=== PATIENT | male | born 1940 | race Caucasian/White ===

== ENCOUNTER → 2018-03-12 11:05 | Outpatient (CLI) | payer MEDICARE, MEDICAID, SELFPAY ==
[2018-03-12 11:08] LABS: Adenovirus F 40/41, stool Not Detected (NotDetected); Astrovirus Not Detected (NotDetected); Campylobacter Not Detected (NotDetected); Clostridium Difficile A/B, PCR Not Detected (NotDetected); Cryptosporidium Not Detected (NotDetected); Cyclospora Cayetanesis Not Detected (NotDetected); Entamoeba histolytica Not Detected (NotDetected); Enteroaggregative E coli Not Detected (NotDetected); Enteropathogenic E coli Not Detected (NotDetected); Enterotoxigenic E coli Not Detected (NotDetected); Giardia lamblia Not Detected (NotDetected); Norovirus Not Detected (NotDetected); Plesimonas Shigalloides, PCR Not Detected (NotDetected); Rotavirus A Not Detected (NotDetected); Salmonella, PCR Not Detected (NotDetected); Sapovirus Not Detected (NotDetected); Shiga-like toxin E coli Not Detected (NotDetected); Shigella Enterovasive E coli Not Detected (NotDetected); Vibrio Cholerae Not Detected (NotDetected); Vibrio, PCR Not Detected (NotDetected); Yersinia Entercolitica, PCR Not Detected (NotDetected)
== END ==
PROVIDERS: Visit Provider Emergency Medicine
DX: K62.5 Hemorrhage of anus and rectum (principal)
CPT/HCPCS: 87507

== ENCOUNTER 2019-01-22 08:18 | Inpatient (IN) ==
--- NOTE | 2019-01-22 08:39 | Emergency Department Note ---
ED Disposition Clinical Impression: SBO (small bowel obstruction), Ileus Disposition: Admitted as Observation Condition on Discharge: Good Instructions: DI for Acute Abdomen Referrals: Provider,Referral, MD [Primary Care Provider] - Time of Disposition: 13:24 - Critical Care Critical Care Time: No Attestation: On , the high probability of a clinically significant, sudden or life threatening deterioration of the following system(s) required my full and direct attention, intervention and personal management. The time I documented below is in addition to time spent performing reported procedures but includes the following listed in this critical care notation. Medical Decision Making - Medical Records Medical records reviewed: Yes: I reviewed the patient's medical records. - Haim Inquiry Pt receiving controlled substance: No Haim was queried for this patient: No Vital Signs: 01/22/19 08:31 01/22/19 08:50 01/22/19 10:50 Temperature 98.2 F Temperature Source Oral Pulse Rate [Left Radial] 77 70 75 Respiratory Rate 20 17 20 Blood Pressure [Right Arm] 121/82 136/74 123/72 Blood Pressure Mean [Right Arm] 95 94 89 Blood Pressure Source [Right Arm] Automatic Cuff Automatic Cuff Automatic Cuff Blood Pressure Position [Right Arm] Sitting Sitting Sitting 02 Sat by Pulse Oximetry 94 L 97 97 Oxygen Delivery Method Room Air Room Air Room Air 01/22/19 11:00 01/22/19 12:00 Temperature Temperature Source Pulse Rate [Left Radial] 78 73 Respiratory Rate 20 17 Blood Pressure [Right Arm] 127/79 120/53 L Blood Pressure Mean [Right Arm] 95 75 Blood Pressure Source [Right Arm] Automatic Cuff Automatic Cuff Blood Pressure Position [Right Arm] Sitting Sitting 02 Sat by Pulse Oximetry 95 96 Oxygen Delivery Method Room Air Room Air - Lab Data Lab results reviewed: Yes: I reviewed the patient's lab results. Lab Results 01/22/19 08:40: Urine Color Yellow, Urine Appearance Clear, Urine pH 6.0, Ur Specific [place] >= 1.030, Urine Protein 1+, Urine Glucose (UA) Negative, Urine Ketones Trace, Urine Blood Negative, Urine Nitrate Negative, Urine Bilirubin 2+ A, Urine Urobilinogen 1.0, Ur Leukocyte Esterase Trace, Urine RBC Occasional, U rine WBC 10-20, Ur Squamous Epith Cells 3-5, Urine Bacteria 1+, Urine Mucus 1+ 01/22/19 09:00: WBC 14.3 H, RBC 5.30, Hgb 15.9, Hct 49.5, MCV 93.5, MCH 29.9, MCHC 32.0, RDW 14.1, Plt Count 267, MPV 8.1, Neut % (Auto) 87.2 H, Lymph % (Auto ) 6.7 L, [place] % (Auto) 5.6, Eos % (Auto) 0.4, Baso % (Auto) 0.1, Neut # (Auto) 12.4 H, Lymph # (Auto) 1.0, [place] # (Auto) 0.8, Eos # (Auto) 0.1, Baso # (Auto) 0.0, Total Counted 100, Neutrophils % (Manual) 85 H, Band Neutrophils % 2.0, Lymphocytes % (Manual) 8 L, Monocytes % (Manual) 3, Eosinophils % (Manual) 2, Platelet Estimate Normal, RBC Morphology Normal 01/22/19 09:00: Sodium 136, Potassium 4.1, Chloride 97 L, Carbon Dioxide 31, Anion Gap 12.1, BUN 36 H, Creatinine 1.45 H, Estimated Creat Clear 36, Estimated GFR 47 L, Est GFR ( Amer) 57 L, Glucose 141 H, Calcium 8.9, Total Bilirubin 0.7, AST 21, ALT 21, Alkaline Phosphatase 75, Total Protein 7.1, Albumin 3.4, Globulin 3.7 H, Albumin/Globulin Ratio 0.9 L, Amylase 142 H, Lipase 92 01/22/19 09:00: PT 11.4, INR 1.10, APTT 27.8 01/22/19 11:37: Lactate 1.7 Result diagrams: 01/22/19 09:00 01/22/19 09:00 Orders (Tests/Meds): ED MEDICATIONS Generic Name Dose Route Start Last Admin Trade Name Freq PRN Reason Stop Dose Admin Hydromorphone HCl 1 mg 01/22/19 11:35 Dilaudid 2mg/Ml Syringe IV 02/21/19 11:34 Q4HP PRN Moderate to Severe Pain Ceftriaxone Sodium 2 gm/ 50 mls @ 100 mls/hr 01/22/19 10:15 01/22/19 12:16 Sodium Chloride IV 02/05/19 10:14 100 mls/hr Q24H MARTINEZ Administration Protocol Discontinued Medications Generic Name Dose Route Start Last Admin Trade Name Freq PRN Reason Stop Dose Admin Sodium Chloride 1,000 mls @ 999 mls/hr 01/22/19 08:45 01/22/19 09:01 Sod Chlor 0.9% 1000ml Bag IV 01/22/19 09:45 999 mls/hr .Q1H1M MARTINEZ Administration Ioversol 75 ml 01/22/19 10:46 01/22/19 10:46 Rad-Optiray 350 100ml Vial IV 01/22/19 10:47 75 ml ONCE ONE Administration Protocol Ketorolac Tromethamine 30 mg 01/22/19 08:40 01/22/19 09:00 Toradol 30mg/Ml Vial IV 01/22/19 08:41 30 mg ONCE ONE Administration Ondansetron HCl 4 mg 01/22/19 08:40 01/22/19 09:01 Zofran 4mg/2ml Vial IV 01/22/19 08:41 4 mg ONCE ONE Administration Sodium Chloride 10 ml 01/22/19 10:46 01/22/19 10:46 Rad-Saline Flush 10ml Syringe IV 01/22/19 10:47 10 ml ONCE ONE Administration ORDERS Category Date Time Status Blood Culture Stat Micro 01/22/19 11:30 Received Urine Culture Stat Micro 01/22/19 08:40 Received General Adult HPI - General Chief complaint: Abdominal Pain Stated complaint: Stomach pain and vomiting Time Seen by Provider: 01/22/19 08:35 Source of Information: Patient Limitations: No Limitations - History of Present Illness HPI narrative: abdominal cramping, vomiting without fever. - Related Data Home Medications Medication Instructions Recorded Confirmed Levothyroxine Sodium 75 mcg PO DAILY 04/29/18 01/22/19 [Levothyroxine 75mcg (0.075mg) Tab] Tamsulosin HCl [Flomax 0.4mg 0.4 mg PO HS 04/29/18 01/22/19 capsule] Nitrofurantoin Monohyd/M-Cryst 100 mg PO BID 01/22/19 01/22/19 [Macrobid 100 mg Capsule] Allergies Allergy/AdvReac Type Severity Reaction Status Date / Time No Known Allergies Allergy Verified 04/23/18 14:54 [facility] History - Hepatitis A Screen Attestation statement:: This patient has been screened for Hepatitis A risk factors. I have reviewed the patient's past medical history: Yes Medical History: Denies:: Diabetes Mellitus Type 1, Diabetes Mellitus Type 2, Internal Pacemaker, Lung Disease, Seizures Other Surgeries: No: Pacemaker - Social History Alcohol Intake: never ROS Obtained: Yes All systems reviewed & no additional complaints - Constitutional Constitutional: Reports chills - Cardiovascular Cardiovascular: Denies chest pain, Denies chest pain at rest, Denies dyspnea, Denies rapid heart rate - Respiratory Respiratory: Yes system reviewed and no additional complaints, except as docu, No chest congestion, No cough, No dyspnea on exertion - Gastrointestinal Gastrointestingal: Reports: abdominal pain, belching, bloating, constipation, cramping, feeling full early, nausea, vomiting, other (npo x 2 days). Denies: excessive passing of gas, incontinent of stools, vomiting blood, bright red blood in stools - Genitourinary Male Genitourinary: Reports flank pain, Reports hematuria - Musculoskeletal Musculoskeletal: Denies joint stiffness, Denies joint swelling - Integumentary/Breasts Skin/Breast: Denies rash, Denies skin pain, Denies sores, Reports wounds - Neurologic Neurologic: Denies headache(s), Denies weakness - Hematologic/Lymphatic Henatologic/Lymphatic: Denies easy bleeding Physical Exam - General General appearance: alert, in no apparent distress - Head Head exam: atraumatic, normocephalic, normal inspection - Eye Eye exam: Present: normal appearance, PERRL, EOMI - ENT ENT exam: Present: normal exam, normal oropharynx, mucous membranes moist, TM's normal bilaterally, normal external ear exam - Neck Neck exam: Present: normal inspection, full ROM, trachea midline. Absent: meningismus, lymphadenopathy - Respiratory Respiratory exam: Present: normal lung sounds bilaterally. Absent: respiratory distress - Cardiovascular Cardiovascular exam: Present: regular rate, normal rhythm. Absent: JVD - Abdominal Exam Abdominal exam: Present: distention, tenderness, rebound, tenderness at [place]'s Point. Absent: guarding, mass, hernia - Extremities Exam Extremities exam: Present: normal inspection, full ROM, normal capillary refill. Absent: calf tenderness - Back Exam Back exam: Present: normal inspection. Absent: tenderness - Neurological Exam Neurological exam: Present: alert - Psychiatric Psychiatric exam: Present: normal affect, normal mood - Skin Skin exam: Present: warm, dry, intact, normal color - Lymphatic Lymphatic Findings: no adenopathy
[2019-01-22 08:49] LABS: Appearance,Urine CLEAR (Clear); Blood, Urine Negative (Negative); Color,Urine YELLOW (Yellow); Glucose,Urine (UA) Negative (Negative); Ketones,Urine TRACE (Negative); Leukocyte Esterase,Urine TRACE (Negative); Protein,Urine 1+ (Negative); Specific Gravity, Urine >= 1.030 (1.005-1.030)
[2019-01-22 08:50] LABS: Microscopic, Urine URINE MICROSCOPIC (MICROSCOPIC)
[2019-01-22 08:57] LABS: Bilirubin,Urine 2+ (Negative)
[2019-01-22 09:11] LABS: Bacteria,Urine 1+ /lpf; Mucus,Urine 1+ /lpf; RBC,Urine Occasional #/hpf (0-3)
[2019-01-22 09:12] LABS: Basophils % 0.1 % (0.1-2.0); Eosinophils # 0.1 K/mm3 (0.0-0.4); Eosinophils % 0.4 % (0.1-12.0); Hematocrit 49.5 % (42.0-52.0); Hemoglobin 15.9 g/dL (14.1-18.0); Lymphocytes % 6.7 % (10-50); Mean Corpuscular Volume 93.5 fl (80-94); Mean Platelet Volume 8.1 fl (7.4-10.4); Monocytes # 0.8 K/mm3 (0.1-1.0); Monocytes % 5.6 % (1.7-9.3); Neutrophils # 12.4 K/mm3 (1.8-7.8); Neutrophils % 87.2 % (37.0-80.0); Platelet Count 267 K/mm3 (142-424); Red Cell Distribution Width 14.1 % (11.5-17.5); White Blood Count 14.3 K/mm3 (4.8-10.8)
[2019-01-22 09:25] LABS: Albumin Level 3.4 gm/dL (3.4-5.0); Albumin/Globulin Ratio 0.9 (1.1-1.8); Anion Gap 12.1 mEq/L (5-15); Bilirubin,Total 0.7 mg/dL (0.2-1.0); Calcium 8.9 mg/dL (8.5-10.1); Globulin 3.7 gm/dl (1.3-3.2); Total Protein,Serum 7.1 gm/dL (6.4-8.2)
[2019-01-22 10:02] LABS: Eosinophils % 2 % (0-3); Lymphocytes % 8 % (10-50); Monocytes % 3 % (2-9); Neutrophils % 85 % (42-76); Total Cells Counted 100
[2019-01-22 10:08] LABS: RBC Morphology Normal
[2019-01-22 11:49] LABS: Activated Partial Thrombo Time 27.8 seconds (23.6-34.0); INR 1.1 (0.9-1.1); Prothrombin Time 11.4 seconds (9.4-11.8)
--- NOTE | 2019-01-22 15:20 | History & Physical Report ---
HPI HPI: This is a 78-year-old gentleman with no significant past medical/surgical history who presents the emergency department with a 2-3-day history of nausea with intermittent emesis. He also describes vague/crampy abdominal pain. No fevers. He states that his last bowel movement was on Sunday (2 days ago) and was fairly normal. No diarrhea. He has continued to pass some flatus but is uncertain as to his most recent episode. Evaluation in emergency department included a CT scan that showed changes consistent with possible partial small bowel obstruction with patchy areas of dilatation/decompression, but no definitive transition point. [facility] History Medical History: Denies:: Diabetes Mellitus Type 1, Diabetes Mellitus Type 2, Internal Pacemaker, Lung Disease, Seizures *Have you ever received a pneumonia vaccine?: No *Have you received a flu vaccine this season?: Yes Other Surgeries: No: Pacemaker - *Social History Educational Level: Attended Grade School Smoking Status: Former smoker Alcohol Intake: never *Occupational Status:: retired *Travel in the last 8 weeks: None - Psychiatric History Expresses thoughts of harming self/others: None Suicide Plan Description: No Plan Family Hx:: Cancer Review of Systems - Constitutional Denies body ache(s) - Eyes Denies change in vision - ENT Denies difficulty swallowing - *Cardiovascular Denies chest pain - *Respiratory Denies cough - *Gastrointestinal Reports abdominal pain, Reports nausea, Reports vomiting - *Genitourinary Denies painful urination - *Musculoskeletal Denies deformity - Integumentary/Breasts Denies changing lesions - *Neurologic Denies headache(s), Denies weakness - Psychiatric Denies anxiety - Endocrine Denies cold intolerance - Hematologic/Lymphatic Denies easy bleeding - Allergic/Immunologic Denies throat swelling Meds Home Medications Medication Instructions Recorded Confirmed Type Levothyroxine Sodium 75 mcg PO DAILY 04/29/18 01/22/19 History [Levothyroxine 75mcg (0.075mg) Tab] Tamsulosin HCl [Flomax 0.4mg 0.4 mg PO HS 04/29/18 01/22/19 History capsule] Nitrofurantoin Monohyd/M-Cryst 100 mg PO BID 01/22/19 01/22/19 History [Macrobid 100 mg Capsule] Allergies Allergy/AdvReac Type Severity Reaction Status Date / Time No Known Allergies Allergy Verified 04/23/18 14:54 Exam Vital signs and Labs for Last 24 Hours: Temp Pulse Resp BP Pulse Ox 98.2 F 77 18 111/67 95 01/22/19 14:18 01/22/19 14:18 01/22/19 14:18 01/22/19 14:18 01/22/19 14:18 Laboratory Results - last 24 hr 01/22/19 08:40: Urine Color Yellow, Urine Appearance Clear, Urine pH 6.0, Ur Specific [place] >= 1.030, Urine Protein 1+, Urine Glucose (UA) Negative, Urine Ketones Trace, Urine Blood Negative, Urine Nitrate Negative, Urine Bilirubin 2+ A, Urine Urobilinogen 1.0, Ur Leukocyte Esterase Trace, Urine RBC Occasional, Urine WBC 10-20, Ur Squamous Epith Cells 3-5, Urine Bacteria 1+, Urine Mucus 1+ 01/22/19 09:00: WBC 14.3 H, RBC 5.30, Hgb 15.9, Hct 49.5, MCV 93.5, MCH 29.9, MCHC 32.0, RDW 14.1, Plt Count 267, MPV 8.1, Neut % (Auto) 87.2 H, Lymph % (Auto) 6.7 L, [place] % (Auto) 5.6, Eos % (Auto) 0.4, Baso % (Auto) 0.1, Neut # (Auto) 12.4 H, Lymph # (Auto) 1.0, [place] # (Auto) 0.8, Eos # (Auto) 0.1, Baso # (Auto) 0.0, Total Counted 100, Neutrophils % (Manual) 85 H, Band Neutrophils % 2.0, Lymphocytes % (Manual) 8 L, Monocytes % (Manual) 3, Eosinophils % (Manual) 2, Platelet Estimate Normal, RBC Morphology Normal 01/22/19 09:00: Sodium 136, Potassium 4.1, Chloride 97 L, Carbon Dioxide 31, Anion Gap 12.1, BUN 36 H, Creatinine 1.45 H, Estimated Creat Clear 36, Estimated GFR 47 L, Est GFR ( Amer) 57 L, Glucose 141 H, Calcium 8.9, Total Bilirubin 0.7, AST 21, ALT 21, Alkaline Phosphatase 75, Total Protein 7.1, Albumin 3.4, Globulin 3.7 H, Albumin/Globulin Ratio 0.9 L, Amylase 142 H, Lipase 92 01/22/19 09:00: PT 11.4, INR 1.10, APTT 27.8 01/22/19 11:37: Lactate 1.7 I & O for Last 24 hours: Intake & Output 01/20/19 01/21/19 01/22/19 01/23/19 11:59 11:59 11:59 11:59 Intake Total 1100 / 1100 Balance 1100 / 1100 Weight 130 lb 128 lb 8 oz - Constitutional no acute distress - *Routine HEENT Exam Head: Present: normocephalic, atraumatic Eye: Present: EOMI - *Routine Neck Exam Present: full ROM - Routine Chest/Breast/Axilla Exam Chest wall: Absent: tenderness - *Routine Respiratory Exam Absent: respiratory distress - *Routine Abdominal Exam Present: tenderness. Absent: rebound, guarding, rigid Comments: Mildly distended and mild to moderate tenderness in mid and lower abdomen - *Routine Extremities Exam Present: full ROM. Absent: cyanosis, clubbing, edema - Routine Back/Spine/Pelvis Exam Back/Spine: Present: full ROM - *Routine Skin Exam Present: intact - *Routine Neurological Exam Present: alert - Routine Psychiatric Exam Present: normal affect Results - Results Lab Results Last 24 Hours:: Laboratory Results - last 24 hr 01/22/19 08:40: Urine Color Yellow, Urine Appearance Clear, Urine pH 6.0, Ur Specific [place] >= 1.030, Urine Protein 1+, Urine Glucose (UA) Negative, Urine Ketones Trace, Urine Blood Negative, Urine Nitrate Negative, Urine Bilirubin 2+ A, Urine Urobilinogen 1.0, Ur Leukocyte Esterase Trace, Urine RBC Occasional, Urine WBC 10-20, Ur Squamous Epith Cells 3-5, Urine Bacteria 1+, Urine Mucus 1+ 01/22/19 09:00: WBC 14.3 H, RBC 5.30, Hgb 15.9, Hct 49.5, MCV 93.5, MCH 29.9, MCHC 32.0, RDW 14.1, Plt Count 267, MPV 8.1, Neut % (Auto) 87.2 H, Lymph % (Auto) 6.7 L, [place] % (Auto) 5.6, Eos % (Auto) 0.4, Baso % (Auto) 0.1, Neut # (Auto) 12.4 H, Lymph # (Auto) 1.0, [place] # (Auto) 0.8, Eos # (Auto) 0.1, Baso # (Auto) 0.0, Total Counted 100, Neutrophils % (Manual) 85 H, Band Neutrophils % 2.0, Lymphocytes % (Manual) 8 L, Monocytes % (Manual) 3, Eosinophils % (Manual) 2, Platelet Estimate Normal, RBC Morphology Normal 01/22/19 09:00: Sodium 136, Potassium 4.1, Chloride 97 L, Carbon Dioxide 31, Anion Gap 12.1, BUN 36 H, Creatinine 1.45 H, Estimated Creat Clear 36, Estimated GFR 47 L, Est GFR ( Amer) 57 L, Glucose 141 H, Calcium 8.9, Total Bilirubin 0.7, AST 21, ALT 21, Alkaline Phosphatase 75, Total Protein 7.1, Albumin 3.4, Globulin 3.7 H, Albumin/Globulin Ratio 0.9 L, Amylase 142 H, Lipase 92 01/22/19 09:00: PT 11.4, INR 1.10, APTT 27.8 01/22/19 11:37: Lactate 1.7 CT scan - abdomen: report reviewed, image reviewed CT scan - pelvis: report reviewed, image reviewed Assessment and Plan (1) SBO (small bowel obstruction) Current visit: Yes Status: Acute Category: Medical Code(s): K56.609 - Unspecified intestinal obstruction, unspecified as to partial versus complete obstruction The patient seemingly has a partial small bowel obstruction of undetermined etiology. He does have some "tightness" and around the terminal ileum with no history consistent with inflammatory bowel disease and no other radiographic evidence consistent with inflammatory bowel disease. In addition, the patient has some areas of the jejunum that are not dilated with some other patchy non- congruent areas of dilatation to include the stomach. He does not have peritonitis or other evidence to suggest need for immediate surgical intervention. Serial abdominal exams Continue nasogastric decompression Repeat labs in a.m. Small bowel series NPO/IV fluids (2) ANABELLA (acute kidney injury) Current visit: Yes Status: Acute Category: Medical Code(s): N17.9 - Acute kidney failure, unspecified Most likely secondary to emesis associated dehydration. LR bolus IVFs at 150
--- NOTE | 2019-01-23 06:50 | Progress Note ---
Subjective Patient reports: pain is less, no flatus Exam Vital signs and Labs for Last 24 Hours: Temp Pulse Resp BP Pulse Ox 98.5 F 74 16 114/56 L 96 01/23/19 04:00 01/23/19 04:00 01/23/19 04:00 01/23/19 04:00 01/23/19 04:00 Laboratory Results - last 24 hr 01/22/19 08:40: Urine Color Yellow, Urine Appearance Clear, Urine pH 6.0, Ur Specific [place] >= 1.030, Urine Protein 1+, Urine Glucose (UA) Negative, Urine Ketones Trace, Urine Blood Negative, Urine Nitrate Negative, Urine Bilirubin 2+ A, Urine Urobilinogen 1.0, Ur Leukocyte Esterase Trace, Urine RBC Occasional, Urine WBC 10-20, Ur Squamous Epith Cells 3-5, Urine Bacteria 1+, Urine Mucus 1+ 01/22/19 09:00: WBC 14.3 H, RBC 5.30, Hgb 15.9, Hct 49.5, MCV 93.5, MCH 29.9, MCHC 32.0, RDW 14.1, Plt Count 267, MPV 8.1, Neut % (Auto) 87.2 H, Lymph % (Auto) 6.7 L, [place] % (Auto) 5.6, Eos % (Auto) 0.4, Baso % (Auto) 0.1, Neut # (Auto) 12.4 H, Lymph # (Auto) 1.0, [place] # (Auto) 0.8, Eos # (Auto) 0.1, Baso # (Auto) 0.0, Total Counted 100, Neutrophils % (Manual) 85 H, Band Neutrophils % 2.0, Lymphocytes % (Manual) 8 L, Monocytes % (Manual) 3, Eosinophils % (Manual) 2, Platelet Estimate Normal, RBC Morphology Normal 01/22/19 09:00: Sodium 136, Potassium 4.1, Chloride 97 L, Carbon Dioxide 31, Anion Gap 12.1, BUN 36 H, Creatinine 1.45 H, Estimated Creat Clear 36, Estimated GFR 47 L, Est GFR ( Amer) 57 L, Glucose 141 H, Calcium 8.9, Total Bilirubin 0.7, AST 21, ALT 21, Alkaline Phosphatase 75, Total Protein 7.1, Albumin 3.4, Globulin 3.7 H, Albumin/Globulin Ratio 0.9 L, Amylase 142 H, Lipase 92 01/22/19 09:00: PT 11.4, INR 1.10, APTT 27.8 01/22/19 11:37: Lactate 1.7 I & O for Last 24 hours: Intake & Output 01/20/19 01/21/19 01/22/19 01/23/19 11:59 11:59 11:59 11:59 Intake Total 3781 / 3781 Output Total 1050 / 1050 Balance 2731 / 2731 Weight 130 lb 126 lb 9 oz - Constitutional no acute distress - *Routine Respiratory Exam Absent: respiratory distress - *Routine Cardiovascular Exam Present: RRR - *Routine Abdominal Exam Present: soft, tenderness, distended Comments: less TTP Progress Note: A&P (1) SBO (small bowel obstruction) Status: Acute Assessment and plan: SBFT today Current Visit: Yes (2) ANABELLA (acute kidney injury) Status: Acute Current Visit: Yes
[2019-01-23 06:59] LABS: Anion Gap 9.1 mEq/L (5-15)
[2019-01-23 07:00] LABS: Eosinophils % 0.2 % (0.1-12.0); Monocytes # 0.7 K/mm3 (0.1-1.0)
--- NOTE | 2019-01-23 07:29 | Pharmacy Consult Notes ---
[facility] Pharmacy VTE Monitoring - Patient Demographics Admission date: 01/23/19 Report Date: 01/23/19 Time: 07:29 Allergies/Adverse Reactions: Patient Allergies No Known Allergies Allergy (Verified 04/23/18 14:54) Height: 1.7 m Weight: 57.408 kg Patient Problems: Current Active Problems (Updated 01/22/19 @ 15:31 by Noah Diaz MD) SBO (small bowel obstruction) (Acute) Ileus (Acute) ANABELLA (acute kidney injury) (Acute) - VTE Risk Labs: VTE Related Lab Results Hgb 15.9 g/dL (14.1-18.0) 01/22/19 09:00 Hct 49.5 % (42.0-52.0) 01/22/19 09:00 Plt Count 267 K/mm3 (142-424) 01/22/19 09:00 PT 11.4 seconds (9.4-11.8) 01/22/19 09:00 INR 1.10 (0.9-1.1) 01/22/19 09:00 APTT 27.8 seconds (23.6-34.0) 01/22/19 09:00 BUN 31 mg/dL (7-18) H 01/23/19 06:17 Creatinine 1.10 mg/dL (0.70-1.30) D 01/23/19 06:17 Estimated Creat Clear 46 mL/min (50-200) 01/23/19 06:17 Was VTE Risk Assessment Performed: Yes VTE Score: 1 VTE Risk Level: Low Risk Clinical Trial Participant: No - Prophylaxis VTE Prophylaxis Ordered?: Yes Types of VTE Prophylaxis: TEDS Knee High
[2019-01-23 07:50] LABS: Basophils % 0.1 % (0.1-2.0); Hematocrit 41.8 % (42.0-52.0); Mean Corpuscular HGB Conc 31.5 g/dL (31.8-35.4); Mean Corpuscular Volume 92.6 fl (80-94); Mean Platelet Volume 8.2 fl (7.4-10.4); Monocytes % 6.7 % (1.7-9.3); Neutrophils # 9.3 K/mm3 (1.8-7.8); Neutrophils % 84.1 % (37.0-80.0); Platelet Count 214 K/mm3 (142-424); Red Blood Count 4.52 M/mm3 (4.60-6.20); White Blood Count 11.1 K/mm3 (4.8-10.8)
[2019-01-23 08:03] LABS: Hemoglobin 13.2 g/dL (14.1-18.0)
--- NOTE | 2019-01-24 06:31 | Progress Note ---
Subjective Patient reports: no new complaints (He states that he passed a small amount of flatus a few hours ago.) Exam Vital signs and Labs for Last 24 Hours: Temp Pulse Resp BP Pulse Ox 99.8 F H 70 18 118/62 93 L 01/24/19 03:57 01/24/19 03:57 01/24/19 03:57 01/24/19 03:57 01/24/19 03:57 Laboratory Results - last 24 hr 01/23/19 06:17: WBC 11.1 H, RBC 4.52 L, Hgb 13.2 L D, Hct 41.8 L, MCV 92.6, MCH 29.2, MCHC 31.5 L, RDW 14.0, Plt Count 214, MPV 8.2, Neut % (Auto) 84.1 H, Lymph % (Auto) 9.0 L, [place] % (Auto) 6.7, Eos % (Auto) 0.2, Baso % (Auto) 0.1, Neut # (Auto) 9.3 H, Lymph # (Auto) 1.0, [place] # (Auto) 0.7, Eos # (Auto) 0.0, Baso # (Auto) 0.0 01/23/19 06:17: Sodium 136, Potassium 4.1, Chloride 100, Carbon Dioxide 31, Anion Gap 9.1, BUN 31 H, Creatinine 1.10 D, Estimated Creat Clear 46, Estimated GFR 65, Est GFR ( Amer) 79 D, Glucose 95 D, Calcium 8.0 L D I & O for Last 24 hours: Intake & Output 01/21/19 01/22/19 01/23/19 01/24/19 11:59 11:59 11:59 11:59 Intake Total 3781 / 3781 2203 / 2203 Output Total 1050 / 1050 2250 / 2250 Balance 2731 / 2731 -47 / -47 Weight 130 lb 126 lb 9 oz 129 lb Microbiology Reports for the Last 24 Hours: Microbiology 01/22/19 08:40 Urine,Random Urine Culture - Final Multiple organisms, suggests contamination. - Constitutional no acute distress - *Routine Respiratory Exam Absent: respiratory distress - *Routine Cardiovascular Exam Present: RRR - *Routine Abdominal Exam Comments: Unchanged Progress Note: A&P (1) SBO (small bowel obstruction) Status: Acute Assessment and plan: Follow-up morning films and labs Current Visit: Yes (2) ANABELLA (acute kidney injury) Status: Acute Current Visit: Yes
[2019-01-24 07:13] LABS: Anion Gap 11.7 mEq/L (5-15); Calcium 8.3 mg/dL (8.5-10.1)
[2019-01-24 07:22] LABS: Basophils % 0.2 % (0.1-2.0); Eosinophils % 0.3 % (0.1-12.0); Hematocrit 41.6 % (42.0-52.0); Hemoglobin 13.4 g/dL (14.1-18.0); Lymphocytes # 1.2 K/mm3 (0.7-4.5); Lymphocytes % 12.5 % (10-50); Mean Corpuscular HGB Conc 32.2 g/dL (31.8-35.4); Mean Corpuscular Volume 91.1 fl (80-94); Mean Platelet Volume 8.9 fl (7.4-10.4); Monocytes # 0.7 K/mm3 (0.1-1.0); Monocytes % 7.4 % (1.7-9.3); Neutrophils # 7.9 K/mm3 (1.8-7.8); Neutrophils % 79.5 % (37.0-80.0); Platelet Count 224 K/mm3 (142-424); Red Blood Count 4.56 M/mm3 (4.60-6.20); Red Cell Distribution Width 13.9 % (11.5-17.5); White Blood Count 9.9 K/mm3 (4.8-10.8)
--- NOTE | 2019-01-24 17:19 | Progress Note ---
[facility] Anesthesia Checklist - Structural Data Admitted From: Inpatient Planned Operative Procedure/s: exp lap Consent for Planned Operative Procedure(s) Verified: Yes - Airway Assessment C-Spine Mobility Assessed: Yes TMJ Mobility Assessed: Yes Dentition: Poor Dentition - Neurological Assessment Level of Consciousness: Awake, Alert, Appropriate - Anesthesia Plan Anesthesia Risk discussed: Yes Anesthesia Plan: Verified ASA Class: II Anesthesia Type: General [facility] History I have reviewed the patient's past medical history: Yes Medical History: Denies:: Diabetes Mellitus Type 1, Diabetes Mellitus Type 2, Internal Pacemaker, Lung Disease, Seizures *Have you ever received a pneumonia vaccine?: No *Have you received a flu vaccine this season?: Yes Other Surgeries: No: Pacemaker - *Social History Educational Level: Attended Grade School Smoking Status: Former smoker Alcohol Intake: never Substance Use Type: denies use *Occupational Status:: retired *Travel in the last 8 weeks: None - Psychiatric History Expresses thoughts of harming self/others: None Suicide Plan Description: No Plan Family Hx:: Cancer
--- NOTE | 2019-01-24 17:20 | Progress Note ---
[facility] Anesthesia Record Part II Discharge Time: 17:45 Destination: floor PACU nurse assessment reviewed?: Yes Patient Condition:: Good Anesthesia Complications:: None Swallowing reflex intact?: Yes Cyanosis?: No
--- NOTE | 2019-01-24 17:20 | Operative Note ---
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 General anesthesia was induced and his abdomen was prepped and draped in a sterile fashion. A midline laparotomy incision was made just above and below the umbilicus. The abdomen was carefully entered and transudate of fluid was immediately encountered. The fluid was evacuated. The small bowel was somewhat distended. The proximal small bowel appeared healthy and fairly normal with the exception of slight distention. The distal small bowel was carefully elevated as small areas of "bruising" were noted focally (proximal ileum). Distally an area of "torque" around the mesentery was obvious and careful elevation revealed a distal ileal diverticulum as a lead point. The diverticulum appeared necrotic but no sign of obvious perforation was noted. The distal ileum was carefully elevated and a site proximally and distally to the areas of necrosis to include the diverticulum was transected with a CHUY stapler. The intervening mesentery was taken down with Enseal. A stapled anastomosis was then accomplished utilizing the CHUY staplers and a TX 60 to close the common defect. Imbrication with 3-0 Nurolon with particular attention to securing the "crotch" was then completed. The small bowel was returned to the abdominal cavity after closure of the mesenteric defect with running 2-0 Vicryl. The abdominal cavity was thoroughly irrigated. Fascia was reapproximated with #2 Novafil and skin was then closed with interrupted 4-0 nylon with gaps for packing. Dressings were applied and the patient was transferred to recovery in stable condition after extubation. Condition: stable Disposition: PACU Specimens:: Distal small bowel Complications:: No immediate
--- NOTE | 2019-01-24 17:20 | Progress Note ---
[facility] Anesthesia Record Part I Intake, IV Amount: 1,900 Estimated blood loss (mL): 250 Urine output (mL): 350 Blood Pressure: 149/71 SaO2: 99 Pulse Rate: 78 Respiratory Rate: 12 Temperature: 97.7 F Patient is:: Awake, Stable Stable to PACU at:: 17:15
[2019-01-25 07:17] LABS: Basophils % 0.1 % (0.1-2.0); Eosinophils % 0.3 % (0.1-12.0); Hemoglobin 12.5 g/dL (14.1-18.0); Lymphocytes # 0.5 K/mm3 (0.7-4.5); Lymphocytes % 4.6 % (10-50); Mean Corpuscular HGB Conc 31.9 g/dL (31.8-35.4); Mean Platelet Volume 7.7 fl (7.4-10.4); Monocytes # 0.4 K/mm3 (0.1-1.0); Monocytes % 4.4 % (1.7-9.3); Neutrophils # 8.9 K/mm3 (1.8-7.8); Neutrophils % 90.6 % (37.0-80.0); Platelet Count 180 K/mm3 (142-424); Red Cell Distribution Width 13.7 % (11.5-17.5); White Blood Count 9.9 K/mm3 (4.8-10.8)
[2019-01-25 07:25] LABS: Anion Gap 9.9 mEq/L (5-15)
[2019-01-25 07:34] LABS: Calcium 7.2 mg/dL (8.5-10.1)
[2019-01-25 07:58] LABS: Lymphocytes % 5 % (10-50); Monocytes % 2 % (2-9); Neutrophils % 81 % (42-76); RBC Morphology Normal; Total Cells Counted 100
--- NOTE | 2019-01-25 10:28 | Progress Note ---
Subjective Patient reports: no new complaints, no flatus Exam Vital signs and Labs for Last 24 Hours: Temp Pulse Resp BP Pulse Ox 99.2 F 64 18 113/59 L 89 L 01/25/19 08:00 01/25/19 08:00 01/25/19 08:00 01/25/19 08:00 01/25/19 08:00 Laboratory Results - last 24 hr 01/24/19 14:30: Urine Color Yellow, Urine Appearance Clear, Urine pH 8.0, Ur Specific [place] 1.010, Urine Protein Trace, Urine Glucose (UA) Negative, Urine Ketones 3+, Urine Blood Negative, Urine Nitrate Negative, Urine Bilirubin 1+ A, Urine Urobilinogen 0.2, Ur Leukocyte Esterase Negative 01/25/19 07:06: WBC 9.9, RBC 4.20 L, Hgb 12.5 L, Hct 39.0 L, MCV 93.0, MCH 29.7, MCHC 31.9, RDW 13.7, Plt Count 180, MPV 7.7, Neut % (Auto) 90.6 H, Lymph % (Auto) 4.6 L, [place] % (Auto) 4.4, Eos % (Auto) 0.3, Baso % (Auto) 0.1, Neut # (Auto) 8.9 H, Lymph # (Auto) 0.5 L, [place] # (Auto) 0.4, Eos # (Auto) 0.0, Baso # (Auto) 0.0, Total Counted 100, Neutrophils % (Manual) 81 H, Band Neutrophils % 11.0 H, Lymphocytes % (Manual) 5 L, Atypical Lymphs % 1.0, Monocytes % (Manual) 2, Platelet Estimate Normal, RBC Morphology Normal 01/25/19 07:06: Sodium 138, Potassium 3.9, Chloride 102, Carbon Dioxide 30, Anion Gap 9.9, BUN 22 H, Creatinine 0.91, Estimated Creat Clear 54, Estimated GFR 81, Est GFR ( Amer) 98, Glucose 127 H, Calcium 7.2 L D I & O for Last 24 hours: Intake & Output 01/22/19 01/23/19 01/24/19 01/25/19 11:59 11:59 11:59 11:59 Intake Total 3781 / 3781 2203 / 2203 4043 / 4043 Output Total 1050 / 1050 2375 / 2375 1640 / 1640 Balance 2731 / 2731 -172 / -172 2403 / 2403 Weight 130 lb 126 lb 9 oz 129 lb 135 lb Microbiology Reports for the Last 24 Hours: Microbiology 01/22/19 11:37 Blood Blood Culture - Preliminary NO GROWTH AFTER 48 HOURS 01/22/19 11:30 Blood Blood Culture - Preliminary NO GROWTH AFTER 48 HOURS - Constitutional no acute distress - *Routine Respiratory Exam Absent: respiratory distress - *Routine Cardiovascular Exam Present: RRR - *Routine Abdominal Exam Comments: dressing intact. no erythema. Progress Note: A&P (1) SBO (small bowel obstruction) Status: Acute Assessment and plan: Overall, doing fairly well postoperative day 1 status post exploratory laparotomy with partial small bowel resection. Remove Luna catheter Increase ambulation Continue nasogastric decompression for now Current Visit: Yes (2) ANABELLA (acute kidney injury) Status: Acute Current Visit: Yes
[2019-01-26 07:09] LABS: Basophils % 0.1 % (0.1-2.0); Eosinophils % 0.2 % (0.1-12.0); Hematocrit 36.9 % (42.0-52.0); Hemoglobin 11.8 g/dL (14.1-18.0); Lymphocytes # 0.9 K/mm3 (0.7-4.5); Lymphocytes % 8.4 % (10-50); Mean Corpuscular HGB Conc 31.9 g/dL (31.8-35.4); Mean Platelet Volume 7.9 fl (7.4-10.4); Monocytes # 0.7 K/mm3 (0.1-1.0); Neutrophils # 9.5 K/mm3 (1.8-7.8); Neutrophils % 85.4 % (37.0-80.0); Platelet Count 182 K/mm3 (142-424); Red Blood Count 4.01 M/mm3 (4.60-6.20); Red Cell Distribution Width 13.6 % (11.5-17.5); White Blood Count 11.2 K/mm3 (4.8-10.8)
[2019-01-26 07:26] LABS: Anion Gap 11.8 mEq/L (5-15); Calcium 7.5 mg/dL (8.5-10.1)
[2019-01-26 07:48] LABS: Lymphocytes % 9 % (10-50); Monocytes % 4 % (2-9); Neutrophils % 86 % (42-76); Total Cells Counted 100
[2019-01-26 07:49] LABS: RBC Morphology Normal
--- NOTE | 2019-01-26 11:32 | Progress Note ---
Subjective Patient reports: no new complaints (? flatus earlier today) Exam Vital signs and Labs for Last 24 Hours: Temp Pulse Resp BP Pulse Ox 98.2 F 56 L 18 122/62 91 L 01/26/19 08:00 01/26/19 08:00 01/26/19 08:00 01/26/19 08:00 01/26/19 08:26 Laboratory Results - last 24 hr 01/26/19 06:20: WBC 11.2 H, RBC 4.01 L, Hgb 11.8 L, Hct 36.9 L, MCV 92.0, MCH 29.4, MCHC 31.9, RDW 13.6, Plt Count 182, MPV 7.9, Neut % (Auto) 85.4 H, Lymph % (Auto) 8.4 L, [place] % (Auto) 6.0, Eos % (Auto) 0.2, Baso % (Auto) 0.1, Neut # (Au to) 9.5 H, Lymph # (Auto) 0.9, [place] # (Auto) 0.7, Eos # (Auto) 0.0, Baso # (Auto) 0.0, Total Counted 100, Neutrophils % (Manual) 86 H, Lymphocytes % ( Manual) 9 L, Atypical Lymphs % 1.0, Monocytes % (Manual) 4, Platelet Estimate Normal, RBC Morphology Normal 01/26/19 06:20: Sodium 141, Potassium 3.8, Chloride 104, Carbon Dioxide 29, Anion Gap 11.8, BUN 24 H, Creatinine 0.89, Estimated Creat Clear 55, Estimated GFR 83, Est GFR ( Amer) 101, Glucose 90 D, Calcium 7.5 L I & O for Last 24 hours: Intake & Output 01/23/19 01/24/19 01/25/19 01/26/19 11:59 11:59 11:59 11:59 Intake Total 3781 / 3781 2203 / 2203 4043 / 4043 3036 / 3036 Output Total 1050 / 1050 2375 / 2375 1640 / 1640 1025 / 1025 Balance 2731 / 2731 -172 / -172 2403 / 2403 2010 Weight 126 lb 9 oz 129 lb 135 lb 137 lb 8 oz - Constitutional no acute distress - *Routine Respiratory Exam Absent: respiratory distress - *Routine Cardiovascular Exam Present: RRR - *Routine Abdominal Exam Present: soft Comments: dressings intact. no cellulitis. Progress Note: A&P (1) SBO (small bowel obstruction) Status: Acute Assessment and plan: stable s/p ex-lap with SB resection await return of bowel function increase ambulation Current Visit: Yes (2) ANABELLA (acute kidney injury) Status: Acute Current Visit: Yes
[2019-01-27 06:31] LABS: Basophils % 0.1 % (0.1-2.0); Eosinophils # 0.1 K/mm3 (0.0-0.4); Eosinophils % 1.2 % (0.1-12.0); Hematocrit 37.4 % (42.0-52.0); Hemoglobin 11.9 g/dL (14.1-18.0); Lymphocytes # 0.9 K/mm3 (0.7-4.5); Mean Corpuscular HGB Conc 31.9 g/dL (31.8-35.4); Mean Platelet Volume 8.2 fl (7.4-10.4); Monocytes # 0.5 K/mm3 (0.1-1.0); Neutrophils # 6.9 K/mm3 (1.8-7.8); Neutrophils % 81.6 % (37.0-80.0); Platelet Count 207 K/mm3 (142-424); Red Blood Count 4.02 M/mm3 (4.60-6.20); Red Cell Distribution Width 13.7 % (11.5-17.5); White Blood Count 8.4 K/mm3 (4.8-10.8)
[2019-01-27 06:47] LABS: Anion Gap 7.6 mEq/L (5-15); Calcium 7.1 mg/dL (8.5-10.1)
--- NOTE | 2019-01-27 08:25 | Progress Note ---
Subjective Patient reports: no new complaints, flatus (The patient states that he had a "tiny amount of gas this morning") Exam Vital signs and Labs for Last 24 Hours: Temp Pulse Resp BP Pulse Ox 97.9 F 52 L 18 121/69 90 L 01/27/19 07:54 01/27/19 07:54 01/27/19 07:54 01/27/19 07:54 01/27/19 07:54 Laboratory Results - last 24 hr 01/27/19 06:08: WBC 8.4, RBC 4.02 L, Hgb 11.9 L, Hct 37.4 L, MCV 93.0, MCH 29.6, MCHC 31.9, RDW 13.7, Plt Count 207, MPV 8.2, Neut % (Auto) 81.6 H, Lymph % (Auto) 11.0, [place] % (Auto) 6.0, Eos % (Auto) 1.2, Baso % (Auto) 0.1, Neut # (Auto) 6.9, Lymph # (Auto) 0.9, [place] # (Auto) 0.5, Eos # (Auto) 0.1, Baso # (Auto) 0.0 01/27/19 06:08: Sodium 137, Potassium 3.6, Chloride 102, Carbon Dioxide 31, Anion Gap 7.6, BUN 16 D, Creatinine 0.94, Estimated Creat Clear 56, Estimated GFR 78, Est GFR ( Amer) 94, Glucose 128 H D, Calcium 7.1 L I & O for Last 24 hours: Intake & Output 01/24/19 01/25/19 01/26/19 01/27/19 11:59 11:59 11:59 11:59 Intake Total 2203 / 2203 4043 / 4043 3036 / 3036 4540 / 4540 Output Total 2375 / 2375 1640 / 1640 1275 / 1275 1575 / 1575 Balance -172 / -172 2403 / 2403 1761 / 1761 2965 / 2965 Weight 129 lb 135 lb 137 lb 8 oz 139 lb 2 oz - Constitutional no acute distress - *Routine Respiratory Exam Absent: respiratory distress - *Routine Abdominal Exam Present: soft Comments: Dressing in place. No cellulitis. Mild distention. Progress Note: A&P (1) SBO (small bowel obstruction) Status: Acute Assessment and plan: Overall, doing well status post exploratory laparotomy with partial small bowel resection. Nasogastric tube to straight drain with every 4 hours residual Continue n.p.o. status for now Sugarless gum Increase ambulation Current Visit: Yes (2) ANABELLA (acute kidney injury) Status: Acute Current Visit: Yes
[2019-01-28 06:41] LABS: Basophils % 0.2 % (0.1-2.0); Eosinophils # 0.2 K/mm3 (0.0-0.4); Eosinophils % 2.3 % (0.1-12.0); Hematocrit 42.2 % (42.0-52.0); Hemoglobin 13.4 g/dL (14.1-18.0); Lymphocytes # 0.9 K/mm3 (0.7-4.5); Lymphocytes % 10.5 % (10-50); Mean Corpuscular HGB Conc 31.9 g/dL (31.8-35.4); Mean Corpuscular Volume 92.7 fl (80-94); Mean Platelet Volume 7.6 fl (7.4-10.4); Monocytes # 0.5 K/mm3 (0.1-1.0); Monocytes % 5.8 % (1.7-9.3); Neutrophils # 7.2 K/mm3 (1.8-7.8); Neutrophils % 81.2 % (37.0-80.0); Platelet Count 236 K/mm3 (142-424); Red Blood Count 4.55 M/mm3 (4.60-6.20); Red Cell Distribution Width 13.6 % (11.5-17.5); White Blood Count 8.8 K/mm3 (4.8-10.8)
[2019-01-28 06:53] LABS: Anion Gap 8.1 mEq/L (5-15); Calcium 7.5 mg/dL (8.5-10.1)
--- NOTE | 2019-01-28 07:06 | Progress Note ---
Subjective Patient reports: no new complaints Narrative: Patient has had some issues with NG tube remaining "adherent" to nose. Has been to drain overnight. Only scant residuals. Had some flatus according to the patient. No nausea. Exam Vital signs and Labs for Last 24 Hours: Temp Pulse Resp BP Pulse Ox 98.0 F 52 L 18 125/69 95 01/28/19 06:00 01/28/19 06:00 01/28/19 06:00 01/28/19 06:00 01/28/19 06:00 Laboratory Results - last 24 hr 01/28/19 06:14: WBC 8.8, RBC 4.55 L, Hgb 13.4 L, Hct 42.2, MCV 92.7, MCH 29.5, MCHC 31.9, RDW 13.6, Plt Count 236, MPV 7.6, Neut % (Auto) 81.2 H, Lymph % (Auto) 10.5, [place] % (Auto) 5.8, Eos % (Auto) 2.3, Baso % (Auto) 0.2, Neut # (Auto) 7.2, Lymph # (Auto) 0.9, [place] # (Auto) 0.5, Eos # (Auto) 0.2, Baso # (Auto) 0.0 I & O for Last 24 hours: Intake & Output 01/25/19 01/26/19 01/27/19 01/28/19 11:59 11:59 11:59 11:59 Intake Total 4043 / 4043 3036 / 3036 4540 / 4540 1159 / 1159 Output Total 1640 / 1640 1275 / 1275 1575 / 1575 2130 / 2130 Balance 2403 / 2403 1761 / 1761 2965 / 2965 -971 / -971 Weight 135 lb 137 lb 8 oz 139 lb 2 oz 140 lb 4 oz Microbiology Reports for the Last 24 Hours: Microbiology 01/22/19 11:30 Blood Blood Culture - Final NO GROWTH AFTER 5 DAYS 01/22/19 11:37 Blood Blood Culture - Final NO GROWTH AFTER 5 DAYS - *Routine Abdominal Exam Present: soft Comments: Hypoactive bowel sounds. Slightly distended. Wound clean. Progress Note: A&P (1) SBO (small bowel obstruction) Status: Acute Current Visit: Yes (2) ANABELLA (acute kidney injury) Status: Acute Current Visit: Yes Assessment and Plan for All Diagnoses:: DC NG tube.
--- NOTE | 2019-01-28 13:37 | Progress Note ---
Internal Medicine - PN: Subj *Date: 01/28/19 *Time: 13:36 Exam Vital signs and Labs for Last 24 Hours: Temp Pulse Resp BP Pulse Ox 98.2 F 71 18 141/89 H 97 01/28/19 11:46 01/28/19 11:46 01/28/19 11:46 01/28/19 11:46 01/28/19 11:46 Laboratory Results - last 24 hr 01/28/19 06:14: WBC 8.8, RBC 4.55 L, Hgb 13.4 L, Hct 42.2, MCV 92.7, MCH 29.5, MCHC 31.9, RDW 13.6, Plt Count 236, MPV 7.6, Neut % (Auto) 81.2 H, Lymph % (Auto) 10.5, [place] % (Auto) 5.8, Eos % (Auto) 2.3, Baso % (Auto) 0.2, Neut # (Auto) 7.2, Lymph # (Auto) 0.9, [place] # (Auto) 0.5, Eos # (Auto) 0.2, Baso # (Auto) 0.0 01/28/19 06:14: Sodium 135 L, Potassium 4.1, Chloride 101, Carbon Dioxide 30, Anion Gap 8.1, BUN 9 D, Creatinine 1.01, Estimated Creat Clear 56, Estimated GFR 72, Est GFR ( Amer) 87, Glucose 116 H, Calcium 7.5 L I & O for Last 24 hours: Intake & Output 01/25/19 01/26/19 01/27/19 01/28/19 23:59 23:59 23:59 23:59 Intake Total 2143 / 2143 4631 / 4631 4104 / 4104 120 / 120 Output Total 1625 / 1625 1125 / 1125 2252 / 2255 1628 / 1628 Balance 518 / 518 3506 / 3506 1852 / 1849 -1508 / -1508 Weight 61.235 kg 62.369 kg 63.106 kg 63.616 kg Microbiology Reports for the Last 24 Hours: Microbiology 01/22/19 11:30 Blood Blood Culture - Final NO GROWTH AFTER 5 DAYS 01/22/19 11:37 Blood Blood Culture - Final NO GROWTH AFTER 5 DAYS Assessment and Plan (1) SBO (small bowel obstruction) Current visit: Yes Status: Acute Category: Medical Code(s): K56.609 - Unspecified intestinal obstruction, unspecified as to partial versus complete obstruction (2) ANABELLA (acute kidney injury) Current visit: Yes Status: Acute Category: Medical Code(s): N17.9 - Acute kidney failure, unspecified The patient's infection will respond to the chosen ABx?: Yes Is the patient receiving the right drug, dose, and route?: Yes Could a more targeted ABx be ordered?: No
--- NOTE | 2019-01-29 07:50 | Progress Note ---
Subjective Patient reports: flatus ("small amount" of flatus early this AM), no bowel movement Exam Vital signs and Labs for Last 24 Hours: Temp Pulse Resp BP Pulse Ox 98.3 F 63 20 127/71 95 01/29/19 06:00 01/29/19 06:00 01/29/19 06:00 01/29/19 06:00 01/29/19 06:00 I & O for Last 24 hours: Intake & Output 01/26/19 01/27/19 01/28/19 01/29/19 11:59 11:59 11:59 11:59 Intake Total 3036 / 3036 4540 / 4540 1159 / 1159 1748 / 1748 Output Total 1275 / 1275 1575 / 1575 2630 / 2630 1600 / 1600 Balance 1761 / 1761 2965 / 2965 -1471 / -1471 148 / 148 Weight 137 lb 8 oz 139 lb 2 oz 140 lb 4 oz 148 lb - Constitutional no acute distress - *Routine Respiratory Exam Absent: respiratory distress - *Routine Cardiovascular Exam Present: RRR - *Routine Abdominal Exam Present: soft Comments: less distended Progress Note: A&P (1) SBO (small bowel obstruction) Status: Acute Assessment and plan: Overall, doing fairly well status post exploration with partial small bowel resection. Current Visit: Yes (2) ANABELLA (acute kidney injury) Status: Acute Current Visit: Yes (3) Postoperative ileus Status: Acute Assessment and plan: Small amount of flatus over the past few days with slight decrease in distention this morning. He has tolerated removal of his nasogastric tube yesterday. Cautiously advance to clear liquids Current Visit: Yes
--- NOTE | 2019-01-30 08:41 | Progress Note ---
Subjective Patient reports: no new complaints, flatus, bowel movement Narrative: He states that he "feels okay now". He prefers clear liquids and believes the full liquid diet "might be a little too much right now". Exam Vital signs and Labs for Last 24 Hours: Temp Pulse Resp BP Pulse Ox 97.7 F 65 20 114/68 95 01/30/19 07:43 01/30/19 07:43 01/30/19 07:43 01/30/19 07:43 01/30/19 07:43 I & O for Last 24 hours: Intake & Output 01/27/19 01/28/19 01/29/19 01/30/19 11:59 11:59 11:59 11:59 Intake Total 4540 / 4540 1159 / 1159 1748 / 2468 2955 / 2955 Output Total 1575 / 1575 2630 / 2630 2400 / 2400 1825 / 1825 Balance 2965 / 2965 -1471 / -1471 -652 / 68 1130 / 1130 Weight 139 lb 2 oz 140 lb 4 oz 148 lb 135 lb 9 oz - Constitutional no acute distress - *Routine Respiratory Exam Absent: respiratory distress - *Routine Cardiovascular Exam Present: RRR - *Routine Abdominal Exam Present: soft Comments: Incision clean with no sign of erythema. Tiny areas left open for packing are granulating nicely. Progress Note: A&P (1) SBO (small bowel obstruction) Status: Acute Current Visit: Yes (2) ANABELLA (acute kidney injury) Status: Acute Current Visit: Yes (3) Postoperative ileus Status: Acute Assessment and plan: Essentially resolved as he is having bowel function. However, he does state that "the full liquid diet may be too much right now". Will not advance beyond full liquids for now. The patient understands that he can request clear liquids. Ongoing encouragement for slowly advancement of diet. Current Visit: Yes
[2019-01-31 06:56] LABS: Basophils % 0.2 % (0.1-2.0); Eosinophils # 0.3 K/mm3 (0.0-0.4); Hematocrit 36.6 % (42.0-52.0); Hemoglobin 11.7 g/dL (14.1-18.0); Lymphocytes # 1.2 K/mm3 (0.7-4.5); Lymphocytes % 9.1 % (10-50); Mean Corpuscular Volume 92.1 fl (80-94); Mean Platelet Volume 7.8 fl (7.4-10.4); Monocytes # 0.7 K/mm3 (0.1-1.0); Neutrophils # 11.1 K/mm3 (1.8-7.8); Neutrophils % 83.6 % (37.0-80.0); Platelet Count 331 K/mm3 (142-424); Red Blood Count 3.97 M/mm3 (4.60-6.20); Red Cell Distribution Width 13.9 % (11.5-17.5); White Blood Count 13.3 K/mm3 (4.8-10.8)
[2019-01-31 07:06] LABS: Anion Gap 9.9 mEq/L (5-15); Calcium 7.6 mg/dL (8.5-10.1)
--- NOTE | 2019-01-31 07:08 | Progress Note ---
Subjective Narrative: Some nausea last night. No emesis. His appetite remains fairly poor. He continues to have bowel movements and pass flatus. Exam Vital signs and Labs for Last 24 Hours: Temp Pulse Resp BP Pulse Ox 98.7 F 63 16 114/63 95 01/31/19 04:00 01/31/19 04:00 01/31/19 04:00 01/31/19 04:00 01/31/19 04:00 I & O for Last 24 hours: Intake & Output 01/28/19 01/29/19 01/30/19 01/31/19 11:59 11:59 11:59 11:59 Intake Total 1159 / 1159 1748 / 2468 2955 / 2955 2405 / 2405 Output Total 2630 / 2630 2400 / 2400 1825 / 1825 275 / 275 Balance -1471 / -1471 -652 / 68 1130 / 1130 2130 / 2130 Weight 140 lb 4 oz 148 lb 135 lb 9 oz 134 lb 4 oz - Constitutional no acute distress - *Routine Respiratory Exam Absent: respiratory distress - *Routine Cardiovascular Exam Present: RRR - *Routine Abdominal Exam Present: soft. Absent: distended Progress Note: A&P (1) SBO (small bowel obstruction) Status: Acute Current Visit: Yes (2) ANABELLA (acute kidney injury) Status: Acute Current Visit: Yes (3) Postoperative ileus Status: Acute Assessment and plan: The patient's postoperative ileus has essentially resolved. He continues to have bowel function and his abdomen is very soft with no signs of distention. He does have some intermittent nausea. His appetite is somewhat poor. Continue to encourage p.o. intake Advance diet as tolerated Current Visit: Yes
[2019-01-31 07:43] VITALS: BP 123/65
--- NOTE | 2019-01-31 13:18 | Discharge Summary ---
General - General Admission date:: 01/22/19 Discharge date: 01/31/19 HPI HPI: This is a 78-year-old gentleman with no significant past medical/surgical history who presents the emergency department with a 2-3-day history of nausea with intermittent emesis. He also describes vague/crampy abdominal pain. No fevers. He states that his last bowel movement was on Sunday (2 days ago) and was fairly normal. No diarrhea. He has continued to pass some flatus but is uncertain as to his most recent episode. Evaluation in emergency department included a CT scan that showed changes consistent with possible partial small bowel obstruction with patchy areas of dilatation/decompression, but no definitive transition point. Hospital Course Hospital Course: He seemed to initially progressed fairly well with nasogastric decompression; however, he showed no signs of true resolution. Small bowel series revealed changes consistent with complete obstruction. The patient was taken to the operating room where exploratory laparotomy and partial small bowel resection was completed. Please see operative note for detail. 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 Postoperatively he progressed fairly well. He did have a fairly significant postoperative ileus as was expected. He did begin to show signs of improvement (flatus and lessening nasogastric output) and his nasogastric tube was removed. His diet was slowly advanced and he was deemed appropriate for discharge on the afternoon of January 31, 2019. Condition at discharge: At discharge the patient was afebrile with stable and normal vital signs. He was ambulating without difficulty and tolerating full liquids. He did have some intermittent nausea with no episodes of emesis during the last few days of his hospitalization. His abdomen remains soft and he was nontender. He had no abdominal distention at the time of discharge. Objective Vital signs: Temp Pulse Resp BP Pulse Ox 97.8 F 59 L 15 123/65 96 01/31/19 07:42 01/31/19 08:00 01/31/19 07:42 01/31/19 07:42 01/31/19 08:00 no acute distress - *Routine HEENT Exam Head: Present: normocephalic, atraumatic - *Routine Neck Exam Present: full ROM - Routine Chest/Breast/Axilla Exam Chest wall: Absent: tenderness - *Routine Respiratory Exam Absent: respiratory distress - *Routine Cardiovascular Exam Present: RRR - *Routine Abdominal Exam Present: soft. Absent: tenderness, distended - *Routine Extremities Exam Present: full ROM. Absent: cyanosis, clubbing, edema - Routine Back/Spine/Pelvis Exam Back/Spine: Present: full ROM - *Routine Skin Exam Present: intact - *Routine Neurological Exam Present: alert. Absent: sensory deficit, motor deficit - Routine Psychiatric Exam Present: cooperative. Absent: homicidal ideation, auditory hallucinations, visual hallucinations Results Labs on day of discharge: Labs from last 24 hours 01/31/19 01/31/19 06:37 06:37 WBC 13.3 H RBC 3.97 L Hgb 11.7 L Hct 36.6 L MCV 92.1 MCH 29.5 MCHC 32.0 RDW 13.9 Plt Count 331 D MPV 7.8 Neut % (Auto) 83.6 H Lymph % (Auto) 9.1 L [place] % (Auto) 5.0 Eos % (Auto) 2.0 Baso % (Auto) 0.2 Neut # (Auto) 11.1 H Lymph # (Auto) 1.2 [place] # (Auto) 0.7 Eos # (Auto) 0.3 Baso # (Auto) 0.0 Sodium 135 L Potassium 3.9 Chloride 103 Carbon Dioxide 26 Anion Gap 9.9 BUN 5 L Creatinine 0.98 Estimated Creat Clear 54 Estimated GFR 74 Est GFR ( Amer) 90 Glucose 108 H Calcium 7.6 L DS: Diagnosis - Discharge Diagnosis (1) SBO (small bowel obstruction) Status: Acute (2) ANABELLA (acute kidney injury) Status: Acute (3) Postoperative ileus Status: Acute Discharge Plan - Patient Discharge Instructions ACTIVITY: No heavy lifting DIET: advance to your usual diet Patient Instructions: DI for Ileus, DI for Small Bowel Obstruction, DI for Small Bowel Resection, DI for Surgical Site Infection - Follow up Plan Follow up with: Noah Diaz MD [Staff Physician] - 1 week ((next Sunday or Sunday)) Disposition: Home, Self-[facility] Medications: Home Medications Medication Instructions Recorded Confirmed Type Levothyroxine Sodium 75 mcg PO DAILY 04/29/18 01/22/19 History [Levothyroxine 75mcg (0.075mg) Tab] Tamsulosin HCl [Flomax 0.4mg 0.4 mg PO HS 04/29/18 01/22/19 History capsule] Nitrofurantoin Monohyd/M-Cryst 100 mg PO BID 01/22/19 01/22/19 History [Macrobid 100 mg Capsule] Ondansetron HCl [Zofran 4mg Tab] 4 mg PO Q6HP PRN #14 tab 01/31/19 Rx Promethazine HCl [Phenergan 12.5mg 12.5 mg PO Q6H PRN #14 tab 01/31/19 Rx tablet] Prescriptions/Medication Reconciliation: New Ondansetron HCl [Zofran 4mg Tab] 4 mg PO Q6HP PRN #14 tab PRN Reason: Nausea Promethazine HCl [Phenergan 12.5mg tablet] 12.5 mg PO Q6H PRN #14 tab PRN Reason: Nausea Continued Tamsulosin HCl [Flomax 0.4mg capsule] 0.4 mg PO HS Levothyroxine Sodium [Levothyroxine 75mcg (0.075mg) Tab] 75 mcg PO DAILY Nitrofurantoin Monohyd/M-Cryst [Macrobid 100 mg Capsule] 100 mg PO BID
== END 2019-01-31 15:15 | disposition home or self-care (01) | DRG 330 ==
LOC: ER 08:18 → 2ND 13:25
PROVIDERS: ADMIT Surgery; ATTEND Surgery
CPT/HCPCS: 36415; 71010; 71045; 74177; 74250; 80048; 80053; 81001; 82150; 83605; 83690; 85007; 85025; 85610; 85730; 87040; 87086; 88307; 94761; 96365; 96375; 99285; J0131; J2405; J2543; Q9967

== ENCOUNTER → 2019-02-12 09:39 | Outpatient (CLI) | payer MEDICARE, MEDICAID, SELFPAY ==
--- NOTE | 2019-02-12 10:01 | XR_ITS ---
XR abdomen min 2V HISTORY: ITS.REASON: abdominal pain, nausea and vomiting, diarrhea ORDERING PHYSICIAN: Noah Diaz MD PATIENT AGE: 78 years COMPARISON: None FINDINGS: There is a nonspecific nonobstructive bowel gas pattern. Suture line is noted in the right lower quadrant. Faint densities are present in the pelvic region and may be due to contrast within diverticula. IMPRESSION: No acute finding
[2019-02-12 10:05] LABS: Basophils % 0.3 % (0.1-2.0); Eosinophils # 0.2 K/mm3 (0.0-0.4); Eosinophils % 2.3 % (0.1-12.0); Hematocrit 37.1 % (42.0-52.0); Hemoglobin 11.7 g/dL (14.1-18.0); Lymphocytes # 1.2 K/mm3 (0.7-4.5); Lymphocytes % 14.2 % (10-50); Mean Corpuscular HGB Conc 31.5 g/dL (31.8-35.4); Mean Corpuscular Hemoglobin 27.8 pg (27.0-31.2); Mean Corpuscular Volume 88.3 fl (80-94); Mean Platelet Volume 6.6 fl (7.4-10.4); Monocytes # 0.6 K/mm3 (0.1-1.0); Monocytes % 6.9 % (1.7-9.3); Neutrophils # 6.2 K/mm3 (1.8-7.8); Neutrophils % 76.3 % (37.0-80.0); Platelet Count 364 K/mm3 (142-424); Red Blood Count 4.21 M/mm3 (4.60-6.20); Red Cell Distribution Width 13.7 % (11.5-17.5); White Blood Count 8.2 K/mm3 (4.8-10.8)
[2019-02-12 10:23] LABS: Alanine Aminotransferase 25 U/L (12-78); Albumin Level 2.8 gm/dL (3.4-5.0); Albumin/Globulin Ratio 0.7 (1.1-1.8); Alkaline Phosphatase 77 U/L (46-116); Anion Gap 12.8 mEq/L (5-15); Aspartate Amino Transferase 23 U/L (15-37); Bilirubin,Total 0.4 mg/dL (0.2-1.0); Blood Urea Nitrogen 12 mg/dL (7-18); Calcium 9.1 mg/dL (8.5-10.1); Carbon Dioxide 29 mmol/L (21.0-32.0); Chloride 99 mmol/L (98-107); Creatinine,Serum 1.04 mg/dL (0.70-1.30); Estimated Glomerular Filt Rate 69 ml/min (>60); GFR (African American) 84 ML/MIN (>60); Globulin 4.2 gm/dl (1.3-3.2); Glucose 97 mg/dL (74-106); Potassium 3.8 mmoL/L (3.5-5.1); Sodium 137 mmol/L (136-145)
== END ==
PROVIDERS: Visit Provider Surgery
DX: K56.609 Unspecified intestinal obstruction, unspecified as to partial versus complete obstruction (principal); R10.9 Unspecified abdominal pain; R11.2 Nausea with vomiting, unspecified; R19.7 Diarrhea, unspecified
CPT/HCPCS: 36415; 74019; 80053; 85025

== ENCOUNTER → 2019-02-13 15:04 | Outpatient (CLI) | payer MEDICARE, MEDICAID, SELFPAY ==
[2019-02-13 15:07] LABS: Adenovirus F 40/41, stool Not Detected (NotDetected); Astrovirus Not Detected (NotDetected); Campylobacter Not Detected (NotDetected); Clostridium Difficile A/B, PCR Not Detected (NotDetected); Cryptosporidium Not Detected (NotDetected); Cyclospora Cayetanesis Not Detected (NotDetected); Entamoeba histolytica Not Detected (NotDetected); Enteroaggregative E coli Not Detected (NotDetected); Enteropathogenic E coli Not Detected (NotDetected); Enterotoxigenic E coli Not Detected (NotDetected); Giardia lamblia Not Detected (NotDetected); Norovirus Not Detected (NotDetected); Plesimonas Shigalloides, PCR Not Detected (NotDetected); Rotavirus A Not Detected (NotDetected); Salmonella, PCR Not Detected (NotDetected); Sapovirus Not Detected (NotDetected); Shiga-like toxin E coli Not Detected (NotDetected); Shigella Enterovasive E coli Not Detected (NotDetected); Vibrio Cholerae Not Detected (NotDetected); Vibrio, PCR Not Detected (NotDetected); Yersinia Entercolitica, PCR Not Detected (NotDetected)
== END ==
PROVIDERS: Visit Provider Surgery
DX: R10.9 Unspecified abdominal pain; R11.2 Nausea with vomiting, unspecified; R19.7 Diarrhea, unspecified
CPT/HCPCS: 87506

== ENCOUNTER → 2019-02-25 09:08 | Outpatient (CLI) | payer MEDICARE, MEDICAID, SELFPAY ==
--- NOTE | 2019-02-25 09:14 | US_ITS ---
US gallbladder HISTORY: ITS.REASON: nausea, vomitting and diarrhea ORDERING PHYSICIAN: Noah Diaz MD PATIENT AGE: 78 years Comparison: None FINDINGS: PANCREAS: Unremarkable. No obvious mass or abnormal fluid collection. No ductal dilatation LIVER: No focal liver lesions demonstrated. Homogeneous echogenicity. No intrahepatic biliary ductal dilatation evident RIGHT KIDNEY: Unremarkable. Normal size and echogenicity. No hydronephrosis GALLBLADDER: No gallstones, gallbladder wall thickening, pericholecystic fluid, or biliary dilatation. There are small polyps present in the gallbladder. The common Bile duct is 4 mm IMPRESSION: Small gallbladder polyps, no shadowing stones or other significant anomalies
== END ==
PROVIDERS: PCP Nurse Practitioner Family; Visit Provider Surgery
DX: K82.9 Disease of gallbladder, unspecified (principal); R11.2 Nausea with vomiting, unspecified; R19.7 Diarrhea, unspecified
CPT/HCPCS: 76705

== ENCOUNTER → 2019-02-28 10:17 | Outpatient (CLI) | payer MEDICARE, MEDICAID, SELFPAY ==
--- NOTE | 2019-02-28 10:19 | NM_ITS ---
NM hepatobiliary w pharm HISTORY: ITS.REASON: nausea, vomiting and diarrhea, gallbladder polyps ORDERING PHYSICIAN: Noah Diaz MD PATIENT AGE: 78 years COMPARISON: 02/25/2019 DOSE: 7.7 mCi technetium Choletec 1.1 mcg CCK. No pain reported with CCK infusion FINDINGS: Homogeneous activity is present within the hepatic parenchyma. Activity is present in the gallbladder by 15 minutes. Activity is present in the small bowel by 30 minutes. The gallbladder ejection fraction is calculated to be 75% The patient did not report pain or other symptoms during CCK infusion. IMPRESSION: Unremarkable hepatobiliary scan and gallbladder ejection fraction. No evidence of common or cystic duct obstruction with normal gallbladder ejection fraction
--- NOTE | 2019-02-28 11:31 | HMH.ITSHM ---
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 []FLOMAX ZOFRAN PHENERGEN LEVOTHYROXINE
== END ==
PROVIDERS: PCP Nurse Practitioner Family; Visit Provider Surgery
DX: R11.2 Nausea with vomiting, unspecified (principal); R19.7 Diarrhea, unspecified
CPT/HCPCS: 78227; A9537; J2805

== ENCOUNTER → 2020-05-18 12:48 | Outpatient (POV) | payer MEDICARE, MEDICAID, SELFPAY | PROVIDERS: Visit Provider Dermatology | DX: Z00.00 Encounter for general adult medical examination without abnormal findings (principal) ==

== ENCOUNTER → 2020-06-01 09:23 | Outpatient (POV) | payer MEDICARE, MEDICAID, SELFPAY | PROVIDERS: Visit Provider Dermatology | DX: Z00.00 Encounter for general adult medical examination without abnormal findings (principal) ==

== ENCOUNTER → 2020-11-09 10:17 | Outpatient (CLI) | payer MEDICARE, MEDICAID, SELFPAY | PROVIDERS: PCP Nurse Practitioner Family; Visit Provider Surgery | DX: Z01.812 Encounter for preprocedural laboratory examination (principal); Z11.52 Encounter for screening for COVID-19; Z12.11 Encounter for screening for malignant neoplasm of colon; Z86.010 Personal history of colon polyps | CPT/HCPCS: U0003 ==

== ENCOUNTER 2020-11-11 06:20 | Day surgery (SDC) | payer MEDICARE, MEDICAID, SELFPAY ==
[2020-11-10 10:41] VITALS: BMI 20.9
[2020-11-11] VITALS (8 sets, daily range): BP systolic 71–133; BP diastolic 39–73; PULSE 57–74; RESP 16–20; TEMP 36.2–36.6; O2SAT 93–98
--- NOTE | 2020-11-11 07:33 | HMH.ANESCL ---
[facility] Anesthesia Checklist - Patient Identification Patient Identification: Arm Band - Structural Data Admitted From: Home Planned Operative Procedure/s: colonoscopy Consent for Planned Operative Procedure(s) Verified: Yes Verified Documents: Surgical Consent, History and Physical - NPO Status Verified Time NPO: 00:00 - Additional verifications Anesthesia Reactions: No - Airway Assessment C-Spine Mobility Assessed: Yes (mp2) TMJ Mobility Assessed: Yes Dentition: Poor Dentition - Neurological Assessment Level of Consciousness: Awake, Alert - Anesthesia Plan Anesthesia Risk discussed: Yes Anesthesia Plan: Verified ASA Class: II Anesthesia Type: [facility] History I have reviewed the patient's past medical history: Yes Medical History: Denies:: Cancer, Diabetes Mellitus Type 1, Diabetes Mellitus Type 2, Internal Pacemaker, Lung Disease, MRSA, Seizures *Have you ever received a pneumonia vaccine?: Yes *Have you received a flu vaccine this season?: Yes Other Medical History: Reports: Hypothyroidism Anesthesia experience/problems:: nac Other Surgeries: Yes: Colonoscopy, Colon Resection, EGD, Hernia Repair, Other. No: Pacemaker Amputation: No - *Social History Last grade of school completed: 4th or less Smoking Status: Never smoker Alcohol Intake: never Substance Use Type: denies use *Occupational Status:: retired Housing: house Household Members: none *Travel in the last 8 weeks: None Family Hx:: Cancer
--- NOTE | 2020-11-11 08:21 | HMH.SCOPE ---
- Procedure: Date: 11/11/20 Patient Date of :: 1940 Procedure Performed:: Colonoscopy with polypectomy Indications:: History of polyps Diverticulosis Performing Provider:: Noah Diaz MD Referring Provider:: . Sedation:: Monitored anesthesia care Procedure:: After informed consent was obtained the patient was taken to the endoscopy suite. Sedation ensued after the patient was transferred to the left lateral decubitus position. Pulse, blood pressure, and oxygen saturation were monitored throughout the procedure. Digital rectal exam revealed no significant abnormality. The colonoscope was placed in position. The entire colon was evaluated. The colonoscope was carefully removed and the patient was transferred to recovery in stable condition. Please see findings and specimens below for detail. Findings:: Bowel preparation moderate Moderate spasticity Sigmoid diverticulosis Polyps (see specimens) Specimens:: Biopsy of periappendiceal inflammatory change Sessile periappendiceal polyp (snare) Adjacent polyps at 10 cm (snare) Recommendations:: Timing of repeat colonoscopy is pending pathology but will likely be around 3 years secondary to history of polyps, moderate bowel preparation, and spasticity. Complications:: No immediate Estimated blood obtained (mL): 1
== END 2020-11-11 09:15 | disposition home or self-care (01) ==
LOC: OUTP 06:21
PROVIDERS: PCP Nurse Practitioner Family; Visit Provider Surgery
PROC: 0DJD8ZZ Inspection of Lower Intestinal Tract, Via Natural or Artificial Opening Endoscopic (ICD-10-PCS; CPT 45385; principal; 2020-11-11 07:30)
DX: Z12.11 Encounter for screening for malignant neoplasm of colon (principal); K63.89 Other specified diseases of intestine; K62.1 Rectal polyp; K63.5 Polyp of colon; K57.30 Diverticulosis of large intestine without perforation or abscess without bleeding; Z86.010 Personal history of colon polyps; Z90.49 Acquired absence of other specified parts of digestive tract; E03.9 Hypothyroidism, unspecified; Z80.9 Family history of malignant neoplasm, unspecified; Z79.899 Other long term (current) drug therapy
CPT/HCPCS: 45385; 88305

== ENCOUNTER 2021-05-06 09:08 | Emergency (ER) | payer MEDICARE, MEDICAID, SELFPAY ==
[2021-05-06 09:22] VITALS: BP 129/40; PULSE 75; RESP 18; TEMP 36.7; O2SAT 95; BMI 20.9
--- NOTE | 2021-05-06 09:27 | CT_ITS ---
PROCEDURE: CT ABDOMEN PELVIS WO CON CLINICAL INDICATION: left flank pain COMPARISON: CT ABDPELW CT abdomen pelvis w con from 01/22/2019 TECHNIQUE: Axial images obtained with sagittal and coronal reformats. All CT scans at the facility use one or more dose reduction, viz: automated exposure control, ma/kV adjustment per patient size (including targeted exams where dose is matched to indication, i.e. head), or iterative reconstruction technique. FINDINGS: Lower thorax: No acute finding ABDOMEN: Liver: No masses or biliary dilatation. Gallbladder: Nondistended. No radio opaque stones. There is subtle opacity dependent portion the gallbladder suggesting possibly a small amount of biliary sludge. Pancreas: . unremarkable Spleen: unremarkable Adrenals: unremarkable Kidneys/ureters: The left kidney is somewhat swollen compared to the right with some stranding of Gerotas fascia as well. There are tiny non obstructing calculi in both kidneys. However there is mild hydronephrotic change left kidney with hydroureter down to the UV junction where there is a 3-4 mm calculus sitting just at or above the UV junction. In addition there are couple of bladder calculi. ABDOMEN & PELVIS: Stomach bowel: Nondistended. No obvious mass or thickening. The small bowel appears normal except for a focally dilated loop of mid to distal small bowel right-sided the abdomen where there are surgical clips and this likely is the site of the previous bowel obstruction with surgical intervention. There is moderate scattered stool and gas seen throughout the colon. There is prominent diffuse diverticulosis of the lower descending and sigmoid colon without definite evidence of diverticulitis. Peritoneum: Unremarkable. Lymph nodes: No enlarged lymph nodes apparent. Vasculature: No evidence of abdominal aortic aneurysm. No retroperitoneal hemorrhage evident. Bones: There prominent degenerate changes lower thoracic spine. PELVIS: Reproductive: unremarkable the prostate is normal in size and contains a couple of calcifications. Bladder: Nondistended. There are 3-4 bladder calculi evident. Appendix: Not definitely visualized but there are no pericecal inflammatory changes. IMPRESSION: Findings of moderate obstructive uropathy left kidney secondary to distal ureteral calculi sitting near or at the UV junction in addition to 3-4 bladder calculi as well. Dictated by: Dr. Gary Abdul MD 05/06/2021 10:12 Dr. Gary Abdul MD in [place] 05/06/2021 10:12
[2021-05-06 09:29] LABS: Microscopic, Urine URINE MICROSCOPIC (MICROSCOPIC)
--- NOTE | 2021-05-06 09:31 | HMH.EDGENADL ---
ED Disposition Clinical Impression: Kidney stone on left side Disposition: Home, Self-Care Condition on Discharge: Good Instructions: DI for Kidney Stones Prescriptions: Hydrocod/Acet 5/325 mg [[place] 5/325mg tablet] 1 tab PO Q6HP PRN #7 tab PRN Reason: Moderate Pain Transmission Status: Sent to [facility] cephALEXin [Cephalexin 500mg Tab] 500 mg PO BID #14 tab Transmission Status: Pending to [facility] Ondansetron [Zofran 4mg ODT] 4 mg PO BIDP PRN #10 tab PRN Reason: Nausea Transmission Status: Pending to [facility] Referrals: Jae Barajas APRN [Primary Care Provider] - Marques Mejias MD [Staff Physician] - - Critical Care Critical Care Time: No Attestation: On , the high probability of a clinically significant, sudden or life threatening deterioration of the following system(s) required my full and direct attention, intervention and personal management. The time I documented below is in addition to time spent performing reported procedures but includes the following listed in this critical care notation. Medical Decision Making - Medical Records Medical records reviewed: Yes: I reviewed the patient's medical records. - Haim Inquiry Pt receiving controlled substance: No Vital Signs: 05/06/21 09:22 05/06/21 09:42 05/06/21 10:01 Temperature 98.0 F Temperature Source Oral Pulse Rate 64 66 Pulse Rate [Left Radial] 75 Respiratory Rate 18 Blood Pressure 137/73 139/72 Blood Pressure [Right Arm] 129/40 L Blood Pressure Mean 93 101 Blood Pressure Mean [Right Arm] 69 Blood Pressure Source [Right Arm] Automatic Cuff Blood Pressure Position [Right Arm] Sitting 02 Sat by Pulse Oximetry 95 98 99 Oxygen Delivery Method Room Air Room Air Room Air 05/06/21 10:30 Temperature Temperature Source Pulse Rate 64 Pulse Rate [Left Radial] Respiratory Rate 16 Blood Pressure 120/68 Blood Pressure [Right Arm] Blood Pressure Mean 85 Blood Pressure Mean [Right Arm] Blood Pressure Source [Right Arm] Blood Pressure Position [Right Arm] 02 Sat by Pulse Oximetry 98 Oxygen Delivery Method - Lab Data Lab Results 05/06/21 09:20: Urine Color Dk yellow, Urine Appearance Sl cloudy, Urine pH 6.0, Ur Specific [place] >= 1.030, Urine Protein Trace, Urine Glucose (UA) Negative, Urine Ketones Negative, Urine Blood 3+, Urine Nitrate Negative, Urine Bilirubin Negative, Urine Urobilinogen 0.2, Ur Leukocyte Esterase 2+ A, Urine RBC 10-20, Urine WBC 20-50, Ur Squamous Epith Cells None, Urine Bacteria Trace 05/06/21 09:43: WBC 7.3, RBC 4.52 L, Hgb 13.9 L, Hct 44.0, MCV 97.3 H, MCH 30.8, MCHC 31.7 L, RDW 14.9, Plt Count 199, MPV 9.0, Neut % (Auto) 79.4, Lymph % (Auto) 10.9, [place] % (Auto) 6.8, Eos % (Auto) 2.3, Baso % (Auto) 0.6, Neut # (Auto) 5.8, Lymph # (Auto) 0.8, [place] # (Auto) 0.5, Eos # (Auto) 0.2, Baso # (Auto) 0.0 05/06/21 09:43: Sodium 141, Potassium 4.2, Chloride 106, Carbon Dioxide 30, Anion Gap 9.2, BUN 12, Creatinine 0.90, Estimated Creat Clear 51, Estimated GFR 82, Est GFR ( Amer) 99, Glucose 105 H, Calcium 9.0, Total Bilirubin 0.2, AST 30, ALT 15, Alkaline Phosphatase 78, Total Protein 6.7, Albumin 3.8, Globulin 2.9, Albumin/Globulin Ratio 1.3, Lipase 117 Result diagrams: 05/06/21 09:43 05/06/21 09:43 Orders (Tests/Meds): ED MEDICATIONS Generic Name Dose Route Start Last Admin Trade Name Freq PRN Reason Stop Dose Admin Sodium Chloride 1,000 mls @ 999 mls/hr 05/06/21 11:00 Sod Chlor 0.9% 1000ml Bag IV 05/06/21 12:00 .Q1H1M MARTINEZ Discontinued Medications Generic Name Dose Route Start Last Admin Trade Name Freq PRN Reason Stop Dose Admin Hydrocodone Bitart/Acetaminophen 1 tab 05/06/21 09:30 05/06/21 09:47 Hydrocodone/Apap 5/325 Mg Tablet PO 05/06/21 09:31 Not Given ONCE ONE ORDERS Category Date Time Status Urine Culture Stat Micro 05/06/21 09:20 Received - CT Data CT Scan: Abdomen, Pelvis
[2021-05-06 09:41] LABS: Appearance,Urine SL CLOUDY (Clear); Bilirubin,Urine Negative (Negative); Blood, Urine 3+ (Negative); Color,Urine DK YELLOW (Yellow); Glucose,Urine (UA) Negative (Negative); Ketones,Urine Negative (Negative); Leukocyte Esterase,Urine 2+ (Negative); Nitrate,Urine Negative (Negative); Protein,Urine TRACE (Negative); Specific Gravity, Urine >= 1.030 (1.005-1.030); Urobilinogen,Urine 0.2 EU/dl (0.2)
[2021-05-06 09:42] VITALS: BP 137/73; PULSE 64; O2SAT 98
--- NOTE | 2021-05-06 09:47 | PC.NURSE ---
pt refused prescribed hydrocodone
[2021-05-06 09:49] LABS: Basophils % 0.6 % (0.1-2.0); Eosinophils # 0.2 K/mm3 (0.0-0.4); Eosinophils % 2.3 % (0.1-12.0); Hemoglobin 13.9 g/dL (14.1-18.0); Lymphocytes # 0.8 K/mm3 (0.7-4.5); Lymphocytes % 10.9 % (10-50); Mean Corpuscular HGB Conc 31.7 g/dL (31.8-35.4); Mean Corpuscular Hemoglobin 30.8 pg (27.0-31.2); Mean Corpuscular Volume 97.3 fl (80-94); Monocytes # 0.5 K/mm3 (0.1-1.0); Monocytes % 6.8 % (1.7-9.3); Neutrophils # 5.8 K/mm3 (1.8-7.8); Neutrophils % 79.4 % (37.0-80.0); Platelet Count 199 K/mm3 (142-424); Red Blood Count 4.52 M/mm3 (4.60-6.20); Red Cell Distribution Width 14.9 % (11.5-17.5); White Blood Count 7.3 K/mm3 (4.8-10.8)
[2021-05-06 09:59] LABS: Bacteria,Urine Trace /lpf; WBC,Urine 20-50 #/hpf (0-3)
[2021-05-06 10:01] VITALS: BP 139/72; PULSE 66; O2SAT 99
[2021-05-06 10:03] LABS: Chloride 106 mmol/L (98-107)
[2021-05-06 10:04] LABS: Potassium 4.2 mmoL/L (3.5-5.1); Sodium 141 mmol/L (136-145)
[2021-05-06 10:06] LABS: Alanine Aminotransferase 15 U/L (12-78); Alkaline Phosphatase 78 U/L (38-126); Aspartate Amino Transferase 30 U/L (17-59); Bilirubin,Total 0.2 mg/dl (0.2-1.3); Blood Urea Nitrogen 12 mg/dl (9-20); Creatinine Clearance Estimated 51 mL/min (50-200); Estimated Glomerular Filt Rate 82 ml/min (>60); GFR (African American) 99 ML/MIN (>60); Lipase 117 U/L (23-300)
[2021-05-06 10:07] LABS: Albumin Level 3.8 g/dl (3.5-5.0); Albumin/Globulin Ratio 1.3 (1.1-1.8); Anion Gap 9.2 mEq/L (5-15); Carbon Dioxide 30 mmol/L (22.0-30.0); Globulin 2.9 g/dL (1.3-3.2); Glucose 105 mg/dl (74-100); Total Protein,Serum 6.7 g/dl (6.3-8.2)
[2021-05-06 10:30] VITALS: BP 120/68; PULSE 64; RESP 16; O2SAT 98
[2021-05-06 11:00] VITALS: BP 122/66; PULSE 63; RESP 16; O2SAT 98
[2021-05-06 11:55] VITALS: BP 122/66; PULSE 96; RESP 18; TEMP 36.8; O2SAT 98
== END 2021-05-06 11:55 | disposition home or self-care (01) ==
PROVIDERS: Emergency Provider Emergency Medicine; PCP Nurse Practitioner Family
DX: N20.0 Calculus of kidney (principal)
CPT/HCPCS: 74176; 80053; 81001; 83690; 85025; 87086; 96365; 99283

== ENCOUNTER 2022-01-12 09:15 | Emergency (ER) | payer MEDICARE, MEDICAID, SELFPAY ==
[2022-01-12 09:17] VITALS: BP 115/53; PULSE 78; RESP 16; TEMP 36.6; O2SAT 98; BMI 20.9
--- NOTE | 2022-01-12 09:19 | HMH.EDGENADL ---
ED Disposition Clinical Impression: Urinary tract infection Qualifiers: Urinary tract infection type: acute cystitis Hematuria presence: without hematuria Qualified Code(s): N30.00 - Acute cystitis without hematuria Disposition: Home, Self-Care Condition on Discharge: Good Instructions: Urinary Tract Infection Additional Instructions: Follow up with your urologist in [place] as scheduled. If you develop significant pain, fevers, nausea, vomiting or other concerning symptoms, return to the ED for further evaluation. Prescriptions: cephALEXin [Cephalexin 500mg Tab] 500 mg PO Q6H 7 Days #28 tab Transmission Status: Received by [facility] Referrals: Provider,Referral, [Primary Care Provider] - Time of Disposition: 11:20 - Critical Care Critical Care Time: No Attestation: On , the high probability of a clinically significant, sudden or life threatening deterioration of the following system(s) required my full and direct attention, intervention and personal management. The time I documented below is in addition to time spent performing reported procedures but includes the following listed in this critical care notation. Medical Decision Making - Medical Records Medical records reviewed: Yes: I reviewed the patient's medical records. - Haim Inquiry Pt receiving controlled substance: No Vital Signs: 01/12/22 09:17 01/12/22 09:31 01/12/22 10:00 Temperature 98 F Temperature Source Oral Pulse Rate 73 71 Pulse Rate [Radial] 78 Respiratory Rate 16 17 Blood Pressure 133/84 115/73 Blood Pressure [Right Arm] 115/53 L Blood Pressure Mean 90 87 Blood Pressure Mean [Right Arm] 73 Blood Pressure Position [Right Arm] Sitting 02 Sat by Pulse Oximetry 98 99 97 Oxygen Delivery Method Room Air Room Air 01/12/22 10:30 Temperature Temperature Source Pulse Rate 60 Pulse Rate [Radial] Respiratory Rate Blood Pressure 115/64 Blood Pressure [Right Arm] Blood Pressure Mean 86 Blood Pressure Mean [Right Arm] Blood Pressure Position [Right Arm] 02 Sat by Pulse Oximetry 97 Oxygen Delivery Method - Lab Data Lab results reviewed: Yes: I reviewed the patient's lab results. Lab Results 01/12/22 09:23: Urine Color Yellow, Urine Appearance Cloudy, Urine pH 6.0, Ur Specific [place] 1.025, Urine Protein Trace, Urine Glucose (UA) Negative, Urine Ketones Negative, Urine Blood 2+, Urine Nitrate Negative, Urine Bilirubin Negative, Urine Urobilinogen 0.2, Ur Leukocyte Esterase 3+ A, Urine RBC 10-20, Urine WBC Tntc, Ur Squamous Epith Cells Occasional, Urine Bacteria 1+ 01/12/22 09:25: WBC 5.7, RBC 4.92, Hgb 15.1, Hct 45.2, MCV 92.0, MCH 30.7, MCHC 33.3, RDW 14.0, Plt Count 196, MPV 8.5, Neut % (Auto) 59.7, Lymph % (Auto) 24.4, [place] % (Auto) 7.0, Eos % (Auto) 6.6, Baso % (Auto) 2.2 H, Neut # (Auto) 3.4, Lymph # (Auto) 1.4, [place] # (Auto) 0.4, Eos # (Auto) 0.4, Baso # (Auto) 0.1 01/12/22 09:25: Sodium 139, Potassium 4.1, Chloride 102, Carbon Dioxide 32 H, Anion Gap 9.1, BUN 15, Creatinine 0.90, Estimated Creat Clear 48, Estimated GFR 81, Est GFR ( Amer) 98, Glucose 99, Calcium 9.4, Total Bilirubin 0.5, AST 32, ALT 17, Alkaline Phosphatase 78, Total Protein 7.5, Albumin 4.4, Globulin 3.1, Albumin/Globulin Ratio 1.4 Result diagrams: 01/12/22 09:25 01/12/22 09:25 Orders (Tests/Meds): ED MEDICATIONS Discontinued Medications Generic Name Dose Route Start Last Admin Trade Name Freq PRN Reason Stop Dose Admin Cephalexin HCl 500 mg 01/12/22 10:09 01/12/22 10:14 Cephalexin 500mg Capsule PO 01/12/22 10:10 500 mg ONCE ONE Administration ORDERS Category Date Time Status Urine Culture Stat Micro 01/12/22 09:23 Received Medical Decision Narrative: bedside US to eval post void residual, minimal urine noted in bladder immediately after voiding, suggesting adequate emptying intrarenal stones noted as well as bladder stones, no ureteral obstruction, no hydronephrosis. Renal
--- NOTE | 2022-01-12 09:24 | PC.NURSE ---
pt ambulatory to restroom without complications to provide UA
--- NOTE | 2022-01-12 09:26 | PC.NURSE ---
UA sent to lab
[2022-01-12 09:28] LABS: Microscopic, Urine URINE MICROSCOPIC (MICROSCOPIC)
[2022-01-12 09:31] VITALS: BP 133/84; PULSE 73; O2SAT 99
[2022-01-12 09:31] LABS: Appearance,Urine CLOUDY (Clear); Bilirubin,Urine Negative (Negative); Blood, Urine 2+ (Negative); Color,Urine YELLOW (Yellow); Glucose,Urine (UA) Negative (Negative); Ketones,Urine Negative (Negative); Leukocyte Esterase,Urine 3+ (Negative); Nitrate,Urine Negative (Negative); Protein,Urine TRACE (Negative); Specific Gravity, Urine 1.025 (1.005-1.030); Urobilinogen,Urine 0.2 EU/dl (0.2)
--- NOTE | 2022-01-12 09:36 | PC.NURSE ---
ER at speaking with patient; family at BS
--- NOTE | 2022-01-12 09:40 | CT_ITS ---
FINAL REPORT TECHNIQUE: Axial images through the abdomen and pelvis were performed without contrast. This study was performed with techniques to keep radiation doses as low as reasonably achievable, (ALARA). Individualized dose reduction techniques using automated exposure control or adjustment of mA and/or kV according to the patient's size were employed. CLINICAL HISTORY: flank pain, dysuria COMPARISON: 05/06/2021 FINDINGS: ABDOMEN: There is mild scarring in the lung bases. The heart size is normal. Limited images of the liver are unremarkable. The gallbladder is present. The spleen is normal. No adrenal mass is identified. The aorta is normal in caliber. There is no significant free fluid or adenopathy. There are several less than 3 mm or less bilateral renal stones. No ureteral stones are identified. There is no hydronephrosis. PELVIS: The appendix is unremarkable. There is widespread diverticulosis without evidence of diverticulitis. There is diffuse bladder wall thickening, likely inflammatory. Numerous bladder stones are seen measuring up to 7 mm, somewhat more numerous than previous. There is no significant free fluid or adenopathy. IMPRESSION: Bilateral nephrolithiasis. Diffuse bladder wall thickening with numerous stones. Reviewed, Interpreted and Dictated by Justin Torres III, MD Transcribed by Joan Patterson Authenticated and [facility]
--- NOTE | 2022-01-12 09:46 | PC.NURSE ---
patient to CT with precision optics technician by wheelchair
[2022-01-12 09:47] LABS: Basophils # 0.1 K/mm3 (0-0.2); Basophils % 2.2 % (0.1-2.0); Eosinophils # 0.4 K/mm3 (0.0-0.4); Eosinophils % 6.6 % (0.1-12.0); Hematocrit 45.2 % (42.0-52.0); Hemoglobin 15.1 g/dL (14.1-18.0); Lymphocytes # 1.4 K/mm3 (0.7-4.5); Lymphocytes % 24.4 % (10-50); Mean Corpuscular HGB Conc 33.3 g/dL (31.8-35.4); Mean Corpuscular Hemoglobin 30.7 pg (27.0-31.2); Mean Platelet Volume 8.5 fl (7.4-10.4); Monocytes # 0.4 K/mm3 (0.1-1.0); Neutrophils # 3.4 K/mm3 (1.8-7.8); Neutrophils % 59.7 % (37.0-80.0); Platelet Count 196 K/mm3 (142-424); Red Blood Count 4.92 M/mm3 (4.60-6.20); White Blood Count 5.7 K/mm3 (4.8-10.8)
[2022-01-12 09:55] LABS: Chloride 102 mmol/L (98-107)
[2022-01-12 09:55] LABS: Bacteria,Urine 1+ /lpf; Squamous Epithelial Cell,Urine Occasional #/hpf (0-5); WBC,Urine TNTC #/hpf (0-3)
--- NOTE | 2022-01-12 09:55 | PC.NURSE ---
pt returned from CT with office automation technician by wheelchair; no complications
[2022-01-12 09:56] LABS: Potassium 4.1 mmoL/L (3.5-5.1); Sodium 139 mmol/L (136-145)
[2022-01-12 09:58] LABS: Alanine Aminotransferase 17 U/L (12-78); Alkaline Phosphatase 78 U/L (38-126); Aspartate Amino Transferase 32 U/L (17-59); Bilirubin,Total 0.5 mg/dl (0.2-1.3); Blood Urea Nitrogen 15 mg/dl (9-20); Creatinine Clearance Estimated 48 mL/min (50-200); Estimated Glomerular Filt Rate 81 ml/min (>60); GFR (African American) 98 ML/MIN (>60)
[2022-01-12 09:59] LABS: Albumin Level 4.4 g/dl (3.5-5.0); Albumin/Globulin Ratio 1.4 (1.1-1.8); Anion Gap 9.1 mEq/L (5-15); Calcium 9.4 mg/dl (8.4-10.2); Carbon Dioxide 32 mmol/L (22.0-30.0); Globulin 3.1 g/dL (1.3-3.2); Glucose 99 mg/dl (74-100); Total Protein,Serum 7.5 g/dl (6.3-8.2)
[2022-01-12 10:00] VITALS: BP 115/73; PULSE 71; RESP 17; O2SAT 97
[2022-01-12 10:30] VITALS: BP 115/64; PULSE 60; O2SAT 97
--- NOTE | 2022-01-12 10:36 | PC.NURSE ---
ER at speaking with patient and family
[2022-01-12 11:00] VITALS: BP 120/69; PULSE 61; O2SAT 97
[2022-01-12 11:24] VITALS: BP 120/69; PULSE 63; RESP 16; TEMP 37.1; O2SAT 96
--- NOTE | 2022-01-12 11:24 | PC.NURSE ---
ER MD at speaking with patient regarding POC
== END 2022-01-12 11:28 | disposition home or self-care (01) ==
PROVIDERS: Emergency Provider Emergency Medicine
DX: N30.00 Acute cystitis without hematuria (principal); B96.89 Other specified bacterial agents as the cause of diseases classified elsewhere; K56.609 Unspecified intestinal obstruction, unspecified as to partial versus complete obstruction; E03.9 Hypothyroidism, unspecified; Z79.899 Other long term (current) drug therapy; Z80.9 Family history of malignant neoplasm, unspecified
CPT/HCPCS: 74176; 80053; 81001; 85025; 87086; 87088; 87186

== ENCOUNTER 2022-06-10 17:03 | Emergency (ER) | payer MEDICARE, MEDICAID, SELFPAY ==
[2022-06-10 17:34] VITALS: BP 135/78; PULSE 78; RESP 16; O2SAT 97
[2022-06-10 17:45] VITALS: BP 135/78; PULSE 84; RESP 17; TEMP 36.7; O2SAT 97; BMI 19.5
--- NOTE | 2022-06-10 17:56 | CT_ITS ---
PROCEDURE INFORMATION: Exam: CT Abdomen And Pelvis Without Contrast Exam date and time: 06/10/2022 6:58 PM Age: 81 years old Clinical indication: Abdominal pain; Additional info: Abd pain, UTI TECHNIQUE: Imaging protocol: Computed tomography of the abdomen and pelvis without contrast. Radiation optimization: All CT scans at this facility use at least one of these dose optimization techniques: automated exposure control; mA and/or kV adjustment per patient size (includes targeted exams where dose is matched to clinical indication); or iterative reconstruction. COMPARISON: CT ABDOMEN PELVIS WO CON 01/12/2022 9:46 AM FINDINGS: Lungs: Nonspecific minor bibasilar streaky opacities suggest atelectasis or parenchymal scarring. Pleural spaces: There are no pleural effusions. Heart: The visualized portions of the heart are unremarkable. There is no evidence of pericardial fluid collections. Liver: Evaluation of the liver is limited without contrast but the liver is within normal limits for this noncontrast study. Gallbladder and bile ducts: The gallbladder is incompletely distended. Pancreas: Noncontrast images of the pancreas are limited. There is apparent approximately 14 mm hypodensity in the mid pancreas, not optimally characterized. Spleen: The spleen is normal. Adrenal glands: The adrenal glands are normal. Kidneys and ureters: There are scattered nonobstructing bilateral renal collecting system calcifications, greater on the right. No hydronephrosis. Stomach and bowel: There is a 2.6 cm benign duodenal diverticulum. Lack of gastrointestinal contrast limits evaluation of bowel. Moderate diverticulosis is present in the distal colon. There is no evidence of colitis/diverticulitis. Postsurgical anastomotic change involves a loop of small bowel in the right upper quadrant with mild small bowel dilatation measuring approximately 4 cm, as before. While findings may reflect expected postoperative change, cannot exclude anastomotic stricture. Correlate clinically. Remaining unopacified loops of small bowel are within range of normal. Appendix: No evidence of appendicitis. Intraperitoneal space: No free air. There is no evidence of free intraperitoneal or pelvic fluid. Vasculature: The aorta and iliac arteries demonstrate mild atherosclerotic calcification. Lymph nodes: Unremarkable. No enlarged lymph nodes. Urinary bladder: Several layering bladder calcifications are present, as before. The bladder is decompressed. Mild nonspecific bladder wall thickening suggesting incomplete distention, chronic outflow obstruction or cystitis with mild perivesicular hazy fat stranding which may reflect edema/inflammation/cystitis. Cannot exclude neoplasm in the appropriate clinical setting. Reproductive: The prostate demonstrates mild nonspecific enlargement measuring 3.8 x 5.3 cm. The seminal vesicles are normal. The prostate demonstrates nonspecific parenchymal calcifications. Bones/joints: There are mild degenerative changes of the hip joints. There are mild degenerative changes of the symphyseal pubic joint. The thoracolumbar spine demonstrates mild degenerative changes at multiple levels. There is no evidence of acute fracture. Soft tissues: No significant soft tissue edema. Other findings: Evaluation is limited by the lack of intravenous and gastrointestinal contrast. IMPRESSION: 1. Multiple bladder calculi, as before. 2. Moderate to severe diverticulosis without evidence of diverticulitis. 3. Nonspecific prostatic enlargement. 4. Rounded hypodensity in the mid pancreas, not optimally characterized without intravenous contrast. This
[2022-06-10 18:00] VITALS: BP 111/66; PULSE 76; RESP 16; O2SAT 96
[2022-06-10 18:03] LABS: Appearance,Urine CLOUDY (Clear); Bilirubin,Urine Negative (Negative); Blood, Urine 3+ (Negative); Color,Urine YELLOW (Yellow); Glucose,Urine (UA) Negative (Negative); Ketones,Urine Negative (Negative); Leukocyte Esterase,Urine 2+ (Negative); Microscopic, Urine URINE MICROSCOPIC (MICROSCOPIC); Nitrate,Urine Negative (Negative); Protein,Urine 1+ (Negative); Specific Gravity, Urine >= 1.030 (1.005-1.030); Urobilinogen,Urine 0.2 EU/dl (0.2)
--- NOTE | 2022-06-10 18:04 | PC.NURSE ---
PT TO CT AT THIS TIME
[2022-06-10 18:07] LABS: RBC,Urine 20-50 #/hpf (0-3); WBC,Urine 50-100 #/hpf (0-3)
[2022-06-10 18:08] LABS: Basophils % 0.6 % (0.1-2.0); Chloride 102 mmol/L (98-107); Eosinophils # 0.3 K/mm3 (0.0-0.4); Eosinophils % 4.8 % (0.1-12.0); Hematocrit 43.4 % (42.0-52.0); Hemoglobin 13.7 g/dL (14.1-18.0); Lymphocytes # 1.3 K/mm3 (0.7-4.5); Mean Corpuscular HGB Conc 31.6 g/dL (31.8-35.4); Mean Corpuscular Hemoglobin 29.5 pg (27.0-31.2); Mean Corpuscular Volume 93.3 fl (80-94); Mean Platelet Volume 8.5 fl (7.4-10.4); Monocytes # 0.5 K/mm3 (0.1-1.0); Monocytes % 8.9 % (1.7-9.3); Neutrophils # 3.4 K/mm3 (1.8-7.8); Neutrophils % 61.6 % (37.0-80.0); Platelet Count 240 K/mm3 (142-424); Red Blood Count 4.66 M/mm3 (4.60-6.20); Red Cell Distribution Width 14.1 % (11.5-17.5); Sodium 142 mmol/L (136-145); White Blood Count 5.5 K/mm3 (4.8-10.8)
[2022-06-10 18:09] LABS: Potassium 3.8 mmoL/L (3.5-5.1)
[2022-06-10 18:11] LABS: Alanine Aminotransferase 18 U/L (12-78); Alkaline Phosphatase 79 U/L (38-126); Anion Gap 12.8 mEq/L (5-15); Aspartate Amino Transferase 29 U/L (17-59); Bilirubin,Total 0.2 mg/dl (0.2-1.3); Blood Urea Nitrogen 20 mg/dl (9-20); Carbon Dioxide 31 mmol/L (22.0-30.0); Creatinine Clearance Estimated 48 mL/min (50-200); Estimated Glomerular Filt Rate 72 ml/min (>60); GFR (African American) 87 ML/MIN (>60)
[2022-06-10 18:12] LABS: Albumin Level 4.1 g/dl (3.5-5.0); Albumin/Globulin Ratio 1.4 (1.1-1.8); Calcium 9.4 mg/dl (8.4-10.2); Globulin 2.9 g/dL (1.3-3.2); Glucose 114 mg/dl (74-100)
[2022-06-10 20:36] VITALS: BP 112/74; PULSE 76; RESP 18; TEMP 36.7; O2SAT 97
--- NOTE | 2022-06-10 21:33 | HMH.EDGENADL ---
Discharge Plan Disposition Patient Disposition: Home, Self-Care Condition: Good Prescriptions Prescriptions: New levofloxacin 750 mg tablet 750 mg PO DAILY 28 Days Qty: 28 0RF No Action tamsulosin [Flomax] 0.4 mg capsule 0.4 mg PO DAILY levothyroxine 75 MCG tablet 75 mcg PO DAILY hydrocodone-acetaminophen 1 TAB tablet 1 tab PO Q6HP PRN (Reason: Moderate Pain) Qty: 7 0RF cephalexin 500 MG tablet 500 mg PO BID Qty: 14 0RF ondansetron 4 MG tablet,disintegrating 4 mg PO BIDP PRN (Reason: Nausea) Qty: 10 0RF cephalexin 500 MG tablet 500 mg PO Q6H 7 Days Qty: 28 0RF Referrals Follow up/Referrals: Charisse Guillory APRN [Primary Care Provider] - See instructions Clinical Impressions Clinical Impression: Acute prostatitis Instructions Patient Instructions: Prostatitis Discharge ED Provider: Joseph Little General Adult HPI General Chief complaint: Urogenital-Male Stated complaint: back pain, difficult to urinate Time Seen by Provider: 06/10/22 17:15 Mode of Arrival: Ambulatory Limitations: No Limitations Description of Symptoms (Recalled from ER Triage Doc. by RN): PT REPORTS BURNING WITH URINATION AND PRESSURE History of Present Illness HPI narrative: Patient is a 81-year-old male who presents with concern for burning with urination pressure. He states that the symptoms have been going on for months. He says it is gotten substantially worse though. He says that the painful urination has gotten substantially worse. He also complains of pain that goes into his right groin. He does take Flomax daily. He says he has a history of having multiple kidney stones. He denies any back pain. Denies any fever or chills. Denies any abdominal pain. Related Data Home Medications Medication Instructions Recorded Confirmed levothyroxine 75 mcg tablet 75 mcg PO DAILY THYROID 04/29/18 11/17/20 tamsulosin 0.4 mg capsule (Flomax) 0.4 mg PO DAILY BPH 10/20/20 11/17/20 Previous Rx's Medication Instructions Recorded cephalexin 500 mg tablet 500 mg PO BID #14 tabs 05/06/21 hydrocodone 5 mg-acetaminophen 325 1 tab PO Q6HP PRN Moderate Pain #7 05/06/21 mg tablet tabs ondansetron 4 mg disintegrating 4 mg PO BIDP PRN Nausea #10 tabs 05/06/21 tablet cephalexin 500 mg tablet 500 mg PO Q6H URIN 7 days #28 tabs 01/12/22 levofloxacin 750 mg tablet 750 mg PO DAILY 28 days #28 tabs 06/10/22 Allergies Allergy/AdvReac Type Severity Reaction Status Date / Time No Known Allergies Allergy Verified 11/17/20 09:53 [facility] Medical History (Updated 06/10/22 @ 20:21 by Joseph Little MD) No significant past medical history Social History (Updated 06/10/22 @ 17:59 by Deepa Renteria RN) Smoking Status: Never smoker alcohol intake: never substance use type: denies use current occupational status: retired Travel in the last 8 weeks: None household members: none housing: house caffeine: Yes ROS Obtained: Yes All systems reviewed & no additional complaints except as documented A 14 point review of system was obtained and otherwise negative except per HPI Physical Exam General General appearance: alert and in no apparent distress Head Head exam: atraumatic, normocephalic and normal inspection Eye Eye exam: Present normal appearance, PERRL and EOMI ENT ENT exam: Present normal exam, normal oropharynx, mucous membranes moist, TM's normal bilaterally and normal external ear exam Neck Neck exam: Present normal inspection, full ROM and trachea midline; Absent meningismus or lymphadenopathy Chest Chest inspection: Present normal inspection and symmetric chest wall rise; Absent tenderness Respiratory Respiratory exam: Present normal lung sounds bilaterally; Absent respiratory distress Cardiovascular Cardiovascular exam: Present regular rate and normal rhythm; Absent JVD Abdominal Exam Abdominal exam: Present soft and normal bowel sounds; Absent distenti
== END 2022-06-10 20:38 | disposition home or self-care (01) ==
PROVIDERS: Emergency Provider Student in an Organized Health Care Education/Training Program; PCP Nurse Practitioner Family
DX: N41.0 Acute prostatitis (principal); Z87.442 Personal history of urinary calculi; Z79.899 Other long term (current) drug therapy; E07.9 Disorder of thyroid, unspecified
CPT/HCPCS: 74176; 80053; 81001; 85025; 87086; 99284

== ENCOUNTER 2024-04-25 11:03 | Outpatient (CLI) | payer MEDICARE, MEDICAID, SELFPAY ==
--- NOTE | 2024-04-25 11:08 | CT_ITS ---
FINAL REPORT TECHNIQUE: Axial imaging of the chest was obtained without contrast. Reformatted images were also obtained and reviewed.This study was performed with techniques to keep radiation doses as low as reasonably achievable, (ALARA). Individualized dose reduction technique using automated exposure control or adjustment of mA and/or kV according to the patient's size were employed. CLINICAL HISTORY: abnormal CXR FINDINGS: There is no axillary adenopathy. There is no hilar or mediastinal mass or adenopathy. Heart size is normal. There is no pericardial or pleural effusion. Limited images of the upper abdomen are unremarkable. There is mild atelectasis/scarring at the lung bases. Upper lobes are clear. There is mild aneurysmal dilatation of the thoracic aorta. Aortic sinus measures 41 mm. Mid ascending aorta measures 34 mm. IMPRESSION: Mildly aneurysmal aorta as above. Reviewed, Interpreted and Dictated by Lorna Pedraza MD Transcribed by Larissa Jimenez Authenticated and [facility]
== END 2024-04-25 23:59 | disposition home or self-care (01) ==
LOC: RAD 11:03
PROVIDERS: PCP Family Medicine; Visit Provider Family Medicine
DX: R93.89 Abnormal findings on diagnostic imaging of other specified body structures (principal); N05.9 Unspecified nephritic syndrome with unspecified morphologic changes; J18.9 Pneumonia, unspecified organism; I10 Essential (primary) hypertension; E03.9 Hypothyroidism, unspecified
CPT/HCPCS: 71250

== ENCOUNTER 2024-07-04 11:08 | Outpatient (CLI) | payer MEDICARE, MEDICAID, SELFPAY ==
[2024-07-04 11:26] LABS: Microscopic, Urine URINE MICROSCOPIC (MICROSCOPIC)
[2024-07-04 11:41] LABS: Appearance,Urine CLOUDY (Clear); Bilirubin,Urine Negative (Negative); Blood, Urine TRACE-I (Negative); Color,Urine YELLOW (Yellow); Glucose,Urine (UA) Negative (Negative); Ketones,Urine Negative (Negative); Leukocyte Esterase,Urine 2+ (Negative); Nitrate,Urine POSITIVE (Negative); PH,Urine 5.5 (5.0-8.5); Protein,Urine Negative (Negative); Specific Gravity, Urine 1.015 (1.005-1.030); Urobilinogen,Urine 0.2 EU/dl (0.2)
[2024-07-04 11:51] LABS: Bacteria,Urine 2+ /lpf; Squamous Epithelial Cell,Urine Occasional #/hpf (0-5); WBC,Urine 20-50 #/hpf (0-3)
== END 2024-07-04 23:59 | disposition home or self-care (01) ==
LOC: LAB 11:17
PROVIDERS: PCP Emergency Medicine; Visit Provider Student in an Organized Health Care Education/Training Program
DX: R30.0 Dysuria (principal)
CPT/HCPCS: 81001; 87086; 87088; 87186

== ENCOUNTER 2024-07-14 10:03 | Outpatient (CLI) | payer MEDICARE, MEDICAID, SELFPAY ==
--- NOTE | 2024-07-14 10:07 | US_ITS ---
FINAL REPORT TECHNIQUE: Ultrasound images of the kidneys and bladder were obtained. CLINICAL HISTORY: BPH W LOWER UTI SYMPTOMS COMPARISON: None FINDINGS: RENAL ULTRASOUND Ultrasound images of the kidneys were obtained. Limited images of the liver parenchyma demonstrate normal echogenicity. The right kidney measures 9.9 cm in length. It is normal echogenicity. There is no hydronephrosis. The left kidney measures 9.2 cm in length. It is normal echogenicity. There is no hydronephrosis. There is left renal calcification which could be parenchymal or within the calyx. Incidental finding is made of cholelithiasis. IMPRESSION: Left renal calcification, parenchymal or within the calyx. Incidental finding of cholelithiasis. Reviewed, Interpreted and Dictated by Lorna Pedraza MD Transcribed by Katelin White Authenticated and [facility][1]
== END 2024-07-14 23:59 | disposition home or self-care (01) ==
LOC: RAD 10:04
PROVIDERS: PCP Emergency Medicine; Visit Provider Student in an Organized Health Care Education/Training Program
DX: N40.1 Benign prostatic hyperplasia with lower urinary tract symptoms (principal)
CPT/HCPCS: 76770

== ENCOUNTER 2024-08-14 08:26 | Outpatient (CLI) | payer MEDICARE, MEDICAID, SELFPAY ==
[2024-08-14] VITALS (17 sets, daily range): BP systolic 109–137; BP diastolic 51–72; PULSE 58–68; RESP 18; TEMP 36.5; O2SAT 100; BMI 16.4
[2024-08-14 09:05] LABS: Basophils # 0.1 K/mm3 (0-0.2); Basophils % 0.8 % (0.1-2.0); Eosinophils # 0.3 K/mm3 (0.0-0.4); Eosinophils % 4.1 % (0.1-12.0); Hematocrit 34.2 % (42.0-52.0); Lymphocytes # 2.5 K/mm3 (0.7-4.5); Lymphocytes % 37.6 % (10-50); Mean Corpuscular HGB Conc 32.2 g/dL (31.8-35.4); Mean Corpuscular Hemoglobin 29.5 pg (27.0-31.2); Mean Corpuscular Volume 91.7 fl (80-94); Mean Platelet Volume 10.1 fl (7.4-10.4); Monocytes # 0.8 K/mm3 (0.1-1.0); Monocytes % 11.3 % (1.7-9.3); Neutrophils # 3.1 K/mm3 (1.8-7.8); Platelet Count 152 K/mm3 (142-424); Red Blood Count 3.73 M/mm3 (4.60-6.20); Red Cell Distribution Width 13.7 % (11.5-17.5); White Blood Count 6.7 K/mm3 (4.8-10.8)
[2024-08-14] MEDS: diphenhydrAMINE 50MG CAPSULE 50 MG PO (09:05)
[2024-08-14] MEDS: METHYLPREDNISOLONE SOD SUCC 125MG VIAL 125 MG IV (09:05)
[2024-08-14] MEDS: ACETAMINOPHEN 325MG TAB 650 MG PO (09:05)
[2024-08-14 09:21] LABS: Albumin Level 2.7 g/dl (3.5-5.0); Chloride 109 mmol/L (98-107); Sodium 137 mmol/L (136-145)
[2024-08-14 09:24] LABS: Blood Urea Nitrogen 29 mg/dl (9-20); Calcium 7.7 mg/dl (8.4-10.2); Carbon Dioxide 27 mmol/L (22.0-30.0); Creatinine Clearance Estimated 22 mL/min (50-200); Estimated Glomerular Filt Rate 36 ml/min (>60); GFR (African American) 44 ML/MIN (>60); Glucose 95 mg/dl (74-100); Phosphorous 3.6 mg/dl (2.5-4.5)
[2024-08-14] MEDS: SODIUM CHLORIDE 0.9% 50ML BAG 50 ML IV (09:36)
[2024-08-14] MEDS: RITUXIMAB 1,000 MG in 0.9 % SODIUM CHLORIDE 500 ML 50 MG IV (09:36)
== END 2024-08-14 14:25 | disposition home or self-care (01) ==
LOC: INF 08:33
PROVIDERS: PCP Emergency Medicine; Visit Provider Student in an Organized Health Care Education/Training Program
DX: N18.4 Chronic kidney disease, stage 4 (severe) (principal)
CPT/HCPCS: 80069; 85025; 96413; 96415; J2919; J9312

== ENCOUNTER 2025-01-02 10:57 | Outpatient (CLI) | payer MEDICARE, MEDICAID, SELFPAY ==
--- OUTSIDE RECORDS SUMMARY | 2025-01-02 10:20 | XMS_ITS | Encounter Summary ---
Author Organization Healthcare Address [address] [place] [address] Care Team Providers Care Associate Justice Name Role Phone Tushar Barba Primary Care Provider [phone] Reason for Visit * Reason Comments Follow-up PT is a 84 year old male that presents to the clinic on this date for a follow up. Pt denies complaints other than his stomach. 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 disease, or unspecified chronic kidney disease (Primary Dx); ANCA-associated vasculitis; Vitamin D deficiency; CKD (chronic kidney disease) stage 4, GFR 15-29 ml/min (CMS/[facility]); BPH with lower urinary tract symptoms without urinary obstruction; Long-term current use of rituximab; 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 No 12/21/2023 Within the last year, have y ou been humiliated or emotionally abused in other ways by your partner or ex-partner? No Within the last year, have y ou been kicked, hit, slapped, or otherwise physically hurt by your partner or ex-partner? No 12/21/2023 Within the last year, have y ou been raped or forced to have any kind of sexual activity by your partner or ex-partner? No 12/21/2023 AUDIT-C Answer Date Recorded Q1: How often do you have a drink containing alcohol? Monthly or less 12/28/2023 Q2: How many drinks containi ng alcohol do you have on a typical day when you are drinking? Patient does not drink Q3: How often do you have si x or more drinks on one occasion? Less than monthly 12/28/2023 PHQ-2 Answer Date Recorded Patient Health Questionnaire-2 Score 0 06/24/2024 Hunger Vital Sign Answer Date Recorded Within the past 12 months, y ou worried that your food would run out before you got the money to buy more. Never true 12/21/19 Within the past 12 months, t he food you bought just didn't last and you didn't have money to get more. Never true 12/21/2023 PRAPARE - Transportation Answer Date Re corded In the past 12 months, has l ack of transportation kept you from medical appointments or from getting medications? No 11/28 In the past 12 months, has l ack of transportation kept you from meetings, work, or from getting things needed for daily living? No 12/21/2023 Housing Stability Vital Sign Answer Ramirez e Recorded In the last 12 months, was t here a time when you were not able to pay the mortgage or rent on time? No 12/21/2023 Number of Places Lived in the Last Year Not on f ile 12/21/2023 In the last 12 months, was t here a time when you did not have a steady place to sleep or slept in a longterm (including now)? No 12/21/2023 PHQ-9 Answer Date Recorded Patient Health Questionnaire-9 Score 0 06/24/2024 Utilities Answer Date Recorded In the past 12 months has e electric, gas, oil, or water company threatened to shut off services in your home? No 12/21/2023 Sex and Gender Information Value Date Recorded Sex Assigned at Not on file Legal Sex Male 2:47 PM EDT Gender Identity Not on file Sexual Orientation Not on file documented as of this encounter Last Filed Vital Signs Vital Sign Reading Time Taken Comments Blood Pressure 121/61 01/02/2025 10:36 AM EDT Pulse 59 01/02/2025 10:36 AM EDT Temperature - - Respiratory Rate 16 01/02/2025 10:36 AM EDT Oxygen Saturation 98% 01/02/2025 10:36 AM EDT Inhaled Oxygen Concentration - - Weight 48.5 kg (107 lb) 01/02/2025 10:36 AM EDT Height 165.1 cm (5' 5 ) 01/02/2025 10:36 AM EDT Body Mass Index 17.81 01/02/2025 10:36 AM EDT documented in this encounter Miscellaneous Notes * Progress Notes - Brandon Lilly MD - 01/02/2025 10:20 AM EDT Nephrology Outpatient Clinic Progress Note Glomerulonephritis Clinic [facility] [place] Patient: Federico Hoyos Primary Care Provider: Tushar Barba Reason for visit: Follow up ANCA vasculitis (dx November 2023) HPI/Subjective Federico Hoyos is a 84 y.o. 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 Today's visit. Feels well. Weight stable. Off bactrim, no infections. Working more outside. 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 vasculitis with stroke (MPO 163, ANCA 1:160) ANABELLA-D on dialysis 12/21 - last HD on 01/1112/17/2023 Rituximab 1000mg 01/02/2024 Rituximab 1000mg Rituxivas prednisone taper protocol 06/2024 Prednisone stopped due to recurrent infections 08/2024 Rituximab 1000mg infusion 02/12/2025 Rituximab 500mg ROS Review of Systems History: Past Medical History: Diagnosis Date ANABELLA (acute kidney injury) (CMS/HCC) BPH (benign prostatic hyperplasia) Dysphagia GERD (gastroesophageal reflux disease) Glomerulonephritis Hypothyroidism Pancreatic mass SAH (subarachnoid hemorrhage) (CMS/HCC) Thrombocytopenia (CMS/HCC) Urinary retention Patient Active Problem List Diagnosis Subarachnoid hemorrhage (CMS/HCC) Acute kidney injury (ANABELLA) with acute tubular necrosis (ATN) ([facility]/HCC) Abnormal results of liver function studies Antineutrophilic cytoplasmic antibody (ANCA) vasculitis ([facility]/HCC) CKD (chronic kidney disease) stage 4, GFR 15-29 ml/min ([facility]/HCC) Liver disease Immunosuppression due to chronic steroid use (CMS/HCC) Pancreatic mass Long-term current use of rituximab Urinary tract infection with hematuria Hypokalemia Abnormal finding on liver function Vitamin D deficiency Hypertensive chronic kidney disease with stage 1 through stage 4 chronic kidney disease, or unspecified chronic kidney disease BPH with lower urinary tract symptoms without urinary obstruction 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 Social History Socioeconomic History Marital status: Spouse name: Not on file Number of children: Not on file Years of education: Not on file Highest education level: Not on file Occupational History Not on file Tobacco Use Smoking status: Former Current packs/day: 0.00 Average packs/day: 0.5 packs/day for 20.0 years (10.0 ttl pk-yrs) Types: Cigarettes Start date: 1973 Quit date: 1993 Years since quittin.4 Passive exposure: Never Smokeless tobacco: Never Tobacco comments: N/A Vaping Use Vaping status: Never Used Substance and Sexual Activity Alcohol use: Not Currently Comment: N/A Drug use: Never Sexual activity: Not Currently Other Topics Concern Occupational Exposure No Social History Narrative Not on file Social Drivers of Health Financial Resource Strain: Not on file Food Insecurity: No Food Insecurity (12/21/2023) Hunger Vital Sign Worried About Running Out of Food in the Last Year: Never true Ran Out of Food in the Last Year: Never true Transportation Needs: No Transportation Needs (12/21/2023) PRAPARE - Transportation Lack of Transportation (Medical): No Lack of Transportation (Non-Medical): No Physical Activity: Not on file Stress: Not on file Social Connections: Low Risk (08/10/2023) Received from [facility] Family and Community Support Help with Day to Day Activities: Not on file Feeling Lonely or Isolated: Not on file Intimate Partner Violence: Not At Risk (12/21/2023) Humiliation, Afraid, Rape, and Kick questionnaire Fear of Current or Ex-Partner: No Emotionally Abused: No Physically Abused: No Sexually Abused: No Housing Stability: Unknown (12/21/2023) Housing Stability Vital Sign Unable to Pay for Housing in the Last Year: No Number of Places Lived in the Last Year: Not on file Unstable Housing in the Last Year: No No Known Allergies Medications: Current Medications: Current Outpatient Medications Medication Instructions acetaminophen (TYLENOL) 1,000 mg, Every 6 hours PRN atorvastatin (LIPITOR) 40 mg, Nightly bumetanide (Bumex) 1 MG tablet 1 tablet, Daily ergocalciferol (VITAMIN D-2) 50,000 Units, Weekly ferrous sulfate (FEROSUL) 325 mg, Daily with breakfast finasteride (PROSCAR) 5 mg, Daily levothyroxine (SYNTHROID, LEVOXYL) 100 mcg, Daily metoprolol tartrate (LOPRESSOR) 12.5 mg, Nightly mirtazapine (REMERON) 7.5 mg, Oral, Nightly ondansetron (ZOFRAN) 4 mg, 2 times daily PRN pantoprazole (PROTONIX) 40 mg, Daily potassium chloride CR 10 MEQ PO ER tablet 10 mEq, Oral, Daily, Do not crush or chew. sulfamethoxazole-trimethoprim (Bactrim) 400-80 MG tablet 0.5 tablets, Oral, 3 times weekly, On Sunday, Sunday, and Sunday for prevention of UTIs. Start after finishing Cefdinir, stop potassium. tamsulosin (FLOMAX) 0.4 mg, Oral, Nightly Objective Visit Vitals BP 121/61 (BP Location: Left arm, Patient Position: Sitting, BP Cuff Size: Adult long) Pulse 59 Resp 16 Ht 1.651 m (5' 5 ) Wt 48.5 kg (107 lb) SpO2 98% BMI 17.81 kg/m?? Smoking Status Former BSA 1.49 m?? Heart Rate: [59] 59 Resp: [16] 16 BP: (121)/(61) 121/61 Physical Exam: Physical Exam Constitutional: General: He is not in acute distress. Appearance: Normal appearance. He is not ill-appearing. HENT: Head: Normocephalic and atraumatic. Right Ear: External ear normal. Left Ear: External ear normal. Nose: Nose normal. Mouth/Throat: Mouth: Mucous membranes are moist. Pharynx: Oropharynx is clear. Eyes: Conjunctiva/sclera: Conjunctivae normal. Pupils: Pupils are equal, round, and reactive to light. Cardiovascular: Rate and Rhythm: Normal rate. Pulses: Normal pulses. Pulmonary: Effort: Pulmonary effort is normal. Abdominal: General: Abdomen is flat. Bowel sounds are normal. Musculoskeletal: General: Normal range of motion. Cervical back: Normal range of motion. Right lower leg: No edema. Left lower leg: No edema. Skin: General: Skin is warm and dry. Capillary Refill: Capillary refill takes less than 2 seconds. Neurological: General: No focal deficit present. Mental Status: He is alert and oriented to person, place, and time. Mental status is at baseline. Psychiatric: Mood and Affect: Mood normal. Behavior: Behavior normal. Thought Content: Thought content normal. Judgment: Judgment normal. Laboratory: LAB RESULTS Renal Panel: Lab Results Component Value Date NA 142 06/24/2024 K 3.7 06/24/2024 CL 106 06/24/2024 CO2 26 06/24/2024 BUN 32 (H) 06/24/2024 CREATININE 2.08 (H) 06/24/2024 EGFR 31.4 06/24/2024 PHOS 3.4 06/24/2024 ALBUMIN 4.1 06/24/2024 CBC: Lab Results Component Value Date WBC 6.60 06/24/2024 RBC 4.04 (L) 06/24/2024 HGB 12.4 (L) 06/24/2024 HCT 38.5 (L) 06/24/2024 PLT 169 06/24/2024 MCV 95 06/24/2024 MCH 30.7 06/24/2024 MCHC 32.2 06/24/2024 RDW 13.8 06/24/2024 NRBC 0.0 06/24/2024 Iron studies: Lab Results Component Value Date FERRITIN 922 (H) 06/24/2024 IRON 53 06/24/2024 TIBC 211 (L) 06/24/2024 Urine studies: Lab Results Component Value Date CREATUR 49 01/14/2024 MBD: Lab Results Component Value Date PTH 193 (H) 01/12/2024 CALCIUM 9.3 06/24/2024 PHOS 3.4 06/24/2024 MG 2.0 01/25/2024 VITAMIN D 25 Lab Results Component Value Date VITD25 21.1 01/12/2024 VITAMIN D 1,25 No results found for: VITD32 Paraproteinemia Labs: No results found for: SPEP , KAPPALAMBDA Nutritional: Lab Results Component Value Date VITD25 21.1 01/12/2024 Endocrine profile: No results found for: TESTOSTERONE , TESTOST , FSH , LH , PROLACTIN , TSH , R4SKTRL , FREET4 , CORTISOL [facility] Lab CMP Cr 2.0, BUN 33 --> Repeat labs on 03/22 showed cr back to 1.6 potassium remains low at 3.2 LFTS: Allk phos 66, AST 19, ALT 11 -- normal Ca 7.5, Albumin 2,4, protein 4.6 CBC: WBC 9.4, Hgb 9.7, plt 188 Most recent RFP 142; 106; 3.7; 26; 32; 2.08; 9.3; 4.1 Labs: Sep 02, 2024 Na 142, K 3.6, Cl 107, CO@ 28, Glu 90, BUN 34, Cr 2.0, EGFR 33, Tprot 6.1, Alb 3.2, Ca 9.1, Tbili 0.4, AST 25, ALT 30, Alk phos 95 Imaging: Normal appearing kidneys on cT abdomen pelvis sin December 2023 Impression & Plan: Assessment/Plan: Mr. Hoyos is an 84 y.o. 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 Completed Rituxmab induction in December 2023 and is now in remission on rituximab maintenance therapy. 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 No crescent formation seen. Large artery was noted in the biopsy and noted to have fibrinoid necrosis in the dowd with necrotizing arteritis. IFTA 35 percent and some ATN. 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 - GI seeing outpatient planning for MRCP. 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 -started on Finasteride and tamsulosin Impression and PLAN for today: -Mr. Hoyos has stable kidney function with Creatinine at 2.0 eGFR 33. Albu 3.2 due to poor po intake, but otherwise doing okay. He completed rituximab infusion in July 2024 next dose due in January 2025. He is on Bactrim prophylaxis due to issues with recurrent infections. Status of disease MPO-ANCA: IN REMISSION and on MAINTENANCE therapy. -Induction November 2023 -Maintenance Rituximab started Aug 2024 -Next Dose due February 12, 2025 has been scheduled -OFF prednisone early Jun 2024 due to recurrent infections -OFF bactrim -BP controlled -Volume and electrolytes controlled Drug monitoring on rituximab: Close monitoring for infections while on rituximab. CBC ordered for every 3 months. No hypogammaglobulinemia. CD19 counts were suppressed at <1% RTC in 3 months with repeat labs: Anca profile, rfp, cbc, ua before visit Brandon Lilly MD Division of Nephrology [facility] ORDERS PLACED THIS ENCOUNTER No orders of the defined types were placed in this encounter. Problem List Items Addressed This Visit None documented in this encounter Plan of Treatment Not on file documented as of this encounter Visit Diagnoses Diagnosis Hypertensive chronic kidney disease with stage 1 through stage 4 chronic kidney disease, or unspecified chronic kidney disease- Primary ANCA-associated vasculitis Other specified disorders of arteries and arterioles Vitamin D deficiency CKD (chronic kidney disease) stage 4, GFR 15-29 ml/min ([facility]) Chronic kidney disease, Stage IV (severe) BPH with lower urinary tract symptoms without urinary obstruction Long-term current use of rituximab 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
--- OUTSIDE RECORDS SUMMARY | 2025-01-02 11:00 | XMS_ITS | Data Portability ---
Author Organization [facility] RAFI Moulton ESKDALE CLOSED Address [address] [place] [address] Care Team Providers Care [employer] Name Role Phone ROBELTAVARES SANTANA Primary Care Provider [phone] Assessment Encounter Date Assessment Date Assessment LastModified by Organization Details LastModified Time 09/05/2018 09/05/2018 Continue tamsulosin.An nual follow-up. [email or web address] Not available 09/15/2018 21:19:20 12/08/2021 12/08/2021 Urine for culture and sensitivity. Medication adjustment to include double dose tamsulosin. Follow-up to reassess voiding symptoms. [email or web address] Not available 12/09/2021 08:16:12 01/19/2022 01/19/2022 Medical management lower urinary symptoms with double dose tamsulosin. We discussed medication adjustment versus endoscopic treatment of BPH symptoms. He reports bladder stone which could be related to bladder outlet obstruction. He is not interested in surgical procedure at this time. Continue to monitor symptoms. Follow-up with [facility]. [email or web address] Not available 01/19/2022 14:34:19 Plan of Treatment Reminders Order Date Submit Date Provider Last Modified By Organization Details Last Modified Time Details Appointments None recorded. Lab urinalysis panel, auto 2021 022 [email or web address] 4 [facility], [address] [place] [address] Dr Zhang, [place], [address], 10:38:46 culture, urine 2021 022 4 [facility], [address] [place] [address], [address], 2 10:38:46 urinalysis panel, auto 2021 022 [email or web address] 4 [facility] Services With [address] Zhang, [place], [address], 2 16:37:57 culture, urine 2021 022 4 [facility], [address] [place] [address], [address], 2 16:37:57 urinalysis panel, auto 2020 021 [email or web address] 4 [facility], [address] [place] [address] Dr Zhang, [place], [address], 1 22:29:48 culture, urine 2020 021 [facility], [address] [place] [address], [address], 1 12:22:44 urinalysis , dipstick, auto 2019 020 [email or web address] 4 [facility], [address] [facility] [place] [facility], [place], [address], 0 12:18:05 culture + sensitivit y, urine 2019 020 [facility], [address] [place] [address], [address], 0 10:57:49 Referral None recorded. Procedures None recorded. Surgeries None recorded. Imaging None recorded. Medication Orders tamsulosin 0.4 mg capsule 2021 022 [email or web address] 4 [facility], [address] [place], [address], 2 08:15:08 tamsulosin 0.4 mg capsule 2020 021 [email or web address] 4 [facility], [address] [place] [address], [address], 1 08:48:15 tamsulosin 0.4 mg capsule 2019 020 INTERFACE [facility], [address] [place] [address], [address], 0 11:24:24 Flomax 0.4 mg capsule 2018 019 INTERFACE [facility], [address] [place] [address], [address], 9 13:41:37 Patient TargetsNo targets recorded. Patient Instructions Encounter Date Encounter Id Patient Instructions Last Modified By Organization Details Last Modified Time 09/05/2018 [id number] learning about high blood pressure [email or web address] Not available 09/05/2018 13:41:34 12/02/2019 [id number] Urinary Tract Infections (UTI) in Men: Care Instructions [email or web address] Not available 12/02/2019 12:18:05 01/19/2022 [id number] learning about healthy weight Not available 01/22/2022 14:34:54 Reason for Referral None Reported. Results Created Date Observation Date Name Description Value Unit Range Abnormal Flag Note LastModifiedBy Organization Detail LastModifiedTime 12/24/1912/23/2020 urina lysis panel , auto Unknown Analyte Clean Catch Not Available [facility] [address] Zhang, [place], [address], 12/23/2020 13:01:40 12/24/19 21 12/23/2020 urina lysis panel , auto Unknown Analyte Yellow Not Available [facility] With [address] Zhang, [place], [address], 12/23/2020 13:01:40 12/24/19 21 12/23/2020 urina lysis panel , auto Unknown Analyte Slight ly Hazy Not Available [facility] With [address] Zhang, [place], [address], 12/23/2020 13:01:40 12/24/19 21 12/23/2020 urina lysis panel , auto Unknown Analyte 1.025 Not Available [facility] Services With [address] [place], [address], 12/23/2020 13:01:40 12/24/19 21 12/23/2020 urina lysis panel , auto Unknown Analyte 1.003- 1.035 Not Available [facility] With [address] [place], [address], 12/23/2020 13:01:40 12/24/19 21 12/23/2020 urina lysis panel , auto Unknown Analyte 5.0 Not Available [facility] With [address] [place], [address], 12/23/2020 13:01:40 12/24/19 21 12/23/2020 urina lysis panel , auto Unknown Analyte 5.0-8. 0 Not Available [facility] With [address] [place], [address], 12/23/2020 13:01:40 12/24/19 21 12/23/2020 urina lysis panel , auto Unknown Analyte 500 Guerline/ul (++) Not Available [facility] With [address] [place], [address], 12/23/2020 13:01:40 12/24/19 21 12/23/2020 urina lysis panel , auto Unknown Analyte Negati ve Not Available [facility] With [address] [place], [address], 12/23/2020 13:01:40 12/24/19 21 12/23/2020 urina lysis panel , auto Unknown Analyte Negati ve Not Available [facility] With [address] [place], [address], 12/23/2020 13:01:40 12/24/19 21 12/23/2020 urina lysis panel , auto Unknown Analyte Negati ve Not Available [facility] With [address] [place], [address], 12/23/2020 13:01:40 12/24/19 21 12/23/2020 urina lysis panel , auto Unknown Analyte Negati ve Not Available [facility] With [address] [place], [address], 12/23/2020 13:01:40 12/24/19 21 12/23/2020 urina lysis panel , auto Unknown Analyte Negati ve Not Available [facility] With [address] [place], [address], 12/23/2020 13:01:40 12/24/19 21 12/23/2020 urina lysis panel , auto Unknown Analyte Normal Not Available [facility] Services With [address] [place], [address], 12/23/2020 13:01:40 12/24/19 21 12/23/2020 urina lysis panel , auto Unknown Analyte Normal Not Available [facility] Extended Services With [address] [place], [address], 12/23/2020 13:01:40 12/24/19 21 12/23/2020 urina lysis panel , auto Unknown Analyte Negati ve Not Available [facility] [address] Zhang, [place], [address], 12/23/2020 13:01:40 12/24/19 21 12/23/2020 urina lysis panel , auto Unknown Analyte Negati ve Not Available [facility] With [address] [place], [address], 12/23/2020 13:01:40 12/24/19 21 12/23/2020 urina lysis panel , auto Unknown Analyte 1 mg/dl Not Available [facility] With [address] [place], [address], 12/23/2020 13:01:40 12/24/19 21 12/23/2020 urina lysis panel , auto Unknown Analyte Normal 1 mg/dl Not Available [facility] With [address] [place], [address], 12/23/2020 13:01:40 12/24/19 21 12/23/2020 urina lysis panel , auto Unknown Analyte Negati ve Not Available [facility] With [address] [place], [address], 12/23/2020 13:01:40 12/24/19 21 12/23/2020 urina lysis panel , auto Unknown Analyte Negati ve Not Available [facility] [address] [place], [address], 12/23/2020 13:01:40 12/24/19 21 12/23/2020 urina lysis panel , auto Unknown Analyte Negati ve Not Available [facility] With [address] Zhang, [place], [address], 12/23/2020 13:01:40 12/24/19 21 12/23/2020 urina lysis panel , auto Unknown Analyte Negati ve Not Available [facility] With [address] Zhang, [place], [address], 12/23/2020 13:01:40 12/02/19 20 12/02/2019 urina lysis , dipst ick, auto Unknown Analyte Yellow Not Available [facility] [place] [address], [place], [address], 12/02/2019 11:13:52 12/02/19 20 12/02/2019 urina lysis , dipst ick, auto Unknown Analyte Clear Not Available [facility] [address], [place], [address], 12/02/2019 11:13:52 12/02/19 20 12/02/2019 urina lysis , dipst ick, auto Unknown Analyte 1.020 Not Available [facility] [address] [place] [address] [address], [place], [address], 12/02/2019 11:13:52 12/02/19 20 12/02/2019 urina lysis , dipst ick, auto Unknown Analyte 1.003 - 1.035 Not Available [facility] [address], [place], [address], 12/02/2019 11:13:52 12/02/19 20 12/02/2019 urina lysis , dipst ick, auto Unknown Analyte 5.0 Not Available [facility] [address] [facility] [place] [facility] [address], [place], [address], 12/02/2019 11:13:52 12/02/19 20 12/02/2019 urina lysis , dipst ick, auto Unknown Analyte 5.0 - 8.0 Not Available Replaced by [facility] [address] [facility] [place] [facility] [address], [place], [address], 12/02/2019 11:13:52 12/02/19 20 12/02/2019 urina lysis , dipst ick, auto Unknown Analyte 500 Guerline/ul (++) Not Available [facility] [address] [facility] [place] [facility] [address], [place], [address], 12/02/2019 11:13:52 12/02/19 20 12/02/2019 urina lysis , dipst ick, auto Unknown Analyte Negati ve Not Available [facility] [address] [place] [address] [address], [place], [address], 12/02/2019 11:13:52 12/02/19 20 12/02/2019 urina lysis , dipst ick, auto Unknown Analyte Negati ve Not Available [facility] [address] [facility] [place] [facility] [address], [place], [address], 12/02/2019 11:13:52 12/02/19 20 12/02/2019 urina lysis , dipst ick, auto Unknown Analyte Negati ve Not Available [facility] [address] [facility] [place] [facility] [address], [place], [address], 12/02/2019 11:13:52 12/02/19 20 12/02/2019 urina lysis , dipst ick, auto Unknown Analyte 30 mg/dl (+) Not Available [facility] [address], [place], [address], 12/02/2019 11:13:52 12/02/19 20 12/02/2019 urina lysis , dipst ick, auto Unknown Analyte Negati ve - Trace Not Available [facility] [address] [place] [address] [address], [place], [address], 12/02/2019 11:13:52 12/02/19 20 12/02/2019 urina lysis , dipst ick, auto Unknown Analyte Normal Not Available [facility] With [address], [place], [address], 12/02/2019 11:13:52 12/02/19 20 12/02/2019 urina lysis , dipst ick, auto Unknown Analyte Normal Not Available [facility] With [address], [place], [address], 12/02/2019 11:13:52 12/02/19 20 12/02/2019 urina lysis , dipst ick, auto Unknown Analyte 15 mg/dl (Sm) Not Available [facility] [address] [place] [address] [address], [place], [address], 12/02/2019 11:13:52 12/02/19 20 12/02/2019 urina lysis , dipst ick, auto Unknown Analyte Negati ve Not Available [facility] [address], [place], [address], 12/02/2019 11:13:52 12/02/19 20 12/02/2019 urina lysis , dipst ick, auto Unknown Analyte 1 mg/dl Not Available [facility] [address] [facility] [place] [facility] [address], [place], [address], 12/02/2019 11:13:52 12/02/19 20 12/02/2019 urina lysis , dipst ick, auto Unknown Analyte Normal - 1mg/dl Not Available [facility] [address] [facility] [place] [facility] [address], [place], [address], 12/02/2019 11:13:52 12/02/19 20 12/02/2019 urina lysis , dipst ick, auto Unknown Analyte 1 mg/dl (+) Not Available [facility] [address] [place] [address] [address], [place], [address], 12/02/2019 11:13:52 12/02/19 20 12/02/2019 urina lysis , dipst ick, auto Unknown Analyte Negati ve Not Available [facility] [address] [facility] [place] [facility] [address], [place], [address], 12/02/2019 11:13:52 12/02/19 20 12/02/2019 urina lysis , dipst ick, auto Unknown Analyte 50 Aníbal/ul Not Available [facility] [address] [place] [address] [address], [place], [address], 12/02/2019 11:13:52 12/02/19 20 12/02/2019 urina lysis , dipst ick, auto Unknown Analyte Negati ve Not Available [facility] [address] [place] [address] [address], [place], [address], 12/02/2019 11:13:52 12/02/19 20 12/02/2019 urina lysis , dipst ick, auto Unknown Analyte Clean Catch Not Available [facility] [address], [place], [address], 12/02/2019 11:13:52 12/02/19 20 12/02/2019 urina lysis , dipst ick, auto Unknown Analyte Automa mel Not Available [facility] [address], [place], [address], 12/02/2019 11:13:52 12/02/19 20 12/05/2019 cultu re + sensi tivit y, urine urine culture SEE BELOW abnormal CULTU RE, URINE , ROUTI NE Micro Numbe r: [id number] Test Statu s: Final Speci men Sourc e: CLEAN -CATC H Speci men Quali ty: Adequ ate Resul t: 10,00 0-50, 000 CFU/m L of Coagu lase negat bora staph yloco ccus, not S. sapro phyti cus 10,00 0-50, 000 CFU/m L of Yeast [place] mel. Pleas e conta ct the labor atory withi n 3 days if furth er ident ifica tion is chang ed. Coag. neg.s taph. ----- ----- ----- - INT SHAUNA CIPRO FLOXA CHRIS S <=0.5 GENTA MICIN S <=0.5 LEVOF LOXAC IN S 0.25 MOXIF LOXAC IN S <=0.2 5 NITRO FURAN TOIN S <=16 OXACI LLIN S <=0.2 5 1 TETRA CYCLI NE S <=1 TRIME THOPR IM/CHAVIS LFA S <=10 VANCO MYCIN S <=0.5 S=Abiola cepti ble I=Int ermed iate R=Res istan t * = Not Teste d NR = Not Repor mel NN = See Thera py Comme nts THERA PY COMME NTS Note 1: Oxaci llin- susce ptibl e staph yloco cci are susce ptibl e to other penic illin ase-s table penic illin s (e.g. Methi cilli n, Nafci llin) , beta- lacta m/bet a-lac branden e inhib itor combi natio ns, and cephe ms with staph yloco ccal indic ation s, inclu ding Cefaz елена. TEST PERFO RMED AT: [facility] [address] [place] [address] MONTEZ Gutierrez MD Not Available [facility] [address] [place] [address], [address], 12/05/2019 11:10:33 12/02/19 20 12/09/2019 funga l ident ifica tion, isola te result SEE BELOW normal FUNGA L ISOLA TE IDENT IFICA TION Micro Numbe r: [id number] Test Statu s: Final Speci men Sourc e: URINE Speci men Quali ty: Adequ ate Resul t: Growt h of Valarie da tropi calis TEST PERFO RMED AT: [facility] [address] [place] [address] MONTEZ Gutierrez MD Not Available [facility] [address] [place] [address], [address], 12/09/2019 12:34:57 12/24/19 21 12/23/2020 cultu re, urine results Sourc e: CCUR Colle cted: 12/23 13:03 Site: Recei bayron : 12/23 19:38 URINE CULTU RE FINAL 12/25 12:56 12/25 COLON Y COUNT : 10,00 0 - 100,0 00 CFU/M L Yeast . Not Available [facility] [address] [place] [address], [address], 12/25/2020 12:56:29 12/09/19 22 12/08/2021 URINE CULTU RE results Sour e: CCUR Colle cted: 12/08 16:02 Site: Sandra bayron : 12/08 19:58 URINE CULTU RE FINAL 12/12 10:43 12/12 COLON Y COUNT : < 10,00 0 CFU/M L Yeast . Not Available [facility] [address] [facility], [place], [address], 12/12/2021 10:43:14 12/09/19 22 12/08/2021 urina lysis panel , auto Unknown Analyte Clean Catch Not Available [facility] With [address] Zhang, [place], [address], 12/08/2021 15:55:52 12/09/19 22 12/08/2021 urina lysis panel , auto Unknown Analyte Yellow Not Available [facility] With [address] [place], [address], 12/08/2021 15:55:52 12/09/19 22 12/08/2021 urina lysis panel , auto Unknown Analyte Clear Not Available [facility] Services With [address] Zhang, [place], [address], 12/08/2021 15:55:52 12/09/19 22 12/08/2021 urina lysis panel , auto Unknown Analyte 1.015 Not Available [facility] With [address] Zhang, [place], [address], 12/08/2021 15:55:52 12/09/19 22 12/08/2021 urina lysis panel , auto Unknown Analyte 1.003- 1.035 Not Available [facility] With [address] [place], [address], 12/08/2021 15:55:52 12/09/19 22 12/08/2021 urina lysis panel , auto Unknown Analyte 5.0 Not Available [facility] Services With [address] Zhang, [place], [address], 12/08/2021 15:55:52 12/09/19 22 12/08/2021 urina lysis panel , auto Unknown Analyte 5.0-8. 0 Not Available [facility] With [address] Zhang, [place], [address], 12/08/2021 15:55:52 12/09/19 22 12/08/2021 urina lysis panel , auto Unknown Analyte 500 Guerline/ul (++) Not Available [facility] With [address] Zhang, [place], [address], 12/08/2021 15:55:52 12/09/19 22 12/08/2021 urina lysis panel , auto Unknown Analyte Negati ve Not Available [facility] With [address] Zhang, [place], [address], 12/08/2021 15:55:52 12/09/19 22 12/08/2021 urina lysis panel , auto Unknown Analyte Negati ve Not Available [facility] With [address] [place], [address], 12/08/2021 15:55:52 12/09/19 22 12/08/2021 urina lysis panel , auto Unknown Analyte Negati ve Not Available [facility] With [address] [place], [address], 12/08/2021 15:55:52 12/09/19 22 12/08/2021 urina lysis panel , auto Unknown Analyte Negati ve Not Available [facility] With [address] [place], [address], 12/08/2021 15:55:52 12/09/19 22 12/08/2021 urina lysis panel , auto Unknown Analyte Negati ve Not Available [facility] With [address] [place], [address], 12/08/2021 15:55:52 12/09/19 22 12/08/2021 urina lysis panel , auto Unknown Analyte Normal Not Available [facility] Services With [address] [place], [address], 12/08/2021 15:55:52 12/09/19 22 12/08/2021 urina lysis panel , auto Unknown Analyte Normal Not Available [facility] Services With [address] [place], [address], 12/08/2021 15:55:52 12/09/19 22 12/08/2021 urina lysis panel , auto Unknown Analyte Negati ve Not Available [facility] With [address] [place], [address], 12/08/2021 15:55:52 12/09/19 22 12/08/2021 urina lysis panel , auto Unknown Analyte Negati ve Not Available [facility] With [address] [place], [address], 12/08/2021 15:55:52 12/09/19 22 12/08/2021 urina lysis panel , auto Unknown Analyte Normal Not Available [facility] Services With [address] [place], [address], 12/08/2021 15:55:52 12/09/19 22 12/08/2021 urina lysis panel , auto Unknown Analyte Normal 1 mg/dl Not Available [facility] With [address] Zhang, [place], [address], 12/08/2021 15:55:52 12/09/19 22 12/08/2021 urina lysis panel , auto Unknown Analyte Negati ve Not Available [facility] With [address] [place], [address], 12/08/2021 15:55:52 12/09/19 22 12/08/2021 urina lysis panel , auto Unknown Analyte Negati ve Not Available [facility] With [address] Zhang, [place], [address], 12/08/2021 15:55:52 12/09/19 22 12/08/2021 urina lysis panel , auto Unknown Analyte 250 Aníbal/ul Not Available [facility] With [address] Zhang, [place], [address], 12/08/2021 15:55:52 12/09/19 22 12/08/2021 urina lysis panel , auto Unknown Analyte Negati ve Not Available [facility] With [address] [place], [address], 12/08/2021 15:55:52 01/20/20 22 01/19/2022 URINE CULTU RE results Sourc e: CCUR Colle cted: 01/19 15:24 Site: Recei bayron : 01/19 19:25 URINE CULTU RE FINAL 01/23 13:53 01/23 COLON Y COUNT : < 10,00 0 CFU/M L Two or more isola margaux; mixed skin beverley . 2,000 CFU/M L Gram Negat bora Bacil nighat. NO FURTH ER TRUNG P UNLES S REQUE STED Not Available [facility] [address] [facility], [place], [address], 01/23/2022 13:53:12 01/20/20 22 01/19/2022 urina lysis panel , auto Unknown Analyte Clean Catch Not Available [facility] With [address] Zhang, [place], [address], 01/19/2022 15:21:15 01/20/20 22 01/19/2022 urina lysis panel , auto Unknown Analyte Yellow Not Available [facility] With [address] Zhang, [place], [address], 01/19/2022 15:21:15 01/20/20 22 01/19/2022 urina lysis panel , auto Unknown Analyte Slight ly Hazy Not Available [facility] [address] [place], [address], 01/19/2022 15:21:15 01/20/20 22 01/19/2022 urina lysis panel , auto Unknown Analyte 1.025 Not Available [facility] With [address], [place], [address], 01/19/2022 15:21:15 01/20/20 22 01/19/2022 urina lysis panel , auto Unknown Analyte 1.003- 1.035 Not Available [facility] [address] [place], [address], 01/19/2022 15:21:15 01/20/20 22 01/19/2022 urina lysis panel , auto Unknown Analyte 5.0 Not Available [facility] With [address] [place], [address], 01/19/2022 15:21:15 01/20/20 22 01/19/2022 urina lysis panel , auto Unknown Analyte 5.0-8. 0 Not Available [facility] [address], [place], [address], 01/19/2022 15:21:15 01/20/20 22 01/19/2022 urina lysis panel , auto Unknown Analyte 500 Guerline/ul (++) Not Available [facility] [address] [place], [address], 01/19/2022 15:21:15 01/20/20 22 01/19/2022 urina lysis panel , auto Unknown Analyte Negati ve Not Available [facility] [address] [place], [address], 01/19/2022 15:21:15 01/20/20 22 01/19/2022 urina lysis panel , auto Unknown Analyte Negati ve Not Available [facility] [address] [place], [address], 01/19/2022 15:21:15 01/20/20 22 01/19/2022 urina lysis panel , auto Unknown Analyte Negati ve Not Available [facility] [address] [place], [address], 01/19/2022 15:21:15 01/20/20 22 01/19/2022 urina lysis panel , auto Unknown Analyte Trace Not Available [facility] [address] [place], [address], 01/19/2022 15:21:15 01/20/20 22 01/19/2022 urina lysis panel , auto Unknown Analyte Negati ve Not Available [facility] [address] [place], [address], 01/19/2022 15:21:15 01/20/20 22 01/19/2022 urina lysis panel , auto Unknown Analyte Normal Not Available [facility] With [address] [place], [address], 01/19/2022 15:21:15 01/20/20 22 01/19/2022 urina lysis panel , auto Unknown Analyte Normal Not Available [facility] [address] [place], [address], 01/19/2022 15:21:15 01/20/20 22 01/19/2022 urina lysis panel , auto Unknown Analyte 15 mg/dl (Sm) Not Available [facility] [address] [place], [address], 01/19/2022 15:21:15 01/20/20 22 01/19/2022 urina lysis panel , auto Unknown Analyte Negati ve Not Available [facility] [address] [place], [address], 01/19/2022 15:21:15 01/20/20 22 01/19/2022 urina lysis panel , auto Unknown Analyte 1 mg/dl Not Available [facility] [address] [place], [address], 01/19/2022 15:21:15 01/20/20 22 01/19/2022 urina lysis panel , auto Unknown Analyte Normal 1 mg/dl Not Available [facility] [address] [place], [address], 01/19/2022 15:21:15 01/20/20 22 01/19/2022 urina lysis panel , auto Unknown Analyte 1 mg/dl (+) Not Available [facility] [address] Zhang, [place], [address], 01/19/2022 15:21:15 01/20/20 22 01/19/2022 urina lysis panel , auto Unknown Analyte Negati ve Not Available [facility] [address] Zhang, [place], [address], 01/19/2022 15:21:15 01/20/20 22 01/19/2022 urina lysis panel , auto Unknown Analyte 50 Aníbal/ul Not Available [facility] [address], [place], [address], 01/19/2022 15:21:15 01/20/20 22 01/19/2022 urina lysis panel , auto Unknown Analyte Negati ve Not Available [facility] [address], [place], [address], 01/19/2022 15:21:15 Result Notes None recorded. Problems Name Problem SNOMED Code Status Onset Date Resolution Date Notes Provider Name and Address Organization Details Recorded Time Benign prostatic hyperplasia with outflow obstruction 223066655 Active 2016 Theodore welsh [facility] 7 14:16:12 Problem Notes None recorded. Procedures Surgical History Date Name Laterality Status Provider Name and Address Organization Details Recorded Time 9 endoscopic laser surgery on colon completed Theodore Gonzáles [facility] 12/02/2019 11:16:00 Imaging Results None recorded. Procedure Notes None recorded. Medical Equipment None Reported. Allergies No known drug allergies Medications Name Sig Start Date Stop Date Status Note LastModified by Organization Details LastModified Time Diflucan 150 mg tablet Take 1 tablet by oral route for 1 day. 01/19 completed Not Available Not Available Not Available tamsulosin 0.4 mg capsule Take 2 capsules by mouth once daily active Not Available Not Available No t Available levothyroxi ne 125 mcg tablet active Not Available Not Available Not Available clotrimazol e-betametha sone 1 %-0.05 % topical cream 12/01 completed Not Available Not Available Not Available Levaquin 500 mg tablet Take 1 tablet every 24 hours by oral route for 7 days. 01/19 completed Not Available Not Available Not Available Keflex active Not Available Not Availa ble Not Available Vitals Date Recorded Body height Body mass index (BMI) Body weight Systolic blood pressure Diastolic blood pressure Provider Name and Address Organization Details Last Updated DateTime 09/05/2018 167.64 cm 22.6 kg/m2 32568.93 g 110 mm[Hg] 58 mm[Hg] Theodore Gonzáles [facility] 9 13:21:19 Date Recorded Body height Body mass index (BMI) Body weight Provider Name and Address Organization Details Last Updated DateTime 12/02/2019 167.64 cm 6.5 kg/m2 01534.69 g Theodore Gonzáles [facility] 12/02/2019 11:13:20 Date Recorded Body height Body mass index (BMI) Body weight Provider Name and Address Organization Details Last Updated DateTime 12/08/2021 167.64 cm 22.6 kg/m2 24969.93 g Patricia Sosa [facility] 12/08/2021 15:02:40 Date Recorded Body height Body mass index (BMI) Body weight Provider Name and Address Organization Details Last Updated DateTime 12/23/2020 167.64 cm 22.6 kg/m2 29920.93 g Theodore Gonzáles [facility] 12/23/2020 13:00:42 Date Recorded Body height Body mass index (BMI) Body weight Provider Name and Address Organization Details Last Updated DateTime 01/19/2022 167.64 cm 22.6 kg/m2 63094.93 g Theodore Gonzáles [facility] 01/19/2022 15:05:35 Social History Question Answer Notes LastModified by Organizat ion Details LastModified Time Tobacco Smoking Status Never Smoker Theodore Gonzáles [facility] 10/12/2016 15:11:55 How Much Tobacco Do You Chew? None Information not available 09/05/2018 Marital Status [email or web address] Informatio n not available 10/12/2016 What Was The Date Of Your Most Recent Tobacco Screening? 01/19/2022 Information not available 01/19/2022 Sex: Unknown Functional Status Question Answer Note LastModified by Organization D etails LastModified Time What is your level of alcohol consumption? None Information not available 10/12/2016 Mental Status None recorded. Family History Relationship Description Onset Age of this Age Resolved Age Notes LastModified by Organization Details LastModified Time Unspecified Relation Kidney stone Not available 09/27 15:11:42 Medical History Condition Response Kidney Stones Y Thyroid Disorder Y Past Encounters Encounter ID Performer Location Encounter Start Date Encounter Closed Date Diagnosis/Indication Diagnosis SNOMED-CT Code Diagnosis ICD10 Code Diagnosis Note [id number] AUGUSTO MANZO MD [facility] [address],[place] [address] 8 10/12/2016 14:51:16 10/25/2016 10:14:37 Prostate specific antigen outside reference range 460760286 R97.20 N40.2 N40.3 [id number] AUGUSTO MANZO MD [facility] [place] [address] [address],[place] [address] 8 12/14/2016 14:21:05 12/19/2016 16:50:23 Benign prostatic hyperplasia with outflow obstruction 874384144 N40.1 [id number] AUGUSTO MANZO MD [facility] [place] [address] [address],[place] [address] 06/14/2017 13:31:05 06/15/2017 09:42:58 Benign prostatic hyperplasia with outflow obstruction 614850022 N40.1 Urinary tr act infectious disease 03357571 N39.0 [id number] AUGUSTO MANZO MD [facility] [address],[place] [address] 02/28/2018 14:45:33 03/11/2018 07:52:39 Balanitis 00578247 N48.1 Urinary tr act infectious disease 48272167 N39.0 Benign pro static hyperplasia with outflow obstruction 757653402 N40.1 [id number] AUGUSTO MANZO MD [facility] [address] [address] 09/05/2018 13:11:16 09/16/2018 10:31:18 Benign prostatic hyperplasia with outflow obstruction 898992777 N40.1 [id number] AUGUSTO MANZO MD [facility] [address] [place] [address] 12/02/2019 10:38:12 12/02/2019 11:24:46 Urinary tract infectious disease 56479908 N39.0 Benign pro static hyperplasia with outflow obstruction 770876987 N40.1 [id number] AUGUSTO MANZO MD [facility] [address] [place] [address] 8 12/23/2020 12:46:21 12/24/2020 15:42:03 Urinary tract infectious disease 93755498 N39.0 Benign pro static hyperplasia with outflow obstruction 026683800 N40.1 [id number] AUGUSTO MANZO MD [facility] [address] [place] [address] 8 12/08/2021 15:01:54 12/14/2021 06:46:47 Urinary tract infectious disease 55710134 N39.0 Benign pro static hyperplasia with outflow obstruction 919362099 N40.1 [id number] AUGUSTO MANZO MD [facility] [address] [place] [address] 8 01/19/2022 14:17:16 01/23/2022 08:10:02 Benign prostatic hyperplasia with outflow obstruction 160472286 N40.1 Urinary tr act infectious disease 60186511 N39.0 Urinary bladder stone 70 357948 N21.0 Health Concerns Section Related Observation LastModified by Organization Detai ls LastModified Time None Recorded Concern Status LastModified by Organization Details LastModified Time None Recorded Advance Directives Directive None Recorded Payers Insurance Date Sequence Insurance Name Policy Number Policy Meier Covered Member ID Meier Member ID Guarantor Name 01/16/2022 2 [facility]ID[facility] CHO[facility] - FFS/TRADITIO NAL Federico Hoyos [id number] Federico Hoyos 01/16/2022 1 [place] Federico Hoyos [id number] Federico Hoyos 07/14/2017 2 [place] [facility] [place] - [place]FS/TRADITIO NAL Federico Hoyos [id number] Federico Hoyos Notes Date Note Type Note Provider Name and Address Organization Details Recorded Time 09/05/2018 text/html 78-year-old male in the office for follow-up evaluation of benign prostatic hyperplasia with lower urinary tract symptoms. He has history of balanitis. He denies current symptoms of balanitis. He voids every 1-2 hours with nocturia once nightly. He denies hematuria or dysuria. He has occasional slow urinary stream. He continues on tamsulosin. AUGUSTO MANZO MD [address] [place] [address], [address], [facility] 09/15/2018 21:19:56 12/02/2019 text/html 79-year-old male in the office for follow-up evaluation of benign prostatic hyperplasia with lower urinary symptoms. He has history of balanitis also. He voids every 2 hours with nocturia 0 to once nightly. No hematuria or dysuria. He takes tamsulosin daily. AUGUSTO MANZO MD [address] [place] [address], [address], [facility] 12/02/2019 11:25:09 12/23/2020 text/html 80-year-old male in the office for annual follow-up evaluation of benign prostatic hyperplasia with lower urinary symptoms. He voids every 2 hours with nocturia once nightly. No gross hematuria or dysuria. He continues taking tamsulosin. AUGUSTO MANZO MD [address] [place] [address], [address], [facility] 12/28/2020 08:49:26 12/08/2021 text/html 81-year-old male in the office for follow-up evaluation of benign prostatic hyperplasia with lower urinary symptoms. He voids every 2 hours with nocturia once nightly. He reports decreased force of stream. No hematuria or dysuria. He takes tamsulosin but has not noted significant improvement with 0.4 mg dosing. AUGUSTO MANZO MD [address] [place] [address] [place], [address], [facility] 12/09/2021 08:16:26 01/19/2022 text/html 81-year-old male in the office for follow-up evaluation of benign prostatic hyperplasia with lower urinary symptoms. He takes double dose tamsulosin. He voids every 2 hours with nocturia 1 or 2 times nightly. Force of stream is variable. No hematuria or dysuria. He reports recent diagnosis of kidney and bladder stones. AUGUSTO MANZO MD [facility] [place], [address], [facility] 01/22/2022 14:35:22
--- OUTSIDE RECORDS SUMMARY | 2025-01-02 11:00 | XMS_ITS | Clinical Summary ---
Author Organization Healthcare Address [address] [place] [address] Care Team Providers Care Coke Wheeler Name Role Phone Tushar Barba Primary Care Provider [phone] Allergies No known active allergies Medications atorvastatin (Lipitor) 40 MG tablet Take 1 tablet (40 mg) by mouth nightly. Active ondansetron (Zofran) 4 MG tablet Take 1 tablet (4 mg) by mouth 2 (two) times a day if needed for nausea or vomiting. Active mirtazapine (Remeron) 7.5 MG tablet Take 1 tablet (7.5 mg) by mouth every night. 4 Active acetaminophen (Tylenol) 500 MG tablet Take 2 tablets (1,000 mg) by mouth every 6 hours as needed. Active finasteride (Proscar) 5 MG tablet Take 1 tablet (5 mg) by mouth daily. Do not crush, chew, or split. Active ergocalciferol (Vitamin D-2) 1.25 MG (12004 UT) capsule Take 1 capsule (50,000 Units) by mouth 1 (one) time per week. Active levothyroxine (Synthroid, Levoxyl) 100 MCG tablet Take 1 tablet (100 mcg) by mouth daily. 4 Active metoprolol tartrate (Lopressor) 25 MG tablet Take 0.5 tablets (12.5 mg) by mouth nightly. 4 Active tamsulosin (Flomax) 0.4 MG 24 hr capsuleIndicati ons:BPH with lower urinary tract symptoms without urinary obstruction Take 1 capsule (0.4 mg) by mouth every night. 90 capsule 3 4 Active potassium chloride CR 10 MEQ PO ER tabletIndicatio ns:Hypokalemia Take 1 tablet (10 mEq) by mouth 1 (one) time each day. Do not crush or chew. 60 tablet 3 5 Active bumetanide (Bumex) 1 MG tablet Take 1 tablet (1 mg) by mouth Daily. Active pantoprazole (Protonix) 40 MG EC tablet Take 1 tablet (40 mg) by mouth daily. Do not crush, chew, or split. 025 Discontinu ed(Per Patient Report) ferrous sulfate (FeroSul) 325 (65 Fe) MG tablet Take 1 tablet (325 mg) by mouth daily with breakfast. 025 Discontinu ed(Per Patient Report) sulfamethoxazol e-trimethoprim (Bactrim) 400-80 MG tabletIndicatio ns:Urinary tract infection with hematuria, site unspecified Take 0.5 tablets by mouth 3 (three) times a week. On Sunday, Sunday, and Sunday for prevention of UTIs. Start after finishing Cefdinir, stop potassium. 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 CKD (chronic kidney disease) stage 4, GFR 15-29 ml/min 02/27/2024 Liver disease 02/27/2024 Immunosuppression due to chronic steroid use Pancreatic mass 02/27/2024 Acute kidney injury (ANABELLA) with acute tubular nec rosis (ATN) 01/02/2024 Abnormal results of liver function studies 01/01 Subarachnoid hemorrhage 12/20/2023 Encounters Date Type Department Care Team Description 01/02/2025 10:20 AM EDT Office Visit [facility] [address] [address] Brnadon Lilly MD Hypertensive chronic kidney disease with stage 1 through stage 4 chronic kidney disease, or unspecified chronic kidney disease (Primary Dx); ANCA-associated vasculitis; Vitamin D deficiency; CKD (chronic kidney disease) stage 4, GFR 15-29 ml/min (CMS/HCC); BPH with lower urinary tract symptoms without urinary obstruction; Long-term current use of rituximab; 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); Long-term current use of rituximab; Antineutrophilic cytoplasmic antibody (ANCA) vasculitis (CMS/HCC); Vitamin D deficiency; CKD (chronic kidney disease) stage 4, GFR 15-29 ml/min (CMS/HCC); Urinary tract infection with hematuria, site unspecified 10/03/2024 Travel from Last 3 Months Immunizations Immunization Administration Dates Next Due Influenza, High-dose, Split Virus, Trivalent, Injectable, preservative free 04/17/2018 Influenza, high-dose, quadrivalent 04/17/2018 Social History Tobacco Use Types Packs/Day Years [...] place to sleep or slept in a snf (including now)? No 12/21/2023 PHQ-9 Answer Date Recorded Patient Health Questionnaire-9 Score 0 06/24/2024 Utilities Answer Date Recorded In the past 12 months has th e electric, gas, oil, or water company threatened to shut off services in your home? No 12/21/2023 Sex and Gender Information Value Date Recorded Sex Assigned at Not on file Legal Sex Male 2:47 PM EDT Gender Identity Not on file Sexual Orientation Not on file Last Filed Vital Signs Vital Sign Reading Time Taken Comments Blood Pressure 121/61 01/02/2025 10:36 AM EDT Pulse 59 01/02/2025 10:36 AM EDT Temperature 36.3 C (97.3 F) 10/03/2024 9:57 AM EST Respiratory Rate 16 01/02/2025 10:36 AM EDT Oxygen Saturation 98% 01/02/2025 10:36 AM EDT Inhaled Oxygen Concentration - - Weight 48.5 kg (107 lb) 01/02/2025 10:36 AM EDT Height 165.1 cm (5' 5 ) 01/02/2025 10:36 AM EDT Body Mass Index 17.81 01/02/2025 10:36 AM EDT Plan of Treatment Health Maintenance Due Date Last Done Comments [facility]icare Annual Wellness (AWV) 1940 [facility]-Infant/Child/Adol SDOH Screenings 1940 [id number] Vaccine (#1) 1947 [facility]- SDOH Screenings 1960 [facility]-Adult SDOH Screenings 1960 [facility]-DTaP,Tdap,and Td Vaccines (1 - Tdap) 1961 [facility]-Hepatitis A Vaccines (1 of 2 - Risk 2-dose series) 1961 [facility]-Pneumococcal Vaccine: 50+ Years (1 of 2 - PCV) 1961 [facility]-Zoster Vaccines (1 of 2) 1961 [facility]-RSV Vaccine: 60+ Years or (1 - 1-dose 75+ series) 2017 [facility]-Influenza Vaccine (Season Ended) 2025 04/17/2018, 04/17/2018 [facility]-Depression Screening 06/24/2025 024, 06/24/2024 HPV Vaccines Aged Out No longer eligi ble based on patient's age to complete this topic [facility]-HIB Vaccines Aged Out No longer e ligible based on patient's age to complete this topic [facility]-IPV Vaccines Aged Out No longer e ligible based on patient's age to complete this topic [facility]-Rotavirus Vaccines Aged Out No lo nger eligible based on patient's age to complete this topic Insurance MEDICARE [place] Advance Directives Documents on File Type Date Recorded Patient Log Turner Expl anation Advance Directives and Livin g Will 01/03/2024 8:17 AM Advance Directives and Livin g Will 01/02/2024 9:38 AM * DNR/DNI (Latest Code Status on File) Date Activated Date Inactivated Comments 12/22/2023 11:15 AM 01/28/2024 4:18 PM Question Answer Comments DNR determined on/before admission date? No Patient has decision-making capacity? Yes * Full Code Date Activated Date Inactivated Comments 12/20/2023 8:55 PM 12/22/2023 11:15 AM Question Answer Comments Patient has decision-making capacity? Yes Healthcare Agents on File Name Relationship Healthcare Agent [facility] Communication Phil Hoyos Power of [employer] Mechan[employer] Health Care Agent Rosario Sellers Daughter Next of Kin Care Teams Coke Wheeler Relationship Specialty Start Date End Date Tushar Barba [address] [place] [address] PCP - General Family Medicine 11/21/23
--- OUTSIDE RECORDS SUMMARY | 2025-01-02 11:00 | XMS_ITS | Continuity of Care Document ---
Author Organization [facility] Address [address] [place] [address] Care Team Providers Care [employer] Mechanical Name Role Phone ZEUS HARO Primary Care Provider Assessment No assessment recorded. Plan of Treatment Reminders Order Date Submit Date Provider Last Modified By Organization Details Last Modified Time Details Appointments OV EST 15 2024 08:45A M Zeus Haro MD Not available Not available Not available Lab None recorded . Referral ophthalm ologist referral 2024 025 [facility] Nawaf Lynch OD, [address], [place], [address], 12/09/2024 16:32:45 Procedures None recorded . Surgeries None recorded . Imaging None recorded . Medication Orders gentamic in 0.3 % eye drops 2024 025 [facility], [address] [facility], [place], [address], 12/09/2024 16:08:31 Patient TargetsNo targets recorded. Patient InstructionsNo instructions recorded. 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 Acute conjunctivitis of right eye Referring Physician: Zeus Haro, [facility] Medicine, Encounter Date: 12/09/2024 Problems Name Problem SNOMED Code Status Onset Date Resolution Date Notes Provider Name and Address Organization Details Recorded Time Urinary bladder stone 90442105 Active 2021 [facility] Sommer [facility] & [place] 08:35:42 Urinary tract infectious disease 45060705 Active 2021 Dane Wetzel null, [place] - [facility] - [place] & [place] 4 08:35:51 Kidney stone 53672575 Active 2021 Dane Wet[place], [place] [facility] [place] & [place] 4 08:35:14 Large prostate 761848830 Active 2021 Dane Wet[place] [facility] [place] & [place] 4 08:35:26 Lesion of urinary bladder 726254379 Active 2021 Dane Wet[place] [facility] [place] & [place] 4 08:35:32 Cardiac finding 588426025 Active 2022 Dane Wetzel [place] [facility] [place] & [place] 4 08:36:01 Cystitis 94769817 Active Dane Wetzel [place] [facility] [place] & [place] 4 08:35:11 Atrial fibrillatio n 76726176 Active Dane Wet[place] [facility] [place] & [place] 4 08:34:57 Anemia 578792544 Active 2022 Dane Wet[place] [facility] [place] & [place] 4 08:34:50 Blood in urine 00939606 Active 2022 Dane Wetzel [place] [facility] [place] & [place] 4 08:35:04 Tobacco dependence caused by cigarettes 3511973885433 9107 Active 2022 Dane Wetzel null, [place] [facility] [place] & [place] 4 08:35:37 Iron deficiency anemia 85148656 Active 2023 Tushar Barba MD [address] [place] [address], [address], [place] [facility] [place] & [place] 4 08:47:12 Hypothyroid ism 28653299 Active 2023 Tushar aBrba MD [address] [place] [address], [address], [place] [facility] [place] & [place] 4 08:47:26 Mass of pancreas 348272034 Active 2023 Tushar Barba MD [address] [place], [address], [place] [facility] - [facility] & [place] 4 08:47:44 CT of abdomen abnormal 5616415222584 9107 Active 2023 Nereida Cowart NP [address], [address], [place], [address], [place] [facility] [place] & [place] 4 14:02:56 Constipatio n 58076316 Active 2023 Nereida Cowart NP [address], [address], [place], [address], [place] [facility] - [facility] & [place] 4 14:06:01 Decrease in appetite 75199599 Active 2023 Nereida Cowart NP [address], [address], [place], [address], [place] [facility] [place] & [place] 4 09:47:59 Diverticulo sis of colon 707372315 Active 2023 Nereida Cowart NP [address], [address], [place], [address], [place] [facility] [place] & [place] 4 09:51:55 Nausea 409547204 Active 2023 Nereida Cowart NP [address], [address], [place], [address], [place] [facility] [place] & [place] 4 09:24:18 Problem Notes None recorded. Procedures Surgical History Date Name Laterality Status Provider Name and Address Organization Details Recorded Time 06/05/20 24 Cerumen Removal completed Zeus Haro MD [address] [place], [address], [place] [facility] - [facility] & [place] 06/05/2024 11:28:12 02/23/20 23 Cerumen Removal completed Charisse Guillory APRN [address] [place], [address], [place] - [facility] - [facility] & [place] 02/22/2023 12:16:50 06/28/20 22 Cystoscopy-Male completed Radha JEFFERS [facility] & [place] 06/28/2022 15:55:44 11/12/19 21 colonoscopy completed Deepa JEFFERS [facility] & [place] 07/11/2023 11:34:42 09/28/19 19 extracorporeal shockwave lithotripsy of calculus of kidney completed Radha JEFFERS - [facility] & [place] 05/15/2024 10:24:53 07/30/19 15 Colonoscopy completed Radha JEFFERS - [facility] & [place] 05/15/2024 10:24:38 Imaging Results None recorded. Procedure Notes None recorded. Medical Equipment None Reported. Allergies Allergen ID Allergen Name Allergen Category Reaction Reaction Severity Criticality Documentation Date Start Date Code Code System Note Provider Name and Address Organization Details Recorded Time 037178 tamsulosi n medicatio n Not available Not available Not available 05/15/2024 03251 RxNorm Radha Lubin [facility], [facility] - [facility] & [place] 10:23:50 Medications Name Sig Start Date Stop Date Status Note LastModified by Organization Details LastModified Time Prescript ion - Renewal active Not Available Not Available Not Available compound drug 06/05 completed Not Available Not Available Not Available fluconazo le 100 mg tablet Take 1 tablet every day by oral route for 7 days. 10/04 completed Not Available Not Available Not Available atorvasta tin 40 mg tablet TAKE 1 TABLET BY MOUTH AT BEDTIME NIGHTLY active Not Available Not Available No t Available megestrol 400 mg/10 mL (40 mg/mL) oral suspensio n 09/02 completed Not Available Not Available Not Available diltiazem 5 mg/mL intraveno us solution 5 mg by intraven . route. 09/25 completed Not Available Not Available Not Available nystatin 100,000 unit/mL oral suspensio n TAKE 5 ML BY MOUTH FOUR TIMES A DAY 12/09 completed Not Available Not Available Not Available prednison e 10 mg tablet 06/05 completed Not Available Not Available Not Available doxycycli ne hyclate 100 mg capsule TAKE 1 CAPSULE BY MOUTH TWICE DAILY 06/05 completed Not Available Not Available Not Available glycopyrr olate 0.2 mg/mL injection solution 1 mg by injectio n route. 09/25 completed Not Available Not Available Not Available cetirizin e 10 mg tablet TAKE 1 TABLET BY MOUTH ONCE DAILY 10/10 completed Not Available Not Available Not Available azithromy acacia 250 mg tablet 06/05 completed Not Available Not Available Not Available sulfameth oxazole 400 mg-trimet hoprim 80 mg tablet TAKE 0.5 TABLETS BY MOUTH 3 TIMES A WEEK ON SUNDAY , , AND SUNDAY FOR PREVENTI ON OF UTIS. START AFTER FINISHIN G CEFDINIR , STOP POTASSIU M. 12/09 completed Not Available Not Available Not Available hydrocodo ne 5 mg-acetam inophen 325 mg tablet TAKE 1 TABLET BY MOUTH EVERY 6 HOURS NEEDED FOR MODERATE PAIN 06/27 completed Not Available Not Available Not Available fluconazo le 200 mg tablet TAKE 1 TABLET BY MOUTH ONCE DAILY FOR 3 DAYS 05/18 completed Not Available Not Available Not Available Diprivan 10 mg/mL intraveno us emulsion 200 mg by intraven . route. 09/25 completed Not Available Not Available Not Available ondansetr on HCl 4 mg tablet Take 1 tablet twice a day by oral route for 30 days. 09/02 completed Not Available Not Available Not Available prednison e 20 mg tablet 06/05 completed Not Available Not Available Not Available prednison e 5 mg tablet TAKE 1 TABLET BY MOUTH ONCE DAILY 06/05 completed Not Available Not Available Not Available Pyridium 100 mg tablet Take 1 tablet 3 times a day by oral route for 30 days. 10/04 completed Not Available Not Available Not Available lactated Ringers intraveno us solution 1000 mL by intraven . route. 09/25 completed Not Available Not Available Not Available cyanocoba yamile (vit B-12) 1,000 mcg tablet TAKE 1 TABLET BY MOUTH ONCE DAILY 06/05 completed Not Available Not Available Not Available potassium chloride ER 10 mEq tablet,ex tended release 06/05 completed Not Available Not Available Not Available amlodipin e 5 mg tablet 06/05 completed Not Available Not Available Not Available ciproflox acin 500 mg tablet TAKE 1 TABLET BY MOUTH EVERY 12 HOURS FOR 10 DAYS 05/18 completed Not Available Not Available Not Available sulfameth oxazole 800 mg-trimet hoprim 160 mg tablet TAKE 1 TABLET BY MOUTH EVERY 12 HOURS FOR 10 DAYS 09/26 completed Not Available Not Available Not Available aspirin 81 mg tablet,de layed release Take 81 mg by oral route. 09/02 completed Not Available Not Available Not Available levothyro xine 75 mcg tablet Take 1 tablet every day by oral route before meals for 90 days. 06/05 completed Not Available Not Available Not Available FiberCon 625 mg tablet Take 1 tablet every day by oral route for 30 days. 09/02 completed Not Available Not Available Not Available levothyro xine 100 mcg tablet TAKE 1 TABLET BY MOUTH ONCE DAILY active Not Available Not Available No t Available droperido l 2.5 mg/mL injection solution 1.25 mg by injectio n route. 09/25 completed Not Available Not Available Not Available levothyro xine 88 mcg tablet 06/05 completed Not Available Not Available Not Available ceftriaxo ne 1 gram solution for injection 06/05 completed Not Available Not Available Not Available potassium chloride ER 20 mEq tablet,ex tended release(p art/cryst ) Take 1 tablet every day by oral route as directed . 09/02 completed Not Available Not Available Not Available famotidin e 20 mg tablet TAKE 1 TABLET BY MOUTH ONCE DAILY AT BEDTIME NEEDED 10/25 completed Not Available Not Available Not Available gentamici n 0.3 % eye drops INSTILL 1 DROP INTO AFFECTED EYE(S) BY OPHTHALM IC ROUTE EVERY 4 HOURS active Not Available Not Available No t Available oxycodone -acetamin ophen 10 mg-325 mg tablet TAKE 1/2 (ONE-OFELIA F) TABLET BY MOUTH EVERY 6 HOURS NEEDED 12/20 completed stopped after passing kidney stones last week. Not Available Not Available Not Available tamsulosi n 0.4 mg capsule TAKE 1 CAPSULE BY MOUTH ONCE DAILY active Not Available Not Available No t Available linezolid 600 mg tablet 09/02 completed Not Available Not Available Not Available prednison e 2.5 mg tablet 06/05 completed Not Available Not Available Not Available cephalexi n 500 mg capsule TAKE 1 CAPSULE BY MOUTH EVERY 6 HOURS FOR 7 DAYS 05/18 completed Not Available Not Available Not Available pantopraz ole 40 mg tablet,de layed release TAKE 1 TABLET BY MOUTH ONCE DAILY 09/02 completed Not Available Not Available Not Available nystatin 100,000 unit/gram topical cream APPLY CREAM TOPICALL Y TO AFFECTED AREA TWICE DAILY FOR 10 DAYS 10/10 completed Not Available Not Available Not Available promethaz ine 25 mg/mL injection solution 12.5 mg by injectio n route. 09/25 completed Not Available Not Available Not Available fentanyl (PF) 50 mcg/mL injection solution 25 microgra ms by injectio n route. 09/25 completed Not Available Not Available Not Available bumetanid e 1 mg tablet TAKE 1 TABLET BY MOUTH ONCE DAILY DIRECTED active Not Available Not Available No t Available lidocaine HCl 20 mg/mL (2 %) injection solution 4 mL by injectio n route. 09/25 completed Not Available Not Available Not Available ergocalci ferol (vitamin D2) 1,250 mcg (50,000 unit) capsule TAKE 1 CAPSULE BY MOUTH ONCE A WEEK active Not Available Not Available No t Available levofloxa acacia 500 mg tablet TAKE 1/2 (ONE-OFELIA F) TABLET BY MOUTH ONCE DAILY FOR 7 DAYS 05/18 completed Not Available Not Available Not Available levofloxa acacia 750 mg tablet TAKE 1 TABLET BY MOUTH ONCE DAILY 06/27 completed Not Available Not Available Not Available SSD 1 % topical cream 06/05 completed Not Available Not Available Not Available ondansetr on 4 mg disintegr ating tablet DISSOLVE 1 TABLET IN MOUTH TWICE DAILY TWICE DAILY FOR NAUSEA 05/18 completed Not Available Not Available Not Available cefdinir 300 mg capsule TAKE 1 CAPSULE BY MOUTH EVERY 12 HOURS FOR 7 DAYS 09/02 completed Not Available Not Available Not Available clotrimaz ole 1 % topical cream APPLY CREAM TOPICALL Y TWICE DAILY FOR 14 DAYS 05/18 completed Not Available Not Available Not Available finasteri de 5 mg tablet TAKE 1 TABLET BY MOUTH ONCE DAILY active Not Available Not Available No t Available naproxen 500 mg tablet TAKE 1 TABLET BY MOUTH EVERY 12 HOURS NEEDED 12/20 completed stopped after passing kidney stones last week. Not Available Not Available Not Available amoxicill in 875 mg-potass ium clavulana te 125 mg tablet TAKE 1 TABLET BY MOUTH EVERY 12 HOURS FOR 10 DAYS 07/06 completed Not Available Not Available Not Available amoxicill in 500 mg-potass ium clavulana te 125 mg tablet 06/05 completed Not Available Not Available Not Available midazolam 1 mg/mL injection solution 2 mg by injectio n route. 09/25 completed Not Available Not Available Not Available hydromorp maris 2 mg/mL injection syringe 0.5 mg by injectio n route. 09/25 completed Not Available Not Available Not Available sodium chloride 0.9 % (flush) injection syringe 10 mL by injectio n route. 09/25 completed Not Available Not Available Not Available azithromy acacia 500 mg tablet 06/05 completed Not Available Not Available Not Available levofloxa acacia 500 mg/100 mL in 5 % dextrose intraveno us piggyback 500 mg by intraven . route. 09/25 completed Not Available Not Available Not Available Ciprodex 0.3 %-0.1 % ear drops,son pension INSTILL 4 DROPS INTO AFFECTED EAR(S) TWICE DAILY FOR 7 DAYS 03/08 completed Not Available Not Available Not Available potassium chloride ER 10 mEq tablet,ex tended release(p art/cryst ) TAKE 1 TABLET BY MOUTH ONCE DAILY DO NOT CRUSH OR CHEW active Not Available Not Available No t Available metoprolo l tartrate 25 mg tablet TAKE 1/2 (ONE-OFELIA F) TABLET BY MOUTH AT BEDTIME active Not Available Not Available No t Available senna 8.6 mg capsule Take 1 capsule every day by oral route for 30 days. 09/02 completed Not Available Not Available Not Available mirtazapi ne 7.5 mg tablet TAKE 1 TABLET BY MOUTH AT BEDTIME NIGHTLY active Not Available Not Available No t Available nitrofura ntoin monohydra te/macroc rystals 100 mg capsule TAKE 1 CAPSULE BY MOUTH TWICE DAILY FOR 7 DAYS 06/05 completed Not Available Not Available Not Available Demerol (PF) 25 mg/mL injection syringe 12.5 mg by injectio n route. 09/25 completed Not Available Not Available Not Available lidocaine (PF) 10 mg/mL (1 %) injection solution 06/05 completed Not Available Not Available Not Available ondansetr on HCl (PF) 4 mg/2 mL injection solution 4 mg by injectio n route. 09/25 completed Not Available Not Available Not Available FeroSul 325 mg (65 mg iron) tablet TAKE 1 TABLET BY MOUTH ONCE DAILY 09/02 completed Not Available Not Available Not Available lidocaine 2 % mucosal jelly in applicato r 10 mL by mucous mem route. 09/25 completed Not Available Not Available Not Available potassium chloride ER 20 mEq tablet,ex tended release TAKE 1 TABLET BY MOUTH ONCE DAILY 12/09 completed Not Available Not Available Not Available morphine 4 mg/mL intraveno us syringe 4 mg by intraven . route. 09/25 completed Not Available Not Available Not Available Procto-Me d HC 2.5 % topical cream perineal applicato r APPLY A THIN LAYER OF CREAM RECTALLY TO AFFECTED AREA TWICE DAILY TO 4 TIMES DAILY 06/05 completed Not Available Not Available Not Available ephedrine sulfate 50 mg/mL intraveno us solution 50 mg by intraven . route. 09/25 completed Not Available Not Available Not Available Cnekt 3 billion cell capsule Take 1 capsule every day by oral route for 30 days. 09/02 completed Not Available Not Available Not Available Vitals Date Recorded Body height Body mass index (BMI) Body weight Body temperature Oxygen saturation Oxygen saturation in Arterial blood by Pulse oximetry Heart rate Respiratory rate Systolic blood pressure Diastolic blood pressure Provider Name and Address Organization Details Last Updated DateTime 167.64 cm 17.9 kg/m2 09227.4 7 g 98.4 [degF] 97 % 97 % 67 /min 16 /min 126 mm[Hg] 66 mm[Hg] [facility] [place] 15:34:47 Social History Question Answer Notes LastModified by Organizat ion Details LastModified Time Tobacco Smoking Status Former Smoker patient reports smoked long time ago and has quit long time ago. Sheila George anitha, [facility] & [place] 10/25/2022 14:17:01 What Is Your Level Of Caffeine Consumption? Moderate [email or web address] Information not available 10/25/2022 Have There Been Any Changes To Your Family Or Social Situation? No [email or web address] Information not available 10/11/2023 What Is The Fluoride Status Of Your Home? Unknown [email or web address] Information not available 10/11/2023 When Did You Quit Smoking? 16+yearssinc elastcigaret te [email or web address] Information not available 10/25/2022 Are There Any Guns Present In Your Home? No [email or web address] Information not available 10/11/2023 Do You Use Insect Repellent Routinely? Yes [email or web address] Information not available 10/11/2023 Do You Feel Safe At Home? Yes [email or web address] Information not available 10/11/2023 Do You Have Any Pets? No [email or web address] Information not available 10/11/2023 Do You Have Smoke And Carbon Monoxide Detectors In Your Home? Yes [email or web address] Information not available 10/11/2023 Are You Passively Exposed To Smoke? No [email or web address] Information not available 10/11/2023 Do You Use Sunscreen Routinely? Yes [email or web address] Information not available 10/11/2023 Sex: Unknown Functional Status Question Answer Note LastModified by Organization D etails LastModified Time Do you or have you ever used any other forms of tobacco or nicotine? No [email or web address] Information not available 10/25/2022 What is your level of alcohol consumption? None [email or web address] Information not available 05/22/2022 Are you able to care for yourself? Yes [email or web address] Information n ot available 10/11/2023 Mental Status None recorded. Family History Relationship Description Onset Age of this Age Resolved Age Notes LastModified by Organization Details LastModified Time Mother Malignant neoplasm of lung deceas ed Not available 05/18/2022 14:58:05 Father Aneurysm deceas ed Not available 05/18/2022 14:58:19 Brother Malignant neoplasm of bone deceas ed Not available 05/18/2022 14:58:37 Medical History Condition Response Kidney Stones Y Hyperthyroidism Y Immunizations Vaccine Type Date Status Note Provider Nam e and Address Organization Details Recorded Time Influenza, high-dose, trivalent, PF 04/17/2018 completed Not Available [employer] 2022 15:32:12 Past Encounters Encounter ID Performer Location Encounter Start Date Encounter Closed Date Diagnosis/Indication Diagnosis SNOMED-CT Code Diagnosis ICD10 Code Diagnosis Note [id number] Zeus Haro MD [facility] [address] [facility] [place] [address] 12/09/2024 15:20:59 12/09/2024 16:04:17 Acute conjunctivitis of right eye 7717799686 H10.31 Health Concerns Section Related Observation LastModified by Organization Detai ls LastModified Time None Recorded Concern Status LastModified by Organization Details LastModified Time None Recorded Payers Encounter Date Sequence Insurance Name Policy Number Policy Meier Covered Member ID Meier Member ID Guarantor Name 12/09/2024 1 [place] Federico Hoyos [id number] 12/09/2024 2 MEDICAID-[facility] CHOICES - FFS/TRADITIO NAL Federico Hoyos [id number] Notes Date Note Type Note Provider Name and Address Organization Details Recorded Time 12/09/2024 text/html patient presents today complaining of watery crusty right eye. He states that his eye itches and is somewhat painful. He has yellowish discharge that is worse 1st thing in the morning. He is also concerned about a lack of appetite. Has lost 5 lb since his last visit. Zeus Haro MD [address] [facility], [place], [address], [facility] - [facility] - [place] & [place] 12/09/2024 16:08:50
--- OUTSIDE RECORDS SUMMARY | 2025-01-02 11:00 | XMS_ITS | Encounter Summary ---
Author Organization Healthcare Address [address] [place] [address] Care Team Providers Care Chair Car Driver Name Role Phone Tushar Barba Primary Care Provider [phone] Encounter Details Date Type Department Care Team (Latest Contact Info) Description 01/02/2025 Travel Social History Tobacco Use Types Packs/Day Years Used Date Smoking Tobacco: Former Cigarettes 0.5 20 1 974 - 1994 Passive Smoke Exposure: Never Smokeless Tobacco: Never Comments:N/A Alcohol Use Standard Drinks/Week Comments Not [...] place to sleep or slept in a senior living (including now)? No 12/21/2023 PHQ-9 Answer Date Recorded Patient Health Questionnaire-9 Score 0 06/24/2024 Utilities Answer Date Recorded In the past 12 months has th e [employer], gas, oil, or water [employer] threatened to shut off services in your home? No 12/21/2023 Sex and Gender Information Value Date Recorded Sex Assigned at Not on file Legal Sex Male 2:47 PM EDT Gender Identity Not on file Sexual Orientation Not on file documented as of this encounter Plan of Treatment Not on file documented as of this encounter Visit Diagnoses Not on filedocumented in this encounter Additional Health Concerns Assessment Noted Time PHQ-9 Depression Total Score: 0 06/24/20 4:20 PM EST A fall risk assessment has been complete d for the patient 06/24/2024 4:20 PM EST A Body Mass Index follow-up plan has been documented for the patient 01/02/2025 10:58 AM EDT documented as of this encounter Care Teams Chair Car Driver Relationship Specialty Start Date End Date Tushar Barba [address] [place], [place] [id number] PCP - General Family Medicine 11/21/23 documented as of this encounter
--- OUTSIDE RECORDS SUMMARY | 2025-01-02 11:00 | XMS_ITS | Data Portability ---
Author Organization [place] - [facility] - [facility] ADMIN Address [address] [place] [id number] Care Team Providers Care Public Address System Installer Name Role Phone VERN HARO Primary Care Provider [phone] Assessment Encounter Date Assessment Date Assessment LastModified by Organization Details LastModified Time 10/30/2023 10/30/2023 I have personally reviewed the past medical, family, and social histories and ROS, along with all orders in today's record and have noted any changes. A [id number] t electronic culinary assistant program has been utilized for much of this encounter note. Electronic culinary assistant of spoken language can sometimes lead to errors, and at times, nonsensical words or phrases may be inadvertently transcribed. Every effort has been taken to review and correct these, but some may still exist. If there are any questions regarding this note please contact my office at [phone]. Thank you [email or web address] Not available 10/29/2023 11:25:43 11/29/2023 11/29/2023 Parts of this document were prepared using voice recognition software and may contain unrecognized dictation errors and word substitutions commonly found with electronic culinary assistant. Attempts have been made to correct errors during dictation, but some errors may remain [email or web address] Not available 11/29/2023 11:32:20 09/02/2024 09/02/2024 PATIENT TO CONTINUE WITH CURRENT MANAGEMENT. WE HAVE HAD EXTENSIVE DISCUSSIONS REGARDING CHRONIC ISSUES. WILL CALL PATIENT TO DISCUSS RESULTS OF LAB WORK AND MAKE PLANS BASED ON FINDINGS. [email or web address] Not available 09/02/2024 09:30:48 Plan of Treatment Reminders Order Date Submit Date Provider Last Modified By Organization Details Last Modified Time Details Appointments OV EST 15 2024 08:45Yang Haro MD Not available Not available Not available Lab vitamin D, 25-hydro xy, total, serum 2024 [facility] (Laboratory), [address] [place], [address], 09/02/2024 09:41:53 hemoglob in A1c + average glucose, QN, blood 2024 025 [facility] (Laboratory), [address] [place], [address], 09/09/2024 07:27:43 lipid panel, serum 2024 025 [facility] (Laboratory), [address] [place], [address], 09/02/2024 13:44:34 TSH, serum or plasma 2024 025 [facility] (Laboratory), [address] [place], [address], 09/02/2024 13:44:31 T4, free, serum 2024 025 [facility] (Laboratory), [address] [place], [address], 09/02/2024 13:44:36 CMP, serum or plasma 2024 025 [facility] (Laboratory), [address] [place], [address], 09/02/2024 13:44:27 CBC w/ auto diff 2024 025 [facility] (Laboratory), [address] [place], [address], 09/02/2024 13:17:07 iron + TIBC + ferritin , serum 2024 025 [facility] (Laboratory), [address] [place], [address], 09/09/2024 07:27:44 vitamin B12 + folate, serum or blood 2024 025 [facility] (Laboratory), [address] [place] [address] [place], [address], 09/09/2024 07:27:44 carcinoe mbryonic Ag, quant, serum or plasma 2023 024 [facility] (Lab Registration) , [address] [place] [address] [place], [address], 11/30/2023 11:17:53 cancer Ag 19-9, serum or plasma 2023 024 [facility] (Lab Registration) , [address] [place] [address] [place], [address], 11/30/2023 11:17:55 iron + TIBC + ferritin , serum [address] (Lab Registration) , [address] [place] [address] [place], [address], 12/06/2023 08:21:35 hemoglob in, gastroin testinal , stool [address] (Lab Registration) , [address] [place] [address] [place], [address], 12/06/2023 08:21:35 protein electrop horesis panel, serum or plasma [address] (Lab Registration) , [address] [place] [address] [place], [address], 12/06/2023 08:21:36 amylase + lipase, serum [address] (Lab Registration) , [address] [place] [address] [place], [address], 12/06/2023 08:21:36 cancer Ag 19-9, serum or plasma 2023 024 [facility] (Lab Registration) , [address] [facility] [place], [address], 11/06/2023 07:54:52 carcinoe mbryonic Ag, quant, serum or plasma 2023 024 [facility] (Lab Registration) , [address] [facility] [place], [address], 11/06/2023 07:54:52 CMP, serum or plasma 2023 024 [facility] (Lab Registration) , [address] [facility] [place], [address], 11/06/2023 07:54:52 H pylori urea breath test, co2 infrared 2023 024 [facility] (Lab Registration) , [address] [facility] [place], [address], 11/06/2023 07:54:52 CBC w/ auto diff 2023 024 [facility] (Lab Registration) , [address] [facility] [place], [address], 10/30/2023 09:27:47 vitamin B12 + folate, serum or blood 2023 024 [facility] (Lab Registration) , [address] [facility] [place], [address], 10/30/2023 09:27:47 iron + TIBC + ferritin , serum 2023 024 [facility] (Lab Registration) , [address] [facility] [place], [address], 10/30/2023 09:27:47 vitamin D, 25-hydro xy, total, serum 2023 024 [facility] (Lab Registration) , [address] [facility] [place], [address], 10/30/2023 09:27:47 tissue transglu taminase iga Ab, serum 2023 024 [facility] (Lab Registration) , [address] [place] [address] [place], [address], 10/30/2023 09:27:47 iga, quantita tive, serum 2023 024 [facility] (Lab Registration) , [address] [place] [address] [place], [address], 10/30/2023 09:27:47 ldh, serum or plasma 2023 024 [facility] (Lab Registration) , [address] [place] [address] [place], [address], 10/30/2023 09:27:48 retic count, blood 2023 024 [facility] (Lab Registration) , [address] [place] [address] [place], [address], 10/30/2023 09:27:47 protein electrop horesis panel, serum or plasma 2023 024 [facility] (Lab Registration) , [address] [place] [address] [place], [address], 10/30/2023 09:27:47 hemoglob in, gastroin testinal , stool 2023 024 [facility] (Lab Registration) , [address] [place] [address] [place], [address], 11/06/2023 07:54:52 Referral ophthalm ologist referral 2024 025 [facility] Nawaf Lynch OD, [address], [place], [address], 12/09/2024 16:32:45 home health referral - please evaluate for PT and OT. 2023 024 carlos [facility], [address], [address], [place], [address], 07/04/2024 07:54:[address] referral - Pancreat ic clinic for evaluati on of mass x2 favoring cysts. 2023 024 [facility], [address], [address], [place], [address], 11/27/2023 11:24:21 Procedures None recorded . Surgeries None recorded . Imaging None recorded . Medication Orders gentamic in 0.3 % eye drops 2024 025 [facility], [address] [place] [address], [address], 12/09/2024 16:08:31 nystatin 100,000 unit/mL oral suspensi on 2024 025 [facility], [address] [place] [address], [address], 12/09/2024 15:35:13 levothyr oxine 100 mcg tablet 2024 025 [facility] [address], [address] [place] [address], [address], 09/02/2024 09:37:30 senna 8.6 mg capsule 2023 025 [facility], [address] [place], [address], 09/02/2024 09:32:35 FiberCon 625 mg tablet 2023 025 [facility], [address] [place], [address], 09/02/2024 09:31:54 hydrocor tisone 2.5 % topical cream with perineal applicat or 2023 024 [facility], [address] [place] [address], [address], 06/05/2024 11:02:39 pantopra zole 40 mg tablet,d elayed release 2023 025 [facility], [facility] [place], [address], 09/02/2024 09:32:06 [facility] [employer] 3 billion cell capsule 2023 025 [facility], [address] [place], [address], 09/02/2024 09:33:37 ondanset vega HCl 4 mg tablet 2023 025 [facility] [address], [address] [place] [address], [address], 09/02/2024 09:33:25 Patient TargetsNo targets recorded. 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 Referring Physician: Jose Luis [facility]art, Gastroenterology, Encounter Date: 10/30/2023 Home Health Referral for Phy sical deconditioning please evaluate for PT and OT. Referring Physician: [facility], Encounter Date: 06/05/2024 Ball Warper Tender Referral for Acute conjunctivitis of right eye Referring Physician: [facility], Encounter Date: 12/09/2024 Results Created Date Observation Date Name Description Value Unit Range Abnormal Flag Note LastModifiedBy Organization Detail LastModifiedTime 10/11/19 24 10/11/2023 THYRO ID STIMU LATIN G HORMO NE thyroid stimulating hormone 3.55 mIU/m L 0.34-4 .80 Not Available [facility] (Lab Registration) [address] [place], [address], 10/11/2023 11:55:26 10/11/19 24 10/11/2023 THYRO ID STIMU LATIN G HORMO NE note Unles s other clemons noted testi ng perfo rmed at: [facility] [address] [place] [address] [phone] Elton barbosa MD CLIA: [id number] Not Available [facility] (Lab Registration) [address] [place], [address], 10/11/2023 11:55:26 10/11/19 24 10/11/2023 VITAM IN B12 vitamin B12 869 pg/mL 193-98 6 Not Available [facility] (Lab Registration) [address] [place], [address], 10/11/2023 11:55:28 10/11/19 24 10/11/2023 VITAM IN B12 folate (folic acid), serum 10.9 NG/mL 8.6-58 .9 Not Available [facility] (Lab Registration) [address] [place], [address], 10/11/2023 11:55:28 10/11/19 24 10/11/2023 VITAM IN B12 note Unles s other clemons noted testi ng perfo rmed at: [facility] [address] [place] [address] [phone] Elton barbosa MD CLIA: [id number] Not Available [facility] (Lab Registration) [address] [place], [address], 10/11/2023 11:55:28 11/29/19 24 11/29/2023 IRON STUDY W FE/TI BC/UI BC/%S AT iron 35 ug/dL 49-181 low Not Available [facility] (Pre-Op Clinic) [address] [place] [address] [place], [address], 11/29/2023 16:01:58 11/29/19 24 11/29/2023 IRON STUDY W FE/TI BC/UI BC/%S AT total iron bind cap. 179 ug/dL 261-46 2 low Not Available [facility] (Pre-Op Clinic) [address] [facility] [place], [address], 11/29/2023 16:01:58 11/29/19 24 11/29/2023 IRON STUDY W FE/TI BC/UI BC/%S AT unsaturated iron binding cap 144 ug/dL 150-37 5 low Not Available [facility] (Pre-Op Clinic) [address] [place] [address] [place], [address], 11/29/2023 16:01:58 11/29/19 24 11/29/2023 IRON STUDY W FE/TI BC/UI BC/%S AT % saturation 20 % 15-55 Not Available [facility] (Pre-Op Clinic) [address] [place] [address] [place], [address], 11/29/2023 16:01:58 11/29/19 24 11/29/2023 IRON STUDY W FE/TI BC/UI BC/%S AT note Unles s other clemons noted testi ng perfo [facility]med at: [facility] [address] [place] [address] Elton barbosa MD Not Available [facility] (Pre-Op Clinic) [address] [place] [address] [place], [address], 11/29/2023 16:01:58 11/29/19 24 11/29/2023 AMYLA SE amylase 107 IU/L 30-110 Not Available [facility] (Pre-Op Clinic) [address] [place] [address] [place], [address], 11/29/2023 16:17:53 11/29/19 24 11/29/2023 AMYLA SE note Unles s other clemons noted testi ng perfo rmed at: [facility] [address] [facility] [place] [address] Elton barbosa MD Not Available [facility] (Pre-Op Clinic) [address] [facility] [place], [address], 11/29/2023 16:17:53 11/29/19 24 11/29/2023 LIPAS E lipase 198 U/L 23-300 Not Available [facility] (Pre-Op Clinic) [address] [facility] [place], [address], 11/29/2023 16:17:54 11/29/19 24 11/29/2023 LIPAS E note Unles s other clemons noted testi ng perfo rmed at: [facility] [address] [place] [address] Elton barbosa MD Not Available [facility] (Pre-Op Clinic) [address] [facility] [place], [address], 11/29/2023 16:17:54 11/29/19 24 11/29/2023 BRADLY TIN ferritin 626 NG/mL 5-244 high Not Available [facility] (Pre-Op Clinic) [address] [facility] [place], [address], 11/29/2023 16:55:06 11/29/19 24 11/29/2023 BRADLY TIN note Unles s other clemons noted testi ng perfo rmed at: [facility] [address] [place] [address] Elton barbosa MD Not Available [facility] (Pre-Op Clinic) [address] [facility] [place], [address], 11/29/2023 16:55:06 11/29/19 24 11/29/2023 CEA note Unles s other clemons noted testi ng perfo rmed at: [facility] [address] [place] [address] Elton barbosa MD Not Available [facility] (Pre-Op Clinic) [address] [facility] [place], [address], 11/30/2023 11:17:53 11/29/19 24 11/30/2023 CEA cea 1.4 NG/mL 0.0-4. 7 Nonsm okers <3.9 Smoke rs <5.6 . Fidel Diagn ostic s Elect fidel milum inesc ence Immun oassa y (ECLI A) . Value s obtai lambert with diffe rent assay metho ds or kits canno t be used inter mi eably . Resul ts canno t be inter prete d as absol barbara evide nce of the prese nce or absen ce of [facility] se. Perfo rmed at: [place] [address] Lab Direc tor: Wade mchugh PhD, Phone : [phone] Not Available [facility] (Pre-Op Clinic) [address] [place] [address] [place], [address], 11/30/2023 11:17:53 11/29/19 24 11/29/2023 CA 19-9 note Unles s other clemons noted testi ng perfo rmed at: [facility] [address] [place] [address] Elton barbosa MD Not Available [facility] (Pre-Op Clinic) [address] [place] [address] [place], [address], 11/30/2023 11:17:55 11/29/19 24 11/30/2023 CA 19-9 carbohydrate antigen 19-9 16 U/mL 0-35 Fidel Diagn ostic s Elect fidel milum inesc ence Immun oassa y (ECLI A) . Value s obtai lambert with diffe rent assay metho ds or kits canno t be used inter mi eably . Resul ts canno t be inter prete d as absol barbara evide nce of the prese nce or [facility]en [facility] se. Perfo rmed at: [facility] [address] [place] [address] Lab Direc tor: Wade mchugh PhD, Phone : [phone] Not Available [facility] (Pre-Op Clinic) [address] [facility] [place], [address], 11/30/2023 11:17:55 11/29/19 24 11/29/2023 PROTE IN ELECT RO SERUM note Unles s other clemons noted testi ng [facility] [address] [place] [address] Elton barbosa MD Not Available [facility] (Pre-Op Clinic) [address] [place] [address] [place], [address], 12/03/2023 13:10:26 11/29/19 24 12/03/2023 PROTE IN ELECT RO SERUM protein, total, serum 6.4 g/dL 6.0-8. 5 Not Available [facility] (Pre-Op Clinic) [address] [place] [address] [place], [address], 12/03/2023 13:10:26 11/29/19 24 12/03/2023 PROTE IN ELECT RO SERUM albumin 2.1 g/dL 2.9-4. 4 low Not Available [facility] (Pre-Op Clinic) [address] [place] [address] [place], [address], 12/03/2023 13:10:26 11/29/19 24 12/03/2023 PROTE IN ELECT RO SERUM pyeoa-3-oejw ulin 0.5 g/dL 0.0-0. 4 high Not Available [facility] (Pre-Op Clinic) [address] [place] [address] [place], [address], 12/03/2023 13:10:26 11/29/19 24 12/03/2023 PROTE IN ELECT RO SERUM mtvbn-4-vcmf ulin 1.1 g/dL 0.4-1. 0 high Not Available [facility] (Pre-Op Clinic) [address] [place] [address] [place], [address], 12/03/2023 13:10:26 11/29/19 24 12/03/2023 PROTE IN ELECT RO SERUM beta globulin 0.7 g/dL 0.7-1. 3 Not Available [facility] (Pre-Op Clinic) [address] [place] [address] [place], [address], 12/03/2023 13:10:26 11/29/19 24 12/03/2023 PROTE IN ELECT RO SERUM gamma globulin 2.0 g/dL 0.4-1. 8 high Not Available [facility] (Pre-Op Clinic) [address] [place] [address] [place], [address], 12/03/2023 13:10:26 11/29/19 24 12/03/2023 PROTE IN ELECT RO SERUM M-spike Not Observ ed g/dL not observ ed Not Available [facility] (Pre-Op Clinic) [address] [place] [address] [place], [address], 12/03/2023 13:10:26 11/29/19 24 12/03/2023 PROTE IN ELECT RO SERUM globulin, total 4.3 g/dL 2.2-3. 9 high Not Available [facility] (Pre-Op Clinic) [address] [place] [address] [place], [address], 12/03/2023 13:10:26 11/29/19 24 12/03/2023 PROTE IN ELECT RO SERUM A/G ratio 0.5 0.7-1. 7 low Not Available [facility] (Pre-Op Clinic) [address] [place] [address] [place], [address], 12/03/2023 13:10:26 11/29/19 24 12/03/2023 PROTE IN ELECT RO SERUM please note: Serge bowie . Prote in elect ropho resis scan will follo w via compu ter, mail, or couri capri montoya. Not Available [facility] (Pre-Op Clinic) [address] [place] [address] [place], [address], 12/03/2023 13:10:26 11/29/19 24 12/03/2023 PROTE IN ELECT RO SERUM pdf . Perfo rmed at: [facility] [place] [address] [facility], [place] [address] Lab Direc tor: Wade mchugh PhD, Phone : [phone] Not Available [facility] (Pre-Op Clinic) [address] [place] [address] [place], [address], 12/03/2023 13:10:26 09/02/19 25 09/02/2024 HEMOG LOBIN A1C glycosylated hemoglobin A1C 5.4 % 4.5-6. 2 Not Available [facility] (Lab Registration) [address] [place], [address], 09/02/2024 13:03:48 09/02/19 25 09/02/2024 HEMOG LOBIN A1C estimated average glucose 108 mg/dL 82-131 Not Available [facility] (Lab Registration) [address] [place], [address], 09/02/2024 13:03:48 09/02/19 25 09/02/2024 HEMOG LOBIN A1C note Unles s other clemons noted testi ng perfo rmed at: [facility] [address] [place] [address] [phone] Elton barbosa MD CLIA: [id number] Not Available [facility] (Lab Registration) [address] [place], [address], 09/02/2024 13:03:48 09/02/19 25 09/02/2024 IRON/ TIBC/ %SAT (IRON STUDI ES) iron 69 ug/dL 35-150 Not Available [facility] (Lab Registration) [address] [place], [address], 09/02/2024 13:06:57 09/02/19 25 09/02/2024 IRON/ TIBC/ %SAT (IRON STUDI ES) total iron bind cap (TIBC) 237 ug/dL 250-45 0 low Not Available [facility] (Lab Registration) [address] [place], [address], 09/02/2024 13:06:57 09/02/19 25 09/02/2024 IRON/ TIBC/ %SAT (IRON STUDI ES) % saturation 29 % 15-55 Not Available [facility] (Lab Registration) [address] [place], [address], 09/02/2024 13:06:57 09/02/19 25 09/02/2024 IRON/ TIBC/ %SAT (IRON STUDI ES) note Unles s other clemons noted testi ng perfo rmed at: [facility] [address] [place] [address] [phone] Elton barbosa MD CLIA: [id number] Not Available [facility] (Lab Registration) [address] [place], [address], 09/02/2024 13:06:57 09/02/19 25 09/02/2024 CBC AUTO W DIFF WBC 6.4 10 4.5-11 .5 Not Available [facility] (Lab Registration) [address] [place], [address], 09/02/2024 13:17:07 09/02/19 25 09/02/2024 CBC AUTO W DIFF RBC 3.77 10 4.25-5 .57 low Not Available [facility] (Lab Registration) [address] [place], [address], 09/02/2024 13:17:07 09/02/19 25 09/02/2024 CBC AUTO W DIFF HGB 11.2 g/dL 13.5-1 7.2 low Not Available [facility] (Lab Registration) [address] [place], [address], 09/02/2024 13:17:07 09/02/19 25 09/02/2024 CBC AUTO W DIFF HCT 34.6 % 42.0-5 2.0 low Not Available [facility] (Lab Registration) [address] [place], [address], 09/02/2024 13:17:07 09/02/19 25 09/02/2024 CBC AUTO W DIFF MCV 91.8 fL 80-95 Not Available [facility] (Lab Registration) [address] [place], [address], 09/02/2024 13:17:07 09/02/19 25 09/02/2024 CBC AUTO W DIFF MCH 29.7 pg 27.0-3 4.0 Not Available [facility] (Lab Registration) [address] [place], [address], 09/02/2024 13:17:07 09/02/19 25 09/02/2024 CBC AUTO W DIFF MCHC 32.4 g/dL 32.0-3 6.0 Not Available [facility] (Lab Registration) [address] [place], [address], 09/02/2024 13:17:07 09/02/19 25 09/02/2024 CBC AUTO W DIFF platelet count 176 10 150-45 0 Not Available [facility] (Lab Registration) [address] [place], [address], 09/02/2024 13:17:07 09/02/19 25 09/02/2024 CBC AUTO W DIFF RDW 15.0 % 12.3-1 5.1 Not Available [facility] (Lab Registration) [address] [place], [address], 09/02/2024 13:17:07 09/02/19 25 09/02/2024 CBC AUTO W DIFF MPV 11.0 fL 7.4-10 .4 high Not Available [facility] (Lab Registration) [address] [place], [address], 09/02/2024 13:17:07 09/02/19 25 09/02/2024 CBC AUTO W DIFF granulocyte% 44.6 % 40-75 Not Available [facility] (Lab Registration) [address] [place], [address], 09/02/2024 13:17:07 09/02/19 25 09/02/2024 CBC AUTO W DIFF lymphocyte% 39.8 % 15-57 Not Available [facility] (Lab Registration) [address] [place], [address], 09/02/2024 13:17:07 09/02/19 25 09/02/2024 CBC AUTO W DIFF monocyte% 11.7 % 4.0-12 .0 Not Available [facility] (Lab Registration) [address] [place], [address], 09/02/2024 13:17:07 09/02/19 25 09/02/2024 CBC AUTO W DIFF eosinophil% 3.4 % 0.0-4. 0 Not Available [facility] (Lab Registration) [address] [place], [address], 09/02/2024 13:17:07 09/02/19 25 09/02/2024 CBC AUTO W DIFF basophil% 0.2 % 0.0-1. 0 Not Available [facility] (Lab Registration) [address] [place], [address], 09/02/2024 13:17:07 09/02/19 25 09/02/2024 CBC AUTO W DIFF immature granulocytes % 0.3 % 0.0-0. 8 Not Available [facility] (Lab Registration) [address] [place], [address], 09/02/2024 13:17:07 09/02/19 25 09/02/2024 CBC AUTO W DIFF granulocyte# 2.85 10 Not Available [facility] (Lab Registration) [address] [place], [address], 09/02/2024 13:17:07 09/02/19 25 09/02/2024 CBC AUTO W DIFF lymphocyte# 2.55 10 Not Available [facility] (Lab Registration) [address] [place], [address], 09/02/2024 13:17:07 09/02/19 25 09/02/2024 CBC AUTO W DIFF monocyte# 0.75 10 Not Available [facility] (Lab Registration) [address] [place], [address], 09/02/2024 13:17:07 09/02/19 25 09/02/2024 CBC AUTO W DIFF eosinophil# 0.22 10 Not Available [facility] (Lab Registration) [address] [place], [address], 09/02/2024 13:17:07 09/02/19 25 09/02/2024 CBC AUTO W DIFF basophil# 0.01 10 Not Available [facility] (Lab Registration) [address] [place], [address], 09/02/2024 13:17:07 09/02/19 25 09/02/2024 CBC AUTO W DIFF immature granulocytes # 0.02 10 Not Available [facility] (Lab Registration) [address] [place], [address], 09/02/2024 13:17:07 09/02/19 25 09/02/2024 CBC AUTO W DIFF manual differential YES Not Available [facility] (Lab Registration) [address] [place], [address], 09/02/2024 13:17:07 09/02/19 25 09/02/2024 CBC AUTO W DIFF segmented neutrophil 50 % 36-66 Not Available [facility] (Lab Registration) [address] [place], [address], 09/02/2024 13:17:07 09/02/19 25 09/02/2024 CBC AUTO W DIFF lymphocyte 35 % 15-41 Not Available [facility] (Lab Registration) [address] [place], [address], 09/02/2024 13:17:07 09/02/19 25 09/02/2024 CBC AUTO W DIFF monocyte 13 % 2-9 high Not Available [facility] (Lab Registration) [address] [place], [address], 09/02/2024 13:17:07 09/02/19 25 09/02/2024 CBC AUTO W DIFF eosinophil 2 % 0-3 Not Available [facility] (Lab Registration) [address] [place], [address], 09/02/2024 13:17:07 09/02/19 25 09/02/2024 CBC AUTO W DIFF nucleated RBC's 0 /100_ WBCs Not Available [facility] (Lab Registration) [address] [place], [address], 09/02/2024 13:17:07 09/02/19 25 09/02/2024 CBC AUTO W DIFF acanthocytes FEW none seen Not Available [facility] (Lab Registration) [address] [place], [address], 09/02/2024 13:17:07 09/02/19 25 09/02/2024 CBC AUTO W DIFF toshia cells FEW none seen Not Available [facility] (Lab Registration) [address] [place], [address], 09/02/2024 13:17:07 09/02/19 25 09/02/2024 CBC AUTO W DIFF elliptocytes FEW none seen Not Available [facility] (Lab Registration) [address] [place], [address], 09/02/2024 13:17:07 09/02/19 25 09/02/2024 CBC AUTO W DIFF note Unles s other clemons noted testi ng perfo rmed at: [facility] [address] [place] [address] [phone] Elton barbosa MD CLIA: [id number] Not Available [facility] (Lab Registration) [address] [place], [address], 09/02/2024 13:17:07 09/02/19 25 09/02/2024 COMP METAB OLIC PANEL sodium 142 mmol/ L 136-14 5 Not Available [facility] (Lab Registration) [address] [place], [address], 09/02/2024 13:44:27 09/02/19 25 09/02/2024 COMP METAB OLIC PANEL potassium 3.6 mmol/ L 3.5-5. 1 Not Available [facility] (Lab Registration) [address] [place], [address], 09/02/2024 13:44:27 09/02/19 25 09/02/2024 COMP METAB OLIC PANEL chloride 107 mmol/ L 98-107 Not Available [facility] (Lab Registration) [address] [place], [address], 09/02/2024 13:44:27 09/02/19 25 09/02/2024 COMP METAB OLIC PANEL carbon dioxide 28 mmol/ L 21-32 Not Available [facility] (Lab Registration) [address] [place], [address], 09/02/2024 13:44:27 09/02/19 25 09/02/2024 COMP METAB OLIC PANEL anion gap 7.0 Not Available [facility] (Lab Registration) [address] [place], [address], 09/02/2024 13:44:27 09/02/19 25 09/02/2024 COMP METAB OLIC PANEL glucose 90 mg/dL 70-110 Not Available [facility] (Lab Registration) [address] [place], [address], 09/02/2024 13:44:27 09/02/19 25 09/02/2024 COMP METAB OLIC PANEL blood urea nitrogen 34 mg/dL 7-18 high Not Available [facility] (Lab Registration) [address] [place], [address], 09/02/2024 13:44:27 09/02/19 25 09/02/2024 COMP METAB OLIC PANEL creatinine 2.0 mg/dL 0.8-1. 3 high Not Available [facility] (Lab Registration) [address], [place], [address], 09/02/2024 13:44:27 09/02/19 25 09/02/2024 COMP METAB OLIC PANEL BUN/creatini ne ratio 17.0 9-21 Not Available [facility] (Lab Registration) [address], [place], [address], 09/02/2024 13:44:27 09/02/19 25 09/02/2024 COMP METAB OLIC PANEL estimated glom filtration rate 33 mL/mi n >60- low GFR LIMIT ATION : The eGFR equat ion CKD-E PI 2020 is not appli cable for pedia tric patie nts or great er than 90 years of age. The follo wing condi tions may alter the GFR resul t: extre mes in body size, malnu triti on or obesi ty, skele kelly muscl e disea se, parap legia or quadr ipleg ia, veget duarte diet or rapid ly mi ing kiney funct ion. Not Available [facility] (Lab Registration) [address], [place], [address], 09/02/2024 13:44:27 09/02/19 25 09/02/2024 COMP METAB OLIC PANEL total protein 6.1 g/dL 6.4-8. 2 low Not Available [facility] (Lab Registration) [address], [place], [address], 09/02/2024 13:44:27 09/02/19 25 09/02/2024 COMP METAB OLIC PANEL albumin 3.2 g/dL 3.4-5. 0 low Not Available [facility] (Lab Registration) [address], [place], [address], 09/02/2024 13:44:27 09/02/19 25 09/02/2024 COMP METAB OLIC PANEL calcium 9.1 mg/dL 8.5-10 .1 Not Available [facility] (Lab Registration) [address], [place], [address], 09/02/2024 13:44:27 09/02/19 25 09/02/2024 COMP METAB OLIC PANEL corrected calcium 9.7 mg/dL 8.5-10 .1 Not Available [facility] (Lab Registration) [address] [place], [address], 09/02/2024 13:44:27 09/02/19 25 09/02/2024 COMP METAB OLIC PANEL bilirubin total 0.4 mg/dL 0.4-1. 5 Not Available [facility] (Lab Registration) [address] [place], [address], 09/02/2024 13:44:27 09/02/19 25 09/02/2024 COMP METAB OLIC PANEL AST (SGOT) 25 U/L 15-37 Not Available [facility] (Lab Registration) [address] [place], [address], 09/02/2024 13:44:27 09/02/19 25 09/02/2024 COMP METAB OLIC PANEL ALT (SGPT) 30 U/L 12-78 Not Available [facility] (Lab Registration) [address] [place], [address], 09/02/2024 13:44:27 09/02/19 25 09/02/2024 COMP METAB OLIC PANEL alk phosphatase 95 U/L Not Available [facility] (Lab Registration) [address] [place], [address], 09/02/2024 13:44:27 09/02/19 25 09/02/2024 COMP METAB OLIC PANEL note Unles s other clemons noted testi ng perfo rmed at: [facility] [address] [place] [address] [phone] Elton barbosa MD CLIA: [id number] Not Available [facility] (Lab Registration) [address] [place], [address], 09/02/2024 13:44:27 09/02/19 25 09/02/2024 BRADLY TIN ferritin 772 NG/mL 8-388 high Not Available [facility] (Lab Registration) [address] [place], [address], 09/02/2024 13:44:29 09/02/19 25 09/02/2024 BRADLY TIN note Unles s other clemons noted testi ng perfo rmed at: [facility] [address] [place] [address] [phone] Elton barbosa MD CLIA: [id number] Not Available [facility] (Lab Registration) [address] [place], [address], 09/02/2024 13:44:29 09/02/19 25 09/02/2024 VITAM IN B12 vitamin B12 489 pg/mL 193-98 6 Not Available [facility] (Lab Registration) [address] [place], [address], 09/02/2024 13:44:30 09/02/19 25 09/02/2024 VITAM IN B12 folate (folic acid), serum 14.2 NG/mL 8.6-58 .9 Not Available [facility] (Lab Registration) [address] [place], [address], 09/02/2024 13:44:30 09/02/19 25 09/02/2024 VITAM IN B12 note Unles s other clemons noted testi ng perfo rmed at: [facility] [address] [place] [address] [phone] Elton barbosa MD CLIA: [id number] Not Available [facility] (Lab Registration) [address], [place], [address], 09/02/2024 13:44:30 09/02/19 25 09/02/2024 THYRO ID STIMU LATIN G HORMO NE thyroid stimulating hormone 4.45 mIU/m L 0.34-4 .80 Not Available [facility] (Lab Registration) [address], [place], [address], 09/02/2024 13:44:31 09/02/19 25 09/02/2024 THYRO ID STIMU LATIN G HORMO NE note Unles s other clemons noted testi ng perfo rmed at: [facility] [address] [place] [address] [phone] Elton barbosa MD CLIA: [id number] Not Available [facility] (Lab Registration) [address] [place], [address], 09/02/2024 13:44:31 09/02/19 25 09/02/2024 VITAM IN D TOTAL (D2+D 3) vitamin D25 (D2+D3) 118.6 NG/mL 30-100 high Not Available [facility] (Lab Registration) [address], [place], [address], 09/02/2024 13:44:33 09/02/19 25 09/02/2024 VITAM IN D TOTAL (D2+D 3) note Unles s other clemons noted testi ng perfo rmed at: [facility] [address] [place] [address] [phone] Elton barbosa MD CLIA: [id number] Not Available [facility] (Lab Registration) [address] [place], [address], 09/02/2024 13:44:33 09/02/19 25 09/02/2024 LIPID PANEL triglyceride 33 mg/dL 20-200 The Natio nal [employer] t[employer]gr am (NCEP ) has set the follo wing guide lines for Fasti ng Trigl yceri otm: VICKY L: <150 mg/dL BORDE RLINE HIGH: 150 - 199 mg/dL HIGH: 200 - 499 mg/dL VERY HIGH: > or =500 mg/dL Not Available [facility] (Lab Registration) [address] [place], [address], 09/02/2024 13:44:34 09/02/19 25 09/02/2024 LIPID PANEL cholesterol 136 mg/dL 0-200 The Natio nal [employer]ca t[employer] Progr am (NCEP ) has set the follo wing guide lines for Fasti ng Lolis stero l: ANGIE ABLE: <200 mg/dL BORDE RLINE HIGH: 200 - 239 mg/dL HIGH: > or =240 mg/dL Not Available [facility] (Lab Registration) [address] [place], [address], 09/02/2024 13:44:34 09/02/19 25 09/02/2024 LIPID PANEL HDL cholesterol 83 mg/dL 60- The Natio nal [place]ca tion Progr am (NCEP ) has set the follo wing guide lines for Fasti ng HDL [place]olis stero l: LOW HDL: <40 mg/dL VICKY L: 40 - 60 mg/dL ANGIE ABLE: >60 mg/dL Not Available [facility] (Lab Registration) [address] [place], [address], 09/02/2024 13:44:34 09/02/19 25 09/02/2024 LIPID PANEL LDL calculated 46 mg/dL 100- low The Natio nal [employer]ca t[employer] Progr am (NCEP ) has set the follo wing guide lines for Fasti ng LDL [place]olis stero l: OPTIM AL: < 100 mg/dL LOW RISK: 100 - 129 mg/dL BORDE RLINE HIGH: 130 - 159 mg/dL HIGH: 160 - 189 mg/dL VERY HIGH: > or = 190 mg/dL Not Available [facility] (Lab Registration) [address] [place], [address], 09/02/2024 13:44:34 09/02/19 25 09/02/2024 LIPID PANEL chol/HDL ratio 2 -5 Not Available [facility] (Lab Registration) [address] [place], [address], 09/02/2024 13:44:34 09/02/19 25 09/02/2024 LIPID PANEL note Unles s other clemons noted testi ng perfo rmed at: [facility] [address] [place] [address] [phone] Elton barbosa MD CLIA: [id number] Not Available [facility] (Lab Registration) [address] [place], [address], 09/02/2024 13:44:34 09/02/19 25 09/02/2024 T4 FREE T4,free 0.81 NG/dL 0.76-1 .46 Effec tive today 013 new Refer ence Range . Not Available [facility] (Lab Registration) [address] [place], [address], 09/02/2024 13:44:36 09/02/19 25 09/02/2024 T4 FREE note Unles s other clemons noted testi ng perfo rmed at: [facility] [address] [place] [address] [phone] Elton barbosa MD CLIA: [id number] Not Available [facility] (Lab Registration) [address] [place], [address], 09/02/2024 13:44:36 10/01/19 24 10/01/2023 CT, abdom en + pelvi s, w/o contr ast [facility] [address] [facility] [place] [address] Phone: Fax: Name: ROMAINFDEERICO MARTE Date: 10/01/19 : 943 Age 83 years Gender : M Access ion: [id number] Physic newton: LOREN HARO NDE Facili [place]: [facility] HSV: Outpat ient Exam: CT ABD/PE L NO ORAL OR IV CONTR CT SCAN OF ABDOME N AND PELVIS WITHOU T CONTRA ST HISTOR Y: Painle ss hematu shoshana PROCED URE: Axial images were obtain ed from the lung bases to the pubic symphy sis by comput ed tomogr aphy.T his study was perfor med with techni ques to keep radiat ion doses as low as reason ably achiev able, (MELANY ). FINDIN GS: ABDOME N: Heart size is mildly enlarg ed. There is depend ent atelec tasis within the lung bases. No focal pneumo faustina is identi fied in the lung bases. The limite d noncon trast images of the liver are normal . Gallbl adder is decomp ressed . There is a questi onable 1.5 cm pancre atic body hypode nsity, well seen on image 19 of series 2. The main pancre atic duct is not dilate d. There is no eviden ce of acute pancre atitis . The spleen is normal . No adrena l masses are seen. The aorta is normal in calibe r. There is no signif icant free fluid or adenop athy. There are small nonobs tructi ng bilate ral renal calcul i. There is no hydron ephros is or ureter al stone identi fied. There is extens bora coloni c divert iculos is withou t eviden ce of divert iculit is. Modera te stool is identi fied in the colon. There are unobst ructed small bowel loops. PELVIS : The append ix is not identi fied. The urinar y bladde r is unrema rkable . There is no signif icant fluid or adenop athy. IMPRES SUMIT: Nonobs tructi ng nephro lithia sis. Questi onable 1.5 cm hypode nse lesion in the pancre atic body. Recomm end correl ation with MRCP withou t and with contra st. Films review ed , interp reted and dictat ed by Dr. Basia Larry . Transc ribed by Shawn Sow PA-C. Dictat ed By: BASIA LARRY Transc ribed By: BASIA LARRY Transc ribed On: 10/01/19 4:20 PM Electr onical ly signed by: BASIA LARRY 10/01/19 [facility] Legall y authen ticate d by KENDY Hernandez MD 09-30 16:20: 01 CC'ed Logic: Orderi ng Provid er: SOARELI PIMENTEL NDE CC Provid er: MARA Montano ing Provid er: SOKAN YVONNEATU NDE Referr ing Provid er: SOKAN BABATU NDE Admitt ing Provid er: SOKARodrigue RUSSELLATU [facility] [address] [place] [address] , [place], [address], 10/02/2023 18:55:43 10/25/19 24 10/25/2023 [facility] [address] [place] [address] (Phone ) DIAGNO STIC RAJATIN G REPORT ------ ------ ------ ------ ------ ------ ------ ------ ----- Antolin bowie Name: FEDERICO HOYOS Laly Vierakai azeb No: [id number] Medica l Record No: [id number] Date of : 1940 Access ion No: [id number] Date of Exam: 2023 Antolin bowie Type: Outpat ient Ordercarine ng Physic newton: JOSE LUIS SANDY ------ ------ ------ ------ ------ ------ ------ ------ ----- FINAL REPORT PROCED URE: MRI MRCP WITH AND WITHOU T CLINIC AL HISTOR Y: ct of aabdom en abnorm al FINDIN GS: Multip lanar MR imagin g of the abdome n was perfor med withou t and with contra st. Images of the liver reveal no eviden ce of mass. There is no eviden ce of biliar y ductal dilata tion. The gallbl adder has an unrema rkable appear ance. There is a cystic mass of the distal pancre atic body measur ing 14 x 11 mm. There is no abnorm al enhanc ement. Cystic mass is also seen within or adjace nt to the uncina te proces s withou t associ ated abnorm al enhanc ement. This mass measur es 26 x 10 mm. This could be of pancre atic origin as well as a duoden al divert iculum . Pancre atic duct is normal . There is no eviden ce of choled ocholi thiasi s. No abnorm al fluid collec tion is seen. No abnorm al contra st enhanc ement is seen on the postco ntrast images . IMPRES SUMIT: Cystic mass within the distal pancre atic body. Cystic lesion within or adjace nt to the uncina te proces s. No solid enhanc ing masses , favor benign . 12-sun follow -up MRI recomm ended with contra st. Review ed, Interp reted and Dictat ed by Lorna Pedraza MD Transc ribed by Larissa Youngblood ticate d and Electr onical ly Signed by Lorna Pedraza MD on 2023 11:16: 30 AM BRITTON Husain CC'ed Logic: Orderi ng Provid er: [facility] ON JOSE LUIS CC Provid er: MARA SHER Attend ing Provid er: [facility] ON JOSE LUIS Referr ing Provid er: [facility] ON JOSE LUIS Admitt ing Provid er: [facility] JOSE LUIS [address] (Central Scheduling) [address] [place] [address] [place], [address], 10/30/2023 11:33:33 10/25/19 24 10/25/2023 imagi ng inter preta tion No observ ation record ed. [address] Registration [address] [place], [address], 10/30/2023 11:33:33 11/05/19 24 11/05/2023 imagi ng inter preta tion No observ ation record ed. [email or web address] [facility] Registration [address] [place], [address], 11/05/2023 12:21:49 11/07/19 24 11/06/2023 imagi ng inter preta tion No observ ation record ed. [email or web address] [facility] Registration [address] [facility] [place], [address], 11/08/2023 15:11:24 12/03/19 24 12/02/2023 imagi ng inter preta tion No observ ation record ed. [email or web address] [facility] Registration [address] [facility] [place], [address], 12/03/2023 08:22:20 12/03/19 24 12/03/2023 imagi ng inter preta tion No observ ation record ed. [email or web address] [facility] Registration [address] [facility] [place], [address], 12/04/2023 08:19:12 12/04/19 24 12/03/2023 imagi ng inter preta tion No observ ation record ed. [email or web address] [facility] Registration [address] [facility] [place], [address], 12/04/2023 12:20:27 12/11/19 24 12/09/2023 imagi ng inter preta tion No observ ation record ed. [email or web address] [facility] Registration [address] [facility] [place], [address], 12/13/2023 08:26:09 12/14/19 24 12/14/2023 imagi ng inter preta tion No observ ation record ed. [email or web address] [facility] Registration [address] [facility] [place], [address], 12/17/2023 14:37:16 12/18/19 24 12/17/2023 imagi ng inter preta tion No observ ation record ed. [email or web address] [facility] Registration [address] [facility] [place], [address], 12/18/2023 08:36:05 12/18/19 24 12/18/2023 imagi ng inter preta tion No observ ation record ed. [email or web address] [facility] Registration [address] [facility] [place], [address], 12/18/2023 12:35:29 12/18/19 24 12/18/2023 imagi ng inter preta tion No observ ation record ed. [email or web address] [facility] [place], [address], 12/20/2023 09:00:09 12/19/19 24 12/18/2023 imagi ng inter preta tion No observ ation record ed. [email or web address] [facility] Registration [address] [facility] [place], [address], 12/20/2023 08:59:42 12/20/19 24 12/20/2023 imagi ng inter preta tion No observ ation record ed. [email or web address] [facility] Registration [address] [facility] [place], [address], 12/20/2023 14:56:11 12/20/19 24 12/20/2023 imagi ng inter preta tion No observ ation record ed. [facility] Registration [address] [facility] [place], [address], 12/21/2023 09:07:16 12/20/19 24 12/20/2023 imagi ng inter preta tion No observ ation record ed. [email or web address] [facility] Registration [address] [facility] [place], [address], 12/21/2023 09:07:12 12/21/19 24 12/21/2023 imagi ng inter preta tion No observ ation record ed. [email or web address] [facility] Registration [address] [place] [address] [place], [address], 12/21/2023 15:41:14 07/14/20 24 07/14/2024 imagi ng inter preta tion No observ ation record ed. [email or web address] [facility] [address], [place], [address], 07/15/2024 09:11:55 Result Notes None recorded. 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 Active 2021 Dane [place] [facility] [place] [facility] [place] 4 08:35:26 Lesion of urinary bladder 533449817 Active 2021 Dane [place] [facility] [place] [facility] [place] 4 08:35:32 Cardiac finding 373433605 Active 2022 Dane [place] [facility] [place] [facility] [place] 4 08:36:01 Cystitis 69088291 Active Dane [place] [facility] [place] [facility] [place] 4 08:35:11 Atrial fibrillatio n 33320354 Active Dane [place] [facility] [place] [facility] [place] 4 08:34:57 Anemia 965182943 Active 2022 Dane [place] [facility] [place] 4 08:34:50 Blood in urine 09492385 Active 2022 Dane [place] [facility] [place] 4 08:35:04 Tobacco dependence caused by cigarettes 5124678081550 9107 Active 2022 Dane [place] [facility] [place] 4 08:35:37 Iron deficiency anemia 86151424 Active 2023 Tushar Barba MD [address] [place] [address], [address], [place] [facility] [place] [facility] [place] 4 08:47:12 Hypothyroid ism 19316117 Active 2023 Tushar Barba MD [address] [place] [address], [address], [place] [facility] [place] & [place] 4 08:47:26 Mass of pancreas 979736644 Active 2023 Tushar Barba MD [address] [place] [address], [phone], [place] [facility] [place] & [place] 4 08:47:44 CT of abdomen abnormal 3329496357542 9107 Active 2023 Jose Luis Cowart NP [address], [address], [place], [address], [place] [facility] [place] & [place] 4 14:02:56 Constipatio n 91886850 Active 2023 Jose Luis Cowart NP [address], [address], [place], [address], [place] [facility] [place] & [place] 4 14:06:01 Decrease in appetite 82574134 Active 2023 Jose Luis Cowart NP [address], [address], [place], [address], [place] [facility] [place] [facility] [place] 4 09:47:59 Diverticulo sis of colon 448954958 Active 2023 Jose Luis Cowart NP [address], [address], [place], [address], [place] - [facility] - [place] & [place] 4 09:51:55 Nausea 932855500 Active 2023 Jose Luis Cowart NP [address], [address], [place], [address], [place] - [facility] & [place] 09:24:18 Problem Notes Documentation Provider Name and Address Organization Details Recorded Time Clinic Note : [address] [place] [address]TENWIS, Tony D (id #[id number], : 1940) [address] [place] [address] Encounter Summary - Progress Note Date Printed: 11/29/2023 Documents sent via fax will include the followingmessage: This fax may contain sensitive and confidential personal health information that is being sent for the sole use of the intended recipient. Unintended recipients are directed to securely destroy any materials received. You are hereby notified that the unauthorized disclosure or other unlawful use of this fax or any personal health information is prohibited. To the extent patient information contained in this fax is subject to 42 CFR Part 2, this regulation prohibits unauthorized disclosure of these records. If you received this fax in error, please visit [email or web address] to notify the sender and confirm that the information will be destroyed. If you do not have internet access, please call to notify the sender and confirm that the information will be destroyed. Thank you for your attention and cooperation. [ID:[id number]] Patient Federico Hoyos (83yo, M) #[id number] 1940 Patient Demographics: Address [address] [place] [address] Work Phone Encounter Notes: Encounter Reason/Date Follow Up 11/29/2023 - 11:30[facility] History of Present Illnesshe is here for follow-up for abnormal CT and MRCP which showed a cystic mass without any solid mass in the pancreas no pancreatic ductal dilatation no fluid collection mostly in the distally supposed to have a tumor markers done and refer to pancreatic Clinic his hemoglobin is 12 B12 folate normal CMP normal had a lipid panel normal MCV 89 hemoglobin 12.1 platelets normal white count 6000 PT normal thyroid normal. On 11/04 his hemoglobin 10.8 MCV 86 white count 11 platelets normal troponin I was 0.6 pro BNP was 2004 and 7 his lipid panel was normal T4 normal TSH pending T3 was 53 little high free thyroid index was normal at 4 9 hemoglobin 10.9 BMP normal colonoscopy in 21 showed diverticulosis in the sigmoid polyp CT report noted MRI MRCP report noted has history of hypothyroidism iron deficiency anemia atrial fibrillation constipation large prostate nausea and poor appetite in the past took tobacco dependency diverticula Review of SystemsROS as noted in the HPI [id number] 11:50 Ht: 5 ft 6 in Wt: 131.6 lbs BMI: 21.2 T: 97.9 F O2Sat: 99% Pulse: 72 bpm Results/InterpretationsNone recorded Physical ExamGeneral::General: well-developed, well-nourished, and NAD. Skin::Skin: warm, dry, good turgor, baseline color, and no rashes/lesions. Head::Head: symmetry and normal shape. Neck::Neck: no mass, adenopathy, or thyromegaly and supple. Eyes::Eyes: normal conjunctiva, sclera, and lids and anicteric and PERRLA. Mouth, Throat::Mouth, Throat: moist mucosa, uvula midline, and no erythema or exudates. Chest::Chest: symmetry, normal respirations, and no retractions. Cardiovascular System:Heart: regular rate and rhythm. Abdomen::Abdomen: no masses or hepatosplenomegaly and nontender, nondistended, and positive bowel sounds in all four quadrants. Extremities::Extremities: good muscle mass, tone, and strength and full range of motion. Neuromuscular::Neuromuscular : alert and normal coordination. Assessment and PlanParts of this document were prepared using voice recognition software and may contain unrecognized dictation errors and word substitutions commonly found with electronic culinary assistant. Attempts have been made to correct errors during dictation, but some errors may remain 1. Cyst of pancreas-need tumor markers like CEA and CA 19-9 not done will refer to for endoscopic ultrasound the pancreas the further management because of age consider management if there is no red flag signs and endoscopic ultrasound then periodic monitoring with MRI should be eokqacmodrE18.2: Cyst of pancreas CARCINOEMBRYONIC AG, QUANT, SERUM OR PLASMA CANCER AG 19-9, SERUM OR PLASMA 2. Iron deficiency anemia-will check stool Hemoccult SPEP iron saturation may need iron replacement review previous endoscopy workup and further management depending on the findings because of his age is taking iron pills and B12 pills endoscopy further manage follow-up in 3 months after pancreatic Clinic lrjsnaP45.9: Iron deficiency anemia, unspecified IRON + TIBC + FERRITIN, SERUM HEMOGLOBIN, GASTROINTESTINAL, STOOL PROTEIN ELECTROPHORESIS PANEL, SERUM OR PLASMA AMYLASE + LIPASE, SERUM 3. Diverticular disease of colon-probiotic fiber surgery will also help constipation with XtvzqKknJ91.30: Diverticulosis of large intestine without perforation or abscess without bleeding 4. History of polyp of colon-review pathology from [facility] he is does not want to go through colonoscopy at this age has lot of hemorrhoidal zfflvyffE72.010: Personal history of colonic polyps 5. Hypothyroidism-continue management therapy with PCPE03.9: Hypothyroidism, unspecified 6. Loss of appetite-since has poor appetite not responding to Megace advise oneida supplements oneida tea to stimulate the stomach until we do EGD continue PPI small meal diet easily digestible foods nyprzwbfyD70.0: Anorexia 7. Acid reflux-low acid diet anti-reflux measure continue Protonix will do upper endoscopy once cleared by Cardiology for elevated troponin he may have a type 2 PR or other possibility once cardiac cleared will do EGDK21.9: Gastro-esophageal reflux disease without esophagitis pantoprazole 40 mg tablet,delayed release - Take 1 tablet(s) every day by oral route for 30 days. Qty: (30) tablet Refills: 0 Pharmacy: [facility] 493 8. Internal hemorrhoids-will start on hemorrhoid cream FiberCon Sitz baths vcfslvkfcW45.8: Other hemorrhoids hydrocortisone 2.5 % topical cream with perineal applicator - APPLY A THIN LAYER TO THE AFFECTED AREA(S) BY TOPICAL ROUTE 2-4 TIMESDAILY Qty: (1) 30 gram tube Refills: 2 Pharmacy: [facility] 493 9. Constipation-multifactorial mild hypothyroidism advise FiberCon Senokot p.r.n. Dulcolax suppositories if he needs itK59.00: Constipation, unspecified senna 8.6 mg capsule - Take 1 capsule(s) every day by oral route for 30 days. Qty: (30) capsule Refills: 0 Pharmacy: [facility] [id number] FiberCon 625 mg tablet - Take 1 tablet(s) every day by oral route for 30 days. Qty: (30) tablet Refills: 2 Pharmacy: [facility] 493 Return to Office Patient will return to the office as needed Patient Medical History: Allergies List Allergies not reviewed (last reviewed 10/30/2023) NKDA Medications Medications not reviewed (last reviewed 10/30/2023) NameDate Source aspirin 81 mg tablet,delayed ahvnafm87 MG., start started Carolyne Rosa atorvastatin 40 mg ivtpyh81/09/24 filled surescripts cyanocobalamin (vit B-12) 1,000 mcg tabletTAKE 1 TABLET BY MOUTH ONCE DAILY11/16/21 filled surescripts doxycycline hyclate 100 mg capsuleTAKE 1 CAPSULE BY MOUTH TWICE DAILY09/26/23 filled surescripts FeroSuL 325 mg (65 mg iron) tabletTAKE 1 TABLET BY MOUTH ONCE DAILY10/09/23 filled surescripts FiberCon 625 mg tabletTake 1 tablet(s) every day by oral route for 30 days.11/29/23 prescribed Gama Murillo MD hydrocortisone 2.5 % topical cream with perineal applicatorAPPLY A THIN LAYER TO THE AFFECTED AREA(S) BY TOPICAL ROUTE 2-4 GMWQCJZLWG17/02/24 prescribed Gama Murillo MD levothyroxine 75 mcg tabletTake 1 tablet(s) every day by oral route before meals for 90 days.10/11/23 filled surescripts megestroL 400 mg/10 mL (40 mg/mL) oral ixlqjckqdt93/09/24 filled surescripts metoprolol tartrate 25 mg tabletTAKE 1/2 (ONE-HALF) TABLET BY MOUTH AT JGEJXUW43/02/24 filled surescripts nitrofurantoin monohydrate/macrocrystals 100 mg capsuleTAKE 1 CAPSULE BY MOUTH TWICE DAILY FOR 7 DAYS11/07/23 filled surescripts ondansetron HCL 4 mg tabletTAKE 1 TABLET BY MOUTH TWICE DAILY10/31/23 filled surescripts pantoprazole 40 mg tablet,delayed releaseTake 1 tablet(s) every day by oral route for 30 days.11/29/23 prescribed Gama Murillo MD [facility] 3 billion cell capsuleTake 1 capsule(s) every day by oral route for 30 days.10/30/23 prescribed Jose Luis Cowart NP senna 8.6 mg capsuleTake 1 capsule(s) every day by oral route for 30 days.11/29/23 prescribed Gama Murillo MD tamsulosin 0.4 mg capsuleTAKE 1 CAPSULE BY MOUTH ONCE DAILY FOR 90 DAYS09/02/23 filled surescripts Family HistoryFamily History not reviewed (last reviewed 10/30/2023) Mother - Malignant tumor of lung - Father - Aneurysm - Brother - Malignant neoplasm of bone - Past Medical HistoryPast Medical History not reviewed (last reviewed 10/30/2023) Hyperthyroidism:Y Kidney Stones:Y Notes: urinary bladder stone, lesion on bladder, uti, large prostate, uti Vaccine HistoryVaccines not reviewed (last reviewed 10/30/2023) Vaccine Type Date Amt. Route Site [facility] Lot # Mfr. Exp. Date VIS VIS Given [employer] Influenza influenza, high dose seasonal 04/17/18 0.5 mL Intramuscular [id number] [employer] Electronically Signed by: GAMA MURILLO MD Tushar Barba MD [address] [place] [address], [phone], [facility] - [facility]NT [facility] & [place] 12/03/2023 09:34:09 Procedures Surgical History Date Name Laterality Status Provider Name and Address Organization Details Recorded Time 06/05/20 24 Cerumen Removal completed Vern Haro MD [address] [place] [address], [phone], [facility] - [facility]NT [facility] & [place] 06/05/2024 11:28:12 02/23/20 23 Cerumen Removal completed Charisse Guillory APRN [address] [place] [address], [phone], [place] - LPNT [facility] & [place] 02/22/2023 12:16:50 06/28/20 22 Cystoscopy-Male completed Radha Healy [facility] & [place] 06/28/2022 15:55:44 11/12/19 21 colonoscopy completed Deepa Stern [place] Niraj [facility] & [place] 07/11/2023 11:34:42 09/28/19 19 extracorporeal shockwave lithotripsy of calculus of kidney completed Radha JEFFERS - LPNT [facility] & [place] 05/15/2024 10:24:53 07/30/19 15 Colonoscopy completed Radha JEFFERS - LPNT [facility] & [place] 05/15/2024 10:24:38 Imaging Results None recorded. Procedure Notes None recorded. Medical Equipment None Reported. Allergies Allergen ID Allergen Name Allergen Category Reaction Reaction Severity Criticality Documentation Date Start Date Code Code System Note Provider Name and Address Organization Details Recorded Time 161691 tamsulosi n medicatio n Not available Not available Not available 05/15/2024 89829 RxNorm Radha Lubin [facility], [place] [facility] [place] 10:23:50 Medications Name Sig Start Date Stop [...] completed Not Available Not Available Not Available [employer] 3 billion cell capsule Take 1 capsule [...] Organization Details Last Updated DateTime 167.64 cm 18.8 kg/m2 79261.1 5 g 97 [degF] 99 % 99 % 60 /min 16 /min 117 mm[Hg] 66 mm[Hg] Tesha Pardini [place] - LPNT [facility] & [place] 5 09:31:05 Date Recorded Body height Body mass index (BMI) Body weight Body temperature Oxygen saturation Oxygen saturation in Arterial blood by Pulse oximetry Heart rate Systolic blood pressure Diastolic blood pressure Provider Name and Address Organization Details Last Updated DateTime 4 167.64 cm 20.2 kg/m2 24698.4 8 g 97.2 [degF] 99 % 99 % 94 /min 104 mm[Hg] 68 mm[Hg] Jeanie JEFFERS - LPNT [facility] & [place] 4 09:10:57 Date Recorded Body height Body mass index (BMI) Body weight Body temperature Oxygen saturation Oxygen saturation in Arterial blood by Pulse oximetry Heart rate Provider Name and Address Organization Details Last Updated DateTime 4 167.64 cm 21.2 kg/m2 10178.7 6 g 97.9 [degF] 99 % 99 % 72 /min Aretha Suarez [place] - DESMONDNT [facility] & [place] 4 11:50:24 Date Recorded Body height Body mass index (BMI) Body weight Body temperature Oxygen saturation Oxygen saturation in Arterial blood by Pulse oximetry Heart rate Respiratory rate Systolic blood pressure Diastolic blood pressure Provider Name and Address Organization Details Last Updated DateTime 5 167.64 cm 17.9 kg/m2 65254.4 7 g 98.4 [degF] 97 % 97 % 67 /min 16 /min 126 mm[Hg] 66 mm[Hg] Tesha JEFFERS - LPNT [facility] & [place] 5 15:34:47 Date Recorded Body height Body mass index (BMI) Body weight Body temperature Oxygen saturation Oxygen saturation in Arterial blood by Pulse oximetry Heart rate Respiratory rate Systolic blood pressure Diastolic blood pressure Provider Name and Address Organization Details Last Updated DateTime 4 167.64 cm 18.1 kg/m2 43025.7 8 g 97.2 [degF] 99 % 99 % 59 /min 16 /min 111 mm[Hg] 72 mm[Hg] Tesha JEFFERS - LPNT [facility] & [place] 4 10:59:45 Social History Question Answer Notes LastModified by Organizat ion Details LastModified Time Tobacco Smoking Status Former Smoker patient reports smoked long time ago and has quit long time ago. Sheila George [facility], [place] - [facility] - [place] & [place] 10/25/2022 14:17:01 What Is Your Level Of Caffeine Consumption? Moderate [email or web address] Information not available 10/25/2022 Have There Been Any Changes To Your Family Or Social Situation? No [email or web address] Information not available 10/11/2023 What Is The Fluoride Status Of Your Home? Unknown [email or web address] Information not available 10/11/2023 When Did You Quit Smoking? 16+yearssinc elastcigaret te [email or web address] Information not available 10/25/2022 Are There Any Guns Present In Your Home? No [email or web address] Information not available 10/11/2023 Do You Use Insect Repellent Routinely? Yes [email or web address] Information not available 10/11/2023 Do You Feel Safe At Home? Yes [email or web address] Information not available 10/11/2023 Do You Have Any Pets? No [email or web address] Information not available 10/11/2023 Do You Have Smoke And Carbon Monoxide Detectors In Your Home? Yes [email or web address] Information not available 10/11/2023 Are You Passively Exposed To Smoke? No [email or web address] Information not available 10/11/2023 Do You Use Sunscreen Routinely? Yes [email or web address] Information not available 10/11/2023 Sex: Unknown Functional Status Question Answer Note LastModified by Organization D etails LastModified Time Do you or have you ever used any other forms of tobacco or nicotine? No [email or web address] Information not available 10/25/2022 What is your level of alcohol consumption? None [email or web address] Information not available 05/22/2022 Are you able to care for yourself? Yes [email or web address] Information n ot available 10/11/2023 Mental Status None recorded. Family History Relationship Description Onset Age of this Age Resolved Age Notes LastModified by Organization Details LastModified Time Mother Malignant neoplasm of lung deceas ed Not available 05/18/2022 14:58:05 Father Aneurysm deceas ed Not available 05/18/2022 14:58:19 Brother Malignant neoplasm of bone dece ed Not available 05/18/2022 14:58:37 Medical History Condition Response Kidney Stones Y Hyperthyroidism Y Immunizations Vaccine Type Date Status Note Provider Nam e and Address Organization Details Recorded Time Influenza, high-dose, trivalent, PF 04/17/2018 completed Not Available [facility] 2022 15:32:12 Past Encounters Encounter ID Performer Location Encounter Start Date Encounter Closed Date Diagnosis/Indication Diagnosis SNOMED-CT Code Diagnosis ICD10 Code Diagnosis Note [id number] Charisse Guillory APRN [facility] [address] [address] 05/22/2022 13:53:30 05/22/2022 16:11:24 Acute cystitis 09604448 N30.01 take medication as prescribed increase water intakepati ent educated that he needs to follow up with urology about these frequent UTIsmonito r for worsening symptoms [id number] Prosper Macdonald MD [facility] [address],[place] [address] 06/27/2022 13:41:13 06/27/2022 15:17:21 Urinary bladder stone 67073506 N21.0 Urinary tr act infectious disease 10425133 N39.0 Kidney stone 50680186 N2 0.0 Large prostate 838071270 N40.0 [id number] Prosper Macdonald MD [facility] [address] [place] [address],[facility] [address] [place] [address] 06/28/2022 14:56:16 06/28/2022 16:19:44 Urinary bladder stone 97728086 N21.0 none seen today and presumed passed Urinary tr act infectious disease 21048861 N39.0 Kidney stone 66212161 N2 0.0 Large prostate 408979528 N40.0 predominan tly small focal median lobe tissue acting as a ball valve Lesion of urinary bladder 262553090 N32.9 erythemato us, focally ulcerated [id number] Prosper Macdonald MD [facility] [address] [place] [address],[facility] [address] [place] [address] 07/12/2022 17:02:54 07/12/2022 17:05:02 Urinary tract infectious disease 59431042 N39.0 Lesion of urinary bladder 585383072 N32.9 erythemato us, focally ulcerated Urinary bladder stone 70 339086 N21.0 presumed passed Kidney stone 80010792 N2 0.0 Large prostate 564808046 N40.0 predominan tly small focal median lobe tissue acting as a ball valve [id number] Charisse Guillory APRN [address] [address] 08/10/2022 11:30:59 08/10/2022 13:54:17 Large prostate 038858931 N40.0 take diflucan as prescribed increase water intakegood hyigenemon itor for worsening symptomsen couraged to follow up with Dr Macdonald Urinary tr act infectious disease 11398505 N39.0 [id number] Prosper Macdonald MD [facility] [address],[facility] [place] [address] 09/19/2022 15:20:29 09/19/2022 16:01:44 Recurrent urinary tract infection 085857085 N39.0 Lesion of urinary bladder 780173470 N32.9 erythemato us, focally ulcerated Urinary bladder stone 70 617025 N21.0 presumed passed Kidney stone 07529082 N2 0.0 Benign pro static hyperplasia 808504111 N40.0 [id number] Joanne Dorman NP, S [facility] [address],[facility] [place] [address] 09/28/2022 08:30:04 09/28/2022 08:44:17 Large prostate 014059589 N40.0 Water drained from malagon balloon. Malagon catheter was removed without difficulty . Pt tolerated well. Discussed with pt if they do not void by 3pm to call office back to have malagon cath to be replaced Urinary bladder stone 70 242594 N21.0 Urinary tr act infectious disease 97412409 N39.0 [id number] Charisse Guillory APRN [address] [address] 10/04/2022 14:42:12 10/04/2022 17:02:18 Increased frequency of urination 274374703 R35.0 N40.1 N20.0 keep appts with urologyinc rease water intakemoni tor for worsening symptoms [id number] Prosper Macdonald MD [facility] [address] [facility] [place] [address] 10/24/2022 09:57:40 10/24/2022 10:22:02 Large prostate 883209234 N40.0 Urinary bladder stone 70 470460 N21.0 presumed passed Urinary tr act infectious disease 20096551 N39.0 Retention of urine 63833 4002 R33.9 [id number] RADHA EDDY NP-C [facility] [address] [facility] [address] [place] [address] 10/25/2022 13:33:06 10/26/2022 12:13:14 Paroxysmal atrial fibrillation 672315208 I48.0 NSR on EKG Dyspnea on exertion 6084 5006 R06.09 former smoker [id number] RADHA EDDY NP-Katrin [facility] [address] [facility] [address] [address] [place] [address] 12/20/2022 09:34:35 12/20/2022 10:23:29 Paroxysmal atrial fibrillation 713390990 I48.0 NSR on EKGHolter nSR with PVCs no arrhythmia s noted. Dyspnea on exertion 6084 5006 R06.09 former smoker [id number] Charisse Guillory APRN [facility] [address] [place] [address] 02/22/2023 11:49:02 02/22/2023 12:11:58 Otitis externa of left ear 4108462986 768965 H60.92 pt tolerated cerumen removal welltake drops as prescribed increase water intakemoni tor for worsening symptoms. [id number] Charisse Guillory APRN [facility] [address] [place] [address] 03/08/2023 08:49:52 03/08/2023 09:14:38 Acute left otitis media 335269819 H66.92 J30.2 take antibiotic as prescribed increase water intakefoll ow up in 2 weeks if no improvemen t in symptoms. [id number] Prosper Macdonald MD [facility] [address] [facility],[address] [facility] [place] [address] 04/03/2023 10:08:05 04/03/2023 11:14:45 Large prostate 936201124 N40.0 surgically treated Urinary bladder stone 70 399843 N21.0 presumed passed Urinary tr act infectious disease 23473066 N39.0 resolved Retention of urine 95110 4002 R33.9 resolved Weight loss 11171808 R63 .4 Loss of appetite 4583158 6 R63.0 [id number] Tushar Barba MD [address] [place] [address] 07/06/2023 09:20:30 07/06/2023 10:08:58 Atrial fibrillation 26764675 I48.91 patient is having sensations of palpitatio ns. Patient does have significan t history for intermitte nt PAT. He is not on any rate-contr olling medication s. We will start small dose of beta-block er night. Hypothyroidism 87308374 E03.9 patient will return fasting for blood work including CMP CBC, B12, folate, lipid panel, hemoglobin A1c TSH. Return in 2-3 weeks. Large prostate 021397919 N40.0 Patient is seeing urology. Overactive urinary bladder 703260594 N32.81 [id number] Tushar Barba MD [address] [place] [address] 07/09/2023 07:59:35 07/09/2023 16:09:06 Atrial fibrillation 50699634 I48.91 patient is having sensations of palpitatio ns. Patient does have significan t history for intermitte nt PAT. He is not on any rate-contr olling medication s. We will start small dose of beta-block er night. [id number] Tushar Barba MD [address] [place] [address] 07/26/2023 08:36:40 07/26/2023 09:05:59 Tobacco dependence caused by cigarettes 5411143375 4088459 F17.210 Patient has a history of remote tobacco abuse. Recommend screening for lung cancer patient agreeable. Hypothyroidism 91613015 E03.9 TSH is in normal range. Other blood work shows mild anemia. Repeat blood work in 3 months. Blood in urine 35871122 R31.9 Dipstick shows large amount of blood in urine. Also urine is maximally concentrat ed. With patient's systems and history we will proceed with urine culture and antibiotic treatment. Recommend patient call Urology today for follow-up. Seek medical care if symptoms become severe. Large prostate 459320482 N40.0 Patient is seeing urology. [id number] Vern Haro MD [facility] [address] [place] [address] 09/26/2023 14:40:04 09/26/2023 15:19:58 Dysuria 35494852 R30.0 Painless hematuria 24432 8001 R31.9 we have discussed the differenti als of hematuria. Patient tells me he already has an appointmen t to see his urologist next month. It appears he has had some history of prostate problems as well as bladder issues. Will obtain lab work today. An order a CT scan of his abdomen and pelvis to rule out stones or other renal abnormalit ies. [id number] Tushar Barba MD [address] [place] [address] 10/11/2023 08:23:34 10/11/2023 09:18:25 Iron deficiency anemia 63397430 D50.9 hemoglobin is low 12.1. We will repeat ferritin B12 folate. Hypothyroidism 21980609 E03.9 Repeat TSH today. Mass of pancreas 2226854 00 K86.89 We will confirm referral that has been made to GI.Spoke to GI office. Appointmen t scheduled for October 17. Given informatio n to family member. [id number] Jose Luis Cowart NP [facility] [address] [place] [address] [address] [place] [address] 10/18/2023 13:25:12 10/18/2023 14:46:08 CT of abdomen abnormal [id number] 3911697 R93.5 Questionab le 1.5 cm hypodense lesion in the pancreatic body. Recommend correlatio n with MRCP without and with contrast. We will order MRCP. Constipation 76742932 K5 9.00 Likely multifacto rial in etiology. May consider checking thyroid function to rule out as potential contributi ng factor. Recommend adding fiber into the diet. Recommend stool softeners- can start Miralax followed by Dulcolax suppositor ies or OTC Senokot. Discussed incorporat ing high fiber foods, including fruits like kiwi. Recommend to engage in healthy activity like walking. Decrease in appetite 643 37464 R63.0 Encouraged to add nutrient rich meal replacemen t shakes and to keep a log of intake. Hypothyroidism 34474176 E03.9 Patient with current diagnosis of hypothyroi dism. Encourage follow up with PCP for disease management . Atrial fibrillation 4943 6004 I48.91 Recommend to continue follow up with PCP regarding this. Diverticul osis of colon 639429252 K57.30 Recommend taking a probiotic such as Jefe's Colon Health.Rec ommend adding fiber into the diet.Discu ssed incorporat ing high fiber foods, including fruits like kiwi.Recom mend stool softeners- can use Miralax or OTC Senokot.Re commend to engage in healthy activity like walking. [id number] Jose Luis Cowart NP [facility] [address] [place], [place] [address] 10/30/2023 09:05:00 10/30/2023 10:08:50 Constipation 58796489 K59.00 Doing better.Lik kody multifacto rial in etiology.M ay consider checking thyroid function to rule out as potential contributi ng factor.Rec ommend adding fiber into the diet.Recom mend stool softeners- can start Miralax followed by Dulcolax suppositor ies or OTC Senokot.Di scussed incorporat ing high fiber foods, including fruits like kiwi.Recom mend to engage in healthy activity like walking. Diverticul osis of colon 787075242 K57.30 Recommend taking a probiotic such as [employer]'s Colon Health.Rec ommend adding fiber into the diet.Discu ssed incorporat ing high fiber foods, including fruits like kiwi.Recom mend stool softeners- can use Miralax or OTC Senokot.Re commend to engage in healthy activity like walking. Decrease in appetite [id number] 61725 R63.0 Encouraged to add nutrient rich meal replacemen t shakes and to keep a log of intake. May need to consult with PCP regarding appetite stimulant. Hypothyroidism 78283249 E03.9 Patient with current diagnosis of hypothyroi dism. Encourage follow up with PCP for disease management . Atrial fibrillation 4941 6004 I48.91 Recommend to continue follow up with PCP regarding this. Anemia 096623468 D64.9 Concern for anemia. Will do further work up to rule out deficienci es. Will consider stool sample for occult blood. Labs ordered. If any deficienci es will need to address. Mass of pancreas [id number] [address] identified questionab le 1.5 cm hypodense lesion in the pancreatic body. MRI MRCP identified a cystic mass within the distal pancreatic body and a cystic lesion within or adjacent to the uncinate process. No solid enhancing masses, favor benign. 12-month follow-up MRI recommende d with contrast. Will refer to Pancreatic Clinic for further workup. Will order CEA and Cancer Ag 19-9. Nausea [id number] R11.0 Can use zofran when nausea/vom iting is severe.Adv ise to take medication s with meals unless they must be taken on an empty stomach.Ad vise to increase fluid intake. If vomiting is frequent may benefit from oral replacemen t fluids, sports drinks, and broth.Slow ly reintroduc e soft foods, such as soup, Jell-O, and ice pops. If tolerated advance to soft, bland foods. Oneida may help with nausea.Pardeep mckeon rule out H Pylori via breath test. 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 K86.2 need tumor markers like CEA and CA 19-9 not done will refer to for endoscopic ultrasound the pancreas the further management because of age consider management if there is no red flag signs and endoscopic ultrasound then periodic monitoring with MRI should be sufficient Iron defic iency anemia 79825927 D50.9 will check stool Hemoccult SPEP iron saturation may need iron replacemen t review previous endoscopy workup and further management depending on the findings because of his age is taking iron pills and B12 pills endoscopy further manage follow-up in 3 months after pancreatic Clinic evalua Diverticul ar disease of colon 658516786 K57.30 probiotic fiber surgery will also help constipati on with FiberCon History of polyp of colon 861768429 Z86.010 review pathology from [facility] he is does not want to go through colonoscop y at this age has lot of hemorrhoid al symptoms Hypothyroidism 86955964 E03.9 continue management therapy with PCP Loss of appetite 9243129 6 R63.0 since has poor appetite not responding to Megace advise oneida supplement s oneida tea to stimulate the stomach until we do EGD continue PPI small meal diet easily digestible foods suggested Acid reflux 926511925 K2 1.9 low acid diet anti-reflu x measure continue Protonix will do upper endoscopy once cleared by Cardiology for elevated troponin he may have a type 2 PR or other possibilit y once cardiac cleared will do EGD Internal hemorrhoids 904 41684 K64.8 will start on hemorrhoid cream FiberCon Sitz baths suggested Constipation 14860772 K5 9.00 multifacto rial mild hypothyroi dism advise FiberCon Senokot p.r.n. Dulcolax suppositor ies if he needs it [id number] Vern Haro MD [facility] [address] [id number] 1 06/05/2024 10:45:28 06/05/2024 11:32:23 Physical deconditioning [id number] 9102 R68.89 Will refer patient to home health. He would benefit from physical and occupation al therapy Impacted cerumen 3739628 6 H61.21 cerumen successful ly removed. Anemia 168312901 D64.9 Will check his lab work at his next visit. [id number] Vern Haro MD [facility] [address] [id number] 09/02/2024 09:13:43 09/02/2024 09:34:28 Large prostate 872915835 N40.0 Patient takes tamsulosin . Atrial fibrillation 4943 6004 I48.91 Patient is stable with current medication regimen Anemia 567675515 D64.9 Will check his lab work at his next visit. Hypothyroidism 90103357 E03.9 he is currently on 100 mcg of levothyrox ine. Will check his TSH and T4 levels today. Vitamin D deficiency 347 22364 E55.9 Check for vitamin-D levels today. Diabetes m ellitus screening 592179723 Z13.1 Will obtain an A1c today. Hyperlipidemia 20119361 E78.5 will check patient's lipid profile today. Candidiasis of mouth 797 13540 B37.0 Patient reports a history of oral thrush. Will send in a prescripti on for some nystatin to use as needed. He is currently asymptomat ic. [id number] Vern Haro MD [facility] [address] [id number] 12/09/2024 15:20:59 12/09/2024 16:04:17 Acute conjunctivitis of right eye [id number] H10.31 Health Concerns Section Related Observation LastModified by Organization Detai ls LastModified Time None Recorded Concern Status LastModified by Organization Details LastModified Time None Recorded Advance Directives Directive None Recorded Payers Insurance Date Sequence Insurance Name Policy Number Policy Meier Covered Member ID Meier Member ID Guarantor Name 12/09/2024 1 [place]ARE[place]ARE[place] Federico Hoyos [id number] 12/09/2024 2 MEDICAID-[facility] CHOICES - FFS/[facility] Federico Hoyos [id number] 12/09/2024 MEDICARE A-[place]: [employer] - [facility] Federico Laly Hoyos [id number] Notes Date Note Type Note Provider Name and Address Organization Details Recorded Time 4 text/html Pleasant 83 [address] patient of Dr. Tushar Barba PCP with PMH significant for A-Fib, iron deficiency anemia, hypothyroidism, who presents today for follow up. Had MRI MRCP-here for results. Having worsening of decreasing appetite and fatigue. Has not followed back up with his PCP yet. Has also been having some intermittent nausea> Just not feeling well in general. No other concerns or complaints at this time./ Denies difficulty chewing, dysphagia, choking, vomiting, hematemesis, heartburn, acid reflux, abdominal pain, constipation, diarrhea, melena, hematochezia. Mother had lung cancer. Brother had cancer mets of unknown origin. Sister with lung cancer. Denies known family history of colon cancer. Smokes. Denies alcohol, illicit drug use including marijuana. Denies use of anticoagulant, GLP-1 agonist. Is on an iron supplement. PREVIOUS INVESTIGATIONS REVIEWED:10/25/2023MRI MRCP: Cystic mass within the distal pancreatic body. Cystic lesion within or adjacent to the uncinate process. No solid enhancing masses, favor benign. 12-month follow-up MRI recommended with contrast. 4B12 869Folate 10.9TSH 3.55 4CT Abd/Pelvis withoutNonobstructing nephrolithiasis. Questionable 1.5 cm hypodense lesion in the pancreatic body. Recommend correlation with MRCP without and with contrast. 4BUN 15Creatinine 1.1Total bilirubin 0.2-LAST 13-LALT 12Alk phos 90PTT 29.1PT 10.4INR 0.95WBC 6.0Hemoglobin 12.1 LMCV 89.3Platelets 242 07/09/2023Hemoglobin A1c 5.5Cholesterol 151Triglycerides 52Vitamin-D 42.6 11/11/2020olonoscopyBowel prep moderate. Moderate spasticity. Sigmoid diverticulosis. Polyps removed. Recommended repeat in 3 years. Jose Luis Cowart NP [address], [address], [place], [address], [facility] & [place] 10/30/2023 11:37:04 4 text/html he is here for follow-up for abnormal CT and MRCP which showed a cystic mass without any solid mass in the pancreas no pancreatic ductal dilatation no fluid collection mostly in the distally supposed to have a tumor markers done and refer to pancreatic Clinic his hemoglobin is 12 B12 folate normal CMP normal had a lipid panel normal MCV 89 hemoglobin 12.1 platelets normal white count 6000 PT normal thyroid normal. On 11/04 his hemoglobin 10.8 MCV 86 white count 11 platelets normal troponin I was 0.6 pro BNP was 2004 and 7 his lipid panel was normal T4 normal TSH pending T3 was 53 little high free thyroid index was normal at 4 9 hemoglobin 10.9 BMP normal colonoscopy in 21 showed diverticulosis in the sigmoid polyp CT report noted MRI MRCP report noted has history of hypothyroidism iron deficiency anemia atrial fibrillation constipation large prostate nausea and poor appetite in the past took tobacco dependency diverticula Gama Murillo MD [address], [address], [place], [address], [facility] & [place] 11/29/2023 16:22:17 4 text/html patient presents today for routine follow-up. He was recently discharged from rehab. Patient has been admitted to the hospital and was treated for acute on chronic renal insufficiency. He was admitted to [facility]. At some point he has a PEG tube placed. He has since had his PEG tube removed. Patient is at home and is taking care of himself. He lives alone. He still continues to complain of weakness. He is also complaining of cerumen impaction in his right ear canal. Vern Haro MD [address] [place] [address], [phone], [place] - [facility] - [place] & [place] 06/05/2024 11:31:00 5 text/html PT PRESENTS FOR CHRONIC CARE MANAGEMENT, DENIES ANY NEW ISSUES. IS COMPLIANT WITH MEDICATIONS Vern Haro MD [address] [place] [address], [phone], [place] - [facility] [place] & [place] 09/02/2024 10:07:32 5 text/html patient presents today complaining of watery crusty right eye. He states that his eye itches and is somewhat painful. He has yellowish discharge that is worse 1st thing in the morning. He is also concerned about a lack of appetite. Has lost 5 lb since his last visit. Vern Haro MD [address] [place] [address], [phone], [place] - [facility] [place] & [place] 12/09/2024 16:08:50
--- OUTSIDE RECORDS SUMMARY | 2025-01-02 11:00 | XMS_ITS ---
Author Organization [facility] Paolo m[facility]ormack ([facility]) Address [address] [place] [address] Care Team Providers Care Wire Coiner Name Role Phone Unavailable Unavailable Unavailable Allergies, Adverse Reactions, Alerts Allergy Name Allergy Type Status Severity Reaction(s) Onset Date Inactive Date Treating Clinician Comments No Known Allergies Allergy Active 2023-11 14:15:3 3 Problems This patient has no known problems. Procedures Procedure Date / Time Performed Performing Clinician Tabatha ce Details Central Venous Catheter (CVC) 2023-12-10 04:00:00 Access Site Chest (Right) Access Use Start Date 2023-12-10 04:00:0 0
[2025-01-02 11:01] LABS: Microscopic, Urine URINE MICROSCOPIC (MICROSCOPIC)
--- OUTSIDE RECORDS SUMMARY | 2025-01-02 11:01 | XMS_ITS | Encounter Summary ---
Author Organization Healthcare Address [address] [place] [address] Care Team Providers Care Wagon Person Name Role Phone Tushar Barba Primary Care Provider [phone] Encounter Details Date Type Department Care Team (Late st Contact Info) Description 12/03/2023 Orders Only External Location [address] [place] [address] Mango Osorio DO [address] [place] [address] Social History Tobacco Use Types Packs/Day Years Used Date Smoking Tobacco: Never Assessed Sex and Gender Information Value Date Recorded Sex Assigned at Not on file Legal Sex Male 2:47 PM EDT Gender Identity Not on file Sexual Orientation Not on file documented as of this encounter Plan of Treatment Not on file documented as of this encounter Procedures Procedure Name Priority Date/Time Associated Diagnosis Comments US OUTSIDE IMAGES 12/03/2023 7:32 AM EDT documented in this encounter Results * US OUTSIDE IMAGES (12/03/2023 7:32 AM EDT) Anatomical Region Laterality Modality Ultrasound 12/03/2023 7:32 AM EDT us Mango Osorio DO IMG US PROCEDURES Final Resu lt documented in this encounter Visit Diagnoses Not on filedocumented in this encounter Additional Health Concerns Infection Onset Date Last Indicated Resolved Time C. difficile Rule-Out 12/23/2023 12/23/20232023 11:09 AM EDT Gastrointestinal Rule-Out 12/23/2023 12/23/2023 8:59 PM EDT documented as of this encounter Care Teams Wagon Person Relationship Specialty Start Date End Date Tushar Barba [address] [place] [address] PCP - General Family Medicine 11/21/23 documented as of this encounter
--- OUTSIDE RECORDS SUMMARY | 2025-01-02 11:01 | XMS_ITS | Encounter Summary ---
Author Organization Healthcare Address [address] [place] [address] Care Team Providers Care Milk Treater Name Role Phone JamesonTushar Primary Care Provider [phone] Encounter Details Date Type Department Care Team (Late st Contact Info) Description 12/03/2023 Orders Only External Location [address] [place] [id number] Kali Landry MD [address] [place] [address] Social History Tobacco Use Types Packs/Day Years [...] Associated Diagnosis Comments US OUTSIDE IMAGES 12/03/2023 9:22 AM EDT documented in this encounter Results * US OUTSIDE IMAGES (12/03/2023 9:22 AM EDT) Anatomical Region Laterality Modality Ultrasound 12/03/2023 9:22 AM EDT us Kali Landry MD IMG US PROCEDURES Final Res ult documented in this encounter Visit Diagnoses Not on filedocumented in this encounter Additional Health Concerns Infection Onset Date Last Indicated Resolved Time C. difficile Rule-Out 12/23/2023 12/23/20232023 11:09 AM EDT Gastrointestinal Rule-Out 12/23/2023 12/23/2023 8:59 PM EDT documented as of this encounter Care Teams Milk Treater Relationship Specialty Start Date End Date Tushar Barba [address] [place] [address] PCP - General Family Medicine 11/21/23 documented as of this encounter
--- OUTSIDE RECORDS SUMMARY | 2025-01-02 11:01 | XMS_ITS | Encounter Summary ---
Author Organization Healthcare Address [address] [place] [address] Care Team Providers Care Ase Certified Technician Name Role Phone JamesonTushar Primary Care Provider [phone] Encounter Details Date Type Department Care Team (Late st Contact Info) Description 11/05/2023 Orders Only External Location [address] [place] [id number] Steve Rubio DO [address] [place] [address] Social History Tobacco Use Types Packs/Day Years [...] Procedure Name Priority Date/Time Associated Diagnosis Comments CT THORACIC OUTSIDE IMAGES 11/05/2023 9:41 AM EDT documented in this encounter Results * CT THORACIC OUTSIDE IMAGES (11/05/2023 9:41 AM EDT) Anatomical Region Laterality Modality Computed Tomogra phy 11/05/2023 9:41 AM EDT us Steve Kostelnik DO IMG CT PROCEDURES Final Resul t documented in this encounter Visit Diagnoses Not on filedocumented in this encounter Additional Health Concerns Infection Onset Date Last Indicated Resolved Time C. difficile Rule-Out 12/23/2023 12/23/20232023 11:09 AM EDT Gastrointestinal Rule-Out 12/23/2023 12/23/2023 8:59 PM EDT documented as of this encounter Care Teams Ase Certified Technician Relationship Specialty Start Date End Date Tushar Barba [address] [place] [address] PCP - General Family Medicine 11/21/23 documented as of this encounter
--- OUTSIDE RECORDS SUMMARY | 2025-01-02 11:01 | XMS_ITS | Encounter Summary ---
Author Organization Healthcare Address [address] [place] [address] Care Team Providers Care Mercury Cell Cleaner Name Role Phone Tushar Barba Primary Care Provider [phone] Encounter Details Date Type Department Care Team (Late st Contact Info) Description 12/03/2023 Orders Only External Location [address] [place] [address] Rosa Maria Kemp PA [address] [place], [place] [id number] Social History Tobacco Use Types Packs/Day Years [...] Name Priority Date/Time Associated Diagnosis Comments CT MSK OUTSIDE IMAGES 12/03/2023 12:05 AM EDT documented in this encounter Results * CT MSK OUTSIDE IMAGES (12/03/2023 12:05 AM EDT) Anatomical Region Laterality Modality Computed Tomogra phy 12/03/2023 12:0 5 AM EDT Rosa Maria Breeding PA IMG CT PROCEDURES Final Resu lt documented in this encounter Visit Diagnoses Not on filedocumented in this encounter Additional Health Concerns Infection Onset Date Last Indicated Resolved Time C. difficile Rule-Out 12/23/2023 12/23/20232023 11:09 AM EDT Gastrointestinal Rule-Out 12/23/2023 12/23/2023 8:59 PM EDT documented as of this encounter Care Teams Mercury Cell Cleaner Relationship Specialty Start Date End Date Tushar Barba [address] [place] [address] PCP - General Family Medicine 11/21/23 documented as of this encounter
[2025-01-02 11:12] LABS: Basophils # 0.1 K/mm3 (0-0.2); Basophils % 0.7 % (0.1-2.0); Eosinophils # 0.2 Kmm3 (0.0-0.4); Eosinophils % 3.4 % (0.1-12.0); Hematocrit 39.4 % (42.0-52.0); Hemoglobin 12.4 g/dL (14.1-18.0); Immature Granulocytes # 0.01 10^3uL; Immature Granulocytes % 0.1 %; Lymphocytes % 45.2 % (10-50); Mean Corpuscular HGB Conc 31.5 g/dL (31.8-35.4); Mean Corpuscular Hemoglobin 28.8 pg (27.0-31.2); Mean Corpuscular Volume 91.6 fl (80-94); Mean Platelet Volume 10.4 fl (7.4-10.4); Monocytes # 0.6 K/mm3 (0.1-1.0); Monocytes % 9.4 % (1.7-9.3); Neutrophils # 2.8 K/mm3 (1.8-7.8); Neutrophils % 41.2 % (37.0-80.0); Nucleated Red Blood Cells # 0 10^3/uL; Nucleated Red Blood Cells % 0 %; Platelet Count 142 K/mm3 (142-424); Red Cell Distribution Width 14.9 % (11.5-17.5); Red Cell Distribution Width-SD 50.4 fL; White Blood Count 6.7 K/mm3 (4.8-10.8)
[2025-01-02 11:26] LABS: Appearance,Urine SL CLOUDY (Clear); Bilirubin,Urine Negative (Negative); Blood, Urine TRACE-I (Negative); Color,Urine YELLOW (Yellow); Glucose,Urine (UA) Negative (Negative); Ketones,Urine Negative (Negative); Leukocyte Esterase,Urine TRACE (Negative); Nitrate,Urine POSITIVE (Negative); Protein,Urine 1+ (Negative); Specific Gravity, Urine 1.025 (1.005-1.030); Urobilinogen,Urine 0.2 EU/dl (0.2)
[2025-01-02 11:37] LABS: RBC,Urine Occasional #/hpf (0-3); Squamous Epithelial Cell,Urine Occasional #/hpf (0-5)
[2025-01-02 11:38] LABS: Bacteria,Urine 1+ /lpf
[2025-01-02 11:43] LABS: Albumin Level 3.9 g/dl (3.5-5.0); Anion Gap 8.1 mEq/L (5-15); Blood Urea Nitrogen 32 mg/dl (9-20); Calcium 9.1 mg/dl (8.4-10.2); Carbon Dioxide 26 mmol/L (22.0-30.0); Chloride 110 mmol/L (98-107); Estimated Glomerular Filt Rate 34 ml/min (>60); GFR (African American) 41 ML/MIN (>60); Glucose 79 mg/dl (74-100); Phosphorous 3.2 mg/dl (2.5-4.5); Potassium 4.1 mmoL/L (3.5-5.1); Sodium 140 mmol/L (136-145)
== END 2025-01-02 23:59 | disposition home or self-care (01) ==
LOC: LAB 10:58
PROVIDERS: PCP Emergency Medicine; Visit Provider Student in an Organized Health Care Education/Training Program
DX: N05.9 Unspecified nephritic syndrome with unspecified morphologic changes (principal)
CPT/HCPCS: 36415; 80069; 81001; 85025; 87086; 87088; 87186

== ENCOUNTER 2025-02-12 08:49 | Outpatient (CLI) | payer MEDICARE, MEDICAID, SELFPAY ==
--- OUTSIDE RECORDS SUMMARY | 2025-01-02 10:20 | XMS_ITS | Encounter Summary ---
Author Organization Healthcare Address [address] [place] [address] Care Team Providers Care Health Safety Engineer Name Role Phone Tushar Barba Primary Care Provider [phone] Reason for Referral * Consultation (Routine) - Authorized Specialty Diagnoses / Procedures Referred By Contac t Referred To Contact Diagnoses Hypertensive chronic kidney disease with stage 1 through stage 4 chronic kidney disease, or unspecified chronic kidney disease ANCA-associated vasculitis Saqib Mtz MD [address] [place] [phone] Phone: tel: fax: Referral ID Status Reason Start Date Expiration Date V isits Requested Visits Authorized [id number] Authorized 01/02/2025 07/04/2026 1 1 Reason for Visit * Reason Comments Follow-up PT is a 84 year old male that presents to the clinic on this date for a follow up. Pt denies complaints other than his stomach. Encounter Details Date Type Department Care Team ([facility] Contact Info) Description 01/02/2025 10:20 AM EDT Office Visit [facility] [address] [place] [id number] Saqib Mtz MD [address] [place] [phone] Hypertensive chronic kidney disease with stage 1 through stage 4 chronic kidney disease, or unspecified chronic kidney disease (Primary Dx); ANCA-associated vasculitis; Vitamin D deficiency; CKD (chronic kidney disease) stage 4, GFR 15-29 ml/min ([facility]); BPH with lower urinary tract symptoms without urinary obstruction; Long-term current use of rituximab; 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 No 12/21/2023 PHQ-9 Answer Date Recorded Patient Health Questionnaire-9 Score 0 06/24/2024 Utilities Answer Date Recorded In the past 12 months has th e [employer], gas, oil, or water company threatened to [...] documented in this encounter Miscellaneous Notes * Addendum Note - Saqib Mtz MD - 01/02/2025 10:20 AM EDTAddended by: SAQIB MTZ on: 01/02/2025 02:18 PM Modules accepted: Orders * Progress Notes - Saqib Mtz MD - 01/02/2025 10:20 AM EDT Nephrology Outpatient Clinic Progress Note Glomerulonephritis Clinic [facility] [place] Patient: Federico Hoyos Primary Care Provider: Tushar [...] infections. Working more outside. 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) Pancreatic mass Long-term current use of rituximab Urinary tract infection with hematuria Hypokalemia Abnormal finding on liver function Vitamin D deficiency Hypertensive chronic kidney disease with stage 1 through stage 4 chronic kidney disease, or unspecified chronic kidney disease BPH with lower urinary tract symptoms without urinary obstruction 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7; 26; 32; 2.08; 9.3; 4.1 09/02/2024 Na 142, K 3.6, Cl 107, CO@ 28, Glu 90, BUN 34, Cr 2.0, EGFR 33, Tprot 6.1, Alb 3.2, Ca 9.1, Tbili 0.4, AST 25, ALT 30, Alk phos 95 01/02/25 CBC: WBC 6.7, HGB 12.4, PLT 142 RFP: Na 140, K 4.1, Cl 110, CO2 26, BUN 32, Cr 1.9, GFR 34, Glu 79, Ca 9.1, Phos 3.2 Alb 3.9, UA 1+ protein, trace blood <3 RBC Imaging: Normal appearing kidneys on cT abdomen pelvis sin December 2023 Impression & Plan: Assessment/Plan: Mr. Hoyos is an 84 y.o. 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 Completed Rituxmab induction in December 2023 and is now in remission on rituximab maintenance therapy. 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 - GI seeing outpatient planning for MRCP. 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 PLAN for today: -Induction November 2023 -Maintenance Rituximab started Aug 2024 -Next rituximab 500mg IV (Mainritsan trial) Dose due February 12, 2025 has been scheduled -Next dose will be due in ~Jul/Aug 2025 -OFF prednisone early Jun 2024 due to recurrent infections -OFF bactrim -BP controlled -Volume and electrolytes controlled Drug monitoring on rituximab: Close monitoring for infections while on rituximab. CBC ordered for every 3 months. No hypogammaglobulinemia. CD19 counts were suppressed at <1% RTC in 3 months with repeat labs: Anca profile, rfp, cbc, ua before visit Saqib Mtz MD Division of Nephrology [facility] ORDERS PLACED THIS ENCOUNTER Orders Placed This Encounter Procedures ANCA Vasculitis profile Standing Status: Future Expected Date: 04/02/2025 Expiration Date: 07/06/2026 Release to patient in [facility]: Immediate [1] Renal function panel Standing Status: Future Expected Date: 04/02/2025 Expiration Date: 07/06/2026 [facility] [1] CBC Standing Status: Future Expected Date: 04/02/2025 Expiration Date: 07/06/2026 [facility] [1] Urinalysis with reflex microscopic (Culture NOT Included) Standing Status: Future Expected Date: 04/02/2025 Expiration Date: 07/06/2026 Indicate type of workup:: Non-infectious Workup Release to patient in [facility]: Immediate [1] Protein, Random, Urine with Creatinine Standing Status: Future Expected Date: 04/02/2025 Expiration Date: 07/06/2026 Release to patient in MyChart: Immediate [1] Follow Up Nephrology [facility] Standing Status: Future Expected Date: 04/04/2025 Expiration Date: 02/01/2026 Referral Priority: Routine Referral Type: Consultation Number of Visits Requested: 1 Problem List Items Addressed This Visit CKD (chronic kidney disease) stage 4, GFR 15-29 ml/min ([facility]) Long-term current use of rituximab Vitamin D deficiency Hypertensive chronic kidney disease with stage 1 through stage 4 chronic kidney disease, or unspecified chronic kidney disease - Primary Relevant Orders ANCA Vasculitis profile Renal function panel CBC Urinalysis with reflex microscopic (Culture NOT Included) Protein, Random, Urine with Creatinine Follow Up Nephrology BPH with lower urinary tract symptoms without urinary obstruction 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) ([facility]) Other Visit Diagnoses ANCA-associated vasculitis Relevant Orders ANCA Vasculitis profile Renal function panel CBC Urinalysis with reflex microscopic (Culture NOT Included) Protein, Random, Urine with Creatinine Follow Up Nephrology documented in this encounter Plan of Treatment Scheduled Orders Name Type Priority Associated Diagnoses Orde r Schedule ANCA Vasculitis profile Lab Routine Hypertensive chronic kidney disease with stage 1 through stage 4 chronic kidney disease, or unspecified chronic kidney disease ANCA-associated vasculitis Expected: 04/02/2025 (Approximate), Expires: 07/06/2026 Renal function panel Lab Routine Hypertensive chronic kidney disease with stage 1 through stage 4 chronic kidney disease, or unspecified chronic kidney disease ANCA-associated vasculitis Expected: 04/02/2025 (Approximate), Expires: 07/06/2026 CBC Lab Routine Hypertensive chronic kidney disease with stage 1 through stage 4 chronic kidney disease, or unspecified chronic kidney disease ANCA-associated vasculitis Expected: 04/02/2025 (Approximate), Expires: 07/06/2026 Urinalysis with reflex microscopic (Culture NOT Included) Lab Routine Hypertensive chronic kidney disease with stage 1 through stage 4 chronic kidney disease, or unspecified chronic kidney disease ANCA-associated vasculitis Expected: 04/02/2025 (Approximate), Expires: 07/06/2026 Protein, Random, Urine with Creatinine Lab Routine Hypertensive chronic kidney disease with stage 1 through stage 4 chronic kidney disease, or unspecified chronic kidney disease ANCA-associated vasculitis Expected: 04/02/2025 (Approximate), Expires: 07/06/2026 Scheduled Referrals Name Type Priority Associated Diagnoses Orde r Schedule Follow Up Nephrology Outpatient Referral Routine Hypertensive chronic kidney disease with stage 1 through stage 4 chronic kidney disease, or unspecified chronic kidney disease ANCA-associated vasculitis Expected: 04/04/2025 (Approximate), Expires: 02/01/2026 documented as of this encounter Visit Diagnoses Diagnosis Hypertensive chronic kidney disease with stage 1 through stage 4 chronic kidney disease, or unspecified chronic kidney disease- Primary ANCA-associated vasculitis Other specified disorders of arteries and arterioles Vitamin D deficiency CKD (chronic kidney disease) stage 4, GFR 15-29 ml/min ([facility]) Chronic kidney disease, Stage IV (severe) BPH with lower urinary tract symptoms without urinary obstruction Long-term current use of rituximab 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) ([facility]) documented in this encounter Additional Health Concerns Assessment Noted Time PHQ-9 Depression Total Score: 0 06/24/20 4:20 PM EST A fall risk assessment has been complete d for the patient 06/24/2024 4:20 PM EST A Body Mass Index follow-up plan has been documented for the patient 01/02/2025 10:58 AM EDT documented as of this encounter Care Teams Health Safety Engineer Relationship Specialty Start Date End Date Tushar Barba [address] [place] [phone] PCP - General Family Medicine 11/21/23 documented as of this encounter
[2025-02-12] VITALS (7 sets, daily range): BP systolic 112–121; BP diastolic 55–64; PULSE 48–50; RESP 18; TEMP 36.7; O2SAT 99; BMI 17.4
--- OUTSIDE RECORDS SUMMARY | 2025-02-12 08:54 | XMS_ITS | Data Portability ---
Author Organization [place] - [facility] - [place] & [place] [facility] ADMIN Address [address] [place] [id number] Care Team Providers Care Geriatric Personal Care Aide Name Role Phone VERN HARO Primary Care Provider Assessment Encounter Date Assessment Date Assessment LastModified by Organization Details LastModified Time 10/30/2023 10/30/2023 I have personally reviewed the past medical, family, and social histories and ROS, along with all orders in today's record and have noted any changes. A [id number] t electronic oil spot washer program has been utilized for much of this encounter note. Electronic oil spot washer of spoken language can sometimes lead to errors, and at times, nonsensical words or phrases may be inadvertently transcribed. Every effort has been taken to review and correct these, but some may still exist. If there are any questions regarding this note please contact my office at [phone]. Thank you [email or web address] Not available 10/29/2023 11:25:43 11/29/2023 11/29/2023 Parts of this document were prepared using voice recognition software and may contain unrecognized dictation errors and word substitutions commonly found with electronic oil spot washer. Attempts have been made to correct errors [...] Details Appointments OV EST 15 2024 08:45A Blaise Haro MD Not available Not available Not available Lab vitamin D, 25-hydro xy, total, serum [address] (Laboratory), [address] [place], [address], 01/22/2025 14:08:21 hemoglob in A1c + average glucose, QN, blood 2024 025 [facility] (Laboratory), [address] [place], [address], 09/09/2024 07:27:43 lipid panel, serum 2024 025 [facility] (Laboratory), [address] [place], [address], 09/02/2024 13:44:34 TSH, serum or plasma [address] [place] [address] (Laboratory), [address] [place], [address], 09/02/2024 13:44:31 T4, free, serum [address] [place] [address] (Laboratory), [address] [place], [address], 09/02/2024 13:44:36 CMP, serum or plasma 2024 025 [facility] (Laboratory), [address] [place], [address], 09/02/2024 13:44:27 CBC w/ auto diff 2024 025 [facility] (Laboratory), [address] [place], [address], 09/02/2024 13:17:07 iron + TIBC + ferritin , serum 2024 025 [facility] (Laboratory), [address] [place], [address], 09/09/2024 07:27:44 vitamin B12 + folate, serum or blood 2024 025 [facility] (Laboratory), [address] [place] [address] [place], [address], 09/09/2024 07:27:44 carcinoe mbryonic Ag, quant, serum or plasma 2023 024 [facility] (Lab Registration) , [address] [place] [address] [place], [address], 11/30/2023 11:17:53 cancer Ag 19-9, serum or plasma 2023 024 [facility] (Lab Registration) , [address] [place] [address] [place], [address], 11/30/2023 11:17:55 iron + TIBC + ferritin , serum [address] [facility] (Lab Registration) , [address] [place] [address] [place], [address], 12/06/2023 08:21:35 hemoglob in, gastroin testinal , stool [address] [facility] (Lab Registration) , [address] [place] [address] [place], [address], 12/06/2023 08:21:35 protein electrop horesis panel, serum or plasma [address] [facility] (Lab Registration) , [address] [place] [address] [place], [address], 12/06/2023 08:21:36 amylase + lipase, serum [address] (Lab Registration) , [address] [place] [address] [place], [address], 12/06/2023 08:21:36 cancer Ag 19-9, serum or plasma 2023 024 [facility] (Lab Registration) , [address] [facility] [place], [address], 11/06/2023 07:54:52 carcinoe mbryonic Ag, quant, serum or plasma 2023 024 [facility] (Lab Registration) , [address] [facility] [place], [address], 11/06/2023 07:54:52 CMP, serum or plasma 2023 024 [facility] (Lab Registration) , [address] [facility] [place], [address], 11/06/2023 07:54:52 H pylori urea breath test, co2 infrared 2023 024 [facility] (Lab Registration) , [address] [facility] [place], [address], 11/06/2023 07:54:52 CBC w/ auto diff 2023 024 [facility] (Lab Registration) , [address] [facility] [place], [address], 10/30/2023 09:27:47 vitamin B12 + folate, serum or blood 2023 024 [facility] (Lab Registration) , [address] [facility] [place], [address], 10/30/2023 09:27:47 iron + TIBC + ferritin , serum 2023 024 [facility] (Lab Registration) , [address] [facility] [place], [address], 10/30/2023 09:27:47 vitamin D, 25-hydro xy, total, serum 2023 024 [facility] (Lab Registration) , [address] [facility] [place], [address], 10/30/2023 09:27:47 tissue transglu taminase iga Ab, serum 2023 024 [facility] (Lab Registration) , [address] [place] [address] [place], [address], 10/30/2023 09:27:47 iga, quantita tive, serum 2023 024 [facility] (Lab Registration) , [address] [place] [address] [place], [address], 10/30/2023 09:27:47 ldh, serum or plasma 2023 024 [facility] (Lab Registration) , [address] [place] [address] [place], [address], 10/30/2023 09:27:48 retic count, blood 2023 024 [facility] (Lab Registration) , [address] [place] [address] [place], [address], 10/30/2023 09:27:47 protein electrop horesis panel, serum or plasma 2023 024 [facility] (Lab Registration) , [address] [place] [address] [place], [address], 10/30/2023 09:27:47 hemoglob in, gastroin testinal , stool 2023 024 [facility] (Lab Registration) , [address] [place] [address] [place], [address], 11/06/2023 07:54:52 Referral ophthalm ologist referral 2024 025 carlos Lynch OD, [address], [place], [address], 01/06/2025 09:09:18 home health referral - please evaluate for PT and OT. 2023 024 carlos [facility], [address], [address], [place], [address], 07/04/2024 07:54:[address] referral - Pancreat ic clinic for evaluati on of mass x2 favoring cysts. [facility], [address], [address], [place], [address], 11/27/2023 11:24:21 Procedures None recorded . Surgeries None recorded . Imaging None recorded . Medication Orders gentamic in 0.3 % eye drops 2024 025 [facility], [address] [place] [address], [address], 12/09/2024 16:08:31 nystatin 100,000 unit/mL oral suspensi on 2024 025 [facility], [address] [place] [address], [address], 12/09/2024 15:35:13 levothyr oxine 100 mcg tablet 2024 025 [facility], [address] [place] [address], [address], 09/02/2024 09:37:30 senna 8.6 mg capsule 2023 025 [facility], [address] [place] [address], [address], 09/02/2024 09:32:35 FiberCon 625 mg tablet 2023 025 [facility], [address] [place] [address], [address], 09/02/2024 09:31:54 hydrocor tisone 2.5 % topical cream with perineal applicat or 2023 024 [facility], [address] [place] [address], [address], 06/05/2024 11:02:39 pantopra zole 40 mg tablet,d elayed release 2023 025 [facility], [address] [place] [address], [address], 09/02/2024 09:32:06 [facility] 3 billion cell capsule 2023 025 [facility], [address] [place] [address], [address], 09/02/2024 09:33:37 ondanset vega HCl 4 mg tablet 2023 025 [facility], [address] [place] [address], [address], 09/02/2024 09:33:25 Patient TargetsNo targets recorded. Patient Instructions Encounter Date Encounter Id Patient Instructions Last Modified By Organization Details Last Modified Time 10/30/2023 [id number] constipation: care instructions Not available 10/30/2023 09:26:01 anemia: care instructions [id number] Not available 10/30/2023 09:26:[address] Patrol Officer Referral for Mass of pancreas Pancreatic clinic for evaluation of mass x2 favoring cysts. Referring Physician: Jose Luis Cowart, Gastroenterology, Encounter Date: 10/30/2023 Home Health Referral for Phy sical deconditioning please evaluate for PT and OT. Referring Physician: [facility], Encounter Date: 06/05/2024 Cell Manager Referral for Acute conjunctivitis of right eye Referring Physician: [facility], Encounter Date: 12/09/2024 Results Created Date Observation Date Name Description Value Unit Range Abnormal Flag Note LastModifiedBy Organization Detail LastModifiedTime 10/11/19 24 10/11/2023 THYRO ID STIMU LATIN G HORMO NE thyroid stimulating hormone 3.55 mIU/m L 0.34-4 .80 Not Available [facility] (Lab Registration) [address] [place], [address], 10/11/2023 11:55:26 10/11/19 24 10/11/2023 THYRO ID STIMU LATIN G HORMO NE note Unles s other clemons noted testi ng perfo rmed at: [facility] [address] [place] [address] [phone] Elton barbosa MD CLIA: [id number] Not Available [facility] (Lab Registration) [address] [place], [address], 10/11/2023 11:55:26 10/11/19 24 10/11/2023 VITAM IN B12 vitamin B12 869 pg/mL 193-98 6 Not Available [facility] (Lab Registration) [address] [place], [address], 10/11/2023 11:55:28 10/11/19 24 10/11/2023 VITAM IN B12 folate (folic acid), serum 10.9 NG/mL 8.6-58 .9 Not Available [facility] (Lab Registration) [address] [place], [address], 10/11/2023 11:55:28 10/11/19 24 10/11/2023 VITAM IN B12 note Unles s other clemons noted testi ng perfo rmed at: [facility] [address] [place] [address] [phone] Elton barbosa MD CLIA: [id number] Not Available [facility] (Lab Registration) [address] [place], [address], 10/11/2023 11:55:28 11/29/19 24 11/29/2023 IRON STUDY W FE/TI BC/UI BC/%S AT iron 35 ug/dL 49-181 low Not Available [facility] (Pre-Op Clinic) [address] [place] [address] [place], [address], 11/29/2023 16:01:58 11/29/19 24 11/29/2023 IRON STUDY W FE/TI BC/UI BC/%S AT total iron bind cap. 179 ug/dL 261-46 2 low Not Available [facility] (Pre-Op Clinic) [address] [facility] [place], [address], 11/29/2023 16:01:58 11/29/19 24 11/29/2023 IRON STUDY W FE/TI BC/UI BC/%S AT unsaturated iron binding cap 144 ug/dL 150-37 5 low Not Available [facility] (Pre-Op Clinic) [address] [place] [address] [place], [address], 11/29/2023 16:01:58 11/29/19 24 11/29/2023 IRON STUDY W FE/TI BC/UI BC/%S AT % saturation 20 % 15-55 Not Available [facility] (Pre-Op Clinic) [address] [place] [address] [place], [address], 11/29/2023 16:01:58 11/29/19 24 11/29/2023 IRON STUDY W FE/TI BC/UI BC/%S AT note Unles s other clemons noted testi ng perfo [facility]med at: [facility] [address] [place] [address] Elton barbosa MD Not Available [facility] (Pre-Op Clinic) [address] [facility] [place], [address], 11/29/2023 16:01:58 11/29/19 24 11/29/2023 AMYLA SE amylase 107 IU/L 30-110 Not Available [facility] (Pre-Op Clinic) [address] [place] [address] [place], [address], 11/29/2023 16:17:53 11/29/19 24 11/29/2023 AMYLA SE note Unles s other clemons noted testi ng perfo rmed at: [facility] [address] [place] [address] Elton barbosa MD Not Available [facility] (Pre-Op Clinic) [address] [facility] [place], [address], 11/29/2023 16:17:53 11/29/19 24 11/29/2023 LIPAS E lipase 198 U/L 23-300 Not Available [facility] (Pre-Op Clinic) [address] [facility] [place], [address], 11/29/2023 16:17:54 11/29/19 24 11/29/2023 LIPAS E note Unles s other clemons noted testi ng perfo rmed at: [facility] [address] [place] [address] Elton barbosa MD Not Available [facility] (Pre-Op Clinic) [address] [facility] [place], [address], 11/29/2023 16:17:54 11/29/19 24 11/29/2023 BRADLY TIN ferritin 626 NG/mL 5-244 high Not Available [facility] (Pre-Op Clinic) [address] [facility] [place], [address], 11/29/2023 16:55:06 11/29/19 24 11/29/2023 BRADLY TIN note Unles s other clemons noted testi ng perfo rmed at: [facility] [address] [place] [address] Elton barbosa MD Not Available [facility] (Pre-Op Clinic) [address] [facility] [place], [address], 11/29/2023 16:55:06 11/29/19 24 11/29/2023 CEA note Unles s other clemons noted testi ng perfo rmed at: [facility] [address] [place] [address] Elton barbosa MD Not Available [facility] (Pre-Op Clinic) [address] [facility] [place], [address], 11/30/2023 11:17:53 11/29/19 24 11/30/2023 CEA cea 1.4 NG/mL 0.0-4. 7 Nonsm okers <3.9 Smoke rs <5.6 . Fidel Diagn ostic s Elect fidel milum inesc ence Immun oassa y (ECLI A) . Value s obtai lambert with diffe rent assay metho ds or kits canno t be used inter mi eably . Resul ts canno t be inter prete d as absol flandreau evide nce of the prese nce or absen ce of [facility] disea se. Perfo [place] at: [place] [address] Lab Direc tor: Wade mchugh PhD, Phone : [phone] Not Available [facility] (Pre-Op Clinic) [address] [place] [address] [place], [address], 11/30/2023 11:17:53 11/29/19 24 11/29/2023 CA 19-9 note Unles s other clemons noted testi ng perfo rmed at: [facility] [address] [place] [address] Elton barbosa MD Not Available [facility] (Pre-Op Clinic) [address] [place] [address] [place], [address], 11/30/2023 11:17:55 11/29/19 24 11/30/2023 CA 19-9 carbohydrate antigen 19-9 16 U/mL 0-35 Fidel Diagn ostic s Elect fidel milum inesc ence Immun oassa y (ECLI A) . Value s obtai lambert with diffe rent assay metho ds or kits canno t be used inter mi eably . Resul ts canno t be inter prete d as absol flandreau evide nce of the prese nce or absen ce of [facility] disea se. Perfo rmed at: [facility] [id number] [place] [address] Lab Direc tor: Wade mchugh PhD, Phone : [phone] Not Available [facility] (Pre-Op Clinic) [address] [place] [address] [place], [address], 11/30/2023 11:17:55 11/29/19 24 11/29/2023 PROTE IN ELECT RO SERUM note Unles s other clemons noted testi ng perfo [facility]med [facility] [address] [place] [address] Elton barbosa MD Not Available [facility] (Pre-Op Clinic) [address] [place] [address] [place], [address], 12/03/2023 13:10:26 11/29/19 24 12/03/2023 PROTE IN ELECT RO SERUM protein, total, serum 6.4 g/dL 6.0-8. 5 Not Available [facility] (Pre-Op Clinic) [address] [place] [address] [place], [address], 12/03/2023 13:10:26 11/29/19 24 12/03/2023 PROTE IN ELECT RO SERUM albumin 2.1 g/dL 2.9-4. 4 low Not Available [facility] (Pre-Op Clinic) [address] [place] [address] [place], [address], 12/03/2023 13:10:26 11/29/19 24 12/03/2023 PROTE IN ELECT RO SERUM mabxu-0-nwgv ulin 0.5 g/dL 0.0-0. 4 high Not Available [facility] (Pre-Op Clinic) [address] [place] [address] [place], [address], 12/03/2023 13:10:26 11/29/19 24 12/03/2023 PROTE IN ELECT RO SERUM sdkth-0-kejx ulin 1.1 g/dL 0.4-1. 0 high Not Available [facility] (Pre-Op Clinic) [address] [place] [address] [place], [address], 12/03/2023 13:10:26 11/29/19 24 12/03/2023 PROTE IN ELECT RO SERUM beta globulin 0.7 g/dL 0.7-1. 3 Not Available [facility] (Pre-Op Clinic) [address] [place] [address] [place], [address], 12/03/2023 13:10:26 11/29/19 24 12/03/2023 PROTE IN ELECT RO SERUM gamma globulin 2.0 g/dL 0.4-1. 8 high Not Available [facility] (Pre-Op Clinic) [address] [place] [address] [place], [address], 12/03/2023 13:10:26 11/29/19 24 12/03/2023 PROTE IN ELECT RO SERUM M-spike Not Observ ed g/dL not observ ed Not Available [facility] (Pre-Op Clinic) [address] [place] [address] [place], [address], 12/03/2023 13:10:26 11/29/19 24 12/03/2023 PROTE IN ELECT RO SERUM globulin, total 4.3 g/dL 2.2-3. 9 high Not Available [facility] (Pre-Op Clinic) [address] [place] [address] [place], [address], 12/03/2023 13:10:26 11/29/19 24 12/03/2023 PROTE IN ELECT RO SERUM A/G ratio 0.5 0.7-1. 7 low Not Available [facility] (Pre-Op Clinic) [address] [place] [address] [place], [address], 12/03/2023 13:10:26 11/29/19 24 12/03/2023 PROTE IN ELECT RO SERUM please note: Commen t . Prote in elect ropho resis scan will follo w via compu ter, mail, or couri capri montoya. Not Available [facility] (Pre-Op Clinic) [address] [place] [address] [place], [address], 12/03/2023 13:10:26 11/29/19 24 12/03/2023 PROTE IN ELECT RO SERUM pdf . Perfo rmed at: - [facility] [address] [facility], [place] [address] Lab Direc tor: Wade mchugh PhD, Phone : [phone] Not Available [facility] (Pre-Op Clinic) [address] [place] [address] [place], [address], 12/03/2023 13:10:26 09/02/19 25 09/02/2024 HEMOG LOBIN A1C glycosylated hemoglobin A1C 5.4 % 4.5-6. 2 Not Available [facility] (Lab Registration) [address] [place], [address], 09/02/2024 13:03:48 09/02/19 25 09/02/2024 HEMOG LOBIN A1C estimated average glucose 108 mg/dL 82-131 Not Available [facility] (Lab Registration) [address] [place], [address], 09/02/2024 13:03:48 09/02/19 25 09/02/2024 HEMOG LOBIN A1C note Unles s other clemons noted testi ng perfo rmed at: [facility] [address] [place] [address] [phone] Elton barbosa MD CLIA: [id number] Not Available [facility] (Lab Registration) [address] [place], [address], 09/02/2024 13:03:48 09/02/19 25 09/02/2024 IRON/ TIBC/ %SAT (IRON STUDI ES) iron 69 ug/dL 35-150 Not Available [facility] (Lab Registration) [address] [place], [address], 09/02/2024 13:06:57 09/02/19 25 09/02/2024 IRON/ TIBC/ %SAT (IRON STUDI ES) total iron bind cap (TIBC) 237 ug/dL 250-45 0 low Not Available [facility] (Lab Registration) [address] [place], [address], 09/02/2024 13:06:57 09/02/19 25 09/02/2024 IRON/ TIBC/ %SAT (IRON STUDI ES) % saturation 29 % 15-55 Not Available [facility] (Lab Registration) [address] [place], [address], 09/02/2024 13:06:57 09/02/19 25 09/02/2024 IRON/ TIBC/ %SAT (IRON STUDI ES) note Unles s other clemons noted testi ng perfo rmed at: [facility] [address] [employer] [place] [address] [phone] Elton barbosa MD CLIA: [id number] Not Available [facility] (Lab Registration) [address] [place], [address], 09/02/2024 13:06:57 09/02/19 25 09/02/2024 CBC AUTO W DIFF WBC 6.4 10 4.5-11 .5 Not Available [facility] (Lab Registration) [address] [place], [address], 09/02/2024 13:17:07 09/02/19 25 09/02/2024 CBC AUTO W DIFF RBC 3.77 10 4.25-5 .57 low Not Available [facility] (Lab Registration) [address] [place], [address], 09/02/2024 13:17:07 09/02/19 25 09/02/2024 CBC AUTO W DIFF HGB 11.2 g/dL 13.5-1 7.2 low Not Available [facility] (Lab Registration) [address] [place], [address], 09/02/2024 13:17:07 09/02/19 25 09/02/2024 CBC AUTO W DIFF HCT 34.6 % 42.0-5 2.0 low Not Available [facility] (Lab Registration) [address] [place], [address], 09/02/2024 13:17:07 09/02/19 25 09/02/2024 CBC AUTO W DIFF MCV 91.8 fL 80-95 Not Available [facility] (Lab Registration) [address] [place], [address], 09/02/2024 13:17:07 09/02/19 25 09/02/2024 CBC AUTO W DIFF MCH 29.7 pg 27.0-3 4.0 Not Available [facility] (Lab Registration) [address] [place], [address], 09/02/2024 13:17:07 09/02/19 25 09/02/2024 CBC AUTO W DIFF MCHC 32.4 g/dL 32.0-3 6.0 Not Available [facility] (Lab Registration) [address] [place], [address], 09/02/2024 13:17:07 09/02/19 25 09/02/2024 CBC AUTO W DIFF platelet count 176 10 150-45 0 Not Available [facility] (Lab Registration) [address] [place], [address], 09/02/2024 13:17:07 09/02/19 25 09/02/2024 CBC AUTO W DIFF RDW 15.0 % 12.3-1 5.1 Not Available [facility] (Lab Registration) [address] [place], [address], 09/02/2024 13:17:07 09/02/19 25 09/02/2024 CBC AUTO W DIFF MPV 11.0 fL 7.4-10 .4 high Not Available [facility] (Lab Registration) [address] [place], [address], 09/02/2024 13:17:07 09/02/19 25 09/02/2024 CBC AUTO W DIFF granulocyte% 44.6 % 40-75 Not Available [facility] (Lab Registration) [address] [place], [address], 09/02/2024 13:17:07 09/02/19 25 09/02/2024 CBC AUTO W DIFF lymphocyte% 39.8 % 15-57 Not Available [facility] (Lab Registration) [address] [place], [address], 09/02/2024 13:17:07 09/02/19 25 09/02/2024 CBC AUTO W DIFF monocyte% 11.7 % 4.0-12 .0 Not Available [facility] (Lab Registration) [address] [place], [address], 09/02/2024 13:17:07 09/02/19 25 09/02/2024 CBC AUTO W DIFF eosinophil% 3.4 % 0.0-4. 0 Not Available [facility] (Lab Registration) [address] [place], [address], 09/02/2024 13:17:07 09/02/19 25 09/02/2024 CBC AUTO W DIFF basophil% 0.2 % 0.0-1. 0 Not Available [facility] (Lab Registration) [address] [place], [address], 09/02/2024 13:17:07 09/02/19 25 09/02/2024 CBC AUTO W DIFF immature granulocytes % 0.3 % 0.0-0. 8 Not Available [facility] (Lab Registration) [address] [place], [address], 09/02/2024 13:17:07 09/02/19 25 09/02/2024 CBC AUTO W DIFF granulocyte# 2.85 10 Not Available [facility] (Lab Registration) [address] [place], [address], 09/02/2024 13:17:07 09/02/19 25 09/02/2024 CBC AUTO W DIFF lymphocyte# 2.55 10 Not Available [facility] (Lab Registration) [address] [place], [address], 09/02/2024 13:17:07 09/02/19 25 09/02/2024 CBC AUTO W DIFF monocyte# 0.75 10 Not Available [facility] (Lab Registration) [address] [place], [address], 09/02/2024 13:17:07 09/02/19 25 09/02/2024 CBC AUTO W DIFF eosinophil# 0.22 10 Not Available [facility] (Lab Registration) [address] [place], [address], 09/02/2024 13:17:07 09/02/19 25 09/02/2024 CBC AUTO W DIFF basophil# 0.01 10 Not Available [facility] (Lab Registration) [address] [place], [address], 09/02/2024 13:17:07 09/02/19 25 09/02/2024 CBC AUTO W DIFF immature granulocytes # 0.02 10 Not Available [facility] (Lab Registration) [address] [place], [address], 09/02/2024 13:17:07 09/02/19 25 09/02/2024 CBC AUTO W DIFF manual differential YES Not Available [facility] (Lab Registration) [address] [place], [address], 09/02/2024 13:17:07 09/02/19 25 09/02/2024 CBC AUTO W DIFF segmented neutrophil 50 % 36-66 Not Available [facility] (Lab Registration) [address] [place], [address], 09/02/2024 13:17:07 09/02/19 25 09/02/2024 CBC AUTO W DIFF lymphocyte 35 % 15-41 Not Available [facility] (Lab Registration) [address] [place], [address], 09/02/2024 13:17:07 09/02/19 25 09/02/2024 CBC AUTO W DIFF monocyte 13 % 2-9 high Not Available [facility] (Lab Registration) [address], [place], [address], 09/02/2024 13:17:07 09/02/19 25 09/02/2024 CBC AUTO W DIFF eosinophil 2 % 0-3 Not Available [facility] (Lab Registration) [address] [place], [address], 09/02/2024 13:17:07 09/02/19 25 09/02/2024 CBC AUTO W DIFF nucleated RBC's 0 /100_ WBCs Not Available [facility] (Lab Registration) [address] [place], [address], 09/02/2024 13:17:07 09/02/19 25 09/02/2024 CBC AUTO W DIFF acanthocytes FEW none seen Not Available [facility] (Lab Registration) [address] [place], [address], 09/02/2024 13:17:07 09/02/19 25 09/02/2024 CBC AUTO W DIFF toshia cells FEW none seen Not Available [facility] (Lab Registration) [address] [place], [address], 09/02/2024 13:17:07 09/02/19 25 09/02/2024 CBC AUTO W DIFF elliptocytes FEW none seen Not Available [facility] (Lab Registration) [address] [place], [address], 09/02/2024 13:17:07 09/02/19 25 09/02/2024 CBC AUTO W DIFF note Unles s other clemons noted testi ng perfo rmed at: [facility] [address] [place] [address] [phone] Elton barbosa MD CLIA: [id number] Not Available [facility] (Lab Registration) [address] [place], [address], 09/02/2024 13:17:07 09/02/19 25 09/02/2024 COMP METAB OLIC PANEL sodium 142 mmol/ L 136-14 5 Not Available [facility] (Lab Registration) [address] [place], [address], 09/02/2024 13:44:27 09/02/19 25 09/02/2024 COMP METAB OLIC PANEL potassium 3.6 mmol/ L 3.5-5. 1 Not Available [facility] (Lab Registration) [address] [place], [address], 09/02/2024 13:44:27 09/02/19 25 09/02/2024 COMP METAB OLIC PANEL chloride 107 mmol/ L 98-107 Not Available [facility] (Lab Registration) [address] [place], [address], 09/02/2024 13:44:27 09/02/19 25 09/02/2024 COMP METAB OLIC PANEL carbon dioxide 28 mmol/ L 21-32 Not Available [facility] (Lab Registration) [address] [place], [address], 09/02/2024 13:44:27 09/02/19 25 09/02/2024 COMP METAB OLIC PANEL anion gap 7.0 Not Available [facility] (Lab Registration) [address] [place], [address], 09/02/2024 13:44:27 09/02/19 25 09/02/2024 COMP METAB OLIC PANEL glucose 90 mg/dL 70-110 Not Available [facility] (Lab Registration) [address] [place], [address], 09/02/2024 13:44:27 09/02/19 25 09/02/2024 COMP METAB OLIC PANEL blood urea nitrogen 34 mg/dL 7-18 high Not Available [facility] (Lab Registration) [address] [place], [address], 09/02/2024 13:44:27 09/02/19 25 09/02/2024 COMP METAB OLIC PANEL creatinine 2.0 mg/dL 0.8-1. 3 high Not Available [facility] (Lab Registration) [address] [place], [address], 09/02/2024 13:44:27 09/02/19 25 09/02/2024 COMP METAB OLIC PANEL BUN/creatini ne ratio 17.0 9-21 Not Available [facility] (Lab Registration) [address], [place], [address], 09/02/2024 13:44:27 09/02/19 25 09/02/2024 COMP METAB [...] ing kiney funct ion. Not Available [facility] (Lab Registration) [address], [place], [address], 09/02/2024 13:44:27 09/02/19 25 09/02/2024 COMP METAB OLIC PANEL total protein 6.1 g/dL 6.4-8. 2 low Not Available [facility] (Lab Registration) [address] [place], [address], 09/02/2024 13:44:27 09/02/19 25 09/02/2024 COMP METAB OLIC PANEL albumin 3.2 g/dL 3.4-5. 0 low Not Available [facility] (Lab Registration) [address] [place], [address], 09/02/2024 13:44:27 09/02/19 25 09/02/2024 COMP METAB OLIC PANEL calcium 9.1 mg/dL 8.5-10 .1 Not Available [facility] (Lab Registration) [address], [place], [address], 09/02/2024 13:44:27 09/02/19 25 09/02/2024 COMP METAB OLIC PANEL corrected calcium 9.7 mg/dL 8.5-10 .1 Not Available [facility] (Lab Registration) [address] [place], [address], 09/02/2024 13:44:27 09/02/19 25 09/02/2024 COMP METAB OLIC PANEL bilirubin total 0.4 mg/dL 0.4-1. 5 Not Available [facility] (Lab Registration) [address] [place], [address], 09/02/2024 13:44:27 09/02/19 25 09/02/2024 COMP METAB OLIC PANEL AST (SGOT) 25 U/L 15-37 Not Available [facility] (Lab Registration) [address] [place], [address], 09/02/2024 13:44:27 09/02/19 25 09/02/2024 COMP METAB OLIC PANEL ALT (SGPT) 30 U/L 12-78 Not Available [facility] (Lab Registration) [address] [place], [address], 09/02/2024 13:44:27 09/02/19 25 09/02/2024 COMP METAB OLIC PANEL alk phosphatase 95 U/L Not Available [facility] (Lab Registration) [address] [place], [address], 09/02/2024 13:44:27 09/02/19 25 09/02/2024 COMP METAB OLIC PANEL note Unles s other clemons noted testi ng perfo rmed at: [facility] [address] [place] [address] [phone] Elton barbosa MD CLIA: [id number] Not Available [facility] (Lab Registration) [address] [place], [address], 09/02/2024 13:44:27 09/02/19 25 09/02/2024 BRADLY TIN ferritin 772 NG/mL 8-388 high Not Available [facility] (Lab Registration) [address] [place], [address], 09/02/2024 13:44:29 09/02/19 25 09/02/2024 BRADLY TIN note Unles s other clemons noted testi ng perfo rmed at: [facility] [address] [place] [address] [phone] Elton barbosa MD CLIA: [id number] Not Available [facility] (Lab Registration) [address], [address], 09/02/2024 13:44:29 09/02/19 25 09/02/2024 VITAM IN B12 vitamin B12 489 pg/mL 193-98 6 Not Available [facility] (Lab Registration) [address] [place], [address], 09/02/2024 13:44:30 09/02/19 25 09/02/2024 VITAM IN B12 folate (folic acid), serum 14.2 NG/mL 8.6-58 .9 Not Available [facility] (Lab Registration) [address] [place], [address], 09/02/2024 13:44:30 09/02/19 25 09/02/2024 VITAM IN B12 note Unles s other clemons noted testi ng perfo rmed at: [facility] [address] [place] [phone] Elton barbosa MD CLIA: [id number] Not Available [facility] (Lab Registration) [address], [place], [address], 09/02/2024 13:44:30 09/02/19 25 09/02/2024 THYRO ID STIMU LATIN G HORMO NE thyroid stimulating hormone 4.45 mIU/m L 0.34-4 .80 Not Available [facility] (Lab Registration) [address], [place], [address], 09/02/2024 13:44:31 09/02/19 25 09/02/2024 THYRO ID STIMU LATIN G HORMO NE note Unles s other clemons noted testi ng perfo rmed at: [facility] [address] [place] [address] [phone] Elton barbosa MD CLIA: [id number] Not Available [facility] (Lab Registration) [address], [place], [address], 09/02/2024 13:44:31 09/02/19 25 09/02/2024 VITAM IN D TOTAL (D2+D 3) vitamin D25 (D2+D3) 118.6 NG/mL 30-100 high Not Available [facility] (Lab Registration) [address], [place], [address], 09/02/2024 13:44:33 09/02/19 25 09/02/2024 VITAM IN D TOTAL (D2+D 3) note Unles s other clemons noted testi ng perfo rmed at: [facility] [address] [place] [phone] Elton barbosa MD CLIA: [id number] Not Available [facility] (Lab Registration) [address] [place], [address], 09/02/2024 13:44:33 09/02/19 25 09/02/2024 LIPID PANEL triglyceride 33 mg/dL 20-200 The Natio nal [employer] stero l Educa tion Progr am (NCEP ) has set the follo wing guide lines for Fasti ng Trigl yceri tom: VICKY L: <150 mg/dL BORDE RLINE HIGH: 150 - 199 mg/dL HIGH: 200 - 499 mg/dL VERY HIGH: > or =500 mg/dL Not Available [facility] (Lab Registration) [address] [place], [address], 09/02/2024 13:44:34 09/02/19 25 09/02/2024 LIPID PANEL cholesterol 136 mg/dL 0-200 The Natio nal [employer] st[employer] l Educa tion Progr am (NCEP ) has set the follo wing guide lines for Fasti ng Lolis stero l: ANGIE ABLE: <200 mg/dL BORDE RLINE HIGH: 200 - 239 mg/dL HIGH: > or =240 mg/dL Not Available [facility] (Lab Registration) [address] [place], [address], 09/02/2024 13:44:34 09/02/19 25 09/02/2024 LIPID PANEL HDL cholesterol 83 mg/dL 60- The Natio nal [employer] l Educa tion Progr am (NCEP ) has set the follo wing guide lines for Fasti ng HDL Lolis stero l: LOW HDL: <40 mg/dL VICKY L: 40 - 60 mg/dL ANGIE ABLE: >60 mg/dL Not Available [facility] (Lab Registration) [address] [place], [address], 09/02/2024 13:44:34 09/02/19 25 09/02/2024 LIPID PANEL [...] or = 190 mg/dL Not Available [facility] (Lab Registration) [address] [place], [address], 09/02/2024 13:44:34 09/02/19 25 09/02/2024 LIPID PANEL chol/HDL ratio 2 -5 Not Available [facility] (Lab Registration) [address] [place], [address], 09/02/2024 13:44:34 09/02/19 25 09/02/2024 LIPID PANEL note Unles s other clemons noted testi ng perfo rmed at: [facility] [address] [place] [phone] Elton barbosa MD CLIA: [id number] Not Available [facility] (Lab Registration) [address] [place], [address], 09/02/2024 13:44:34 09/02/19 25 09/02/2024 T4 FREE T4,free 0.81 NG/dL 0.76-1 .46 Effec tive today 013 new Refer ence Range . Not Available [facility] (Lab Registration) [address] [place], [address], 09/02/2024 13:44:36 09/02/19 25 09/02/2024 T4 FREE note Unles s other clemons noted testi ng perfo rmed at: [facility] [address] [place] [address] [phone] Elton barbosa MD CLIA: [id number] Not Available [facility] (Lab Registration) [address] [place], [address], 09/02/2024 13:44:36 10/01/19 24 10/01/2023 CT, abdom en + pelvi s, w/o contr ast [facility] [place] [address] Phone: Fax: Name: FEDERICO HOYOS Exam Date: 10/01/19 24 : [birth year] Age 83 years Gender : M Access ion: [id number] Physic newton: LOREN HARO NDE Facili [...] as low as reason ably achiev able, (ALARA ). FINDIN GS: ABDOME N: Heart size [...] Thank you for referr FEDERICO Sorto to [facility]. Legall y authen ticate d by KENDY Hernandez MD 09-30 16:20: 01 CC'ed Logic: Usama walters Provid er: ESTRELLITA PIMENTEL NDE CC Provid er: MARA Montano ing Provid er: ESTRELLITA PIMENTEL NDE Referr ing Provid er: SOARELI PIMENTEL NDE Admitt ing Provid er: ESTRELLITA [facility]AN [facility] [address] [place] [address] , [place], [address], 10/02/2023 18:55:43 10/25/19 24 10/25/2023 [facility] [address] [place] [address] (Phone ) DIAGNO STIC RAJTAIN G REPORT ------ ------ ------ ------ ------ ------ ------ ------ ----- Antolin bowie Name: FEDERICO HOYOS Laly bowie No: [id number] Medica l Record No: [id number] Date of : 1940 Access ion No: [id number] Date of Exam: 2023 Antolin bowie Type: Outpat ient Usama walters Physic newton: JOSE LUIS SANDY ------ ------ [...] Lorna Pedraza MD Transc ribed by Larissa Pitten ticate d and Electr onical ly Signed by Lorna Pedraza MD on 2023 11:16: 30 AM BRITTON Husain CC'ed Logic: Orderi ng Provid er: LATRICE ON JOSE LUIS CC Provid er: MARA SHER Attend ing Provid er: LATRICE ON JOSE LUIS Referr ing Provid er: [facility] ON JOSE LUIS Admitt ing Provid er: LATR[facility] ON JOSE LUIS [address] (Central Scheduling) [address] [place] [address] [place], [address], 10/30/2023 11:33:33 10/25/19 24 10/25/2023 imagi ng inter preta tion No observ ation record ed. [address] [facility] Registration [address] [facility] [place], [address], 10/30/2023 11:33:33 11/05/19 24 11/05/2023 imagi ng inter preta tion No observ ation record ed. [facility] Registration [address] [facility], [address], 11/05/2023 12:21:49 11/07/19 24 11/06/2023 imagi ng inter preta tion No observ ation record ed. [email or web address] [facility] Registration [address] [facility], [address], 11/08/2023 15:11:24 12/03/19 24 12/02/2023 imagi ng inter preta tion No observ ation record ed. [facility] Registration [address] [facility], [address], 12/03/2023 08:22:20 12/03/19 24 12/03/2023 imagi ng inter preta tion No observ ation record ed. [email or web address] [facility] Registration [address] [facility] [place], [address], 12/04/2023 08:19:12 12/04/19 24 12/03/2023 imagi ng inter preta tion No observ ation record ed. [email or web address] [facility] Registration [address] [facility], [address], 12/04/2023 12:20:27 12/11/19 24 12/09/2023 imagi ng inter preta tion No observ ation record ed. [facility] Registration [address] [facility] [place], [address], 12/13/2023 08:26:09 12/14/19 24 12/14/2023 imagi ng inter preta tion No observ ation record ed. [email or web address] [facility] Registration [address] [facility], [address], 12/17/2023 14:37:16 12/18/19 24 12/17/2023 imagi ng inter preta tion No observ ation record ed. [email or web address] [facility] Registration [address] [facility], [address], 12/18/2023 08:36:05 12/18/19 24 12/18/2023 imagi ng inter preta tion No observ ation record ed. [email or web address] [facility] Registration [address] [facility], [address], 12/18/2023 12:35:29 12/18/19 24 12/18/2023 imagi ng inter preta tion No observ ation record ed. [email or web address] [facility] [place], [address], 12/20/2023 09:00:09 12/19/19 24 12/18/2023 imagi ng inter preta tion No observ ation record ed. [facility] Registration [address] [facility], [address], 12/20/2023 08:59:42 12/20/19 24 12/20/2023 imagi ng inter preta tion No observ ation record ed. [email or web address] [facility] Registration [address] [facility], [address], 12/20/2023 14:56:11 12/20/19 24 12/20/2023 imagi ng inter preta tion No observ ation record ed. [email or web address] [facility] Registration [address] [facility], [address], 12/21/2023 09:07:16 12/20/19 24 12/20/2023 imagi ng inter preta tion No observ ation record ed. [email or web address] [facility] Registration [address] [facility], [address], 12/21/2023 09:07:12 12/21/19 24 12/21/2023 imagi ng inter preta tion No observ ation record ed. [email or web address] [facility] Registration [address] [facility] [place], [address], 12/21/2023 15:41:14 07/14/20 24 07/14/2024 imagi ng inter preta tion No observ ation record ed. [email or web address] [facility] [address], [place], [address], 07/15/2024 09:11:55 Result Notes None recorded. Problems Name Problem SNOMED Code Status Onset Date Resolution Date Notes Provider Name and Address Organization Details Recorded Time Cystitis 03618533 Active Dane Wetzel null, [place] - [facility] 4 08:35:11 Atrial fibrillatio n 17050092 Active Dane Wet[place] [facility] [place] [facility] [place] 4 08:34:57 Urinary bladder stone 47626878 Active 2021 Dane [place] [facility] [place] [facility] [place] 4 08:35:42 Urinary tract infectious disease 50577409 Active 2021 Dane [place] [facility] [place] [facility] 4 08:35:51 Kidney stone 51532928 Active 2021 Dane [place] [facility] [place] [facility] [place] 4 08:35:14 Large prostate 334614956 Active 2021 Dane [place] [facility] [place] [facility] [place] 4 08:35:26 Lesion of urinary bladder 879171052 Active 2021 Dane [place] [facility] [place] [facility] [place] 4 08:35:32 Cardiac finding 091203473 Active 2022 Dane [place] [facility] [place] [facility] [place] 4 08:36:01 Anemia 244751887 Active 2022 Dane welsh, [place] - [facility] - [facility] & [place] 4 08:34:50 Blood in urine 76082274 Active 2022 Dane Wetzel [place] [facility] [place] [facility] [place] 4 08:35:04 Tobacco dependence caused by cigarettes 7281627878238 9107 Active 2022 Dane Wetzel null[place] [facility] - [facility] 4 08:35:37 Iron deficiency anemia 16826866 Active 2023 Tushar Barba MD [address] [place] [address], [phone], [place] - [facility] - [facility] & [place] 4 08:47:12 Hypothyroid ism 50012865 Active 2023 Tushar Barba MD [address] [place] [address], [phone], [place] [facility] - [facility] & [place] 4 08:47:26 Mass of pancreas 635268426 Active 2023 Tushar Barba MD [address] [place] [address], [phone], [place] - [facility] - [facility] & [place] 4 08:47:44 CT of abdomen abnormal 7036672103120 9107 Active 2023 Jose Luis Cowart NP [address], [address], [place], [address], [place] [facility] [place] [facility] 4 14:02:56 Constipatio n 18850377 Active 2023 Jose Luis Cowart NP [address], [address], [place], [address], [place] [facility] [place] [facility] 4 14:06:01 Decrease in appetite 90563712 Active 2023 Jose Luis Cowart NP [address], [address], [place], [address], [place] [facility] [place] [facility] 4 09:47:59 Diverticulo sis of colon 261096093 Active 2023 Jose Luis Cowart NP [address], [address], [place], [address], [place] - [facility] & [place] 4 09:51:55 Nausea 548128549 Active 2023 Jose Luis Cowart NP [address], [address], [place], [address], [place] - [facility] & [place] 4 09:24:18 Problem Notes Documentation Provider Name and Address Organization Details Recorded Time Clinic Note : [address], [facility] [id number], Tony D (id #[id number], : 1940) [address] [place] [address] Encounter Summary - Progress Note Date Printed: [...] received this fax in error, please visit [email or web address] to notify the sender and confirm that the information will be destroyed. If you do not have internet access, please call to notify the sender and confirm that the information will be destroyed. Thank you for your attention and cooperation. [ID:[id number]] Patient Federico Hoyos (83yo, M) #[id number] 1940 Patient Demographics: Address [address] [place] [phone] Work Phone Encounter Notes: Encounter Reason/Date Follow Up 11/29/2023 - 11:30AM [facility] History of Present Illnesshe is here for [...] troponin I was 0.6 pro BNP was 2003 and 7 his lipid panel was normal [...] of SystemsROS as noted in the HPI [id number] 11:50 Ht: 5 ft 6 in Wt: [...] and word substitutions commonly found with electronic oil spot washer. Attempts have been made to correct errors during dictation, but some errors may remain 1. Cyst of pancreas-need tumor markers like CEA and CA 19-9 not done will refer to for endoscopic ultrasound the pancreas the further management because of age consider management if there is no red flag signs and endoscopic ultrasound then periodic monitoring with MRI should be jozsqibzkrE02.2: Cyst of pancreas CARCINOEMBRYONIC AG, QUANT, SERUM OR PLASMA CANCER AG 19-9, SERUM OR PLASMA 2. Iron deficiency anemia-will check stool Hemoccult SPEP iron saturation may need iron replacement review previous endoscopy workup and further management depending on the findings because of his age is taking iron pills and B12 pills endoscopy further manage follow-up in 3 months after pancreatic Clinic vcthdoN45.9: Iron deficiency anemia, unspecified IRON + TIBC + FERRITIN, SERUM HEMOGLOBIN, GASTROINTESTINAL, STOOL PROTEIN ELECTROPHORESIS PANEL, SERUM OR PLASMA AMYLASE + LIPASE, SERUM 3. Diverticular disease of colon-probiotic fiber surgery will also help constipation with RfdhbQngB47.30: Diverticulosis of large intestine without perforation or abscess without bleeding 4. History of polyp of colon-review pathology from [facility] he is does not want to go through colonoscopy at this age has lot of hemorrhoidal esomqmlnA22.010: Personal history of colonic polyps 5. Hypothyroidism-continue management therapy with PCPE03.9: Hypothyroidism, unspecified 6. Loss of appetite-since has poor appetite not responding to Megace advise oneida supplements oneida tea to stimulate the stomach until we do EGD continue PPI small meal diet easily digestible foods mpykeljfrE67.0: Anorexia 7. Acid reflux-low acid diet anti-reflux measure continue Protonix will do upper endoscopy once cleared by Cardiology for elevated troponin he may have a type 2 HI or other possibility once cardiac cleared will do EGDK21.9: Gastro-esophageal reflux disease without esophagitis pantoprazole 40 mg tablet,delayed release - Take 1 tablet(s) every day by oral route for 30 days. Qty: (30) tablet Refills: 0 Pharmacy: [facility] 8. Internal hemorrhoids-will start on hemorrhoid cream FiberCon Sitz baths yglpcfhqnG11.8: Other hemorrhoids hydrocortisone 2.5 % topical cream with perineal applicator - APPLY A THIN LAYER TO THE AFFECTED AREA(S) BY TOPICAL ROUTE 2-4 TIMESDAILY Qty: (1) 30 gram tube Refills: 2 Pharmacy: [facility] 9. Constipation-multifactorial mild hypothyroidism advise FiberCon Senokot p.r.n. Dulcolax suppositories if he needs itK59.00: Constipation, unspecified senna 8.6 mg capsule - Take 1 capsule(s) every day by oral route for 30 days. Qty: (30) capsule Refills: 0 Pharmacy: [facility] 493 FiberCon 625 mg tablet - Take 1 tablet(s) every day by oral route for 30 days. Qty: (30) tablet Refills: 2 Pharmacy: [facility] 493 Return to Office Patient will return to the office as needed Patient Medical History: Allergies List Allergies not reviewed (last reviewed 10/30/2023) NKDA Medications Medications not reviewed (last reviewed 10/30/2023) NameDate Source aspirin 81 mg tablet,delayed cnexnqu40 MG., start started Carolyne Rosa atorvastatin 40 mg oxeyvu82/09/24 filled surescripts cyanocobalamin (vit B-12) 1,000 mcg [...] THE AFFECTED AREA(S) BY TOPICAL ROUTE 2-4 FMELSADAZE16/02/24 prescribed Gama Murillo MD levothyroxine 75 mcg tabletTake 1 tablet(s) every day by oral route before meals for 90 days.10/11/23 filled surescripts megestroL 400 mg/10 mL (40 mg/mL) oral ejcdcyofly29/09/24 filled surescripts metoprolol tartrate 25 mg tabletTAKE 1/2 (ONE-HALF) TABLET BY MOUTH AT AKNQWAL67/02/24 filled surescripts nitrofurantoin monohydrate/macrocrystals 100 mg capsuleTAKE 1 CAPSULE BY MOUTH TWICE DAILY FOR 7 DAYS11/07/23 filled surescripts ondansetron HCL 4 mg tabletTAKE 1 TABLET BY MOUTH TWICE DAILY10/31/23 filled surescripts pantoprazole 40 mg tablet,delayed releaseTake 1 tablet(s) every day by oral route for 30 days.11/29/23 prescribed Gama Murillo MD [facility] 3 billion cell capsuleTake 1 capsule(s) every [...] Vaccine Type Date Amt. Route Site [facility] Lot # Mfr. Exp. Date VIS VIS Given Z [employer] Influenza influenza, high dose seasonal 04/17/18 0.5 mL Intramuscular [id number] San[employer] P[employer] Electronically Signed by: GAMA MURILLO MD Tushar Barba MD [address] [place] [address], [phone], [facility] & [place] 12/03/2023 09:34:09 Procedures Surgical History Date Name Laterality Status Provider Name and Address Organization Details Recorded Time 06/05/20 24 Cerumen Removal completed Vern Haro MD [address] [place] [address], [phone] & [place] 06/05/2024 11:28:12 02/23/20 23 Cerumen Removal completed Charisse Guillory APRN [address] [place] [address], [phone], [facility] & [place] 02/22/2023 12:16:50 06/28/20 22 Cystoscopy-Male completed Radha Fuller [facility] & [place] 06/28/2022 15:55:44 11/12/19 21 colonoscopy completed Deepa Stern [facility] & [place] 07/11/2023 11:34:42 09/28/19 19 extracorporeal shockwave lithotripsy of calculus of kidney completed Radha JEFFERS - [facility] & [place] 05/15/2024 10:24:53 07/30/19 15 Colonoscopy completed Radha JEFFERS [facility] & [place] 05/15/2024 10:24:38 Imaging Results None recorded. Procedure Notes None recorded. Medical Equipment None Reported. Allergies Allergen ID Allergen Name Allergen Category Reaction Reaction Severity Criticality Documentation Date Start Date Code Code System Note Provider Name and Address Organization Details Recorded Time [id number] tamsulosi n medicatio n Not available Not available Not available 05/15/2024 94543 RxNorm Radha Lubin [facility] [place] [facility] [place] 10:23:50 Medications Name Sig Start Date Stop [...] completed Not Available Not Available Not Available [employer] 3 billion cell capsule Take 1 capsule every day by oral route for 30 days. 09/02 completed Not Available Not Available Not Available Vitals Date Recorded Body height Body mass index (BMI) Body weight Body temperature Oxygen saturation Oxygen saturation in Arterial blood by Pulse oximetry Heart rate Respiratory rate Systolic And Diastolic Provider Name and Address Organization Details Last Updated DateTime 167.64 cm 18.8 kg/m2 99794.1 5 g 97 [degF] 99 % 99 % 60 /min 16 /min 117/66 mm[Hg] Tesha JEFFERS - LPNT [facility] [place] 5 09:31:05 Date Recorded Body height Body mass index (BMI) Body weight Body temperature Oxygen saturation Oxygen saturation in Arterial blood by Pulse oximetry Heart rate Systolic And Diastolic Provider Name and Address Organization Details Last Updated DateTime 4 167.64 cm 20.2 kg/m2 79254.4 8 g 97.2 [degF] 99 % 99 % 94 /min 104/68 mm[Hg] Jeanie JEFFERS - LPNT [facility] [place] 4 09:10:57 Date Recorded Body height Body mass index (BMI) Body weight Body temperature Oxygen saturation Oxygen saturation in Arterial blood by Pulse oximetry Heart rate Provider Name and Address Organization Details Last Updated DateTime 4 167.64 cm 21.2 kg/m2 81053.7 6 g 97.9 [degF] 99 % 99 % 72 /min Aretha Suarez AURY - NT [facility] [place] 4 11:50:24 Date Recorded Body height Body mass index (BMI) Body weight Body temperature Oxygen saturation Oxygen saturation in Arterial blood by Pulse oximetry Heart rate Respiratory rate Systolic And Diastolic Provider Name and Address Organization Details Last Updated DateTime 5 167.64 cm 17.9 kg/m2 10208.4 7 g 98.4 [degF] 97 % 97 % 67 /min 16 /min 126/66 mm[Hg] Tesha JEFFERS - LPNT [facility] [place] 5 15:34:47 Date Recorded Body height Body mass index (BMI) Body weight Body temperature Oxygen saturation Oxygen saturation in Arterial blood by Pulse oximetry Heart rate Respiratory rate Systolic And Diastolic Provider Name and Address Organization Details Last Updated DateTime 4 167.64 cm 18.1 kg/m2 64286.7 8 g 97.2 [degF] 99 % 99 % 59 /min 16 /min 111/72 mm[Hg] Tesha JEFFERS - LPNT [facility] [place] 4 10:59:45 Social History Question Answer Notes LastModified by Organizat ion Details LastModified Time Tobacco Smoking Status Former Smoker patient reports smoked long time ago and has quit long time ago. Sheila Ariel [facility], [place] - [facility]NT - [place] & [place] 10/25/2022 14:17:01 What Is Your Level Of Caffeine Consumption? Moderate [email or web address] Information not available 10/25/2022 Have There Been Any Changes To Your Family Or Social Situation? No [email or web address] Information not available 10/11/2023 What Is The Fluoride Status Of Your Home? Unknown [email or web address] Information not available 10/11/2023 When Did You Quit Smoking? 16+yearssinc elastcigaret te [email or web address] Information not available 10/25/2022 Are There Any Guns Present In Your Home? No [email or web address] Information not available 10/11/2023 Do You Use Insect Repellent Routinely? Yes [email or web address] Information not available 10/11/2023 Do You Feel Safe At Home? Yes Information not available 10/11/2023 Do You Have Any Pets? No [email or web address] Information not available 10/11/2023 Do You Have Smoke And Carbon Monoxide Detectors In Your Home? Yes [email or web address] Information not available 10/11/2023 Are You Passively Exposed To Smoke? No [email or web address] Information not available 10/11/2023 Do You Use Sunscreen Routinely? Yes Information not available 10/11/2023 Sex: Unknown Functional Status Question Answer Note LastModified by Organization D etails LastModified Time Do you or have you ever used any other forms of tobacco or nicotine? No [email or web address] Information not available 10/25/2022 What is your level of alcohol consumption? None [email or web address] Information not available 05/22/2022 Are you able to care for yourself? Yes [email or web address] Information n ot available 10/11/2023 Mental Status None recorded. Family History Relationship Description Onset Age of this Age Resolved Age Notes LastModified by Organization Details LastModified Time Mother Malignant neoplasm of lung deceas ed Not available 05/18/2022 14:58:05 Father Aneurysm deceas ed Not available 05/18/2022 14:58:19 Brother Malignant neoplasm of bone deceas ed Not available 05/18/2022 14:58:37 Sister Malignant neoplastic disease [email or web address] Not available 2024 14:08:08 Medical History Condition Response Kidney Stones Y Hyperthyroidism Y Immunizations Vaccine Type Date Status Note Provider Nam e and Address Organization Details Recorded Time Influenza, high-dose, trivalent, PF 04/17/2018 completed Not Available [facility] 2022 15:32:12 Past Encounters Encounter ID Performer Location Encounter Start Date Encounter Closed Date Diagnosis/Indication Diagnosis SNOMED-CT Code Diagnosis ICD10 Code Diagnosis Note [id number] Charisse Guillory APRN [email or web address] [address] [address] 05/22/2022 13:53:30 05/22/2022 16:11:24 Acute cystitis 56521393 N30.01 take medication as prescribed increase water intakepati ent educated that he needs to follow up with urology about these frequent UTIsmonito r for worsening symptoms [id number] Prosper Macdonald MD [facility] [address] [place] [address] 06/27/2022 13:41:13 06/27/2022 15:17:21 Urinary bladder stone 80520557 N21.0 Urinary tr act infectious disease 68508539 N39.0 Kidney stone 69221991 N2 0.0 Large prostate 751898439 N40.0 [id number] Prosper Macdonald MD [facility] [address] [place] [address],[facility] [address] [place] [address] 06/28/2022 14:56:16 06/28/2022 16:19:44 Urinary bladder stone 93623538 N21.0 none seen today and presumed passed Urinary tr act infectious disease 71578873 N39.0 Kidney stone 03837524 N2 0.0 Large prostate 097252456 N40.0 predominan tly small focal median lobe tissue acting as a ball valve Lesion of urinary bladder 976033215 N32.9 erythemato us, focally ulcerated [id number] Prosper Macdonald MD [facility] [address] [place] [address],[facility] [address] [place] [address] 07/12/2022 17:02:54 07/12/2022 17:05:02 Urinary tract infectious disease 18426198 N39.0 Lesion of urinary bladder 957746760 N32.9 erythemato us, focally ulcerated Urinary bladder stone 70 717652 N21.0 presumed passed Kidney stone 44235909 N2 0.0 Large prostate 889069193 N40.0 predominan tly small focal median lobe tissue acting as a ball valve [id number] Charisse Guillory APRN [address] [address] 08/10/2022 11:30:59 08/10/2022 13:54:17 Large prostate 063696236 N40.0 take diflucan as prescribed increase water intakegood hyigenemon itor for worsening symptomsen couraged to follow up with Dr Macdonald Urinary tr act infectious disease 57067943 N39.0 [id number] Prosper Macdonald MD [facility] [address],[facility] [place] [address] 09/19/2022 15:20:29 09/19/2022 16:01:44 Recurrent urinary tract infection 170759668 N39.0 Lesion of urinary bladder 030224618 N32.9 erythemato us, focally ulcerated Urinary bladder stone 70 762515 N21.0 presumed passed Kidney stone 80441455 N2 0.0 Benign pro static hyperplasia 401727819 N40.0 [id number] Joanne Dorman NP, S [facility] [address],[facility] [place] [address] 09/28/2022 08:30:04 09/28/2022 08:44:17 Large prostate 722028076 N40.0 Water drained from malagon balloon. Malagon catheter was removed without difficulty . Pt tolerated well. Discussed with pt if they do not void by 3pm to call office back to have malagon cath to be replaced Urinary bladder stone 70 031144 N21.0 Urinary tr act infectious disease 11684322 N39.0 [id number] Charisse Guillory APRN [address] [address] 10/04/2022 14:42:12 10/04/2022 17:02:18 Increased frequency of urination 954636927 R35.0 N40.1 N20.0 keep appts with urologyinc rease water intakemoni tor for worsening symptoms [id number] Prosper Macdonald MD [facility] [address] [facility] [place] [address] 10/24/2022 09:57:40 10/24/2022 10:22:02 Large prostate 107412167 N40.0 Urinary bladder stone 70 321430 N21.0 presumed passed Urinary tr act infectious disease 63483812 N39.0 Retention of urine 12454 4002 R33.9 [id number] RADHA EDDY NP-C [facility] [address] [facility] [address] [place] [address] 10/25/2022 13:33:06 10/26/2022 12:13:14 Paroxysmal atrial fibrillation 235173318 I48.0 NSR on EKG Dyspnea on exertion 6084 5006 R06.09 former smoker [id number] RADHA EDDY NP-Katrin [facility] [address] [facility] [address] [place] [address] 12/20/2022 09:34:35 12/20/2022 10:23:29 Paroxysmal atrial fibrillation 041733680 I48.0 NSR on EKGHolter nSR with PVCs no arrhythmia s noted. Dyspnea on exertion 6084 5006 R06.09 former smoker [id number] Charisse Guillory APRN [facility] [address] [place] [address] 02/22/2023 11:49:02 02/22/2023 12:11:58 Otitis externa of left ear 3305534912 486545 H60.92 pt tolerated cerumen removal welltake drops as prescribed increase water intakemoni tor for worsening symptoms. [id number] Charisse Guillory APRN [facility] [address] [place] [address] 03/08/2023 08:49:52 03/08/2023 09:14:38 Acute left otitis media 744718433 H66.92 J30.2 take antibiotic as prescribed increase water intakefoll ow up in 2 weeks if no improvemen t in symptoms. [id number] Prosper Macdonald MD [facility] [address] [facility],[address] [facility] [place] [address] 04/03/2023 10:08:05 04/03/2023 11:14:45 Large prostate 861512002 N40.0 surgically treated Urinary bladder stone 70 908676 N21.0 presumed passed Urinary tr act infectious disease 02252002 N39.0 resolved Retention of urine 60404 4002 R33.9 resolved Weight loss 51521640 R63 .4 Loss of appetite 0959908 6 R63.0 [id number] Tushar Barba MD [address] [place] [address] 07/06/2023 09:20:30 07/06/2023 10:08:58 Atrial fibrillation 31814176 I48.91 patient is having sensations of palpitatio ns. Patient does have significan t history for intermitte nt PAT. He is not on any rate-contr olling medication s. We will start small dose of beta-block er night. Hypothyroidism 44067903 E03.9 patient will return fasting for blood work including CMP CBC, B12, folate, lipid panel, hemoglobin A1c TSH. Return in 2-3 weeks. Large prostate 442988337 N40.0 Patient is seeing urology. Overactive urinary bladder 508266103 N32.81 [id number] Tushar Barba MD [address] [place] [address] 07/09/2023 07:59:35 07/09/2023 16:09:06 Atrial fibrillation 61245720 I48.91 patient is having sensations of palpitatio ns. Patient does have significan t history for intermitte nt PAT. He is not on any rate-contr olling medication s. We will start small dose of beta-block er night. [id number] Tushar Barba MD [address] [place] [address] 07/26/2023 08:36:40 07/26/2023 09:05:59 Tobacco dependence caused by cigarettes 0011246019 2613414 F17.210 Patient has a history of remote tobacco abuse. Recommend screening for lung cancer patient agreeable. Hypothyroidism 02004533 E03.9 TSH is in normal range. Other blood work shows mild anemia. Repeat blood work in 3 months. Blood in urine 83262891 R31.9 Dipstick shows large amount of blood in urine. Also urine is maximally concentrat ed. With patient's systems and history we will proceed with urine culture and antibiotic treatment. Recommend patient call Urology today for follow-up. Seek medical care if symptoms become severe. Large prostate 100538344 N40.0 Patient is seeing urology. [id number] Vern Haro MD [facility] [address] [place] [address] 09/26/2023 14:40:04 09/26/2023 15:19:58 Dysuria 37013632 R30.0 Painless hematuria 21406 8001 R31.9 we have discussed the differenti [...] out stones or other renal abnormalit ies. [id number] Tushar Barba MD [address] [place] [address] 10/11/2023 08:23:34 10/11/2023 09:18:25 Iron deficiency anemia 73183039 D50.9 hemoglobin is low 12.1. We will repeat ferritin B12 folate. Hypothyroidism 72470121 E03.9 Repeat TSH today. Mass of pancreas 0510145 00 K86.89 We will confirm referral that has been made to GI.Spoke to GI office. Appointmen t scheduled for October 17. Given informatio n to family member. [id number] Jose Luis Cowart NP [facility] [address] [place] [address] [address] [place] [address] 10/18/2023 13:25:12 10/18/2023 14:46:08 CT of abdomen abnormal 0774188275 7728786 R93.5 Questionab le 1.5 cm hypodense lesion in the pancreatic body. Recommend correlatio n with MRCP without and with contrast. We will order MRCP. Constipation 38106140 K5 9.00 Likely multifacto rial in etiology. May consider checking thyroid function to rule out as potential contributi ng factor. Recommend adding fiber into the diet. Recommend stool softeners- can start Miralax followed by Dulcolax suppositor ies or OTC Senokot. Discussed incorporat ing high fiber foods, including fruits like kiwi. Recommend to engage in healthy activity like walking. Decrease in appetite 643 28311 R63.0 Encouraged to add nutrient rich meal replacemen t shakes and to keep a log of intake. Hypothyroidism 43156798 E03.9 Patient with current diagnosis of hypothyroi dism. Encourage follow up with PCP for disease management . Atrial fibrillation 4943 6004 I48.91 Recommend to continue follow up with PCP regarding this. Diverticul osis of colon 539290595 K57.30 Recommend taking a probiotic such as [employer]'s [employer].Rec ommend adding fiber into the diet.Discu ssed incorporat ing high fiber foods, including fruits like kiwi.Recom mend stool softeners- can use Miralax or OTC Senokot.Re commend to engage in healthy activity like walking. [id number] Jose Luis Cowart NP [facility] [address] [place], [place] [address] 10/30/2023 09:05:00 10/30/2023 10:08:50 Constipation 48140047 K59.00 Doing better.Lik kody multifacto rial in etiology.M ay consider checking thyroid function to rule out as potential contributi ng factor.Rec ommend adding fiber into the diet.Recom mend stool softeners- can start Miralax followed by Dulcolax suppositor ies or OTC Senokot.Di scussed incorporat ing high fiber foods, including fruits like kiwi.Recom mend to engage in healthy activity like walking. Diverticul osis of colon 090574703 K57.30 Recommend taking a probiotic such as [employer].Rec ommend adding fiber into the diet.Discu ssed incorporat ing high fiber foods, including fruits like kiwi.Recom mend stool softeners- can use Miralax or OTC Senokot.Re commend to engage in healthy activity like walking. Decrease in appetite 643 00031 R63.0 Encouraged to add nutrient rich meal replacemen t shakes and to keep a log of intake. May need to consult with PCP regarding appetite stimulant. Hypothyroidism 98232332 E03.9 Patient with current diagnosis of hypothyroi dism. Encourage follow up with PCP for disease management . Atrial fibrillation 4942 6004 I48.91 Recommend to continue follow up with PCP regarding this. Anemia 912720657 D64.9 Concern for anemia. Will do further work up to rule out deficienci es. Will consider stool sample for occult blood. Labs ordered. If any deficienci es will need to address. Mass of pancreas 3895509 [address] identified questionab le 1.5 [...] order CEA and Cancer Ag 19-9. Nausea 486435652 R11.0 Can use zofran when nausea/vom iting [...] rule out H Pylori via breath test. [id number] Gama Murillo MD [facility] [address] [place] [address] [address] [place], [place] [address] 11/29/2023 11:27:47 11/29/2023 12:26:55 Cyst of pancreas 63297799 K86.2 need tumor markers like CEA and CA 19-9 not done will refer to for endoscopic ultrasound the pancreas the further management because of age consider management if there is no red flag signs and endoscopic ultrasound then periodic monitoring with MRI should be sufficient Iron defic iency anemia 22937027 D50.9 will check stool Hemoccult SPEP iron saturation may need iron replacemen t review previous endoscopy workup and further management depending on the findings because of his age is taking iron pills and B12 pills endoscopy further manage follow-up in 3 months after pancreatic Clinic evalua Diverticul ar disease of colon 992278161 K57.30 probiotic fiber surgery will also help constipati on with FiberCon History of polyp of colon 252926029 Z86.010 review pathology from [facility] he is does not want to go through colonoscop y at this age has lot of hemorrhoid al symptoms Hypothyroidism 49311834 E03.9 continue management therapy with PCP Loss of appetite 4459292 6 R63.0 since has poor appetite not responding to Megace advise oneida supplement s oneida tea to stimulate the stomach until we do EGD continue PPI small meal diet easily digestible foods suggested Acid reflux 165883105 K2 1.9 low acid diet anti-reflu x measure continue Protonix will do upper endoscopy once cleared by Cardiology for elevated troponin he may have a type 2 HI or other possibilit y once cardiac cleared will do EGD Internal hemorrhoids 904 13923 K64.8 will start on hemorrhoid cream FiberCon Sitz baths suggested Constipation 12196437 K5 9.00 multifacto rial mild hypothyroi dism advise FiberCon Senokot p.r.n. Dulcolax suppositor ies if he needs it [id number] Vern Haro MD [facility] [address] [place] [address] 06/05/2024 10:45:28 06/05/2024 11:32:23 Physical deconditioning 5420795430 9102 R68.89 Will refer patient to home health. He would benefit from physical and occupation al therapy Impacted cerumen 5629719 6 H61.21 cerumen successful ly removed. Anemia 000665074 D64.9 Will check his lab work at his next visit. [id number] Vern Haro MD [facility] [address] [place] [address] 09/02/2024 09:13:43 09/02/2024 09:34:28 Large prostate 019111623 N40.0 Patient takes tamsulosin . Atrial fibrillation 4943 6004 I48.91 Patient is stable with current medication regimen Anemia 151724668 D64.9 Will check his lab work at his next visit. Hypothyroidism 75325916 E03.9 he is currently on 100 mcg of levothyrox ine. Will check his TSH and T4 levels today. Vitamin D deficiency 347 53520 E55.9 Check for vitamin-D levels today. Diabetes m ellitus screening 710575213 Z13.1 Will obtain an A1c today. Hyperlipidemia 01551636 E78.5 will check patient's lipid profile today. Candidiasis of mouth 797 63830 B37.0 Patient reports a history of oral thrush. Will send in a prescripti on for some nystatin to use as needed. He is currently asymptomat ic. [id number] Vern Haro MD [facility] [address] [place] [address] 12/09/2024 15:20:59 12/09/2024 16:04:17 Acute conjunctivitis of right eye 9090636661 H10.31 Health Concerns Section Related Observation LastModified by Organization Detai ls LastModified Time None Recorded Concern Status LastModified by Organization Details LastModified Time None Recorded Advance Directives Directive None Recorded Payers Insurance Date Sequence Insurance Name Policy Number Policy Meier Covered Member ID Meier Member ID Guarantor Name 01/22/2025 1 [place] Federico Hoyos [id number] 01/22/2025 2 MEDICAID-[facility] CHOICES - [facility]FS[facility] Federico Hoyos [id number] 12/09/2024 MEDICARE A-[place]: [employer] - [facility] Federico Laly Hoyos [id number] Notes Date Note Type Note Provider Name [...] 3 years. Jose Luis Cowart NP [address], [address], [place], [address], [facility] & [place] 10/30/2023 11:37:04 4 text/html he is here [...] tobacco dependency diverticula Gama Murillo MD [address], [address], [place], [address], [facility] & [place] 11/29/2023 16:22:17 4 text/html patient presents today for routine follow-up. He was recently discharged from rehab. Patient has been admitted to the hospital and was treated for acute on chronic renal insufficiency. He was admitted to [facility]. At some point he has a PEG tube placed. He has since had his PEG tube removed. Patient is at home and is taking care of himself. He lives alone. He still continues to complain of weakness. He is also complaining of cerumen impaction in his right ear canal. Vern Haro MD [address] [place] [address], [address], [place] - [facility] - [place] & [place] 06/05/2024 11:31:00 5 text/html PT PRESENTS FOR CHRONIC CARE MANAGEMENT, DENIES ANY NEW ISSUES. IS COMPLIANT WITH MEDICATIONS Vern Haro MD [address] [place] [address], [address], [place] - [facility] & [place] 09/02/2024 10:07:32 5 text/html patient presents today complaining of watery crusty right eye. He states that his eye itches and is somewhat painful. He has yellowish discharge that is worse 1st thing in the morning. He is also concerned about a lack of appetite. Has lost 5 lb since his last visit. Vern Haro MD [address] [place] [address], [address], [place] - [facility] & [place] 12/09/2024 16:08:50
--- OUTSIDE RECORDS SUMMARY | 2025-02-12 08:54 | XMS_ITS | Clinical Summary ---
Author Organization [facility] ([place], [place], [place], [place]) Address [address] [place] [address] Care Team Providers Care Gas Main Fitter Name Role Phone Tushar Barba MD Primary Care Provider [phone] Prosper Macdonald MD Unavailable Allergies No known active allergies Medications cetirizine (ZyrTEC) 10 MG tablet Take 1 tablet (10 mg total) by mouth daily. 06/08/2023 Active FeroSuL 325 mg (65 mg iron) tablet Take 1 tablet (325 mg total) by mouth daily. 08/10/2023 Active levothyroxine (SYNTHROID, LEVOTHROID) 75 MCG tablet Take 1 tablet (75 mcg total) by mouth daily. 06/16/2023 Active metoprolol tartrate (LOPRESSOR) 25 MG tablet Take 0.5 tablets (12.5 mg total) by mouth nightly. 07/06/2023 Active tamsulosin (FLOMAX) 0.4 mg Cap 24 hr capsule Take 1 capsule (0.4 mg total) by mouth daily. 06/09/2023 Active aspirin 81 MG EC tablet 81 mg by oral route. 09/26/2022 Active ondansetron (ZOFRAN) 4 MG tablet Take 1 tablet (4 mg total) by mouth 2 (two) times daily as needed for Nausea. Active atorvastatin (LIPITOR) 40 MG tablet Take 1 tablet (40 mg total) by mouth daily. 11/06/2023 Active pantoprazole (PROTONIX) 40 MG tablet Take 1 tablet (40 mg total) by mouth daily. 11/06/2023 Active megestroL (MEGACE) 400 mg/10 mL (40 mg/mL) suspension Take 10 mLs (400 mg total) by mouth 2 (two) times daily. 11/06/2023 Active Family History Medical History Relation Name Comments Bone cancer Brother Aneurysm Father Lung cancer Mother Cancer Sister 2 Relation Name Status Comments Brother Father Mother Sister 1 Alive Sister 2 Social History Tobacco Use Types Packs/Day Years Used Date Smoking Tobacco: Never Smokeless Tobacco: Never Tobacco Cessation:Counseling Given: Not Answered Alcohol Use Standard Drinks/Week Comments Never 0 (1 standard drink = 0.6 oz pur e alcohol) Food Insecurity Answer Date Recorded Food run out past 12 months Not on file 07/30 Food did not last past 12 months Not on file 08/10/2023 Employment Answer Date Recorded Help finding and keeping a job Not on file 0 08/10/2023 Family and Community Support Answer Ramirez e Recorded Help with Day to Day Activities Not on file 08/10/2023 Feeling Lonely or Isolated Not on file 08/10 Educational Attainment Answer Date Diaz rded Speak language other than Kiswahili at home Not on file 08/10/2023 Want help with school or training Not on file 08/10/2023 Substance Use Answer Date Recorded Used prescription meds for non-medical reasons N ot on file 08/10/2023 Used illegal drugs past 12 months Not on file 08/10/2023 Sex and Gender Information Value Date Recorded Sex Assigned at Not on file Legal Sex Male 3:28 PM CDT Gender Identity Not on file Sexual Orientation Not on file Last Filed Vital Signs Vital Sign Reading Time Taken Comments Blood Pressure 120/74 10/11/2023 10:12 AM EDT Pulse - - Temperature - - Respiratory Rate - - Oxygen Saturation - - Inhaled Oxygen Concentration - - Weight 59 kg (130 lb) 10/11/2023 10:12 AM EDT Height 167.6 cm (5' 5.98 ) 10/11/2023 10:12 AM E DT Body Mass Index 20.99 10/11/2023 10:12 AM EDT Plan of Treatment Health Maintenance Due Date Last Done Comments Depression Screening (12+) 1954 DTAP/TDAP/TD VACCINES (1 - Tdap) 1961 Pneumococcal 50+ years (1 of 1 - PCV) 1992 Shingles Vaccine (Zoster) (1 of 2) 1992 Medicare Initial AWV [id number] 07/31/2008 Respiratory Syncytial Virus (RSV) Adult or (1 - 1-dose 75+ series) 2017 COVID-19 VACCINE ( - 2023- season) 2024 Falls Risk Screening 07/30/2024 Tobacco Cessation Counseling and Screening (12+) 11/06/2024 11/07/2023 Influenza Vaccine (#1) 2025 04/17/2018, 2017 Insurance MEDICARE PART A B MEDICAID OF [place] Care Teams Gas Main Fitter Relationship Specialty Start Date End Date Tushar Barba MD [address] [place] [phone] PCP - General Family Medicine 10/11/23 Prosper Macdonald MD [address] [place] [address] Consulting Physician Urology 10/23/23
--- OUTSIDE RECORDS SUMMARY | 2025-02-12 08:54 | XMS_ITS | Encounter Summary ---
Author Organization Healthcare Address [address] [place] [address] Care Team Providers Care Covering Machine Operator Name Role Phone Tushar Barba Primary Care Provider Encounter Details Date Type Department Care Team (Late st Contact Info) Description 12/03/2023 Orders Only External Location [address] [place] [address] Rosa Maria Kemp PA [address] [place] [address] Social History Tobacco Use Types Packs/Day [...] Tomogra phy 12/03/2023 12:0 5 AM EDT us Rosa Maria HERNANDEZ IMLb CT PROCEDURES Final Resu lt documented in this encounter Visit Diagnoses Not on filedocumented in this encounter Additional Health Concerns Infection Onset Date Last Indicated Resolved Time C. difficile Rule-Out 12/23/2023 12/23/20232023 11:09 AM EDT Gastrointestinal Rule-Out 12/23/2023 12/23/2023 8:59 PM EDT documented as of this encounter Care Teams Covering Machine Operator Relationship Specialty Start Date End Date Tushar Barba [address] [place] [address] PCP - General Family Medicine 11/21/23 documented as of this encounter
--- OUTSIDE RECORDS SUMMARY | 2025-02-12 08:54 | XMS_ITS | Referral Summary ---
Author Organization [facility] ([place], [place], [place], [place]) Address [address] [place] [address] Care Team Providers Care Molecular Biologist Name Role Phone Tushar Barba MD Primary Care Provider [phone] Prosper Macdonald MD Unavailable Allergies No known [...] mouth 2 (two) times daily. 11/06/2023 Active Social History Tobacco Use Types Packs/Day Years [...] Date Diaz rded Speak language other than Paraguayan at home Not on file 08/10/2023 Want [...] 10/11/2023 10:12 AM EDT Plan of Treatment Not on file Insurance MEDICARE PART A B MEDICAID OF [place] Care Teams Molecular Biologist Relationship Specialty Start Date End Date Tushar Barba MD [address] [place] [phone] PCP - General Family Medicine 10/11/23 Prosper Macdonald MD [address] [place] [phone] Consulting Physician Urology 10/23/23
--- OUTSIDE RECORDS SUMMARY | 2025-02-12 08:54 | XMS_ITS | Encounter Summary ---
Author Organization [facility] Address [address] [place] [address] Care Team Providers Care Raisin Washer Name Role Phone Tushar Barba Primary Care Provider [phone] Encounter Details Date Type Department Care Team [...] the past 12 months has th e [employer], gas, oil, or water [employer] threatened to shut off services in your [...] documented as of this encounter Care Teams Raisin Washer Relationship Specialty Start Date End Date Tushar Barba [address] [place] [address] PCP - General Family Medicine 11/21/23 documented as of this encounter
--- OUTSIDE RECORDS SUMMARY | 2025-02-12 08:54 | XMS_ITS | Encounter Summary ---
Author Organization [employer] ([place], [place], [place], [place]) Address [address] [place] [address] Care Team Providers Care Technology Sales Specialist Name Role Phone Tushar Barba MD Primary Care Provider [phone] Prosper Macdonald MD Unavailable Reason for Visit * Reason Onset Date Comments Appointment 11/06/2023 Encounter Details Date Type Department Care Team (Late st Contact Info) Description 11/06/2023 Telephone [facility] Cardiology [facility] [address] [place] [address] Pan Ziegler DO [address] [place] [address] Appointment Social History Tobacco Use Types Packs/Day Years Used Date Smoking Tobacco: Never Smokeless Tobacco: Never Alcohol Use Standard Drinks/Week Comments Never 0 [...] Date Diaz rded Speak language other than Montenegrin at home Not on file 08/10/2023 Want [...] on file documented as of this encounter Miscellaneous Notes * Telephone Encounter - Kristal Ochoa - 11/06/2023 11:38 AM EDT Appointment Type: Follow - Up New Patient Reason for appointment request: Requested Provider Unavailable Next available appointment scheduled: Last Visit: Additional information: Kym from [facility] called stating Dr. Ziegler saw pt in [facility] and is needing a month f/u, he is being released today 11/05 Caller name: Federico Hoyos Relation to patient: Best Call Back OK to leave message on voicemail: Yes / No documented in this encounter Plan of Treatment Not on file documented as of this encounter Visit Diagnoses Not on filedocumented in this encounter Care Teams Technology Sales Specialist Relationship Specialty Start Date End Date Tushar Barba MD [address] [place] [phone] PCP - General Family Medicine 10/11/23 Prosper Macdonald MD [address] [place] [address] Consulting Physician Urology 10/23/23 documented as of this encounter
--- OUTSIDE RECORDS SUMMARY | 2025-02-12 08:54 | XMS_ITS | Clinical Summary ---
Author Organization [facility] Address [address] [place] [address] Care Team Providers Care Senior Java Data Architect Name Role Phone Tushar Barba Primary Care Provider [phone] Allergies No known active allergies Medications atorvastatin (Lipitor) 40 MG tablet Take 1 tablet (40 mg) by mouth nightly. Active ondansetron (Zofran) 4 MG tablet Take 1 tablet (4 mg) by mouth 2 (two) times a day if needed for nausea or vomiting. Active mirtazapine (Remeron) 7.5 MG tablet Take 1 tablet (7.5 mg) by mouth every night. 01/28/2024 Active acetaminophen (Tylenol) 500 MG tablet Take 2 tablets (1,000 mg) by mouth every 6 hours as needed. Active finasteride (Proscar) 5 MG tablet Take 1 tablet (5 mg) by mouth daily. Do not crush, chew, or split. Active ergocalciferol (Vitamin D-2) 1.25 MG (36189 UT) capsule Take 1 capsule (50,000 Units) by mouth 1 (one) time per week. Active levothyroxine (Synthroid, Levoxyl) 100 MCG tablet Take 1 tablet (100 mcg) by mouth daily. 05/29/2024 Active metoprolol tartrate (Lopressor) 25 MG tablet Take 0.5 tablets (12.5 mg) by mouth nightly. 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 90 capsule 3 07/04/2024 Active potassium chloride CR 10 MEQ PO ER tabletIndication s:Hypokalemia Take 1 tablet (10 mEq) by mouth 1 (one) time each day. Do not crush or chew. 60 tablet 3 08/15/2024 Active bumetanide (Bumex) 1 MG tablet Take 1 tablet (1 mg) by mouth Daily. 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 No 12/21/2023 PHQ-9 Answer Date [...] Health Maintenance Due Date Last Done Comments [facility]-Medicare Annual Wellness (AWV) 1940 [facility]-/Child/Adol SDOH Screenings 1940 [id number] Vaccine (#1) 1947 [facility]- SDOH Screenings 1960 [facility]-Adult SDOH Screenings 1960 [facility]-DTaP,Tdap,and Td Vaccines (1 - Tdap) 1961 [facility]-Hepatitis A Vaccines (1 of 2 - Risk 2-dose series) 1961 [facility]-Pneumococcal Vaccine: 50+ Years (1 of 2 - PCV) 1961 [facility]-Zoster Vaccines (1 of 2) 1961 [facility]-RSV Vaccine: 60+ Years or (1 - 1-dose 75+ series) 2017 [facility]-Influenza Vaccine (#1) 03/30/202504/17, 04/17/2018 [facility]-Depression Screening 06/24/2025 024, 06/24/2024 HPV [...] Documents on File Type Date Recorded 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
--- OUTSIDE RECORDS SUMMARY | 2025-02-12 08:54 | XMS_ITS | Data Portability ---
Author Organization [place] [facility] NICHOL tejedaS [place] [facility] Address [address] [facility] [address] [place] [address] Care Team Providers Care Steel Melter Name Role Phone ROBELTAVARES SANTANA Primary Care Provider Assessment Encounter Date Assessment Date Assessment LastModified by Organization Details LastModified Time 09/05/2018 09/05/2018 Continue tamsulosin.An nual follow-up. [email or web address] Not available 09/15/2018 21:19:20 12/08/2021 12/08/2021 Urine for culture and sensitivity. Medication adjustment to include double dose tamsulosin. Follow-up to reassess voiding symptoms. [email or web address] Not available 12/09/2021 08:16:12 01/19/2022 01/19/2022 Medical management lower urinary symptoms with double dose tamsulosin. We discussed medication adjustment versus endoscopic treatment of BPH symptoms. He reports bladder stone which could be related to bladder outlet obstruction. He is not interested in surgical procedure at this time. Continue to monitor symptoms. Follow-up with [facility]. [email or web address] Not available 01/19/2022 14:34:19 Plan of Treatment Reminders Order Date Submit Date Provider Last Modified By Organization Details Last Modified Time Details Appointments None recorded. Lab urinalysis panel, auto 2021 022 4 [facility] [place] [facility], [address] [place] [address] Dr Zhang, [place], [address], 10:38:46 culture, urine 2021 022 [id number] 4 [facility], [address] [place] [address], [address], 2 10:38:46 urinalysis panel, auto 2021 022 [email or web address] 4 [facility], [address] [place] [address] Dr Zhang, [place], [address], 2 16:37:57 culture, urine 2021 022 [id number] 4 [facility], [address] [place] [address], [address], 2 16:37:57 urinalysis panel, auto 2020 021 [id number] 4 [facility], [address] [place] [address] Dr Zhang, [place], [address], 1 22:29:48 culture, urine 2020 021 [facility], [address] [place] [address], [address], 1 12:22:44 urinalysis , dipstick, auto 2019 020 [id number] 4 [facility], [address] [facility], [address], [place], [address], 0 12:18:05 culture + sensitivit y, urine 2019 020 [facility], [address] [place] [address], [address], 0 10:57:49 Referral None recorded. Procedures None recorded. Surgeries None recorded. Imaging None recorded. Medication Orders tamsulosin 0.4 mg capsule 2021 022 [id number] 4 [facility], [address] [place], [address], 2 08:15:08 tamsulosin 0.4 mg capsule 2020 021 [id number] 4 [facility], [facility] [place], [address], 1 08:48:15 tamsulosin 0.4 mg capsule 2019 020 INTERFACE [facility], [address] [place] [place], [address], 0 11:24:24 Flomax 0.4 mg capsule 2018 019 INTERFACE [facility], [facility] [place], [address], 9 13:41:37 Patient TargetsNo targets recorded. Patient Instructions Encounter Date Encounter Id Patient Instructions Last Modified By Organization Details Last Modified Time 09/05/2018 [id number] learning about high blood pressure [email or web address] Not available 09/05/2018 13:41:34 12/02/2019 [id number] Urinary Tract Infections (UTI) in Men: Care Instructions [email or web address] Not available 12/02/2019 12:18:05 01/19/2022 [id number] learning about healthy weight [email or web address] Not available 01/22/2022 14:34:54 Reason for Referral None Reported. Results Created Date Observation Date Name Description Value Unit Range Abnormal Flag Note LastModifiedBy Organization Detail LastModifiedTime 12/24/1912/23/2020 urina lysis panel , auto Unknown Analyte Clean Catch Not Available [facility] [place] [facility] [address] Zhang, [place], [address], 12/23/2020 13:01:40 12/24/19 21 12/23/2020 urina lysis panel , auto Unknown Analyte Yellow Not Available [facility] [place] [facility] With [address] Zhang, [place], [address], 12/23/2020 13:01:40 12/24/19 21 12/23/2020 urina lysis panel , auto Unknown Analyte Slight ly Hazy Not Available [facility] With [address] Zhang, [place], [address], 12/23/2020 13:01:40 12/24/19 21 12/23/2020 urina lysis panel , auto Unknown Analyte 1.025 Not Available [facility] With [address] [place], [address], 12/23/2020 13:01:40 12/24/19 21 12/23/2020 urina lysis panel , auto Unknown Analyte 1.003- 1.035 Not Available [facility] With [address] [place], [address], 12/23/2020 13:01:40 12/24/19 21 12/23/2020 urina lysis panel , auto Unknown Analyte 5.0 Not Available [facility] With [address] Zhang, [place], [address], 12/23/2020 13:01:40 12/24/19 21 12/23/2020 urina lysis panel , auto Unknown Analyte 5.0-8. 0 Not Available [facility] With [address] [place], [address], 12/23/2020 13:01:40 12/24/19 21 12/23/2020 urina lysis panel , auto Unknown Analyte 500 Guerline/ul (++) Not Available [facility] With [address] [place], [address], 12/23/2020 13:01:40 05/27/12/23/2020 urina lysis panel , auto Unknown Analyte Negati ve Not Available [facility] With [address] [place], [address], 12/23/2020 13:01:40 12/24/19 21 12/23/2020 urina lysis panel , auto Unknown Analyte Negati ve Not Available [facility] With [address] [place], [address], 12/23/2020 13:01:40 12/24/1912/23/2020 urina lysis panel , auto Unknown Analyte Negati ve Not Available [facility] With [address] [place], [address], 12/23/2020 13:01:40 12/24/19 21 12/23/2020 urina lysis panel , auto Unknown Analyte Negati ve Not Available [facility] With [address] [place], [address], 12/23/2020 13:01:40 12/24/19 21 12/23/2020 urina lysis panel , auto Unknown Analyte Negati ve Not Available [facility] With [address] [place], [address], 12/23/2020 13:01:40 12/24/19 21 12/23/2020 urina lysis panel , auto Unknown Analyte Normal Not Available [facility] With [address] [place], [address], 12/23/2020 13:01:40 12/24/19 21 12/23/2020 urina lysis panel , auto Unknown Analyte Normal Not Available [facility] With [address] [place], [address], 12/23/2020 13:01:40 12/24/19 21 12/23/2020 urina lysis panel , auto Unknown Analyte Negati ve Not Available [facility] With [address] Zhang, [place], [address], 12/23/2020 13:01:40 12/24/19 21 12/23/2020 urina lysis panel , auto Unknown Analyte Negati ve Not Available [facility] With [address] [place], [address], 12/23/2020 13:01:40 12/24/19 21 12/23/2020 urina lysis panel , auto Unknown Analyte 1 mg/dl Not Available [facility] With [address] [place], [address], 12/23/2020 13:01:40 12/24/19 21 12/23/2020 urina lysis panel , auto Unknown Analyte Normal 1 mg/dl Not Available [facility] With [address] [place], [address], 12/23/2020 13:01:40 12/24/19 21 12/23/2020 urina lysis panel , auto Unknown Analyte Negati ve Not Available [facility] With [address] [place], [address], 12/23/2020 13:01:40 12/24/19 21 12/23/2020 urina lysis panel , auto Unknown Analyte Negati ve Not Available [facility] With [address] [place], [address], 12/23/2020 13:01:40 12/24/19 21 12/23/2020 urina lysis panel , auto Unknown Analyte Negati ve Not Available [facility] [place] [facility] With [address] Zhang, [place], [address], 12/23/2020 13:01:40 12/24/19 21 12/23/2020 urina lysis panel , auto Unknown Analyte Negati ve Not Available [facility] [place] [facility] With [address] Zhang, [place], [address], 12/23/2020 13:01:40 12/02/19 20 12/02/2019 urina lysis , dipst ick, auto Unknown Analyte Yellow Not Available [facility] [address], [place], [address], 12/02/2019 11:13:52 12/02/19 20 12/02/2019 urina lysis , dipst ick, auto Unknown Analyte Clear Not Available [facility] [address] [facility] [address], [place], [address], 12/02/2019 11:13:52 12/02/19 20 12/02/2019 urina lysis , dipst ick, auto Unknown Analyte 1.020 Not Available [facility] [address] [facility] [address], [place], [address], 12/02/2019 11:13:52 12/02/19 20 12/02/2019 urina lysis , dipst ick, auto Unknown Analyte 1.003 - 1.035 Not Available [facility] [address], [place], [address], 12/02/2019 11:13:52 12/02/19 20 12/02/2019 urina lysis , dipst ick, auto Unknown Analyte 5.0 Not Available [facility] [address], [place], [address], 12/02/2019 11:13:52 12/02/19 20 12/02/2019 urina lysis , dipst ick, auto Unknown Analyte 5.0 - 8.0 Not Available [facility] [address] [facility] [address], [place], [address], 12/02/2019 11:13:52 12/02/19 20 12/02/2019 urina lysis , dipst ick, auto Unknown Analyte 500 Guerline/ul (++) Not Available [facility] [address] [facility] [address], [place], [address], 12/02/2019 11:13:52 12/02/19 20 12/02/2019 urina lysis , dipst ick, auto Unknown Analyte Negati ve Not Available [facility] [address] [facility] [address], [place], [address], 12/02/2019 11:13:52 12/02/19 20 12/02/2019 urina lysis , dipst ick, auto Unknown Analyte Negati ve Not Available [facility] [address] [facility] [address], [place], [address], 12/02/2019 11:13:52 12/02/19 20 12/02/2019 urina lysis , dipst ick, auto Unknown Analyte Negati ve Not Available [facility] [address], [place], [address], 12/02/2019 11:13:52 12/02/19 20 12/02/2019 urina lysis , dipst ick, auto Unknown Analyte 30 mg/dl (+) Not Available [facility] [address] [place] [address] [address], [place], [address], 12/02/2019 11:13:52 12/02/19 20 12/02/2019 urina lysis , dipst ick, auto Unknown Analyte Negati ve - Trace Not Available [facility] With [address], [place], [address], 12/02/2019 11:13:52 12/02/19 20 12/02/2019 urina lysis , dipst ick, auto Unknown Analyte Normal Not Available [facility] With [address], [place], [address], 12/02/2019 11:13:52 12/02/19 20 12/02/2019 urina lysis , dipst ick, auto Unknown Analyte Normal Not Available [facility] With [address], [place], [address], 12/02/2019 11:13:52 12/02/19 20 12/02/2019 urina lysis , dipst ick, auto Unknown Analyte 15 mg/dl (Sm) Not Available [facility] With [address], [place], [address], 12/02/2019 11:13:52 12/02/19 20 12/02/2019 urina lysis , dipst ick, auto Unknown Analyte Negati ve Not Available [facility] With [address], [place], [address], 12/02/2019 11:13:52 12/02/19 20 12/02/2019 urina lysis , dipst ick, auto Unknown Analyte 1 mg/dl Not Available [facility] [address], [place], [address], 12/02/2019 11:13:52 12/02/19 20 12/02/2019 urina lysis , dipst ick, auto Unknown Analyte Normal - 1mg/dl Not Available [facility] [address] [place] [address] [address], [place], [address], 12/02/2019 11:13:52 12/02/19 20 12/02/2019 urina lysis , dipst ick, auto Unknown Analyte 1 mg/dl (+) Not Available [facility] With [address], [place], [address], 12/02/2019 11:13:52 12/02/19 20 12/02/2019 urina lysis , dipst ick, auto Unknown Analyte Negati ve Not Available [facility] [address] [place] [address] [address], [place], [address], 12/02/2019 11:13:52 12/02/19 20 12/02/2019 urina lysis , dipst ick, auto Unknown Analyte 50 Aníbal/ul Not Available [facility] [address] [place] [address] [address], [place], [address], 12/02/2019 11:13:52 12/02/19 20 12/02/2019 urina lysis , dipst ick, auto Unknown Analyte Negati ve Not Available [facility] [address], [place], [address], 12/02/2019 11:13:52 12/02/19 20 12/02/2019 urina lysis , dipst ick, auto Unknown Analyte Clean Catch Not Available [facility] [address], [place], [address], 12/02/2019 11:13:52 12/02/19 20 12/02/2019 urina lysis , dipst ick, auto Unknown Analyte Automa mel Not Available [facility] [address] [facility] [address], [place], [address], 12/02/2019 11:13:52 12/02/19 20 12/05/2019 cultu re + sensi tivit y, urine urine culture SEE BELOW abnormal CULTU RE, URINE , ROUTI NE Micro Numbe r: [id number] Test Statu s: Final Speci men Sourc e: CLEAN -CATC H Speci men Quali ty: Adequ ate Resul t: 10,00 0-50, 000 CFU/m L of Coagu lase negat bora staph yloco ccus, not S. sapro phyti cus 10,00 0-50, 000 CFU/m L of Yeast [place] mel. Pleas e conta ct the [...] [facility] [address] [place] [address] MONTEZ Gutierrez MD Not Available [facility] [address] [place] [address], [address], 12/05/2019 11:10:33 12/02/19 20 12/09/2019 funga l ident ifica tion, isola te result SEE BELOW normal FUNGA L ISOLA TE IDENT IFICA TION Micro Numbe r: [id number] Test Statu s: Final Speci men Sourc e: URINE Speci men Quali ty: Adequ ate Resul t: Growt h of Valarie da tropi calis TEST PERFO RMED AT: [facility] [address] [place] [address] MONTEZ Gutierrez MD Not Available [facility] [address] [place] [address], [address], 12/09/2019 12:34:57 12/24/19 21 12/23/2020 cultu re, urine results Sourc e: CCUR Colle cted: 12/23 13:03 Site: Recei bayron : 12/23 19:38 URINE CULTU RE FINAL 12/25 12:56 12/25 COLON Y COUNT : 10,00 0 - 100,0 00 CFU/M L Yeast . Not Available [facility] [address] [place] [address], [address], 12/25/2020 12:56:29 12/09/19 22 12/08/2021 URINE CULTU RE results Sour e: CCUR Colle cted: 12/08 16:02 Site: Sandra bayron : 12/08 19:58 URINE CULTU RE FINAL 12/12 10:43 12/12 COLON Y COUNT : < 10,00 0 CFU/M L Yeast . Not Available [facility] [address] [facility], [place], [address], 12/12/2021 10:43:14 12/09/19 22 12/08/2021 urina lysis panel , auto Unknown Analyte Clean Catch Not Available [facility] [address] Zhang, [place], [address], 12/08/2021 15:55:52 12/09/19 22 12/08/2021 urina lysis panel , auto Unknown Analyte Yellow Not Available [facility] With [address] Zhang, [place], [address], 12/08/2021 15:55:52 12/09/19 22 12/08/2021 urina lysis panel , auto Unknown Analyte Clear Not Available [facility] With [address] Zhang, [place], [address], 12/08/2021 15:55:52 12/09/19 22 12/08/2021 urina lysis panel , auto Unknown Analyte 1.015 Not Available [facility] With [address] [place], [address], 12/08/2021 15:55:52 12/09/19 22 12/08/2021 urina lysis panel , auto Unknown Analyte 1.003- 1.035 Not Available [facility] With [address] [place], [address], 12/08/2021 15:55:52 12/09/19 22 12/08/2021 urina lysis panel , auto Unknown Analyte 5.0 Not Available [facility] With [address] Zhang, [place], [address], 12/08/2021 15:55:52 12/09/19 22 12/08/2021 urina lysis panel , auto Unknown Analyte 5.0-8. 0 Not Available [facility] With [address] Zhang, [place], [address], 12/08/2021 15:55:52 12/09/19 22 12/08/2021 urina lysis panel , auto Unknown Analyte 500 Guerline/ul (++) Not Available [facility] With [address] [place], [address], 12/08/2021 15:55:52 12/09/19 22 12/08/2021 urina lysis panel , auto Unknown Analyte Negati ve Not Available [facility] With [address] Zhang, [place], [address], 12/08/2021 15:55:52 12/09/19 22 12/08/2021 urina lysis panel , auto Unknown Analyte Negati ve Not Available [facility] With [address] [place], [address], 12/08/2021 15:55:52 12/09/19 22 12/08/2021 urina lysis panel , auto Unknown Analyte Negati ve Not Available [facility] With [address] Zhang, [place], [address], 12/08/2021 15:55:52 12/09/19 22 12/08/2021 urina lysis panel , auto Unknown Analyte Negati ve Not Available [facility] With [address] Zhang, [place], [address], 12/08/2021 15:55:52 12/09/19 22 12/08/2021 urina lysis panel , auto Unknown Analyte Negati ve Not Available [facility] With [address] [place], [address], 12/08/2021 15:55:52 12/09/19 22 12/08/2021 urina lysis panel , auto Unknown Analyte Normal Not Available [facility] With [address] [place], [address], 12/08/2021 15:55:52 12/09/19 22 12/08/2021 urina lysis panel , auto Unknown Analyte Normal Not Available [facility] With [address] [place], [address], 12/08/2021 15:55:52 12/09/19 22 12/08/2021 urina lysis panel , auto Unknown Analyte Negati ve Not Available [facility] With [address] [place], [address], 12/08/2021 15:55:52 12/09/19 22 12/08/2021 urina lysis panel , auto Unknown Analyte Negati ve Not Available [facility] With [address] [place], [address], 12/08/2021 15:55:52 12/09/19 22 12/08/2021 urina lysis panel , auto Unknown Analyte Normal Not Available [facility] With [address] [place], [address], 12/08/2021 15:55:52 12/09/19 22 12/08/2021 urina lysis panel , auto Unknown Analyte Normal 1 mg/dl Not Available [facility] With [address] Zhang, [place], [address], 12/08/2021 15:55:52 12/09/19 22 12/08/2021 urina lysis panel , auto Unknown Analyte Negati ve Not Available [facility] With [address] Zhang, [place], [address], 12/08/2021 15:55:52 12/09/19 22 12/08/2021 urina lysis panel , auto Unknown Analyte Negati ve Not Available [facility] With [address] Zhang, [place], [address], 12/08/2021 15:55:52 12/09/19 22 12/08/2021 urina lysis panel , auto Unknown Analyte 250 Aníbal/ul Not Available [facility] With [address] Zhang, [place], [address], 12/08/2021 15:55:52 12/09/19 22 12/08/2021 urina lysis panel , auto Unknown Analyte Negati ve Not Available [facility] With [address] [place], [address], 12/08/2021 15:55:52 01/20/20 22 01/19/2022 URINE CULTU RE results Sour e: CCUR Colle cted: 01/19 15:24 Site: Recei bayron : 01/19 19:25 URINE CULTU RE FINAL 01/23 13:53 01/23 COLON Y COUNT : < 10,00 0 CFU/M L Two or more isola margaux; mixed skin beverley . 2,000 CFU/M L Gram Negat bora Bacil nighat. NO FURTH ER TRUNG P UNLES S REQUE STED Not Available [facility] [address] [facility], [place], [address], 01/23/2022 13:53:12 01/20/20 22 01/19/2022 urina lysis panel , auto Unknown Analyte Clean Catch Not Available [facility] With [address], [place], [address], 01/19/2022 15:21:15 01/20/20 22 01/19/2022 urina lysis panel , auto Unknown Analyte Yellow Not Available [facility] With [address], [place], [address], 01/19/2022 15:21:15 01/20/20 22 01/19/2022 urina lysis panel , auto Unknown Analyte Slight ly Hazy Not Available [facility] With [address], [place], [address], 01/19/2022 15:21:15 01/20/20 22 01/19/2022 urina lysis panel , auto Unknown Analyte 1.025 Not Available [facility] With [address], [place], [address], 01/19/2022 15:21:15 01/20/20 22 01/19/2022 urina lysis panel , auto Unknown Analyte 1.003- 1.035 Not Available [facility] With [address] [place], [address], 01/19/2022 15:21:15 01/20/20 22 01/19/2022 urina lysis panel , auto Unknown Analyte 5.0 Not Available [facility] With [address] [place], [address], 01/19/2022 15:21:15 01/20/20 22 01/19/2022 urina lysis panel , auto Unknown Analyte 5.0-8. 0 Not Available [facility] With [address], [place], [address], 01/19/2022 15:21:15 01/20/20 22 01/19/2022 urina lysis panel , auto Unknown Analyte 500 Guerline/ul (++) Not Available [facility] With [address], [place], [address], 01/19/2022 15:21:15 01/20/20 22 01/19/2022 urina lysis panel , auto Unknown Analyte Negati ve Not Available [facility] With [address] [place], [address], 01/19/2022 15:21:15 01/20/20 22 01/19/2022 urina lysis panel , auto Unknown Analyte Negati ve Not Available [facility] [address], [place], [address], 01/19/2022 15:21:15 01/20/20 22 01/19/2022 urina lysis panel , auto Unknown Analyte Negati ve Not Available [facility] [address] [place], [address], 01/19/2022 15:21:15 01/20/20 22 01/19/2022 urina lysis panel , auto Unknown Analyte Trace Not Available [facility] [address] [place], [address], 01/19/2022 15:21:15 01/20/20 22 01/19/2022 urina lysis panel , auto Unknown Analyte Negati ve Not Available [facility] [address] Zhang, [place], [address], 01/19/2022 15:21:15 01/20/20 22 01/19/2022 urina lysis panel , auto Unknown Analyte Normal Not Available [facility] [address] [place], [address], 01/19/2022 15:21:15 01/20/20 22 01/19/2022 urina lysis panel , auto Unknown Analyte Normal Not Available [facility] [address] [place], [address], 01/19/2022 15:21:15 01/20/20 22 01/19/2022 urina lysis panel , auto Unknown Analyte 15 mg/dl (Sm) Not Available [facility] [address] [place], [address], 01/19/2022 15:21:15 01/20/20 22 01/19/2022 urina lysis panel , auto Unknown Analyte Negati ve Not Available [facility] [address] [place], [address], 01/19/2022 15:21:15 01/20/20 22 01/19/2022 urina lysis panel , auto Unknown Analyte 1 mg/dl Not Available [facility] [address] [place], [address], 01/19/2022 15:21:15 01/20/20 22 01/19/2022 urina lysis panel , auto Unknown Analyte Normal 1 mg/dl Not Available [facility] [address] [place], [address], 01/19/2022 15:21:15 01/20/20 22 01/19/2022 urina lysis panel , auto Unknown Analyte 1 mg/dl (+) Not Available [facility] [address] Zhang, [place], [address], 01/19/2022 15:21:15 01/20/20 22 01/19/2022 urina lysis panel , auto Unknown Analyte Negati ve Not Available [facility] [address] Zhang, [place], [address], 01/19/2022 15:21:15 01/20/20 22 01/19/2022 urina lysis panel , auto Unknown Analyte 50 Aníbal/ul Not Available [facility] [address] [place], [address], 01/19/2022 15:21:15 01/20/20 22 01/19/2022 urina lysis panel , auto Unknown Analyte Negati ve Not Available [facility] [address] Zhang, [place], [address], 01/19/2022 15:21:15 Result Notes None recorded. Problems Name Problem SNOMED Code Status Onset Date Resolution Date Notes Provider Name and Address Organization Details Recorded Time Benign prostatic hyperplasia with outflow obstruction 715676321 Active 2016 Theodore welsh [facility] 7 14:16:12 Problem Notes None recorded. Procedures Surgical History Date Name Laterality Status Provider Name and Address Organization Details Recorded Time 9 endoscopic laser surgery on colon completed Theodore Gonzáles [facility] 12/02/2019 11:16:00 Imaging Results None recorded. Procedure [...] Body mass index (BMI) Body weight Systolic And Diastolic Provider Name and Address Organization Details Last Updated DateTime 09/05/2018 167.64 cm 22.6 kg/m2 27844.93 g 110/58 mm[Hg] Theodore Gonzáles [facility] 09/05/2018 13:21:19 Date Recorded Body height Body mass index (BMI) Body weight Provider Name and Address Organization Details Last Updated DateTime 12/02/2019 167.64 cm 6.5 kg/m2 08657.69 g Theodore Gonzáles [facility] 12/02/2019 11:13:20 Date Recorded Body height Body mass index (BMI) Body weight Provider Name and Address Organization Details Last Updated DateTime 12/08/2021 167.64 cm 22.6 kg/m2 56229.93 g Patricia Sosa [facility] 12/08/2021 15:02:40 Date Recorded Body height Body mass index (BMI) Body weight Provider Name and Address Organization Details Last Updated DateTime 12/23/2020 167.64 cm 22.6 kg/m2 33487.93 g Theodore Gonzáles [facility] 12/23/2020 13:00:42 Date Recorded Body height Body mass index (BMI) Body weight Provider Name and Address Organization Details Last Updated DateTime 01/19/2022 167.64 cm 22.6 kg/m2 07304.93 g Theodore Gonzáles [facility] 01/19/2022 15:05:35 Social History Question Answer Notes LastModified by Organizat ion Details LastModified Time Tobacco Smoking Status Never Smoker Theodore Gonzáles [facility] 10/12/2016 15:11:55 How Much Tobacco Do [...] SNOMED-CT Code Diagnosis ICD10 Code Diagnosis Note [id number] AUGUSTO MANZO MD [facility] [address],[place] [address] 10/12/2016 14:51:16 10/25/2016 10:14:37 Prostate specific antigen outside reference range 751000674 R97.20 N40.2 N40.3 [id number] AUGUSTO MANZO MD [facility] [place] [address] [address],[place] [address] 8 12/14/2016 14:21:05 12/19/2016 16:50:23 Benign prostatic hyperplasia with outflow obstruction 527884305 N40.1 [id number] AUGUSTO MANZO MD [facility] [place] [address] [address],[place] [address] 06/14/2017 13:31:05 06/15/2017 09:42:58 Benign prostatic hyperplasia with outflow obstruction 034638977 N40.1 Urinary tr act infectious disease 97357603 N39.0 [id number] AUGUSTO MANZO MD [facility] [address],[place] [address] 02/28/2018 14:45:33 03/11/2018 07:52:39 Balanitis 49836621 N48.1 Urinary tr act infectious disease 31888696 N39.0 Benign pro static hyperplasia with outflow obstruction 126887521 N40.1 [id number] AUGUSTO MANZO MD [facility] [address] [address] 09/05/2018 13:11:16 09/16/2018 10:31:18 Benign prostatic hyperplasia with outflow obstruction 026347252 N40.1 [id number] AUGUSTO MANZO MD [facility] [address] [place] [address] 12/02/2019 10:38:12 12/02/2019 11:24:46 Urinary tract infectious disease 78731521 N39.0 Benign pro static hyperplasia with outflow obstruction 976883193 N40.1 [id number] AUGUSTO MAZNO MD [facility] [address] [place] [address] 8 12/23/2020 12:46:21 12/24/2020 15:42:03 Urinary tract infectious disease 82459105 N39.0 Benign pro static hyperplasia with outflow obstruction 651989895 N40.1 [id number] AUGUSTO MANZO MD [facility] [address] [place] [address] 8 12/08/2021 15:01:54 12/14/2021 06:46:47 Urinary tract infectious disease 46096140 N39.0 Benign pro static hyperplasia with outflow obstruction 308224499 N40.1 [id number] AUGUSTO MANZO MD [facility] [address] [place] [address] 8 01/19/2022 14:17:16 01/23/2022 08:10:02 Benign prostatic hyperplasia with outflow obstruction 454274834 N40.1 Urinary tr act infectious disease 00278139 N39.0 Urinary bladder stone 70 417642 N21.0 Health Concerns Section Related Observation LastModified by Organization Detai ls LastModified Time None Recorded Concern Status LastModified by Organization Details LastModified Time None Recorded Advance Directives Directive None Recorded Payers Insurance Date Sequence Insurance Name Policy Number Policy Meier Covered Member ID Meier Member ID Guarantor Name 01/16/2022 2 MEDICAID-[facility] CHOICES - FFS/TRADITIO NAL Federico Hoyos [id number] Federico Hoyos 01/16/2022 1 [place] Federico Hoyos [id number] Federico Hoyos 07/14/2017 2 [place] [facility] [place] FFS/TRADITIO NAL Federico Hoyos [id number] Federico Hoyos Notes Date Note Type Note [...] He continues on tamsulosin. AUGUSTO MANZO MD [address] [place] [address], [address], [facility] 09/15/2018 21:19:56 12/02/2019 text/html 79-year-old male in the office for follow-up evaluation of benign prostatic hyperplasia with lower urinary symptoms. He has history of balanitis also. He voids every 2 hours with nocturia 0 to once nightly. No hematuria or dysuria. He takes tamsulosin daily. AUGUSTO MANZO MD [address] [place] [address], [address], [facility] 12/02/2019 11:25:09 12/23/2020 text/html 80-year-old male in the office for annual follow-up evaluation of benign prostatic hyperplasia with lower urinary symptoms. He voids every 2 hours with nocturia once nightly. No gross hematuria or dysuria. He continues taking tamsulosin. AUGUSTO MANZO MD [address] [place] [address], [address], [facility] 12/28/2020 08:49:26 12/08/2021 text/html 81-year-old male in the office for follow-up evaluation of benign prostatic hyperplasia with lower urinary symptoms. He voids every 2 hours with nocturia once nightly. He reports decreased force of stream. No hematuria or dysuria. He takes tamsulosin but has not noted significant improvement with 0.4 mg dosing. AUGUSTO MANZO MD [address] [place] [address] [place], [address], [facility] 12/09/2021 08:16:26 01/19/2022 text/html 81-year-old male in the office for follow-up evaluation of benign prostatic hyperplasia with lower urinary symptoms. He takes double dose tamsulosin. He voids every 2 hours with nocturia 1 or 2 times nightly. Force of stream is variable. No hematuria or dysuria. He reports recent diagnosis of kidney and bladder stones. AUGUSTO MANZO MD [facility] [place], [address], [facility] 01/22/2022 14:35:22
--- OUTSIDE RECORDS SUMMARY | 2025-02-12 08:54 | XMS_ITS | Encounter Summary ---
Author Organization Healthcare Address [address] [place] [address] Care Team Providers Care Wafer Fab Technician Name Role Phone Tushar Barba Brenda Primary Care Provider [phone] Encounter Details Date Type Department Care Team (Late st Contact Info) Description 11/05/2023 Orders Only External Location [address] [place] [address] Steve Rubio, DO [address] [place] [address] Social History Tobacco Use Types [...] Computed Tomogra phy 11/05/2023 9:41 AM EDT Steve Rubio DO IMG CT PROCEDURES Final Resul t documented in this encounter Visit Diagnoses Not on filedocumented in this encounter Additional Health Concerns Infection Onset Date Last Indicated Resolved Time C. difficile Rule-Out 12/23/2023 12/23/20232023 11:09 AM EDT Gastrointestinal Rule-Out 12/23/2023 12/23/2023 8:59 PM EDT documented as of this encounter Care Teams Wafer Fab Technician Relationship Specialty Start Date End Date Tushar Barba [address] [place] [address] PCP - General Family Medicine 11/21/23 documented as of this encounter
--- OUTSIDE RECORDS SUMMARY | 2025-02-12 08:54 | XMS_ITS | Encounter Summary ---
Author Organization [facility] Address [address] [place] [address] Care Team Providers Care Instruction Assistant Principal Name Role Phone JamesonTushar Primary Care Provider [phone] Encounter Details Date Type Department Care Team (Late st Contact Info) Description 12/03/2023 Orders Only External Location [address] [place] [address] Kali Landry MD [address] [place] [address] Social History Tobacco Use Types Packs/Day [...] documented as of this encounter Care Teams Instruction Assistant Principal Relationship Specialty Start Date End Date Tushar Barba [address] [place] [address] PCP - General Family Medicine 11/21/23 documented as of this encounter
--- OUTSIDE RECORDS SUMMARY | 2025-02-12 08:54 | XMS_ITS | Encounter Summary ---
Author Organization [facility] Address [address] [place] [address] Care Team Providers Care Lumber Tallier Name Role Phone JamesonTushar Primary Care Provider [phone] Encounter Details Date Type Department Care Team (Late st Contact Info) Description 12/03/2023 Orders Only External Location [address] [place] [address] Mango Osorio DO [address] [place] [address] Social History Tobacco Use Types Packs/Day [...] Ultrasound 12/03/2023 7:32 AM EDT us Mango S Kouns DO IMG US PROCEDURES Final Resu lt documented in this encounter Visit Diagnoses Not on filedocumented in this encounter Additional Health Concerns Infection Onset Date Last Indicated Resolved Time C. difficile Rule-Out 12/23/2023 12/23/20232023 11:09 AM EDT Gastrointestinal Rule-Out 12/23/2023 12/23/2023 8:59 PM EDT documented as of this encounter Care Teams Lumber Tallier Relationship Specialty Start Date End Date Tushar Barba [address] [place] [address] PCP - General Family Medicine 11/21/23 documented as of this encounter
[2025-02-12] MEDS: METHYLPREDNISOLONE SOD SUCC 125MG VIAL 125 MG IV (09:04)
[2025-02-12] MEDS: ACETAMINOPHEN 325MG TAB 650 MG PO (09:04)
[2025-02-12 09:12] LABS: Hematocrit 36.2 % (42.0-52.0); Hemoglobin 12.0 g/dL (14.1-18.0); Immature Granulocytes % 0.3 %; Mean Corpuscular HGB Conc 33.1 g/dL (31.8-35.4); Mean Corpuscular Hemoglobin 29.6 pg (27.0-31.2); Mean Corpuscular Volume 89.2 fl (80-94); Nucleated Red Blood Cells % 0 %; Platelet Count 123 K/mm3 (142-424); Red Blood Count 4.06 M/mm3 (4.60-6.20); Red Cell Distribution Width-SD 49.0 fL; White Blood Count 6.3 K/mm3 (4.8-10.8)
[2025-02-12] MEDS: SODIUM CHLORIDE 0.9% IV (10:07)
[2025-02-12] MEDS: RITUXIMAB IV (10:07)
== END 2025-02-12 13:30 | disposition home or self-care (01) ==
LOC: INF 08:51
PROVIDERS: PCP Emergency Medicine; Visit Provider Student in an Organized Health Care Education/Training Program
DX: R94.5 Abnormal results of liver function studies (principal); N18.4 Chronic kidney disease, stage 4 (severe)
CPT/HCPCS: 85025; 96413; 96415; J2919; J7040; J9312

== ENCOUNTER 2025-07-14 17:51 | Outpatient (CLI) | payer MEDICARE, MEDICAID, SELFPAY ==
--- OUTSIDE RECORDS SUMMARY | 2025-07-14 17:56 | XMS_ITS | Encounter Summary ---
Author Organization [facility] Address [address] [place] [address] Care Team Providers Care Circuitry Negative Inspector Name Role Phone Tushar Barba MD Primary Care Provider [phone] Reason for Visit * Reason Onset Date Comments HCN - Patient Message 07/03/2025 Encounter Details Date Type Department Care Team (Late st Contact Info) Description 07/03/2025 Telephone [facility] [address] [facility], [address] [place] [address] Brandon Lilly MD [address] [place] [address] HCN - Patient Message Social History Tobacco Use Types Packs/Day Years [...] encounter Miscellaneous Notes * Telephone Encounter - Divya Mckeon - 07/03/2025 12:40 PM EST Clinical Concern/Question Reason for Call: pt has questions about lab work. Best contact number: [phone] (mobile) Optimal time of day to reach caller: ANYTIME Additional comments/information from caller: None Note: Please do not reply to this message. Follow-up communication and further actions as a result of this message need to be communicated with the patient directly, if the patient is not active onMyChart. If the patient is active on MyChart, they will receive notification of the communication/outcome via MyChart. documented in this encounter Plan of Treatment Upcoming Encounters Date Type Department Care Team (Late st Contact Info) Description 07/17/2025 12:00 PM EST Office Visit [facility] [address] [facility] [address] [place] [address] Brandon Lilly MD [address] [place] [address] documented as of this encounter Visit Diagnoses Not on filedocumented in this encounter Additional Health Concerns Assessment Noted Time PHQ-9 Depression Total Score: 0 06/24/20 4:20 PM EST A fall risk assessment has been complete d for the patient 06/24/2024 4:20 PM EST A Body Mass Index follow-up plan has been documented for the patient 03/13/2025 12:34 PM EDT documented as of this encounter Care Teams Circuitry Negative Inspector Relationship Specialty Start Date End Date Tushar Barba MD [address] [place] [address] PCP - General Family Medicine 11/21/23 documented as of this encounter
--- OUTSIDE RECORDS SUMMARY | 2025-07-14 17:57 | XMS_ITS | Referral Summary ---
Author Organization [employer] ([place], [place], [place], [place], [place]) Address [address] [place] [address] Care Team Providers Care Mid Level Developer Name Role Phone Tushar Barba MD Primary Care Provider [phone] Prosper Macdonald MD Unavailable Allergies No known [...] Date Diaz rded Speak language other than Cymro at home Not on file 08/10/2023 Want [...] Plan of Treatment Not on file Insurance [address] [place] [id number] MEDICARE PART A B MEDICAID OF [place] Care Teams Mid Level Developer Relationship Specialty Start Date End Date Tushar Barba MD [address] [place] [address] PCP - General Family Medicine 10/11/23 Prosper Macdonald MD [address] [place] [address] Consulting Physician Urology 10/23/23
--- OUTSIDE RECORDS SUMMARY | 2025-07-14 17:57 | XMS_ITS | Encounter Summary ---
Author Organization [facility] Address [address] [place] [address] Care Team Providers Care Block Bolter Mule Operator Name Role Phone Tushar Barba MD Primary Care Provider [phone] Encounter Details Date Type Department Care Team (Late st Contact Info) Description 12/03/2023 Orders Only External Location [address] [place] [address] Kali Landry MD [address] [place] [address] Social History Tobacco Use Types Packs/Day Years Used Date Smoking Tobacco: Never Assessed Sex and Gender Information Value Date Recorded Sex Assigned at Not on file Legal Sex Male 2:47 PM EDT Gender Identity Not on file Sexual Orientation Not on file documented as of this encounter Plan of Treatment Upcoming Encounters Date Type Department Care Team (Late st Contact Info) Description 07/17/2025 12:00 PM EST Office Visit [facility] [address] [place] [address] Brandon Lilly MD [address] [place] [address] documented as of this encounter Procedures Procedure [...] documented as of this encounter Care Teams Block Bolter Mule Operator Relationship Specialty Start Date End Date Tushar Barba MD [address] [place] [address] PCP - General Family Medicine 11/21/23 documented as of this encounter
--- OUTSIDE RECORDS SUMMARY | 2025-07-14 17:57 | XMS_ITS | Encounter Summary ---
Author Organization Healthcare Address [address] [place] [address] Care Team Providers Care Feed Research Technician Name Role Phone Tushar Barba MD Primary Care Provider [phone] Encounter Details Date Type Department Care Team (Late st Contact Info) Description 11/05/2023 Orders Only External Location [address] [place] [address] Steve Rubio, DO [address] [place] [address] Social History Tobacco Use Types [...] Description 07/17/2025 12:00 PM EST Office Visit [facility] [address] [place] [address] Brandon Lilly MD [address] [place] [address] documented as of this encounter Procedures Procedure [...] documented as of this encounter Care Teams Feed Research Technician Relationship Specialty Start Date End Date Tushar Barba MD [address] [place] [address] PCP - General Family Medicine 11/21/23 documented as of this encounter
--- OUTSIDE RECORDS SUMMARY | 2025-07-14 17:57 | XMS_ITS | Encounter Summary ---
Author Organization Healthcare Address [address] [place] [address] Care Team Providers Care Loss Prevention Guard Name Role Phone Tushar Barba MD Primary Care Provider [phone] Encounter Details Date Type Department Care Team (Late st Contact Info) Description 12/03/2023 Orders Only External Location [address] [place] [address] Mango Osorio, DO [address] [place] [address] Social History Tobacco Use Types Packs/Day [...] Description 07/17/2025 12:00 PM EST Office Visit [facility] [address] [place] [address] Brandon Lilly MD [address] [place] [address] documented as of this encounter Procedures Procedure [...] documented as of this encounter Care Teams Loss Prevention Guard Relationship Specialty Start Date End Date Tushar Barba MD [address] [place] [address] PCP - General Family Medicine 11/21/23 documented as of this encounter
--- OUTSIDE RECORDS SUMMARY | 2025-07-14 17:57 | XMS_ITS | Clinical Summary ---
Author Organization [facility] Address [address] [place] [address] Care Team Providers Care Public Relations Manager Name Role Phone Tushar Barba MD Primary Care Provider [phone] Allergies No known active allergies Medications atorvastatin [...] split. Active ergocalciferol (Vitamin D-2) 1.25 MG (71319 UT) capsule Take 1 capsule (50,000 Units) [...] every night. 90 capsule 3 07/04/2024 Active bumetanide (Bumex) 1 MG tablet Take 1 tablet (1 mg) by mouth Daily. 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 Abnormal finding on liver function 07/04/2024 Vitamin D deficiency 07/04/2024 Hypertensive chronic kidney disease with stage 1 through stage 4 chronic kidney disease, or unspecified chronic kidney disease 07/04/2024 BPH with lower urinary tract symptoms without urinary obstruction 07/04/2024 Long-term current use of rituximab 03/24/2024 Hypokalemia 03/24/2024 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, [address] [place] [address] Brandon Lilly MD HCN - Patient Message from Last 3 Months Immunizations Immunization Administration [...] money to buy more. Never true 12/21/19 24 Within the past 12 months, t he [...] place to sleep or slept in a half-way (including now)? No 12/21/2023 PHQ-9 Answer Date Recorded Patient Health Questionnaire-9 Score 0 06/24/2024 Utilities Answer Date Recorded In the past 12 months has [employer], gas, oil, or water [employer] threatened to shut off services in your home? No 12/21/2023 Sex and Gender Information Value Date Recorded Sex Assigned at Not on file Legal Sex Male 2:47 PM EDT Gender Identity Not on file Sexual Orientation Not on file Last Filed Vital Signs Vital Sign Reading Time Taken Comments Blood Pressure 106/56 03/13/2025 12:00 PM EDT Pulse 64 03/13/2025 12:00 PM EDT Temperature 36.3 C (97.3 F) 10/03/2024 9:57 AM EST Respiratory Rate 18 03/13/2025 12:00 PM EDT Oxygen Saturation 100% 03/13/2025 12:00 PM EDT Inhaled Oxygen Concentration - - Weight 48.1 kg (106 lb) 03/13/2025 12:00 PM EDT Height 165.1 cm (5' 5 ) 03/13/2025 12:00 PM EDT Body Mass Index 17.64 03/13/2025 12:00 PM EDT Plan of Treatment Upcoming Encounters Date Type Department Care Team (Late st Contact Info) Description 07/17/2025 12:00 PM EST Office Visit [facility] [address] [place] [address] Brandon Lilly MD [address] [place] [address] Health Maintenance Due Date Last Done Comments [facility]icare Annual Wellness (AWV) 1940 [facility]-Infant/Child/Adol SDOH Screenings 1940 [id number] Vaccine (#1) 02/23/1941 [facility]- SDOH Screenings 1960 [facility]-Adult SDOH Screenings [...] [facility]-Depression Screening 06/24/2025 024, 06/24/2024 HPV Vaccines (No Doses Required) Completed [facility]-HIB Vaccines Aged Out No longer e ligible based on patient's age to complete this topic [facility]-IPV Vaccines Aged Out No longer e ligible based on patient's age to complete this topic [facility]-Rotavirus Vaccines Aged Out No lo nger eligible based on patient's age to complete this topic Insurance MEDICARE [place]ICAID-[place] Advance Directives Documents on File Type Date Recorded Patient Visual Communications Instructor Expl anation Advance Directives and Livin g [...] Agents on File Name Relationship Healthcare Agent [facility] Communication Phil Hoyos Power of Veterinary Inspector Health Care Agent Rosario Slelers Daughter Next of Kin Care Teams Public Relations Manager Relationship Specialty Start Date End Date Tushar Barba MD [address] [place] [address] PCP - General Family Medicine 11/21/23
--- OUTSIDE RECORDS SUMMARY | 2025-07-14 17:57 | XMS_ITS | Data Portability ---
Author Organization [place] - Rupert Bobbyi NICHOL tejedaS [place] [facility] Address [address] [facility] [address] [place] [address] Care Team Providers Care Scarfer Name Role Phone ROBELRICHARDMami SANTANA Primary Care Provider Assessment Encounter Date Assessment Date Assessment LastModified by Organization Details LastModified Time 09/05/2018 09/05/2018 Continue tamsulosin.An nual follow-up. [email or web address] Not available 09/15/2018 21:19:20 12/08/2021 12/08/2021 Urine for culture and sensitivity. Medication adjustment to include double dose tamsulosin. Follow-up to reassess voiding symptoms. [email or web address] Not available 12/09/2021 08:16:12 01/19/2022 01/19/2022 Medical management lower urinary symptoms with double dose tamsulosin. We discussed medication adjustment versus endoscopic treatment of BPH symptoms. He reports bladder stone which could be related to bladder outlet obstruction. He is not interested in surgical procedure at this time. Continue to monitor symptoms. Follow-up with [facility]. [email or web address] Not available 01/19/2022 14:34:19 Plan of Treatment Reminders Order Date Submit Date Provider Last Modified By Organization Details Last Modified Time Details Appointments None recorded. Lab urinalysis panel, auto 2021 022 [email or web address] 4 [facility] [place] [facility], [address] [place] [address], [address], [place], [address], 10:38:46 culture, urine 2021 022 [email or web address] 4 [facility], [address] [place] [address], [address], 2 10:38:46 urinalysis panel, auto 2021 022 [email or web address] 4 [facility], [address] [place] [address] , [address], [place], [address], 2 16:37:57 culture, urine 2021 022 [email or web address] 4 [facility], [address] [place] [address], [address], 2 16:37:57 urinalysis panel, auto 2020 021 [email or web address] 4 [facility], [address] , [address], [place], [address], 1 22:29:48 culture, urine 2020 021 [facility], [address] [place] [address], [address], 1 12:22:44 urinalysis , dipstick, auto 2019 020 [email or web address] 4 [facility], [address] [facility], [address], [place], [address], 0 12:18:05 culture + sensitivit y, urine 2019 020 [facility], [address] [place] [address], [address], 0 10:57:49 Referral None recorded. Procedures None recorded. Surgeries None recorded. Imaging None recorded. Medication Orders tamsulosin 0.4 mg capsule 2021 022 [id number] 4 [facility], [address] [facility] [place], [address], 2 08:15:08 tamsulosin 0.4 mg capsule 2020 021 [email or web address] 4 [facility], [facility] [place], [address], 1 08:48:15 tamsulosin 0.4 mg capsule 2019 020 INTERFACE [facility], [address] [place] [address], [address], 0 11:24:24 Flomax 0.4 mg capsule 2018 019 INTERFACE [facility], [address] [place] [address], [address], 9 13:41:37 Patient TargetsNo targets recorded. Patient Instructions Encounter Date Encounter Id Patient Instructions Last Modified By Organization Details Last Modified Time 09/05/2018 [id number] learning about high blood pressure [email or web address] Not available 09/05/2018 13:41:34 12/02/2019 [id number] Male Urinary Tract Infection (UTI): Care Instructions [email or web address] Not available 12/02/2019 12:18:05 01/19/2022 [id number] learning about healthy weight Not available 01/22/2022 14:34:54 Reason for Referral None Reported. Results Created Date Observation Date Name Description Value Unit Range Abnormal Flag Note LastModifiedBy Organization Detail LastModifiedTime 12/24/1912/23/2020 urina lysis panel , auto Unknown Analyte Clean Catch Not Available [facility] [place] [facility] [address], [place], [address], 12/23/2020 13:01:40 12/24/19 21 12/23/2020 urina lysis panel , auto Unknown Analyte Yellow Not Available [facility] [place] With [address], [place], [address], 12/23/2020 13:01:40 12/24/19 21 12/23/2020 urina lysis panel , auto Unknown Analyte Slight ly Hazy Not Available [facility] With [address], [place], [address], 12/23/2020 13:01:40 12/24/19 21 12/23/2020 urina lysis panel , auto Unknown Analyte 1.025 Not Available [facility] With [address], [place], [address], 12/23/2020 13:01:40 12/24/19 21 12/23/2020 urina lysis panel , auto Unknown Analyte 1.003- 1.035 Not Available [facility] With [address], [place], [address], 12/23/2020 13:01:40 12/24/19 21 12/23/2020 urina lysis panel , auto Unknown Analyte 5.0 Not Available [facility] With [address], [place], [address], 12/23/2020 13:01:40 12/24/19 21 12/23/2020 urina lysis panel , auto Unknown Analyte 5.0-8. 0 Not Available [facility] With [address], [place], [address], 12/23/2020 13:01:40 12/24/19 21 12/23/2020 urina lysis panel , auto Unknown Analyte 500 Guerline/ul (++) Not Available [facility] With [address], [place], [address], 12/23/2020 13:01:40 12/24/19 21 12/23/2020 urina lysis panel , auto Unknown Analyte Negati ve Not Available [facility] With [address], [place], [address], 12/23/2020 13:01:40 12/24/19 21 12/23/2020 urina lysis panel , auto Unknown Analyte Negati ve Not Available [facility] With [address], [place], [address], 12/23/2020 13:01:40 12/24/19 21 12/23/2020 urina lysis panel , auto Unknown Analyte Negati ve Not Available [facility] With [address], [place], [address], 12/23/2020 13:01:40 12/24/19 21 12/23/2020 urina lysis panel , auto Unknown Analyte Negati ve Not Available [facility] With [address], [place], [address], 12/23/2020 13:01:40 12/24/19 21 12/23/2020 urina lysis panel , auto Unknown Analyte Negati ve Not Available [facility] With [place] [address], [place], [address], 12/23/2020 13:01:40 12/24/19 21 12/23/2020 urina lysis panel , auto Unknown Analyte Normal Not Available [facility] [place] [address], [place], [address], 12/23/2020 13:01:40 12/24/19 21 12/23/2020 urina lysis panel , auto Unknown Analyte Normal Not Available [facility] [place] [address], [place], [address], 12/23/2020 13:01:40 12/24/19 21 12/23/2020 urina lysis panel , auto Unknown Analyte Negati ve Not Available [facility] [place] With [address], [place], [address], 12/23/2020 13:01:40 12/24/19 21 12/23/2020 urina lysis panel , auto Unknown Analyte Negati ve Not Available [facility] With [address], [place], [address], 12/23/2020 13:01:40 12/24/19 21 12/23/2020 urina lysis panel , auto Unknown Analyte 1 mg/dl Not Available [facility] With [address], [place], [address], 12/23/2020 13:01:40 12/24/19 21 12/23/2020 urina lysis panel , auto Unknown Analyte Normal 1 mg/dl Not Available [facility] With [address], [place], [address], 12/23/2020 13:01:40 12/24/19 21 12/23/2020 urina lysis panel , auto Unknown Analyte Negati ve Not Available [facility] [address], [place], [address], 12/23/2020 13:01:40 12/24/19 21 12/23/2020 urina lysis panel , auto Unknown Analyte Negati ve Not Available [facility] [place] [facility] [address], [place], [address], 12/23/2020 13:01:40 12/24/19 21 12/23/2020 urina lysis panel , auto Unknown Analyte Negati ve Not Available [facility] [place] With [address], [place], [address], 12/23/2020 13:01:40 12/24/19 21 12/23/2020 urina lysis panel , auto Unknown Analyte Negati ve Not Available [facility] [place] [facility] [address], [place], [address], 12/23/2020 13:01:40 12/02/19 20 12/02/2019 urina lysis , dipst ick, auto Unknown Analyte Yellow Not Available [facility] With [address], [place], [address], 12/02/2019 11:13:52 12/02/19 20 12/02/2019 urina lysis , dipst ick, auto Unknown Analyte Clear Not Available [facility] With [address], [place], [address], 12/02/2019 11:13:52 12/02/19 20 12/02/2019 urina lysis , dipst ick, auto Unknown Analyte 1.020 Not Available [facility] With [address], [place], [address], 12/02/2019 11:13:52 12/02/19 20 12/02/2019 urina lysis , dipst ick, auto Unknown Analyte 1.003 - 1.035 Not Available [facility] With [address], [place], [address], 12/02/2019 11:13:52 12/02/19 20 12/02/2019 urina lysis , dipst ick, auto Unknown Analyte 5.0 Not Available [facility] With [address], [place], [address], 12/02/2019 11:13:52 12/02/19 20 12/02/2019 urina lysis , dipst ick, auto Unknown Analyte 5.0 - 8.0 Not Available [facility] With [address], [place], [address], 12/02/2019 11:13:52 12/02/19 20 12/02/2019 urina lysis , dipst ick, auto Unknown Analyte 500 Guerline/ul (++) Not Available [facility] With [address], [place], [address], 12/02/2019 11:13:52 12/02/19 20 12/02/2019 urina lysis , dipst ick, auto Unknown Analyte Negati ve Not Available [facility] With [address], [place], [address], 12/02/2019 11:13:52 12/02/19 20 12/02/2019 urina lysis , dipst ick, auto Unknown Analyte Negati ve Not Available [facility] With [address], [place], [address], 12/02/2019 11:13:52 12/02/19 20 12/02/2019 urina lysis , dipst ick, auto Unknown Analyte Negati ve Not Available [facility] With [address], [place], [address], 12/02/2019 11:13:52 12/02/19 20 12/02/2019 urina lysis , dipst ick, auto Unknown Analyte 30 mg/dl (+) Not Available [facility] With [address], [place], [address], 12/02/2019 11:13:52 12/02/19 12/02/2019 urina lysis , dipst ick, auto Unknown Analyte Negati ve - Trace Not Available [facility] With [address], [place], [address], 12/02/2019 11:13:52 12/02/19 20 12/02/2019 urina lysis , dipst ick, auto Unknown Analyte Normal Not Available [facility] With [address], [place], [address], 12/02/2019 11:13:52 12/02/1912/02/2019 urina lysis , dipst ick, auto Unknown Analyte Normal Not Available [facility] With [address], [place], [address], 12/02/2019 11:13:52 12/02/1912/02/2019 urina lysis , dipst ick, auto Unknown Analyte 15 mg/dl (Sm) Not Available [facility] With [address], [place], [address], 12/02/2019 11:13:52 12/02/19 20 12/02/2019 urina lysis , dipst ick, auto Unknown Analyte Negati ve Not Available [facility] With [address], [place], [address], 12/02/2019 11:13:52 12/02/1912/02/2019 urina lysis , dipst ick, auto Unknown Analyte 1 mg/dl Not Available [facility] With [address], [place], [address], 12/02/2019 11:13:52 12/02/19 20 12/02/2019 urina lysis , dipst ick, auto Unknown Analyte Normal - 1mg/dl Not Available [facility] With [address], [place], [address], 12/02/2019 11:13:52 12/02/19 20 12/02/2019 urina lysis , dipst ick, auto Unknown Analyte 1 mg/dl (+) Not Available [facility] With [address], [place], [address], 12/02/2019 11:13:52 12/02/19 20 12/02/2019 urina lysis , dipst ick, auto Unknown Analyte Negati ve Not Available [facility] With [address], [place], [address], 12/02/2019 11:13:52 12/02/19 20 12/02/2019 urina lysis , dipst ick, auto Unknown Analyte 50 Aníbal/ul Not Available [facility] [address], [place], [address], 12/02/2019 11:13:52 12/02/19 20 12/02/2019 urina lysis , dipst ick, auto Unknown Analyte Negati ve Not Available [facility] With [address], [place], [address], 12/02/2019 11:13:52 12/02/19 20 12/02/2019 urina lysis , dipst ick, auto Unknown Analyte Clean Catch Not Available [facility] With [address], [place], [address], 12/02/2019 11:13:52 12/02/19 20 12/02/2019 urina lysis , dipst ick, auto Unknown Analyte Automa mel Not Available [facility] [address] [facility] [address], [place], [address], 12/02/2019 11:13:52 12/02/19 20 12/05/2019 cultu re + sensi tivit y, urine urine culture SEE BELOW abnormal CULTU RE, URINE , ROUTI NE Micro Numbe r: [id number] Test Statu s: Final Speci men Sourc e: CLEAN -CATC H Speci men Quali ty: Adequ ate Resul t: 10,00 0-50, 000 CFU/m L of Coagu lase negat bora staph yloco ccus, not S. sapro phyti cus 10,00 0-50, 000 CFU/m L of Yeast [place] mel. Pleas e conta ct the labor [...] PERFO RMED AT: [facility] [address] [place] [address] MONTEZ Gutierrez MD Not Available [facility] [address] [place] [address], [address], 12/05/2019 11:10:33 12/02/1912/09/2019 funga l ident ifica tion, isola te result SEE BELOW normal FUNGA L ISOLA TE IDENT IFICA TION Micro Numbe r: [id number] Test Statu s: Final Speci men Sourc e: URINE Speci men Quali ty: Adequ ate Resul t: Growt h of Valarie da tropi calis TEST PERFO RMED AT[facility] [address] [place] [address] MONTEZ Gutierrez MD Not Available [facility] [address] [place] [address], [address], 12/09/2019 12:34:57 12/24/19 21 12/23/2020 cultu re, urine results Sourc e: KEILA Kapadia cted: 12/23 13:03 Site: Recei bayron : 12/23 19:38 URINE CULTU RE FINAL 12/25 12:56 12/25 COLON Y COUNT : 10,00 0 - 100,0 00 CFU/M L Yeast . Not Available [facility] [address] [place] [address], [address], 12/25/2020 12:56:29 12/09/19 22 12/08/2021 URINE CULTU RE results Sourc e: CCSALO Colle cted: 12/08 16:02 Site: Recei bayron : 12/08 19:58 URINE CULTU RE FINAL 12/12 10:43 12/12 COLON Y COUNT : < 10,00 0 CFU/M L Yeast . Not Available [facility] [address] [facility], [place], [address], 12/12/2021 10:43:14 12/09/19 22 12/08/2021 urina lysis panel , auto Unknown Analyte Clean Catch Not Available [facility] [address], [place], [address], 12/08/2021 15:55:52 12/09/19 22 12/08/2021 urina lysis panel , auto Unknown Analyte Yellow Not Available [facility] With [address], [place], [address], 12/08/2021 15:55:52 12/09/19 22 12/08/2021 urina lysis panel , auto Unknown Analyte Clear Not Available [facility] With [address], [place], [address], 12/08/2021 15:55:52 12/09/19 22 12/08/2021 urina lysis panel , auto Unknown Analyte 1.015 Not Available [facility] With [address], [place], [address], 12/08/2021 15:55:52 12/09/19 22 12/08/2021 urina lysis panel , auto Unknown Analyte 1.003- 1.035 Not Available [facility] [address], [place], [address], 12/08/2021 15:55:52 12/09/19 22 12/08/2021 urina lysis panel , auto Unknown Analyte 5.0 Not Available [facility] With [address], [place], [address], 12/08/2021 15:55:52 12/09/19 22 12/08/2021 urina lysis panel , auto Unknown Analyte 5.0-8. 0 Not Available [facility] [place] [facility] [address], [place], [address], 12/08/2021 15:55:52 12/09/19 22 12/08/2021 urina lysis panel , auto Unknown Analyte 500 Guerline/ul (++) Not Available [facility] With [address], [place], [address], 12/08/2021 15:55:52 12/09/19 22 12/08/2021 urina lysis panel , auto Unknown Analyte Negati ve Not Available [facility] [address], [place], [address], 12/08/2021 15:55:52 12/09/19 22 12/08/2021 urina lysis panel , auto Unknown Analyte Negati ve Not Available [facility] [address], [place], [address], 12/08/2021 15:55:52 12/09/19 22 12/08/2021 urina lysis panel , auto Unknown Analyte Negati ve Not Available [facility] [address], [place], [address], 12/08/2021 15:55:52 12/09/19 22 12/08/2021 urina lysis panel , auto Unknown Analyte Negati ve Not Available [facility] [place] [facility] [address], [place], [address], 12/08/2021 15:55:52 12/09/19 22 12/08/2021 urina lysis panel , auto Unknown Analyte Negati ve Not Available [facility] [place] [facility] [address], [place], [address], 12/08/2021 15:55:52 12/09/19 22 12/08/2021 urina lysis panel , auto Unknown Analyte Normal Not Available [facility] [address], [place], [address], 12/08/2021 15:55:52 12/09/19 22 12/08/2021 urina lysis panel , auto Unknown Analyte Normal Not Available [facility] With [address], [place], [address], 12/08/2021 15:55:52 12/09/19 22 12/08/2021 urina lysis panel , auto Unknown Analyte Negati ve Not Available [facility] [address], [place], [address], 12/08/2021 15:55:52 12/09/19 22 12/08/2021 urina lysis panel , auto Unknown Analyte Negati ve Not Available [facility] [address], [place], [address], 12/08/2021 15:55:52 12/09/19 22 12/08/2021 urina lysis panel , auto Unknown Analyte Normal Not Available [facility] With [address], [place], [address], 12/08/2021 15:55:52 12/09/19 22 12/08/2021 urina lysis panel , auto Unknown Analyte Normal 1 mg/dl Not Available [facility] [address], [place], [address], 12/08/2021 15:55:52 12/09/19 22 12/08/2021 urina lysis panel , auto Unknown Analyte Negati ve Not Available [facility] [place], [place], [address], 12/08/2021 15:55:52 12/09/19 22 12/08/2021 urina lysis panel , auto Unknown Analyte Negati ve Not Available [facility] [address], [place], [address], 12/08/2021 15:55:52 12/09/19 22 12/08/2021 urina lysis panel , auto Unknown Analyte 250 Aníbal/ul Not Available [facility] With [address], [place], [address], 12/08/2021 15:55:52 12/09/19 22 12/08/2021 urina lysis panel , auto Unknown Analyte Negati ve Not Available [address], [place], [address], 12/08/2021 15:55:52 01/20/20 22 01/19/2022 URINE CULTU RE results [facility] e: CCUR Colle cted: 01/19 15:24 Site: Recei bayron : 01/19 19:25 URINE CULTU RE FINAL 01/23 13:53 01/23 COLON Y COUNT : < 10,00 0 CFU/M L Two or more isola margaux; mixed skin beverley . 2,000 CFU/M L Gram Negat broa Bacil nighat. NO FURTH ER TRUNG P UNLES S REQUE STED Not Available [facility] [place], [address], 01/23/2022 13:53:12 01/20/20 22 01/19/2022 urina lysis panel , auto Unknown Analyte Clean Catch Not Available [address], [place], [address], 01/19/2022 15:21:15 01/20/20 22 01/19/2022 urina lysis panel , auto Unknown Analyte Yellow Not Available [facility] [address], [place], [address], 01/19/2022 15:21:15 01/20/20 22 01/19/2022 urina lysis panel , auto Unknown Analyte Slight ly Hazy Not Available [facility] [address], [place], [address], 01/19/2022 15:21:15 01/20/20 22 01/19/2022 urina lysis panel , auto Unknown Analyte 1.025 Not Available [facility] With [address], [place], [address], 01/19/2022 15:21:15 01/20/20 22 01/19/2022 urina lysis panel , auto Unknown Analyte 1.003- 1.035 Not Available [facility] With [address], [place], [address], 01/19/2022 15:21:15 01/20/20 22 01/19/2022 urina lysis panel , auto Unknown Analyte 5.0 Not Available [facility] [address], [place], [address], 01/19/2022 15:21:15 01/20/20 22 01/19/2022 urina lysis panel , auto Unknown Analyte 5.0-8. 0 Not Available [facility] With [address], [place], [address], 01/19/2022 15:21:15 01/20/20 22 01/19/2022 urina lysis panel , auto Unknown Analyte 500 Guerline/ul (++) Not Available [facility] [address], [place], [address], 01/19/2022 15:21:15 01/20/20 22 01/19/2022 urina lysis panel , auto Unknown Analyte Negati ve Not Available [facility] [address], [place], [address], 01/19/2022 15:21:15 01/20/20 22 01/19/2022 urina lysis panel , auto Unknown Analyte Negati ve Not Available [facility] [address], [place], [address], 01/19/2022 15:21:15 01/20/20 22 01/19/2022 urina lysis panel , auto Unknown Analyte Negati ve Not Available [facility] [address], [place], [address], 01/19/2022 15:21:15 01/20/20 22 01/19/2022 urina lysis panel , auto Unknown Analyte Trace Not Available [facility] With [address], [place], [address], 01/19/2022 15:21:15 01/20/20 22 01/19/2022 urina lysis panel , auto Unknown Analyte Negati ve Not Available [facility] [address], [place], [address], 01/19/2022 15:21:15 01/20/20 22 01/19/2022 urina lysis panel , auto Unknown Analyte Normal Not Available [facility] With [address], [place], [address], 01/19/2022 15:21:15 01/20/20 22 01/19/2022 urina lysis panel , auto Unknown Analyte Normal Not Available [facility] With [address], [place], [address], 01/19/2022 15:21:15 01/20/20 22 01/19/2022 urina lysis panel , auto Unknown Analyte 15 mg/dl (Sm) Not Available [facility] [place] [facility] [address], [place], [address], 01/19/2022 15:21:15 01/20/20 22 01/19/2022 urina lysis panel , auto Unknown Analyte Negati ve Not Available [facility] With [address], [place], [address], 01/19/2022 15:21:15 01/20/20 22 01/19/2022 urina lysis panel , auto Unknown Analyte 1 mg/dl Not Available [facility] With [address] Karime Garibay, [place], [address], 01/19/2022 15:21:15 01/20/20 22 01/19/2022 urina lysis panel , auto Unknown Analyte Normal 1 mg/dl Not Available [facility] [address] Karime Garibay, [place], [address], 01/19/2022 15:21:15 01/20/20 22 01/19/2022 urina lysis panel , auto Unknown Analyte 1 mg/dl (+) Not Available [facility] [address], [place], [address], 01/19/2022 15:21:15 01/20/20 22 01/19/2022 urina lysis panel , auto Unknown Analyte Negati ve Not Available [facility] [place] [address] [address], [place], [address], 01/19/2022 15:21:15 01/20/20 22 01/19/2022 urina lysis panel , auto Unknown Analyte 50 Aníbal/ul Not Available [facility] [place] [address] [address], [place], [address], 01/19/2022 15:21:15 01/20/20 22 01/19/2022 urina lysis panel , auto Unknown Analyte Negati ve Not Available [facility] [address]ime Garibay, [place], [address], 01/19/2022 15:21:15 Result Notes None recorded. Problems Name Problem SNOMED Code Status Onset Date Resolution Date Notes Provider Name and Address Organization Details Recorded Time Benign prostatic hyperplasia with outflow obstruction 923386328 Active 2016 [facility] 7 14:16:12 Problem Notes None recorded. Procedures Surgical History Date Name Laterality Status Provider Name and Address Organization Details Recorded Time 9 endoscopic laser surgery on colon completed [facility] 12/02/2019 11:16:00 Imaging Results None recorded. Procedure [...] Updated DateTime 09/05/2018 167.64 cm 22.6 kg/m2 91347.93 g 110/58 mm[Hg] Kahlilneal Eliecer [facility] 09/05/2018 13:21:19 Date Recorded Body height Body mass index (BMI) Body weight Provider Name and Address Organization Details Last Updated DateTime 12/02/2019 167.64 cm 6.5 kg/m2 70699.69 g Theodore Gonzáles [facility] 12/02/2019 11:13:20 Date Recorded Body height Body mass index (BMI) Body weight Provider Name and Address Organization Details Last Updated DateTime 12/08/2021 167.64 cm 22.6 kg/m2 04714.93 g Patricia Ian [facility] 12/08/2021 15:02:40 Date Recorded Body height Body mass index (BMI) Body weight Provider Name and Address Organization Details Last Updated DateTime 12/23/2020 167.64 cm 22.6 kg/m2 85817.93 g Theodore Gonzáles [facility] 12/23/2020 13:00:42 Date Recorded Body height Body mass index (BMI) Body weight Provider Name and Address Organization Details Last Updated DateTime 01/19/2022 167.64 cm 22.6 kg/m2 09534.93 g Theodore [facility] 01/19/2022 15:05:35 Social History Question Answer Notes LastModified by Organizat ion Details LastModified Time Tobacco Smoking Status Never Smoker Theodore Gonzáles [facility] 10/12/2016 15:11:55 How Much Tobacco Do You Chew? None Information not available 09/05/2018 Marital Status Informatio n not available 10/12/2016 What Was [...] Diagnosis SNOMED-CT Code Diagnosis ICD10 Code Diagnosis IMO Codes Diagnosis Note [id number] AUGUSTO MANZO MD [facility] [address] [address] 10/12/2016 14:51:16 10/25/2016 10:14:37 Prostate specific antigen outside reference range 712831655 R97.20 N40.2 N40.3 [id number] AUGUSTO MANZO MD [facility] [address] [place] [address] 8 12/14/2016 14:21:05 12/19/2016 16:50:23 Benign prostatic hyperplasia with outflow obstruction 750542325 N40.1 [id number] AUGUSTO MANZO MD [facility] [address] [place] [address] 8 06/14/2017 13:31:05 06/15/2017 09:42:58 Benign prostatic hyperplasia with outflow obstruction 668742530 N40.1 Urinary tr act infectious disease 50410545 N39.0 [id number] AUGUSTO MANZO MD [facility] [address] [place] [address] 8 02/28/2018 14:45:33 03/11/2018 07:52:39 Balanitis 55026599 N48.1 Urinary tr act infectious disease 03500388 N39.0 Benign pro static hyperplasia with outflow obstruction 703418437 N40.1 [id number] AUGUSTO MANZO MD [facility] [address] [place] [address] 8 09/05/2018 13:11:16 09/16/2018 10:31:18 Benign prostatic hyperplasia with outflow obstruction 910542370 N40.1 [id number] AUGUSTO MANZO MD [facility] [address] [facility] [place] [address] 12/02/2019 10:38:12 12/02/2019 11:24:46 Urinary tract infectious disease 00546220 N39.0 Benign pro static hyperplasia with outflow obstruction 756456247 N40.1 [id number] AUGUSTO MANZO MD [facility] [address] [place] [address] 8 12/23/2020 12:46:21 12/24/2020 15:42:03 Urinary tract infectious disease 08799217 N39.0 Benign pro static hyperplasia with outflow obstruction 953882321 N40.1 [id number] AUGUSTO MANZO MD [facility] [address],[place] [address] 12/08/2021 15:01:54 12/14/2021 06:46:47 Urinary tract infectious disease 15852721 N39.0 Benign pro static hyperplasia with outflow obstruction 382564717 N40.1 [id number] AUGUSTO MANZO MD [facility] [address] [address] 01/19/2022 14:17:16 01/23/2022 08:10:02 Benign prostatic hyperplasia with outflow obstruction 687868800 N40.1 Urinary tr act infectious disease 63116911 N39.0 Urinary bladder stone 70 302851 N21.0 Health Concerns Section Related Observation LastModified by Organization Detai ls LastModified Time None Recorded Concern Status LastModified by Organization Details LastModified Time None Recorded Advance Directives Directive None Recorded Payers Insurance Date Sequence Insurance Name Policy Number Policy Meier Covered Member ID Meier Member ID Guarantor Name 01/16/2022 2 [place] [employer] [place]/TRADITIO NAL Federico Hoyos [id number] Federico Ruffin Romain 01/16/2022 1 [place] Federicomami Sanchezee [id number] Federico Ruffin Romain 07/14/2017 2 [place] [place]TRADIT[place] NAL Federico Hoyos [id number] Federico Hoyos Notes Date Note Type Note [...] He continues on tamsulosin. AUGUSTO MANZO MD [address] [place] [address], [address], [facility] 09/15/2018 21:19:56 12/02/2019 text/html 79-year-old male in the office for follow-up evaluation of benign prostatic hyperplasia with lower urinary symptoms. He has history of balanitis also. He voids every 2 hours with nocturia 0 to once nightly. No hematuria or dysuria. He takes tamsulosin daily. AUGUSTO MANZO MD [address] [place] [address], [phone] 12/02/2019 11:25:09 12/23/2020 text/html 80-year-old male in the office for annual follow-up evaluation of benign prostatic hyperplasia with lower urinary symptoms. He voids every 2 hours with nocturia once nightly. No gross hematuria or dysuria. He continues taking tamsulosin. AUGUSTO MANZO MD [address] [place] [address], [phone] 12/28/2020 08:49:26 12/08/2021 text/html 81-year-old male in the office for follow-up evaluation of benign prostatic hyperplasia with lower urinary symptoms. He voids every 2 hours with nocturia once nightly. He reports decreased force of stream. No hematuria or dysuria. He takes tamsulosin but has not noted significant improvement with 0.4 mg dosing. AUGUSTO MANZO MD [address] [place] [address], [phone], [facility] 12/09/2021 08:16:26 01/19/2022 text/html 81-year-old male in the office for follow-up evaluation of benign prostatic hyperplasia with lower urinary symptoms. He takes double dose tamsulosin. He voids every 2 hours with nocturia 1 or 2 times nightly. Force of stream is variable. No hematuria or dysuria. He reports recent diagnosis of kidney and bladder stones. AUGUSTO MANZO MD [address] [place] [address], [phone], [facility] 01/22/2022 14:35:22
--- OUTSIDE RECORDS SUMMARY | 2025-07-14 17:57 | XMS_ITS | Encounter Summary ---
Author Organization Healthcare Address [address] [place] [address] Care Team Providers Care Room Service Supervisor Name Role Phone Tushar Barba MD Primary Care Provider [phone] Encounter Details Date Type Department Care Team (Late st Contact Info) Description 12/03/2023 Orders Only External Location [address] [place] [address] Rosa Maria Kemp PA [address] [place] [id number] Social History Tobacco Use Types Packs/Day [...] Description 07/17/2025 12:00 PM EST Office Visit [facility] [address] [place] [address] Brandon Lilly MD [address] [place] [address] documented as of this encounter Procedures Procedure Name Priority Date/Time Associated Diagnosis Comments CT MSK OUTSIDE IMAGES 12/03/2023 12:05 AM EDT documented in this encounter Results * CT MSK OUTSIDE IMAGES (12/03/2023 12:05 AM EDT) Anatomical Region Laterality Modality Computed Tomogra phy 12/03/2023 12:0 5 AM EDT us Rosa Maria HERNANDEZ IMG CT PROCEDURES Final Resu lt documented in this encounter Visit Diagnoses Not on filedocumented in this encounter Additional Health Concerns Infection Onset Date Last Indicated Resolved Time C. difficile Rule-Out 12/23/2023 12/23/20232023 11:09 AM EDT Gastrointestinal Rule-Out 12/23/2023 12/23/2023 8:59 PM EDT documented as of this encounter Care Teams Room Service Supervisor Relationship Specialty Start Date End Date Tushar Barba MD [address] [place] [address] PCP - General Family Medicine 11/21/23 documented as of this encounter
--- OUTSIDE RECORDS SUMMARY | 2025-07-14 17:57 | XMS_ITS | Clinical Summary ---
[facility] [address] [place] [address] Care Team Providers Care Bone Puller Name Role Phone Provider, No Known Primary Care Provider Unavail able Immunizations Immunization Administration Dates Next Due Fluzone High-Dose 65+YRS 04/17/2018 Social History Tobacco Use Types Packs/Day Years Used Date Smoking Tobacco: Never Assessed Abuse Screen Answer Date Recorded Unsafe at Home or Work/School Not on file Feels Threatened by Someone? Not on file 06/2023 Does Anyone Keep You from Co ntacting Others or Doint Things Outside the Home? Not on file 05/10/2023 Physical Sign of Abuse Present Not on file 1 Housing Stability Answer Date Recorded Current Living Arrangements Not on file 04/29 Potentially Unsafe Housing Conditions Not on yasmine e 05/10/2023 Family and Community Support Answer Ramirez e Recorded Help with Day-to-Day Activities Not on file 05/10/2023 Lonely or Isolated Not on file 05/10/2023 Employment Answer Date Recorded Do you want help finding or keeping work or a guillermo b? Not on file 05/10/2023 Disabilities Answer Date Recorded Concentrating, Remembering, or Making Decisions Difficulty Not on file 05/10/2023 Doing Errands Independently Difficulty Not on fi le 05/10/2023 Education Answer Date Recorded Help with school or training? Not on file Preferred Language Not on file 05/10/2023 Sex and Gender Information Value Date Recorded Sex Assigned at Not on file Legal Sex Male 11:43 AM EDT Gender Identity Not on file Sexual Orientation Not on file Plan of Treatment Health Maintenance Due Date Last Done Comments TDAP/TD VACCINES (1 - Tdap) 1961 COLOGUARD 1987 COLON CANCER SCREENING 5 YEAR SIGMOIDOSCOPY 1987 COLONOSCOPY 1987 [address] CANCER SCREENING 1987 CT COLONOGRAPHY 1987 FECAL OCCULT BLOOD TEST 1987 FIT Testing (1 year) 1987 Pneumococcal Vaccine 50+ (1 of 1 - PCV) 1992 ZOSTER VACCINE (1 of 2) 1992 RSV Vaccine - Adults (1 - 1-dose 75+ series) 8 ANNUAL PHYSICAL 04/17/2018 INFLUENZA VACCINE 02/27/2025 04/17/2018 COVID-19 Vaccine (2023- season) 2025 Insurance MEDICARE A & B Care Teams Bone Puller Relationship Specialty Start Date End [place], [place] [address] PCP - General 04/17/18
--- OUTSIDE RECORDS SUMMARY | 2025-07-14 17:57 | XMS_ITS | Clinical Summary ---
Author Organization [employer] ([place], [place], [place], [place], [place]) Address [address] [place] [address] Care Team Providers Care Specialty Manufacturing Supervisor Name Role Phone Tushar Barba MD Primary Care Provider [phone] Prosper Macdonald MD Unavailable Allergies No known [...] Date Diaz rded Speak language other than Pakistani at home Not on file 08/10/2023 Want [...] or (1 - 1-dose 75+ series) 2017 Falls Risk Screening 07/30/2024 Tobacco Cessation Counseling and Screening (12+) 11/06/2024 11/07/2023 COVID-19 VACCINE (2023- season) 2025 Influenza Vaccine (#1) 2025 04/17/2018, 2017 Insurance MEDICARE PART A B MEDICAID OF [place] Care Teams Specialty Manufacturing Supervisor Relationship Specialty Start Date End Date Tushar Barba MD [address] [place] [address] PCP - General Family Medicine 10/11/23 Prosper Macdonald MD [address] [place] [address] Consulting Physician Urology 10/23/23
[2025-07-14 18:37] LABS: Microscopic, Urine URINE MICROSCOPIC (MICROSCOPIC)
[2025-07-14 18:49] LABS: Hematocrit 38.4 % (42.0-52.0); Hemoglobin 12.4 g/dL (14.1-18.0); Immature Granulocytes % 0.2 %; Mean Corpuscular HGB Conc 32.3 g/dL (31.8-35.4); Mean Corpuscular Hemoglobin 29.2 pg (27.0-31.2); Mean Corpuscular Volume 90.4 fl (80-94); Nucleated Red Blood Cells % 0 %; Platelet Count 158 K/mm3 (142-424); Red Blood Count 4.25 M/mm3 (4.60-6.20); Red Cell Distribution Width-SD 46.9 fL; White Blood Count 8.0 K/mm3 (4.8-10.8)
[2025-07-14 19:22] LABS: Albumin Level 4.3 g/dl (3.5-5.0); Anion Gap 14.1 mEq/L (5-15); Blood Urea Nitrogen 27 mg/dl (9-20); Calcium 9.6 mg/dl (8.4-10.2); Carbon Dioxide 26 mmol/L (22.0-30.0); Chloride 103 mmol/L (98-107); Creatinine,Serum 1.90 mg/dl (0.66-1.25); Estimated Glomerular Filt Rate 34 ml/min (>60); GFR (African American) 41 ML/MIN (>60); Glucose 108 mg/dl (74-100); Phosphorous 3.8 mg/dl (2.5-4.5); Potassium 4.1 mmoL/L (3.5-5.1); Sodium 139 mmol/L (136-145)
[2025-07-14 19:35] LABS: Color,Urine YELLOW (Yellow); Glucose,Urine (UA) Negative (Negative); Ketones,Urine TRACE (Negative); Leukocyte Esterase,Urine 1+ (Negative); PH,Urine 5.0 (5.0-8.5); Protein,Urine 1+ (Negative); Specific Gravity, Urine 1.025 (1.005-1.030); Urobilinogen,Urine 0.2 EU/dl (0.2)
[2025-07-14 19:38] LABS: Bilirubin,Urine Negative (Negative)
[2025-07-14 20:24] LABS: Bacteria,Urine 4+ /lpf; Hyaline Casts,Urine Occasional #/lpf (0); Mucus,Urine 3+ /lpf; RBC,Urine TNTC #/hpf (0-3); WBC,Urine TNTC #/hpf (0-3)
== END 2025-07-14 23:59 | disposition home or self-care (01) ==
LOC: LAB 17:55
PROVIDERS: PCP Emergency Medicine; Visit Provider Student in an Organized Health Care Education/Training Program
DX: I12.9 Hypertensive chronic kidney disease with stage 1 through stage 4 chronic kidney disease, or unspecified chronic kidney disease (principal); I77.82 Antineutrophilic cytoplasmic antibody [ANCA] vasculitis; N18.9 Chronic kidney disease, unspecified
CPT/HCPCS: 36415; 80069; 81001; 82570; 84156; 85025; 86036; 87077; 87086